=== PATIENT | male | born 1945 | race Caucasian/White ===

== ENCOUNTER → 2019-11-17 | Outpatient (CLI) | payer MEDICARE, OTHER ==
--- NOTE | 2019-11-17 11:56 | XR ---
EXAMINATION TYPE: XR wrist complete RT DATE OF EXAM: 11/17/2019 COMPARISON: NONE HISTORY: 74-year-old male right wrist injury, pain to the distal ulna TECHNIQUE: 3 views FINDINGS: Positive ulnar variance. The TFC calcifications are present. Small densities interposed at the ulnoca rpal joint measuring up to 3 mm. Mild overlying soft tissue swelling. No acute fracture or dislocatio n. IMPRESSION: 1. Some soft tissue swelling overlying the ulnar styloid process. This is nonspecific but could refle ct injury to the underlying TFCC, ECU, or its subsheath. 2. Tiny corticated ossific densities adjacent to the ulnar styloid process measuring up to 3 mm sugge sting sequela of remote injuries. 3. TFC calcification can be seen with CPPD. 4. Positive ulnar variance can predispose the patient to ulnar impaction syndrome though no suspiciou s bony changes are seen within the lunate at this time.
== END | disposition home or self-care (01) ==
LOC: RADXRYALE 11:13
PROVIDERS: ATTEND Physician Assistant
DX: S69.91XA Unspecified injury of right wrist, hand and finger(s), initial encounter (principal); M79.89 Other specified soft tissue disorders

== ENCOUNTER → 2019-12-22 | Outpatient (CLI) | payer MEDICARE, OTHER ==
--- NOTE | 2019-12-22 10:20 | US ---
EXAMINATION TYPE: US duplex aorta DATE OF EXAM: 12/22/2019 COMPARISON: NONE CLINICAL HISTORY: Z13.6 Screening for cardiovascular AAA. AAA EXAM MEASUREMENTS: Abdominal Aorta: Proximal: 1.7 x 1.7 cm Mid: 1.9 x 1.7 cm Distal: 1.3 x 1.3 cm Bifurcation: Not visualized due to bowel gas. IMPRESSION: Aortoiliac bifurcation is not visualized due to overlying bowel gas. Within the remaining portions of the abdominal aorta no sonographic evidence of aneurysm is seen.
== END | disposition home or self-care (01) ==
LOC: RADUSWWP 09:35
PROVIDERS: ATTEND Family Medicine
DX: Z13.6 Encounter for screening for cardiovascular disorders (principal)
CPT/HCPCS: 93979

== ENCOUNTER → 2019-12-22 | Outpatient (CLI) | payer MEDICARE, OTHER | END | disposition home or self-care (01) | LOC: LABWHC1 09:33 | PROVIDERS: ATTEND Internal Medicine Gastroenterology | DX: Z11.59 Encounter for screening for other viral diseases (principal) ==

== ENCOUNTER → 2019-12-25 | Day surgery (SDC) | payer MEDICARE, OTHER ==
[2019-12-24 11:37] VITALS: BMI 20.8
[~2019-12-25] MED LIST: LACTATED RINGERS 1,000 ML IV ONE; LACTATED RINGERS 1,000 ML IV SCH; LIDOCAINE 1% (10MG/ML) FOR IV START INTRADERMA ONE; PROPOFOL 10 MG/ML 20 ML VIAL IV ONE
[2019-12-25 08:09] VITALS: TEMP 97.8
--- NOTE | 2019-12-25 08:47 | P.PCN ---
Date of Procedure: 12/25/19 Procedure(s) Performed: BRIEF HISTORY: Patient is a 74-year-old pleasant white male scheduled for an elective colonoscopy as a part of evaluation of prior history of colon polyps. Last colonoscopy was 5 years ago. PROCEDURE PERFORMED: Colonoscopy with snare polypectomy. PREOPERATIVE DIAGNOSIS: History of colon polyps. IV sedation per Anesthesia. PROCEDURE: After informed consent was obtained, the patient, was brought into the endoscopy unit. IV sedation was administered by Anesthesia under continuous monitoring. Digital rectal examination was normal. Initially the Olympus CF-160 flexible video colonoscope was then inserted in the rectum, gradually advanced into the cecum without any difficulty. Careful examination was performed as the scope was gradually being withdrawn. Ileocecal valve and the appendiceal orifice were visualized and appeared normal. Prep was excellent. Mucosa of the cecum, appeared normal. In the ascending colon there was a 5 mm sessile polyp removed by snare polypectomy. In the transverse colon there was a 7 mm sessile polyp removed by snare polypectomy. In the descending colon there was a 1 cm broad- based polyp and a 5 mm sessile polyp removed by snare polypectomy. In the sigmoid colon there were 2 polyps measuring between 4-5 mm in size both of which were removed by snare polypectomy. Rest of the ascending colon, transverse colon, descending colon, sigmoid colon, and rectum appeared normal. Scattered left-sided diverticulosis seen. Retroflexion was performed in the rectum and no lesions were seen. The patient tolerated the procedure well. IMPRESSION: 5 mm ascending colon polyp status post snare polypectomy 7 mm sessile transverse colon polyp status post polypectomy 1 cm broad-based descending colon polyp status post polypectomy 5 mm 2 sigmoid colon polyps status post polypectomy Scattered sigmoid diverticula RECOMMENDATIONS: Findings of this examination were discussed with the patient as well as his family. He was advised to have a follow with the biopsy results and have a repeat surveillance colonoscopy in 3 years
[2019-12-25 08:50] VITALS: RESP 16
[2019-12-25 09:05] VITALS: BP 127/62; PULSE 62
== END ==
LOC: ORWHC2ENDO 07:50
PROVIDERS: ATTEND Internal Medicine Gastroenterology
DX: Z12.11 Encounter for screening for malignant neoplasm of colon (principal); D12.2 Benign neoplasm of ascending colon; D12.4 Benign neoplasm of descending colon; D12.5 Benign neoplasm of sigmoid colon; K57.30 Diverticulosis of large intestine without perforation or abscess without bleeding; I10 Essential (primary) hypertension; E78.5 Hyperlipidemia, unspecified; J44.9 Chronic obstructive pulmonary disease, unspecified; G25.81 Restless legs syndrome; F17.210 Nicotine dependence, cigarettes, uncomplicated; Z79.82 Long term (current) use of aspirin; Z79.899 Other long term (current) drug therapy; Z86.010 Personal history of colon polyps
CPT/HCPCS: 45385; J2704; 88305

== ENCOUNTER → 2020-05-19 | Outpatient (CLI) | payer MEDICARE, OTHER ==
--- NOTE | 2020-05-19 16:03 | US ---
EXAMINATION TYPE: US carotid duplex BILAT DATE OF EXAM: 05/19/2020 COMPARISON: NONE CLINICAL HISTORY: I65.22 Occlusion and stenosis of left carotid artery. Pt states possible bruit left side EXAM MEASUREMENTS: RIGHT: Peak Systolic Velocity (PSV) cm/sec ----- Right CCA: 57.2 ----- Right ICA: 83.1 ----- Right ECA: 109.5 ICA/CCA ratio: 1.5 RIGHT: End Diastole cm/sec ----- Right CCA: 0.0 ----- Right ICA: 10.6 ----- Right ECA: 0.0 LEFT: Peak Systolic Velocity (PSV) cm/sec ----- Left CCA: 86.4 ----- Left ICA: 280.0 ----- Left ECA: 157.6 ICA/CCA ratio: 3.2 LEFT: End Diastole cm/sec ----- Left CCA: 17.1 ----- Left ICA: 69.8 ----- Left ECA: 15.5 VERTEBRALS (direction of flow): Right Vertebral: Antegrade Left Vertebral: Antegrade Rhythm: Normal Significant atherosclerotic disease bilaterally, left greater than right. IMPRESSION: 1. Peak systolic velocity on the left suggests greater than 70% stenosis of the proximal left interna l carotid artery. 2. No hemodynamically significant stenosis on the right. Criteria for Assigning % of Stenosis / Diameter reduction (Estimation based on the indirect measurements of the internal carotid artery velocities (ICA PSV). 1. Normal (no stenosis)=ICA PSV < 125 cm/s: ratio < 2.0: ICA EDV<40 cm/s. 2. Less than 50% stenosis=ICA PSV < 125 cm/s: ratio < 2.0: ICA EDV<40 cm/s. 3. 50 to 69% stenosis=ICA PSV of 125 to 230 cm/s: ration 2.0 ? 4.0: ICA EDV 40-100 cm/s. 4. Greater than 70% stenosis to near occlusion= ICA PSV > 230 cm/s: ratio > 4.0: ICA EDV > 100 cm/s. 5. Near occlusion= ICA PSV velocities may be low or undetectable: variable ratio and ICA EDV. 6. Total occlusion=unable to detect flow.
== END | disposition home or self-care (01) ==
LOC: RADUSWWP 10:11
PROVIDERS: ATTEND Family Medicine
DX: I77.89 Other specified disorders of arteries and arterioles (principal)
CPT/HCPCS: 93880

== ENCOUNTER → 2020-11-18 | Outpatient (CLI) | payer MEDICARE, OTHER | END | disposition home or self-care (01) | LOC: LABWHC1 15:32 | PROVIDERS: ATTEND Internal Medicine Critical Care Medicine | DX: Z20.822 Contact with and (suspected) exposure to COVID-19 (principal); J18.9 Pneumonia, unspecified organism | CPT/HCPCS: U0003; C9803; U0005 ==

== ENCOUNTER → 2020-11-25 | Outpatient (CLI) | payer MEDICARE, OTHER ==
[2020-11-25 08:07] LABS: African American GFR (CKD) >90 (>60 ml/min/1.73 sqM); Blood Urea Nitrogen 19 mg/dL (9-20); Non-African American GFR(CKD) >90 (>60 ml/min/1.73 sqM)
--- NOTE | 2020-11-25 08:30 | CT ---
EXAMINATION TYPE: CT chest w con DATE OF EXAM: 11/25/2020 COMPARISON: X-rays November 17, 2020 and older study 2017 HISTORY: Pneumonia, unspecified organism CT DLP: 269.7 mGycm. Automated Exposure Control for Dose Reduction was Utilized. TECHNIQUE: CT scan of the thorax is performed following with IV Contrast, patient injected with 100 ml mL of Isovue 300. FINDINGS: LUNGS: Moderate to advanced underlying emphysematous change. Tiny left greater than right pleural eff usions Persistent right infrahilar groundglass opacities and reticulation with areas of consolidation . Persistent left basilar groundglass opacities and reticulation with consolidation in the lateral le ft lung base. Additional multifocal areas of peripheral atelectasis and/or consolidation. Increased A P diameter of the trachea consistent with underlying COPD. MEDIASTINUM: There are no greater than 1 cm hilar or mediastinal lymph nodes. No cardiomegaly or pe ricardial effusion is seen. There is three-vessel severe coronary artery calcification . Moderate mix ed plaque in the thoracic aorta extends into branch vessels. OTHER: No additional significant abnormality is seen. IMPRESSION: Moderate to advanced emphysematous change with multifocal areas of acute infiltrate and/o r edema bilaterally in the mid to lower lungs. Underlying nodules cannot entirely excluded. No obviou s concerning mass or adenopathy noted. Progress study advised.
== END | disposition home or self-care (01) ==
LOC: RADCTMAIN 07:09
PROVIDERS: ATTEND Internal Medicine Critical Care Medicine
DX: J18.9 Pneumonia, unspecified organism (principal)
CPT/HCPCS: 82565; 84520; 71260; 36415; Q9967

== ENCOUNTER 2020-12-14 11:19 | Inpatient (IN) | payer MEDICARE, OTHER ==
[2020-12-09 13:28] VITALS: BMI 18.6
[~2020-12-14 11:19] MED LIST changes: +ALBUTEROL NEB (CONC) 2.5 MG/0.5 ML INHALATION ONE; -LACTATED RINGERS 1,000 ML IV ONE; -LIDOCAINE 1% (10MG/ML) FOR IV START INTRADERMA ONE; +LIDOCAINE 1% (10MG/ML) FOR IV START INTRADERMA PRN; +LIDOCAINE 2% (PF) 20 MG/ML 5 ML VIAL INHALATION ONE; +LIDOCAINE VISCOUS 300 MG/15 ML CUP MUCOUS MEM ONE; -PROPOFOL 10 MG/ML 20 ML VIAL IV ONE
[2020-12-14] MEDS ORDERED: LIDOCAINE 1% (10MG/ML) FOR IV START INTRADERMA ONE (11:58)
[2020-12-14] MEDS ORDERED: ONDANSETRON 4 MG/2 ML VIAL ONE (12:00)
[2020-12-14] MEDS ORDERED: ONDANSETRON 4 MG/2 ML VIAL IVP ONE (12:01)
[2020-12-14 12:02] LABS: Glucose,Whole Blood 93 mg/dL (75-99)
[2020-12-14] MEDS ORDERED: ROCURONIUM 10 MG/ML (5 ML VIAL) IV ONE (12:05)
[2020-12-14] MEDS ORDERED: PHENYLEPHRINE-0.9% NACL SYG 1,000 MCG/10 ML SYRINGE ONE (12:05)
[2020-12-14] MEDS ORDERED: LIDOCAINE 1% INJ 10MG/ML (20 ML MDV) ONE (12:05)
[2020-12-14] MEDS ORDERED: SUCCINYLCHOLINE CHLORIDE 100 MG/5 ML SYR IV ONE (12:05)
[2020-12-14] MEDS ORDERED: PROPOFOL 10 MG/ML 20 ML VIAL IV ONE (12:05)
[2020-12-14] MEDS ORDERED: fentaNYL (PF) 50 MCG/ML 2 ML AMP ONE (12:05)
[2020-12-14] MEDS ORDERED: ALBUTEROL HFA INHALER INHALATION ONE (12:05)
--- NOTE | 2020-12-14 12:44 | P.PCN ---
Date of Procedure: 12/14/20 Preoperative Diagnosis: 1 COPD 2 bilateral consolidation most on the left lower lobe, rule out malignancy, rule out infection Postoperative Diagnosis: 1 COPD 2 bilateral consolidation most on the left lower lobe, rule out malignancy, rule out infection Procedure(s) Performed: Flexible bronchoscopy Airway inspection Transbronchial biopsy of the left lower lobe Bronchioloalveolar lavage of the left lower lobe Anesthesia: ZEINAB Surgeon: Eldon Giles Watershed Coordinator #1: Eryn Mays Estimated Blood Loss (ml): 0 Pathology: other Condition: stable Disposition: same day Operative Findings: This is a flexible bronchoscopy that was done in the endoscopy suite. The procedure was done under general anesthesia. The patient was induced and then placed on a mechanical ventilator. The patient was intubated and the intubation process was done by PRODUCT SAFETY COORDINATOR. After achieving adequate anesthesia, a regular that there was essentially orotracheal tube and following that the flexible bronchoscope was passed with orotracheal tube and an airway inspection was done. The tip of the ET tube was seen around 3 cm above the nehemiah. The distal trachea, main nehemiah and bilateral mainstem bronchi were patent and within normal limits. Examination of the right side included the right upper lobe bronchus that was trifurcated and later on the bronchoscope was moved to the bronchus intermedius, right middle lobe and right lower lobe and the various 10 segments of the right lung were inspected and there were within normal limits without any endobronchial lesions or tumors or mucous retention. Following that, the bronchoscope was moved to the left and examination of the left mainstem bronchus, left upper lobe bronchus and left lower lobe bronchus along with various 8 segments with visualized and the airways are patent within normal limits. Yet again, there was no evidence of any endobronchial tumors or lesions or mucous or purulent secretions. At this point, using fluoroscopic guidance, transbronchial biopsies of the left lower lobe was done. The area that was quite consolidated on the CAT scan was biopsied. The area was identified on the fluoroscopy and transbronchial biopsies utilizing the anterior and the lateral segment of the left lower lobe was done successfully obtaining around 6-7 passes without any evidence of endobronchial disease. Following that , a bronchioloalveolar lavage of the left lower lobe with him. Total of 120 cc of fluid was infused around 20 mL of bloody aspirate was suctioned back. No bedside complications. The patient remains hemodynamically stable. Patient remained having adequate oxygenation with a pulse ox of 100% throughout the procedure. The patient will be extubated and following that the patient be chest recovery in stable condition. Chest x-rays to follow rule out underlying pneumothorax. If things remain stable, the patient will be discharged home today the later stage. We'll continue to follow.
[2020-12-14] MEDS ORDERED: ACETAMINOPHEN TAB 325 MG TAB PO PRN (13:27)
[2020-12-14] MEDS ORDERED: NALOXONE 0.4 MG/ML 1 ML VIAL IV PRN (13:27)
[2020-12-14] MEDS ORDERED: IPRATROPIUM-ALBUTEROL 3 ML NEB INHALATION PRN (13:27)
[2020-12-14] MEDS ORDERED: propofoL 100 ML IV ONE (13:29)
--- NOTE | 2020-12-14 13:32 | XR ---
EXAMINATION TYPE: XR chest 1V DATE OF EXAM: 12/14/2020 COMPARISON: Chest x-ray dated 11/17/2020 HISTORY: Status post bronchoscopy, intubated TECHNIQUE: Single frontal view of the chest is obtained. FINDINGS: There has been interval placement of an endotracheal tube which is overlying the tracheal air column, there is a patient rotation, change in course of the trachea distal to the tube, correlat e for breath sounds. There is no evident pneumothorax. Bilateral airspace disease is somewhat more co nfluent than on prior exam. Prominence of pulmonary artery could be indicative of pulmonary artery hy pertension. Aorta is dense. Heart is within normal limits for size. IMPRESSION: Endotracheal tube as described. Correlate for pneumonia, edema. Report relayed to Tawana celis by telephone at the time of interpretation
[2020-12-14] MEDS ORDERED: NOREPINEPHRINE 4 MG in SODIUM CHLORIDE 0.9% 250 ML IV SCH (14:00)
[2020-12-14] MEDS: methylPREDNISolone SOD SUCCI 125 MG/2 ML VIAL IV SCH ×3 (14:03→23:58)
--- NOTE | 2020-12-14 14:05 | XR ---
EXAMINATION TYPE: XR chest 1V portable DATE OF EXAM: 12/14/2020 Comparison: 12/14/2020 Clinical History: 75-year-old male Tube placement Findings: ET tube is satisfactory. NG tube courses below the diaphragm. Heart borderline in size. Patchy and co nfluent bilateral airspace opacities, greatest in the mid and lower lung shows no significant change. Hyperinflation. Impression: COPD with superimposed bilateral airspace disease. Findings could reflect multifocal pneumonia or pul monary edema. No significant change.
--- NOTE | 2020-12-14 14:09 | P.CNPUL ---
History of Present Illness Consult date: 12/14/20 Reason for consult: dyspnea History of present illness: 75-year-old male patient with known history of advanced lung disease, chronic smoking [id number] smoking history. The patient has had significant limitation of exercise capacity over the years and the patient carries an FEV1 of 34% of predicted at baseline consistent with severe COPD. The patient has been maintained on a combination ofwixela and incruse an outpatient basis. He is post COVID-19 vaccination. He came to my office on 11/30/2020 feeling worsening shortness of breath. The patient was having worsening dyspnea and worsening limitation excess capacity with some dry cough and there was no significant sputum production. He was on oxygen 2 L per minute nasal cannula. Chest x-ray shows consolidation of the lungs mainly involving the lung bases more so on the left. He had no pleurisy. No hemoptysis. No significant sputum production. His room air pulse ox was as low as 80%. He was offered oxygen at 2 L per minute nasal cannula. He was given a prednisone burst taper no patient bases which improved his condition. Nevertheless, the symptoms recurred after the completed a course of steroids. Based on that, a CAT scan of the chest was done and the CAT scan showed moderate to advanced emphysematous changes bilaterally with areas of multifocal infiltrates in the mid and lower lung perez worse on the left. There was no obvious concerning mass or adenopathy seen. Based on these results, I recommended a bronchoscopy. I was quite hasn't initiated with a transbronchial biopsy based on the fact that the patient has advanced lung disease and he may not even tolerate the procedure. However, at a later stage, I decided to proceed with a biopsy also in addition to a bronchial lavage as there was a increased concern of malignancy including the possibility of bronchial alveolar carcinoma of the lungs. The patient came in on outpatient basis to undergo the bronchoscopy and a transbronchial biopsy and a lavage of the left lower lobe. He was already aware of the risks and benefits of the procedure. He was also added there is a possibility that the patient may end up having a pneumothorax or respiratory failure following the procedure. I performed the procedure successfully. Biopsies were obtained. Lavage of the left lower lobe was obtained. The patient was extubated. Within 20-25 minutes, the patient became progressively more short of breath. He became hypoxic. He had to be intubated in the intubation process was done by DIRECTOR EXPORT. Post intubation, the patient was brought in to the intensive care unit for further monitoring. I've already updated the regarding his condition. For now, the patient is intubated on mechanical ventilator. His assist-control mode at the rate of 26 with a tidal volume of 400 and FiO2 of 1% with a PEEP of 5. His peak airwat pressure is around 27. He was actively bronchospastic and wheezy post extubation, based on that the patient was given albuterol through his orotracheal tube and he was also given a dose of Solu-Medrol. Currently is in the intensive care unit. Chest x-ray and blood gases are still pending. He typically runs a lower blood pressure. His most recent blood pressure is with a mean of 50. For that reason, the patient is going to be receiving a bolus of fluid and pressors if needed. Anne catheter was inserted. The patient is currently off sedation with propofol wh ich is running at 50 mcg/kg per minute. He is well sedated and is quite successful the mechanical ventilator. Review of Systems ROS unobtainable: due to endotracheal tube Past Medical History Past Medical History: COPD, GERD/Reflux, Hyperlipidemia, Hypertension Additional Past Medical History / Comment(s): chronic hypoxic respiratory failure on oxygen 2 L NC, currently having episodes of low b/p History of Any Multi-Drug Resistant Organisms: None Reported Past Surgical History: Appendectomy Past Anesthesia/Blood Transfusion Reactions: No Reported Reaction Smoking Status: Current every day smoker - Past Family History Mother Family Medical History: No Reported History Father Additional Family Medical History / Comment(s): "black lung from working in a coal mine" Medications and Allergies Home Medications Medication Instructions Recorded Confirmed Type Albuterol Nebulized [Ventolin 2.5 mg INHALATION Q4H PRN 12/24/19 12/14/20 History Nebulized] Albuterol Sulfate [Proair Hfa] 1 - 2 puff INHALATION Q6HR PRN 12/24/19 12/14/20 History Aspirin 81 mg PO DAILY 12/24/19 12/14/20 History Carbidopa-Levodopa 25-100 mg 1 tab PO HS 12/24/19 12/14/20 History [Sinemet 25-100 mg] Metoprolol Tartrate [Lopressor] 100 mg PO BID 12/24/19 12/14/20 History Pravastatin Sodium [Pravachol] 10 mg PO DAILY 12/24/19 12/14/20 History Umeclidinium [place] [Incruse 1 puff INHALATION DAILY 12/24/19 12/14/20 History Ellipta] amLODIPine BESYLATE 10 mg PO QAM 12/24/19 12/14/20 History hydroCHLOROthiazide 25 mg PO QAM 12/24/19 12/14/20 History Ferrous Sulfate [Feosol] 325 mg PO DAILY 12/09/20 12/14/20 History Fluticasone/Salmeterol [Advair 1 inhalation PO BID 12/09/20 12/14/20 History 500-50 Diskus] Vitamin D3 (Unk Dose) 1 tab PO DAILY 12/09/20 12/14/20 History predniSONE 10 mg PO DAILY 12/09/20 12/14/20 History Allergies Allergy/AdvReac Type Severity Reaction Status Date / Time No Known Allergies Allergy Verified 12/14/20 11:39 Physical Exam Vitals: Vital Signs Temp Pulse Resp BP Pulse Ox 12/14/20 12:02 97.2 F L 66 16 130/71 100 Intake and Output 12/13/20 12/14/20 12/14/20 22:59 06:59 14:59 Intake Total 700 Balance 700 Intake: IV 700 Other: Weight 58.3 kg General Appearance synchronous the mechanical ventilator and currently the patient is on a assist-control mode at the rate of 26 with a tidal volume of 350 and FiO2 of 100% and a PEEP of 8. Head exam was generally normal. There was no scleral icterus or corneal arcus. Mucous membranes were moist. HEENT no pursed lip breathing, no jugular venous distention, no mucous membrane cyanosis, no perioral cyanosis, mallampati classification: class 1 Chest no retractions, no sternocleidomastoid muscle contractions, no supraclavicular retractions, no intercostal retractions, no decreased air movement, no rhonchi, no hyperinflation, (normal) adventitious sounds: rales / crackles: bilaterally: midlung perez, barrel chest, prolonged expiratory wheezing, decreased air movement Heart no right ventricular heave, no distant heart sounds, no s3 gallop, (normal) jugular vein: jugular venous distention: by 0cm, (normal) jugular vein GI bowel sounds: hyperactive (borborygmi), bowel sounds: diminished or absent Extremities no cyanosis, no clubbing, no edema Neurologic , the patient is sedated and the patient is calm and comfortable, currently on propofol. Results - Diagnostic Findings Chest x-ray: image reviewed Assessment and Plan Plan: 1 acute hypoxic respiratory failure, post bronchoscopy. Noted the procedure was done successfully. Please refer to the details of the procedure as stated in my operative note. The patient follows procedure, became progressively more short of breath. He had to be intubated and placed on mechanical ventilator and following that the patient got transferred to the intensive care unit for further care. 2 Bilateral pneumonia/consolidation The patient has bilateral patchy infiltrates and extensive consolidation of the left lower lobe with areas of nodularity. Based on the CAT scan findings, infections need to be considered. Possibility of bronchioalveolar adenocarcinoma cannot be completely excluded. COVID-19 testing was negative. Meanwhile, possibility of a bacterial pneumonia is felt to be less likely as the patient is not looking toxic and is not having any acute decompensation of his respiratory status. He has no signs of fever or chills or sputum production and he doesn't present as a typical case of bacterial pneumonia. Atypical infection such as mycobacterial infections cannot be completely ruled out. Fungal infections are felt to be less likely. Other or chest infections are felt to be less likely. COVID-19 testing came back negative. Based on all this, I recommended bronchoscopy. The bronchioloalveolar lavage can be done safely. I performed also left lower lobe biopsy as I felt that this can be done safely without compromising his pulmonary status. The patient is a high risk of developing lung collapse or pneumothorax if the biopsy is that this will be needed establish final diagnosis which may potentially include the possibility of malignancy. 3 Chronic hypoxemic respiratory failure secondary to above. 4 severe chronic obstructive pulmonary disease Patient has moderate to severe COPD. He is maintained on a combination of Wixela and Incruse. The patient's FEV1 is down to 36% at baseline and 42% post bronchodilation. despite his smoking, the patient is not having any worsening shortness of breath. No major drop in his FEV1 today which is in order of 40%. Maintained on a prednisone of 10 mg. 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% and the patient is being monitored by the PCP and Dr Crum 7 hypertensive disorder, BP is under adequate control for now 8 hyperlipidemia ,ncurrently on pravastatin and occasionally he is experiencing cramps and charley horses Plan Continue ventilator support Establish an art line and obtain a blood gas Repeated chest x-ray showed no evidence of any pneumothorax and the tube was positioned appropriately. Orogastric tube was also inserted Start the patient on DuoNeb nebulized treatments around the clock IV Solu Medrol 60 mg every 6 hours Put the patient empiric antibiotic coverage with IV Zosyn Heparin subcu for DVT prophylaxis Give the patient bolus of 1 L of IV fluids normal saline Obtain echocardiogram Use pressors if needed in the form of norepinephrine infusion Sedation with propofol Daily chest x-rays We'll continue to follow. Family is aware of the condition. I have elected discussion with them and expanded on the situation. We'll continue to follow make further recommendations based on his progress. Time with Patient: Greater than 30
--- NOTE | 2020-12-14 14:21 | P.PCN ---
Date of Procedure: 12/14/20 Preoperative Diagnosis: acute respiratory failure, COPD exacerbation Postoperative Diagnosis: same Procedure(s) Performed: Central line and arterial line insertion Anesthesia: local Surgeon: Eldon iGles Pathology: other Condition: critical Disposition: ICU Operative Findings: Indication: Hemodynamic monitoring/Intravenous access. A time-out was completed verifying correct patient, procedure, site, positioning, and implant(s) or special equipment if applicable. The patient was placed in a dependent position appropriate for central line placement based on the vein to be cannulated. The patient s left groin was prepped and draped in sterile fashion. 1% Lidocaine was used to anesthetize the surrounding skin area. A triple lumen 9F Cordis catheter was introduced into the common femoral vein using Seldinger technique. The catheter was threaded smoothly over the guide wire and appropriate blood return was obtained. Each lumen of the catheter was evacuated of air and flushed with sterile saline. The catheter was then sutured in place to the skin and a sterile dressing applied. Perfusion to the extremity distal to the point of catheter insertion was checked and found to be adequate. The patient tolerated the procedure well and there were no complications. Indication: Hemodynamic monitoring. A time-out was completed verifying correct patient, procedure, site, positioning, and implant(s) or special equipment if applicable. Allens test was performed to ensure adequate perfusion. The patient s left wrist was prepped and draped in sterile fashion. 1% Lidocaine was used to anesthetize the area. An 18G Arrow arterial line was introduced into the [radial/femoral] artery. The catheter was threaded over the guide wire and the needle was removed with appropriate pulsatile blood return. Blood loss was minimal. The catheter was then sutured in place to the skin and a sterile dressing applied. Perfusion to the extremity distal to the point of catheter insertion was checked and found to be adequate. The patient tolerated the procedure well and there were no complications.
[2020-12-14] MEDS: NOREPINEPHRINE 8 MG in SODIUM CHLORIDE 0.9% 250 ML IV SCH (14:24)
[2020-12-14] MEDS ORDERED: SODIUM CHLORIDE 0.9% 1,000 ML IV ONE ×2 (14:29→17:10)
[2020-12-14 14:30] LABS: ABG Base Excess -2.5 mmol/L; ABG HCO3 25 mmol/L (21-25); ABG Oxygen Saturation 94.1 % (94-97); ABG PCO2 59 mmHg (35-45); ABG PH 7.23 (7.35-7.45); ABG PO2 84 mmHg (83-108); ABG TCO2 27 mmol/L (19-24); Allen Test Performed? Yes
[2020-12-14 14:45] LABS: Basophils % (A) 0 %; Eosinophils # (A) 0.4 k/uL (0-0.7); Eosinophils % (A) 4 %; HCT 35.6 % (39.0-53.0); HGB 12.2 gm/dL (13.0-17.5); Lymphocytes # (A) 0.4 k/uL (1.0-4.8); Lymphocytes % (A) 4 %; MCH 30.3 pg (25.0-35.0); MCHC 34.3 g/dL (31.0-37.0); MCV 88.3 fL (80.0-100.0); Mean Platelet Volume 6.4; Monocytes # (A) 0.3 k/uL (0-1.0); Monocytes % (A) 3 %; Neutrophils # (A) 8.9 k/uL (1.3-7.7); Neutrophils % (A) 88 %; Platelet Count 321 k/uL (150-450); RBC 4.03 m/uL (4.30-5.90); RDW 14.7 % (11.5-15.5); WBC 10.1 k/uL (3.8-10.6)
--- NOTE | 2020-12-14 14:51 | FL ---
EXAMINATION TYPE: FL bronchoscopy DATE OF EXAM: 12/14/2020 COMPARISON: CT chest 11/25/2020 HISTORY: Left lower lobe biopsy Fluoroscopy support supplied to the referring clinician. See dictated report from pulmonary service, 33 seconds fluoroscopy time, single intraoperative image documents the procedure
[2020-12-14 14:57] LABS: ALT 11 U/L (4-49); AST 16 U/L (17-59); African American GFR (CKD) >90 (>60 ml/min/1.73 sqM); Albumin 2.6 g/dL (3.5-5.0); Alkaline Phosphatase 44 U/L (38-126); Anion Gap 3 mmol/L; Blood Urea Nitrogen 18 mg/dL (9-20); Calcium 7.9 mg/dL (8.4-10.2); Carbon Dioxide 24 mmol/L (22-30); Chloride 109 mmol/L (98-107); Glucose 140 mg/dL (74-99); Magnesium 1.7 mg/dL (1.6-2.3); Non-African American GFR(CKD) >90 (>60 ml/min/1.73 sqM); Potassium 4.2 mmol/L (3.5-5.1); Sodium 136 mmol/L (137-145); Total Bilirubin <0.1 mg/dL (0.2-1.3); Total Protein 5.3 g/dL (6.3-8.2)
[2020-12-14] MEDS: SODIUM CHLORIDE 0.9% 1,000 ML IV SCH (15:01)
[2020-12-14] MEDS: PANTOPRAZOLE 40 MG/10 ML VIAL IV SCH (15:02)
[2020-12-14 15:25] LABS: Appearance,Urine Cloudy (Clear); Bacteria,Urine Rare /hpf; Bilirubin,Urine Negative (Negative); Blood,Urine Negative (Negative); Color,Urine Yellow; Glucose,Urine (UA) Negative (Negative); Hyaline Casts,Urine 181 /lpf (0-2); Hyphae Yeast, Urine Rare /hpf; Ketones,Urine Negative (Negative); Leukocyte Esterase,Urine Negative (Negative); Mucus,Urine Moderate /hpf; Nitrite,Urine Negative (Negative); Protein,Urine 2+ (Negative); RBC,Urine 7 /hpf (0-5); Specific Gravity,Urine 1.021 (1.001-1.035); Squamous Epithelial Cell,Urine 5 /hpf (0-4); WBC,Urine 9 /hpf (0-5)
[2020-12-14] MEDS: PIPERACILLIN-TAZOBACTAM 3.375 GM in SODIUM CHLORIDE 0.9% 100 ML IVPB SCH ×2 (16:30→23:58)
[2020-12-14] MEDS: HEPARIN SODIUM,PORCINE/PF 5,000 UNIT/0.5 ML SYRINGE SQ SCH ×2 (16:30→23:58)
[2020-12-14] MEDS: IPRATROPIUM-ALBUTEROL 3 ML NEB INHALATION SCH ×2 (17:06→22:02)
[2020-12-14 17:12] LABS: Glucose,Whole Blood 132 mg/dL (75-99)
[2020-12-14] MEDS ORDERED: INSULIN ASPART (NovoLOG) 100 UNIT/ML VIAL SQ SCH (17:30)
--- NOTE | 2020-12-14 19:02 | P.HPIM ---
History of Present Illness 75-year-old male was admitted after posterior bronc respiratory failure. 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 After partially successful bronchoscopy patient went into respiratory failure and was subsequently intubated patient is presently on 80% FiO2 tidal volume of 400 and PEEP of 5 to set up respiratory of 26 with mild acidosis with pH of 7.2. Patient is pres ently on norepinephrine as well as propofol on mechanical ventilator. Chest x- ray showing extensive bilateral lower lobe infiltrates patient is being treated for pneumonia. is also on systemic steroids patient has advanced COPD with a FEV1 of for 34%. Patient is presently on Zosyn. Review of Systems Unable to obtain due to his clinical condition Past Medical History Past Medical History: COPD, GERD/Reflux, Hyperlipidemia, Hypertension Additional Past Medical History / Comment(s): chronic hypoxic respiratory failure on oxygen 2 L NC, currently having episodes of low b/p History of Any Multi-Drug Resistant Organisms: None Reported Past Surgical History: Appendectomy Past Anesthesia/Blood Transfusion Reactions: No Reported Reaction Smoking Status: Current every day smoker Past Alcohol Use History: None Reported Additional Past Alcohol Use History / Comment(s): started smoking at age 13,<1ppd Past Drug Use History: None Reported - Past Family History Mother Family Medical History: No Reported History Father Additional Family Medical History / Comment(s): "black lung from working in a coal mine" Medications and Allergies Home Medications Medication Instructions Recorded Confirmed Type Albuterol Nebulized [Ventolin 2.5 mg INHALATION Q4H PRN 12/24/19 12/14/20 History Nebulized] Albuterol Sulfate [Proair Hfa] 1 - 2 puff INHALATION Q6HR PRN 12/24/19 12/14/20 History Aspirin 81 mg PO DAILY 12/24/19 12/14/20 History Carbidopa-Levodopa 25-100 mg 1 tab PO HS 12/24/19 12/14/20 History [Sinemet 25-100 mg] Metoprolol Tartrate [Lopressor] 100 mg PO BID 12/24/19 12/14/20 History Pravastatin Sodium [Pravachol] 10 mg PO DAILY 12/24/19 12/14/20 History Umeclidinium Brooks [Incruse 1 puff INHALATION DAILY 12/24/19 12/14/20 History Ellipta] amLODIPine BESYLATE 10 mg PO QAM 12/24/19 12/14/20 History hydroCHLOROthiazide 25 mg PO QAM 12/24/19 12/14/20 History Ferrous Sulfate [Feosol] 325 mg PO DAILY 12/09/20 12/14/20 History Fluticasone/Salmeterol [Advair 1 inhalation PO BID 12/09/20 12/14/20 History 500-50 Diskus] Vitamin D3 (Unk Dose) 1 tab PO DAILY 12/09/20 12/14/20 History predniSONE 10 mg PO DAILY 12/09/20 12/14/20 History Allergies Allergy/AdvReac Type Severity Reaction Status Date / Time No Known Allergies Allergy Verified 12/14/20 11:39 Physical Exam Vitals: Vital Signs Temp Pulse Pulse Resp BP BP Pulse Ox 12/14/20 17:00 56 L 26 H 100 12/14/20 16:45 59 L 26 H 100 12/14/20 16:30 57 L 26 H 100 12/14/20 16:15 57 L 29 H 100 12/14/20 16:00 97.5 F L 58 L 30 H 100 12/14/20 15:45 58 L 27 H 100 12/14/20 15:30 58 L 29 H 99 12/14/20 15:15 60 26 H 98 12/14/20 15:00 59 L 31 H 95 12/14/20 14:45 58 L 33 H 90 L 12/14/20 14:30 62 31 H 89 L 12/14/20 14:15 63 27 H 72/48 90 L 12/14/20 14:00 65 33 H 70/44 72 L 12/14/20 13:45 97.5 F L 69 26 H 123/70 82 L 12/14/20 12:02 97.2 F L 66 16 130/71 100 Intake and Output 12/14/20 12/14/20 12/14/20 06:59 14:59 22:59 Intake Total 1764.316 230.546 Output Total 50 Balance 1764.316 180.546 Intake: IV 750 150 Sodium Chloride 0.9% 1, 50 150 000 ml @ 50 mls/hr IV . Q20H [facility] Rx#:[id number] Intake, IV Titration 1014.316 80.546 Amount Norepinephrine 8 mg In 0.733 40.669 Sodium Chloride 0.9% 250 ml @ 0.05 MCG/KG/MIN 5. 641 mls/hr IV .Q24H [facility] Rx#:[id number] Sodium Chloride 0.9% 1, 1000 000 ml @ 999 mls/hr IV . Q1H1M [facility] Rx#:[id number] propofoL 1,000 mg In 13.583 39.877 Empty Bag 1 bag @ Titrate IV .Q0M [facility] Rx#: [id number] Output: Urine 50 Other: Voiding Method Indwelling Catheter Weight 58.3 kg ABP, PAP, CO, CI - Last 8 Hours Arterial Blood Pressure 99/37 Arterial Blood Pressure 119/43 Arterial Blood Pressure 102/36 Arterial Blood Pressure 89/34 Arterial Blood Pressure 93/34 Arterial Blood Pressure 108/43 Arterial Blood Pressure 94/32 Arterial Blood Pressure 95/31 Arterial Blood Pressure 114/39 Arterial Blood Pressure 87/33 Arterial Blood Pressure 100/35 PHYSICAL EXAMINATION: GENERAL: Intubated sedated with the above-mentioned setting not in any acute distress. Well developed, well nourished. HEENT: Pupils are round and equally reacting to light. EOMI. No scleral icterus. No conjunctival pallor. Normocephalic, atraumatic. No pharyngeal erythema. No thyromegaly. CARDIOVASCULAR: S1 and S2 present. No murmurs, rubs, or gallops. PULMONARY: Chest is clear to auscultation, no wheezing or crackles. ABDOMEN: Soft, nontender, nondistended, normoactive bowel sounds. No palpable organomegaly. MUSCULOSKELETAL: No joint swelling or deformity. EXTREMITIES: No cyanosis, clubbing, or pedal edema. NEUROLOGICAL: Sedated SKIN: No rashes. Results CBC & Chem 7: 12/14/20 14:41 12/14/20 14:41 Labs: Abnormal Lab Results - Last 24 Hours (Table) 12/14/20 12/14/20 12/14/20 Range/Units 14:27 14:41 14:41 RBC 4.03 L (4.30-5.90) m/uL Hgb 12.2 L (13.0-17.5) gm/dL Hct 35.6 L (39.0-53.0) % Neutrophils # 8.9 H (1.3-7.7) k/uL Lymphocytes # 0.4 L (1.0-4.8) k/uL ABG pH 7.23 L (7.35-7.45) ABG pCO2 59 H (35-45) mmHg ABG Total CO2 27 H (19-24) mmol/L Sodium 136 L (137-145) mmol/L Chloride 109 H (98-107) mmol/L Creatinine 0.63 L (0.66-1.25) mg/dL Glucose 140 H (74-99) mg/dL POC Glucose (mg/dL) (75-99) mg/dL Calcium 7.9 L (8.4-10.2) mg/dL Total Bilirubin <0.1 L (0.2-1.3) mg/dL AST 16 L (17-59) U/L Total Protein 5.3 L (6.3-8.2) g/dL Albumin 2.6 L (3.5-5.0) g/dL Urine Protein (Negative) Urine RBC (0-5) /hpf Urine WBC (0-5) /hpf Urine WBC Clumps (None) /hpf Ur Squamous Epith Cells (0-4) /hpf Urine Bacteria (None) /hpf Hyaline Casts (0-2) /lpf Urine Mucus (None) /hpf 12/14/20 12/14/20 Range/Units 15:07 17:10 RBC (4.30-5.90) m/uL Hgb (13.0-17.5) gm/dL Hct (39.0-53.0) % Neutrophils # (1.3-7.7) k/uL Lymphocytes # (1.0-4.8) k/uL ABG pH (7.35-7.45) ABG pCO2 (35-45) mmHg ABG Total CO2 (19-24) mmol/L Sodium (137-145) mmol/L Chloride (98-107) mmol/L Creatinine (0.66-1.25) mg/dL Glucose (74-99) mg/dL POC Glucose (mg/dL) 132 H (75-99) mg/dL Calcium (8.4-10.2) mg/dL Total Bilirubin (0.2-1.3) mg/dL AST (17-59) U/L Total Protein (6.3-8.2) g/dL Albumin (3.5-5.0) g/dL Urine Protein 2+ H (Negative) Urine RBC 7 H (0-5) /hpf Urine WBC 9 H (0-5) /hpf Urine WBC Clumps Few H (None) /hpf Ur Squamous Epith Cells 5 H (0-4) /hpf Urine Bacteria Rare H (None) /hpf Hyaline Casts 181 H (0-2) /lpf Urine Mucus Moderate H (None) /hpf Thrombosis Risk Factor Assmnt - Choose All That Apply Any of the Below Risk Factors Present?: No Assessment and Plan Plan: -Acute hypoxic respiratory failure post-bronchoscopy. Patient is pleasant and mechanical ventilator, above-mentioned settings. Possibly secondary to bilateral pneumonia and consolidation patient is on antibiotics for bacterial pneumonia which is Zosyn. Covid 19 is negative -Chronic hypoxic respiratory failure secondary to COPD -Acute on chronic hypercapnic respiratory failure may be a competent of COPD exacerbation patient does have some respiratory acidosis patient is on Solu- Medrol at this time -Hypertension -Hyperlipidemia -Shock requiring norepinephrine visibly septic as we're considering pneumonia as a reason for respiratory failure. -Gastroesophageal reflux disease -Continued nicotine use -Parkinson's for which patient is on carbidopa levodopa -DVT prophylaxis subcutaneous heparin
[2020-12-14] MEDS: METOPROLOL TARTRATE 50 MG TAB PO SCH (19:47)
[2020-12-14] MEDS: CHLORHEXIDINE GLUCONATE 15 ML CUP MUCOUS MEM SCH (19:51)
[2020-12-14] MEDS: CARBIDOPA-LEVODOPA 25-100 MG 1 EACH TAB PO SCH (19:51)
[2020-12-14 21:53] LABS: ABG Base Excess -3.4 mmol/L; ABG HCO3 24 mmol/L (21-25); ABG Oxygen Saturation 98.1 % (94-97); ABG PCO2 53 mmHg (35-45); ABG PH 7.26 (7.35-7.45); ABG PO2 125 mmHg (83-108); ABG TCO2 25 mmol/L (19-24); Allen Test Performed? Yes
[2020-12-14] MEDS: SYMBICORT 160-4.5 MCG INHALER INHALATION SCH (22:02)
[2020-12-14] MEDS: fentaNYL (PF). 1,000 MCG in SODIUM CHLORIDE 0.9% 80 ML IV SCH (23:10)
[2020-12-14 23:57] LABS: Glucose,Whole Blood 146 mg/dL (75-99)
[2020-12-14] MEDS: INSULIN ASPART (NovoLOG) 100 UNIT/ML VIAL SQ SCH (23:58)
[2020-12-15] MEDS: IPRATROPIUM-ALBUTEROL 3 ML NEB INHALATION SCH ×6 (00:07→20:28)
[2020-12-15] MEDS: NOREPINEPHRINE 8 MG in SODIUM CHLORIDE 0.9% 250 ML IV SCH (03:20)
[2020-12-15 04:27] LABS: Basophils % (A) 0 %; Eosinophils % (A) 0 %; HCT 35.1 % (39.0-53.0); Lymphocytes # (A) 0.6 k/uL (1.0-4.8); Lymphocytes % (A) 5 %; MCH 29.9 pg (25.0-35.0); MCHC 34.3 g/dL (31.0-37.0); MCV 87.3 fL (80.0-100.0); Mean Platelet Volume 6.5; Monocytes # (A) 0.2 k/uL (0-1.0); Monocytes % (A) 2 %; Neutrophils # (A) 11.4 k/uL (1.3-7.7); Neutrophils % (A) 93 %; Platelet Count 386 k/uL (150-450); RBC 4.02 m/uL (4.30-5.90); RDW 14.7 % (11.5-15.5); WBC 12.3 k/uL (3.8-10.6)
[2020-12-15 04:31] LABS: African American GFR (CKD) >90 (>60 ml/min/1.73 sqM); Anion Gap 4 mmol/L; Blood Urea Nitrogen 14 mg/dL (9-20); Calcium 8.3 mg/dL (8.4-10.2); Carbon Dioxide 22 mmol/L (22-30); Chloride 110 mmol/L (98-107); Glucose 142 mg/dL (74-99); Non-African American GFR(CKD) >90 (>60 ml/min/1.73 sqM); Potassium 4.2 mmol/L (3.5-5.1); Sodium 136 mmol/L (137-145)
[2020-12-15 04:38] LABS: ABG Base Excess -3.4 mmol/L; ABG HCO3 23 mmol/L (21-25); ABG Oxygen Saturation 94.2 % (94-97); ABG PCO2 49 mmHg (35-45); ABG PH 7.28 (7.35-7.45); ABG PO2 78 mmHg (83-108); ABG TCO2 25 mmol/L (19-24); Allen Test Performed? Yes
[2020-12-15] MEDS: fentaNYL (PF). 1,000 MCG in SODIUM CHLORIDE 0.9% 80 ML IV SCH (05:02)
[2020-12-15 05:58] LABS: Glucose,Whole Blood 161 mg/dL (75-99)
[2020-12-15] MEDS: methylPREDNISolone SOD SUCCI 125 MG/2 ML VIAL IV SCH ×3 (05:59→19:10)
[2020-12-15] MEDS: SODIUM CHLORIDE 0.9% 1,000 ML IV SCH (06:00)
[2020-12-15] MEDS: INSULIN ASPART (NovoLOG) 100 UNIT/ML VIAL SQ SCH ×3 (06:01→19:08)
[2020-12-15] MEDS: SYMBICORT 160-4.5 MCG INHALER INHALATION SCH ×2 (07:45→20:28)
--- NOTE | 2020-12-15 08:18 | XR ---
EXAMINATION TYPE: XR chest 1V portable DATE OF EXAM: 12/15/2020 COMPARISON: Chest x-ray 12/14/2020 HISTORY: Intubated TECHNIQUE: Single frontal view of the chest is obtained. FINDINGS: Endotracheal tube and orogastric tube are again noted and are overlying appropriate positi on, distal tip of the orogastric tube is not included on exam, side-port is thought to be present wit hin the distal thoracic esophagus. Patient is rotated. Biapical pleural thickening is again noted. Bi lateral airspace disease is again seen. Heart is stable. Aorta is dense. There are overlying artifact s. IMPRESSION: Correlate for pneumonia, edema, ARDS. Orogastric tube as described.
[2020-12-15] MEDS: PANTOPRAZOLE 40 MG/10 ML VIAL IV SCH (08:30)
[2020-12-15] MEDS: HEPARIN SODIUM,PORCINE/PF 5,000 UNIT/0.5 ML SYRINGE SQ SCH ×2 (08:30→15:57)
[2020-12-15] MEDS: ASPIRIN 81 MG PO SCH (08:30)
[2020-12-15] MEDS: PIPERACILLIN-TAZOBACTAM 3.375 GM in SODIUM CHLORIDE 0.9% 100 ML IVPB SCH ×2 (08:30→15:57)
[2020-12-15] MEDS: METOPROLOL TARTRATE 50 MG TAB PO SCH (08:30)
[2020-12-15] MEDS: CHLORHEXIDINE GLUCONATE 15 ML CUP MUCOUS MEM SCH (08:30)
[2020-12-15] MEDS: PRAVASTATIN SODIUM 20 MG TAB PO SCH (08:31)
--- NOTE | 2020-12-15 10:20 | P.PN ---
Subjective Progress Note Date: 12/15/20 On today's evaluation of 12/15/2020, the patient is intubated on a mechanical ventilator. He is currently sedated with propofol which is running at 40 mcg/kg per minute and overnight he was also given fentanyl which is running at 1.5 mcg/kg/h. He is adequately sedated and is calm and comfortable. Note that while in propofol alone, the patient was still arousable and he was getting up and essentially communicating. In terms of his respiratory status, repeat chest x-ray showed no evidence of any pneumothorax. No palpitations from the biopsy. The chest x-ray from today showing COPD and diffuse bilateral airspace disease seen mainly in the right lower lobe and the left lower lobe. Note that a lot of these airspace diseases were present prior to the bronchoscopy. Biopsies of been completed and the results are still pending for now. The lavage that was obtained yesterday showed no microbial growth. The patient is currently covered with IV Zosyn as an empiric antibiotic coverage. Meanwhile, he remains on a mechanical ventilator, he is currently on assist control mode at the rate of 26 with an FiO2 of 60% with a PEEP of 8 and a tidal volume of 350. Peak airway pressure was around 26 earlier this morning. The blood gases from today showed a pH of 7.28 with a pCO2 of 49 and pO2 of 78. Less bronchospastic and wheezy compared to yesterday. Afebrile. Urine output is improved and the patient is producing around 30 mL an hour. Overnight she had to be placed on pressors to support his blood pressure. He typically runs a lower blood pressure and his systolic blood pressure is somewhat between 9200. We added pressors to augment his cardiac output and augment his blood pressure. This has worked nicely and norepinephrine is running at 0.1 microvascular kilogram per minute and this would be gradually weaned off. He remains nothing by mouth. He is on normal saline at the rate of 50 mL an hour. No other significant events otherwise for now. Troponins have been negative. Echocardiogram is and progress. Objective - Vital Signs Vital signs: Vital Signs Temp 97.4 F L 12/15/20 08:30 Pulse 60 12/15/20 09:30 Resp 20 12/15/20 09:30 BP 109/56 12/15/20 09:30 Pulse Ox 96 12/15/20 09:30 Intake & Output 12/14/20 12/15/20 12/15/20 18:59 06:59 18:59 Intake Total 3044.862 1134.614 405.188 Output Total 100 910 75 Balance 2944.862 224.614 330.188 Weight 58.3 kg 65.4 kg Intake: IV 950 650 150 Sodium Chloride 0.9% 1, 250 650 150 000 ml @ 50 mls/hr IV . Q20H [facility] Rx#:[id number] Intake, IV Titration 2094.862 484.614 195.188 Amount Norepinephrine 8 mg In 41.402 159.253 Sodium Chloride 0.9% 250 ml @ 0.05 MCG/KG/MIN 5. 641 mls/hr IV .Q24H [facility] Rx#:[id number] Piperacillin-Tazobactam 3 100 .375 gm In Sodium Chloride 0.9% 100 ml @ 25 mls/hr IVPB Q8HR [facility] Rx# :[id number] Sodium Chloride 0.9% 1, 1000 000 ml @ 999 mls/hr IV . Q1H1M [facility] Rx#:[id number] Sodium Chloride 0.9% 1, 1000 000 ml @ 999 mls/hr IV . Q1H1M [facility] Rx#:[id number] fentaNYL (PF). 1,000 mcg 70.4 In Sodium Chloride 0.9% 80 ml @ Per Protocol IV . Q0M [facility] Rx#:[id number] propofoL 1,000 mg In 53.460 254.961 95.188 Empty Bag 1 bag @ Titrate IV .Q0M [facility] Rx#: [id number] Oral 60 Output: Urine 100 910 75 Other: Voiding Method Indwelling Catheter Indwelling Catheter Indwelling Catheter ABP, PAP, CO, CI - Last Documented Arterial Blood Pressure 105/39 - Exam General Appearance synchronous the mechanical ventilator and currently the patient is on a assist-control mode at the rate of 26 with a tidal volume of 350 and FiO2 of 60% and a PEEP of 8. Head exam was generally normal. There was no scleral icterus or corneal arcus. Mucous membranes were moist. HEENT no pursed lip breathing, no jugular venous distention, no mucous membrane cyanosis, no perioral cyanosis, mallampati classification: class 1 Chest no retractions, no sternocleidomastoid muscle contractions, no supraclavicular retractions, no intercostal retractions, no decreased air movem ent, no rhonchi, no hyperinflation, (normal) adventitious sounds: rales / crackles: bilaterally: midlung perez, barrel chest, prolonged expiratory wheezing, decreased air movement Heart no right ventricular heave, no distant heart sounds, no s3 gallop, (normal) jugular vein: jugular venous distention: by 0cm, (normal) jugular vein GI bowel sounds: hyperactive (borborygmi), bowel sounds: diminished or absent Extremities no cyanosis, no clubbing, no edema Neurologic , the patient is sedated and the patient is calm and comfortable, currently on propofol. - Labs CBC & Chem 7: 12/15/20 04:05 12/15/20 04:05 Labs: Abnormal Lab Results - Last 24 Hours (Table) 12/14/20 12/14/20 12/14/20 Range/Units 14:27 14:41 14:41 WBC (3.8-10.6) k/uL RBC 4.03 L (4.30-5.90) m/uL Hgb 12.2 L (13.0-17.5) gm/dL Hct 35.6 L (39.0-53.0) % Neutrophils # 8.9 H (1.3-7.7) k/uL Lymphocytes # 0.4 L (1.0-4.8) k/uL ABG pH 7.23 L (7.35-7.45) ABG pCO2 59 H (35-45) mmHg ABG pO2 (83-108) mmHg ABG Total CO2 27 H (19-24) mmol/L ABG O2 Saturation (94-97) % Sodium 136 L (137-145) mmol/L Chloride 109 H (98-107) mmol/L Creatinine 0.63 L (0.66-1.25) mg/dL Glucose 140 H (74-99) mg/dL POC Glucose (mg/dL) (75-99) mg/dL Calcium 7.9 L (8.4-10.2) mg/dL Total Bilirubin <0.1 L (0.2-1.3) mg/dL AST 16 L (17-59) U/L Total Protein 5.3 L (6.3-8.2) g/dL Albumin 2.6 L (3.5-5.0) g/dL Urine Protein (Negative) Urine RBC (0-5) /hpf Urine WBC (0-5) /hpf Urine WBC Clumps (None) /hpf Ur Squamous Epith Cells (0-4) /hpf Urine Bacteria (None) /hpf Hyaline Casts (0-2) /lpf Urine Mucus (None) /hpf 12/14/20 12/14/20 12/14/20 Range/Units 15:07 17:10 21:50 WBC (3.8-10.6) k/uL RBC (4.30-5.90) m/uL Hgb (13.0-17.5) gm/dL Hct (39.0-53.0) % Neutrophils # (1.3-7.7) k/uL Lymphocytes # (1.0-4.8) k/uL ABG pH 7.26 L (7.35-7.45) ABG pCO2 53 H (35-45) mmHg ABG pO2 125 H (83-108) mmHg ABG Total CO2 25 H (19-24) mmol/L ABG O2 Saturation 98.1 H (94-97) % Sodium (137-145) mmol/L Chloride (98-107) mmol/L Creatinine (0.66-1.25) mg/dL Glucose (74-99) mg/dL POC Glucose (mg/dL) 132 H (75-99) mg/dL Calcium (8.4-10.2) mg/dL Total Bilirubin (0.2-1.3) mg/dL AST (17-59) U/L Total Protein (6.3-8.2) g/dL Albumin (3.5-5.0) g/dL Urine Protein 2+ H (Negative) Urine RBC 7 H (0-5) /hpf Urine WBC 9 H (0-5) /hpf Urine WBC Clumps Few H (None) /hpf Ur Squamous Epith Cells 5 H (0-4) /hpf Urine Bacteria Rare H (None) /hpf Hyaline Casts 181 H (0-2) /lpf Urine Mucus Moderate H (None) /hpf 12/14/20 12/15/20 12/15/20 Range/Units 23:56 04:05 04:05 WBC 12.3 H (3.8-10.6) k/uL RBC 4.02 L (4.30-5.90) m/uL Hgb 12.0 L (13.0-17.5) gm/dL Hct 35.1 L (39.0-53.0) % Neutrophils # 11.4 H (1.3-7.7) k/uL Lymphocytes # 0.6 L (1.0-4.8) k/uL ABG pH (7.35-7.45) ABG pCO2 (35-45) mmHg ABG pO2 (83-108) mmHg ABG Total CO2 (19-24) mmol/L ABG O2 Saturation (94-97) % Sodium 136 L (137-145) mmol/L Chloride 110 H (98-107) mmol/L Creatinine 0.46 L (0.66-1.25) mg/dL Glucose 142 H (74-99) mg/dL POC Glucose (mg/dL) 146 H (75-99) mg/dL Calcium 8.3 L (8.4-10.2) mg/dL Total Bilirubin (0.2-1.3) mg/dL AST (17-59) U/L Total Protein (6.3-8.2) g/dL Albumin (3.5-5.0) g/dL Urine Protein (Negative) Urine RBC (0-5) /hpf Urine WBC (0-5) /hpf Urine WBC Clumps (None) /hpf Ur Squamous Epith Cells (0-4) /hpf Urine Bacteria (None) /hpf Hyaline Casts (0-2) /lpf Urine Mucus (None) /hpf 12/15/20 12/15/20 Range/Units 04:31 05:56 WBC (3.8-10.6) k/uL RBC (4.30-5.90) m/uL Hgb (13.0-17.5) gm/dL Hct (39.0-53.0) % Neutrophils # (1.3-7.7) k/uL Lymphocytes # (1.0-4.8) k/uL ABG pH 7.28 L (7.35-7.45) ABG pCO2 49 H (35-45) mmHg ABG pO2 78 L (83-108) mmHg ABG Total CO2 25 H (19-24) mmol/L ABG O2 Saturation (94-97) % Sodium (137-145) mmol/L Chloride (98-107) mmol/L Creatinine (0.66-1.25) mg/dL Glucose (74-99) mg/dL POC Glucose (mg/dL) 161 H (75-99) mg/dL Calcium (8.4-10.2) mg/dL Total Bilirubin (0.2-1.3) mg/dL AST (17-59) U/L Total Protein (6.3-8.2) g/dL Albumin (3.5-5.0) g/dL Urine Protein (Negative) Urine RBC (0-5) /hpf Urine WBC (0-5) /hpf Urine WBC Clumps (None) /hpf Ur Squamous Epith Cells (0-4) /hpf Urine Bacteria (None) /hpf Hyaline Casts (0-2) /lpf Urine Mucus (None) /hpf Microbiology - Last 24 Hours (Table) 12/14/20 12:07 Gram Stain - Preliminary Bronchial Washings - Left Bronchial Washings Culture - Preliminary 12/14/20 12:07 Acid Fast Bacilli Culture - Preliminary Bronchial Washings - Left 12/14/20 12:07 Fungal Culture - Preliminary Bronchial Washings - Left Assessment and Plan Plan: 1 acute hypoxic respiratory failure, post bronchoscopy. Noted the procedure was done successfully. Please refer to the details of the procedure as stated in my operative note. The patient follows procedure, became progressively more short of breath. He had to be intubated and placed on mechanical ventilator and following that the patient got transferred to the intensive care unit for further care. The patient is still intubated on a mechanical ventilator. He is obviously less bronchospastic and wheezy compared to yesterday. Chest x-ray was noted. There is bilateral airspace disease. Biopsies of the still pending. Cultures are all negative. He is currently on IV Zosyn. He remains on IV Solu Medrol. Ever pressures are lower. He is still requiring low-dose pressors. 2 Bilateral pneumonia/consolidation The patient has bilateral patchy infiltrates and extensive consolidation of the left lower lobe with areas of nodularity. Based on the CAT scan findings, infections need to be considered. Possibility of bronchioalveolar adenocarcinoma cannot be completely excluded. COVID-19 testing was negative. Meanwhile, possibility of a bacterial pneumonia is felt to be less likely as the patient is not looking toxic and is not having any acute decompensation of his respiratory status. He has no signs of fever or chills or sputum production and he doesn't present as a typical case of bacterial pneumonia. Atypical infection such as mycobacterial infections cannot be completely ruled out. Fungal infections are felt to be less likely. Other or chest infections are felt to be less likely. COVID-19 testing came back negative. Based on all this, I recommended bronchoscopy. The bronchioloalveolar lavage can be done safely. I performed also left lower lobe biopsy as I felt that this can be done safely without compromising his pulmonary status. The patient is a high risk of developing lung collapse or pneumothorax if the biopsy is that this will be needed establish final diagnosis which may potentially include the possibility of malignancy. 3 Chronic hypoxemic respiratory failure secondary to above. 4 severe chronic obstructive pulmonary disease Patient has moderate to severe COPD. He is maintained on a combination of Wixela and Incruse. The patient's FEV1 is down to 36% at baseline and 42% post bronchodilation. despite his smoking, the patient is not having any worsening shortness of breath. No major drop in his FEV1 today which is in order of 40%. Maintained on a prednisone of 10 mg. 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 Plan Continue ventilator support, drop the FiO2 down to 50% of the PEEP down to 5 and the repeat blood gas in 2 hours DuoNeb nebulized treatments around the clock IV Solu Medrol 60 mg every 6 hours IV Zosyn Heparin subcu for DVT prophylaxisne Obtain echocardiogram and there is also still pending for now Wean off norepinephrine infusion Sedation with propofol and fentanyl infusion Daily chest x-rays We'll continue to follow. Family is aware of the condition. I have elected discussion with them and ex panded on the situation. We'll continue to follow make further recommendations based on his progress. I believe the patient may need to be stayed intubated for another 24 hours. We will monitor his progress. We'll monitor the blood gases. Monitored hemodynamics and hopefully wean off the pressors. Continue the steroids and antibiotics for another 24 hours. Awaiting final results of the biopsies. Possible extubation with the next 24-48 hours. We'll continue to follow. Critically care evaluation, more than Time with Patient: Greater than 30
[2020-12-15 11:18] LABS: ABG Base Excess -2.2 mmol/L; ABG HCO3 24 mmol/L (21-25); ABG Oxygen Saturation 91.8 % (94-97); ABG PCO2 45 mmHg (35-45); ABG PH 7.33 (7.35-7.45); ABG PO2 65 mmHg (83-108); ABG TCO2 25 mmol/L (19-24)
[2020-12-15 11:24] LABS: Allen Test Performed? no
[2020-12-15 11:39] LABS: Glucose,Whole Blood 130 mg/dL (75-99)
--- NOTE | 2020-12-15 12:40 | P.PN ---
Subjective 75-year-old male was admitted after posterior bronc respiratory failure. 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 After partially successful bronchoscopy patient went into respiratory failure and was subsequently intubated patient is presently on 80% FiO2 tidal volume of 400 and PEEP of 5 to set up respiratory of 26 with mild acidosis with pH of 7.2. Patient is presently on norepinephrine as well as propofol on mechanical ventilator. Chest x-ray showing extensive bilateral lower lobe infiltrates patient is being treated for pneumonia. is also on systemic steroids patient has advanced COPD with a FEV1 of for 34%. Patient is presently on Zosyn. 12/15/2020 Patient is doing well on the ventilator. Patient is on IV Zosyn at this time. Patient wheezing significantly improved patient's pressor support was discontinued patient is not on norepinephrine any more blood pressure is doing well. Patient remains on normal saline at 50 mL per hour. Echocardiogram is pending. Review of systems: Patient is intubated and sedated All inpatient medications were reviewed and appropriate changes in these medications as dictated in the interval history and assessment and plan. Objective - Vital Signs Vital signs: Vital Signs Temp 97.2 F L 12/15/20 12:00 Pulse 74 12/15/20 12:00 Resp 10 L 12/15/20 12:00 BP 117/56 12/15/20 12:00 Pulse Ox 92 L 12/15/20 12:00 Intake & Output 12/14/20 12/15/20 12/15/20 18:59 06:59 18:59 Intake Total 3044.862 1134.614 708.662 Output Total 100 910 135 Balance 2944.862 224.614 573.662 Weight 58.3 kg 65.4 kg Intake: IV 950 650 250 Sodium Chloride 0.9% 1, 250 650 250 000 ml @ 50 mls/hr IV . Q20H [facility] Rx#:[id number] Intake, IV Titration 2094.862 484.614 398.662 Amount Norepinephrine 8 mg In 41.402 159.253 138.401 Sodium Chloride 0.9% 250 ml @ 0.05 MCG/KG/MIN 5. 641 mls/hr IV .Q24H [facility] Rx#:[id number] Piperacillin-Tazobactam 3 100 .375 gm In Sodium Chloride 0.9% 100 ml @ 25 mls/hr IVPB Q8HR [facility] Rx# :[id number] Sodium Chloride 0.9% 1, 1000 000 ml @ 999 mls/hr IV . Q1H1M [facility] Rx#:[id number] Sodium Chloride 0.9% 1, 1000 000 ml @ 999 mls/hr IV . Q1H1M [facility] Rx#:[id number] fentaNYL (PF). 1,000 mcg 70.4 In Sodium Chloride 0.9% 80 ml @ Per Protocol IV . Q0M [facility] Rx#:[id number] propofoL 1,000 mg In 53.460 254.961 160.261 Empty Bag 1 bag @ Titrate IV .Q0M [facility] Rx#: [id number] Oral 60 Output: Urine 100 910 135 Other: Voiding Method Indwelling Catheter Indwelling Catheter Indwelling Catheter ABP, PAP, CO, CI - Last Documented Arterial Blood Pressure 150/48 - Exam PHYSICAL EXAMINATION: GENERAL: Intubated sedated with the above-mentioned setting not in any acute distress. Well developed, well nourished. HEENT: Pupils are round and equally reacting to light. EOMI. No scleral icterus. No conjunctival pallor. Normocephalic, atraumatic. No pharyngeal erythema. No thyromegaly. CARDIOVASCULAR: S1 and S2 present. No murmurs, rubs, or gallops. PULMONARY: Chest is clear to auscultation, no wheezing or crackles. ABDOMEN: Soft, nontender, nondistended, normoactive bowel sounds. No palpable organomegaly. MUSCULOSKELETAL: No joint swelling or deformity. EXTREMITIES: No cyanosis, clubbing, or pedal edema. NEUROLOGICAL: Sedated SKIN: No rashes. - Labs CBC & Chem 7: 12/15/20 04:05 12/15/20 04:05 Labs: Abnormal Lab Results - Last 24 Hours (Table) 12/14/20 12/14/20 12/14/20 Range/Units 14:27 14:41 14:41 WBC (3.8-10.6) k/uL RBC 4.03 L (4.30-5.90) m/uL Hgb 12.2 L (13.0-17.5) gm/dL Hct 35.6 L (39.0-53.0) % Neutrophils # 8.9 H (1.3-7.7) k/uL Lymphocytes # 0.4 L (1.0-4.8) k/uL ABG pH 7.23 L (7.35-7.45) ABG pCO2 59 H (35-45) mmHg ABG pO2 (83-108) mmHg ABG Total CO2 27 H (19-24) mmol/L ABG O2 Saturation (94-97) % Sodium 136 L (137-145) mmol/L Chloride 109 H (98-107) mmol/L Creatinine 0.63 L (0.66-1.25) mg/dL Glucose 140 H (74-99) mg/dL POC Glucose (mg/dL) (75-99) mg/dL Calcium 7.9 L (8.4-10.2) mg/dL Total Bilirubin <0.1 L (0.2-1.3) mg/dL AST 16 L (17-59) U/L Total Protein 5.3 L (6.3-8.2) g/dL Albumin 2.6 L (3.5-5.0) g/dL Urine Protein (Negative) Urine RBC (0-5) /hpf Urine WBC (0-5) /hpf Urine WBC Clumps (None) /hpf Ur Squamous Epith Cells (0-4) /hpf Urine Bacteria (None) /hpf Hyaline Casts (0-2) /lpf Urine Mucus (None) /hpf 12/14/20 12/14/20 12/14/20 Range/Units 15:07 17:10 21:50 WBC (3.8-10.6) k/uL RBC (4.30-5.90) m/uL Hgb (13.0-17.5) gm/dL Hct (39.0-53.0) % Neutrophils # (1.3-7.7) k/uL Lymphocytes # (1.0-4.8) k/uL ABG pH 7.26 L (7.35-7.45) ABG pCO2 53 H (35-45) mmHg ABG pO2 125 H (83-108) mmHg ABG Total CO2 25 H (19-24) mmol/L ABG O2 Saturation 98.1 H (94-97) % Sodium (137-145) mmol/L Chloride (98-107) mmol/L Creatinine (0.66-1.25) mg/dL Glucose (74-99) mg/dL POC Glucose (mg/dL) 132 H (75-99) mg/dL Calcium (8.4-10.2) mg/dL Total Bilirubin (0.2-1.3) mg/dL AST (17-59) U/L Total Protein (6.3-8.2) g/dL Albumin (3.5-5.0) g/dL Urine Protein 2+ H (Negative) Urine RBC 7 H (0-5) /hpf Urine WBC 9 H (0-5) /hpf Urine WBC Clumps Few H (None) /hpf Ur Squamous Epith Cells 5 H (0-4) /hpf Urine Bacteria Rare H (None) /hpf Hyaline Casts 181 H (0-2) /lpf Urine Mucus Moderate H (None) /hpf 12/14/20 12/15/20 12/15/20 Range/Units 23:56 04:05 04:05 WBC 12.3 H (3.8-10.6) k/uL RBC 4.02 L (4.30-5.90) m/uL Hgb 12.0 L (13.0-17.5) gm/dL Hct 35.1 L (39.0-53.0) % Neutrophils # 11.4 H (1.3-7.7) k/uL Lymphocytes # 0.6 L (1.0-4.8) k/uL ABG pH (7.35-7.45) ABG pCO2 (35-45) mmHg ABG pO2 (83-108) mmHg ABG Total CO2 (19-24) mmol/L ABG O2 Saturation (94-97) % Sodium 136 L (137-145) mmol/L Chloride 110 H (98-107) mmol/L Creatinine 0.46 L (0.66-1.25) mg/dL Glucose 142 H (74-99) mg/dL POC Glucose (mg/dL) 146 H (75-99) mg/dL Calcium 8.3 L (8.4-10.2) mg/dL Total Bilirubin (0.2-1.3) mg/dL AST (17-59) U/L Total Protein (6.3-8.2) g/dL Albumin (3.5-5.0) g/dL Urine Protein (Negative) Urine RBC (0-5) /hpf Urine WBC (0-5) /hpf Urine WBC Clumps (None) /hpf Ur Squamous Epith Cells (0-4) /hpf Urine Bacteria (None) /hpf Hyaline Casts (0-2) /lpf Urine Mucus (None) /hpf 12/15/20 12/15/20 12/15/20 Range/Units 04:31 05:56 11:12 WBC (3.8-10.6) k/uL RBC (4.30-5.90) m/uL Hgb (13.0-17.5) gm/dL Hct (39.0-53.0) % Neutrophils # (1.3-7.7) k/uL Lymphocytes # (1.0-4.8) k/uL ABG pH 7.28 L 7.33 L (7.35-7.45) ABG pCO2 49 H (35-45) mmHg ABG pO2 78 L 65 L (83-108) mmHg ABG Total CO2 25 H 25 H (19-24) mmol/L ABG O2 Saturation 91.8 L (94-97) % Sodium (137-145) mmol/L Chloride (98-107) mmol/L Creatinine (0.66-1.25) mg/dL Glucose (74-99) mg/dL POC Glucose (mg/dL) 161 H (75-99) mg/dL Calcium (8.4-10.2) mg/dL Total Bilirubin (0.2-1.3) mg/dL AST (17-59) U/L Total Protein (6.3-8.2) g/dL Albumin (3.5-5.0) g/dL Urine Protein (Negative) Urine RBC (0-5) /hpf Urine WBC (0-5) /hpf Urine WBC Clumps (None) /hpf Ur Squamous Epith Cells (0-4) /hpf Urine Bacteria (None) /hpf Hyaline Casts (0-2) /lpf Urine Mucus (None) /hpf 12/15/20 Range/Units 11:38 WBC (3.8-10.6) k/uL RBC (4.30-5.90) m/uL Hgb (13.0-17.5) gm/dL Hct (39.0-53.0) % Neutrophils # (1.3-7.7) k/uL Lymphocytes # (1.0-4.8) k/uL ABG pH (7.35-7.45) ABG pCO2 (35-45) mmHg ABG pO2 (83-108) mmHg ABG Total CO2 (19-24) mmol/L ABG O2 Saturation (94-97) % Sodium (137-145) mmol/L Chloride (98-107) mmol/L Creatinine (0.66-1.25) mg/dL Glucose (74-99) mg/dL POC Glucose (mg/dL) 130 H (75-99) mg/dL Calcium (8.4-10.2) mg/dL Total Bilirubin (0.2-1.3) mg/dL AST (17-59) U/L Total Protein (6.3-8.2) g/dL Albumin (3.5-5.0) g/dL Urine Protein (Negative) Urine RBC (0-5) /hpf Urine WBC (0-5) /hpf Urine WBC Clumps (None) /hpf Ur Squamous Epith Cells (0-4) /hpf Urine Bacteria (None) /hpf Hyaline Casts (0-2) /lpf Urine Mucus (None) /hpf Microbiology - Last 24 Hours (Table) 12/14/20 12:07 Gram Stain - Preliminary Bronchial Washings - Left Bronchial Washings Culture - Preliminary 12/14/20 12:07 Acid Fast Bacilli Culture - Preliminary Bronchial Washings - Left 12/14/20 12:07 Fungal Culture - Preliminary Bronchial Washings - Left Assessment and Plan Plan: -Acute hypoxic respiratory failure post-bronchoscopy. Patient is pleasant and mechanical ventilator, above-mentioned settings. Possibly secondary to bilateral pneumonia and consolidation patient is on antibiotics for bacterial pneumonia which is Zosyn. Covid 19 is negative -Chronic hypoxic respiratory failure secondary to COPD -Acute on chronic hypercapnic respiratory failure may be a competent of COPD exacerbation patient does have some respiratory acidosis patient is on Solu- Medrol at this time -Hypertension -Hyperlipidemia -Shock requiring norepinephrine visibly septic as we're considering pneumonia as a reason for respiratory failure. -Gastroesophageal reflux disease -Continued nicotine use -Parkinson's for which patient is on carbidopa levodopa -DVT prophylaxis subcutaneous heparin
[2020-12-15 13:34] LABS: ABG Base Excess -3.7 mmol/L; ABG HCO3 22 mmol/L (21-25); ABG Oxygen Saturation 95.2 % (94-97); ABG PCO2 40 mmHg (35-45); ABG PH 7.35 (7.35-7.45); ABG PO2 77 mmHg (83-108); ABG TCO2 23 mmol/L (19-24)
[2020-12-15 13:36] LABS: Allen Test Performed? no
--- NOTE | 2020-12-15 14:31 | ECHOF ---
Referral Reason:hypotension MEASUREMENTS -------- HEIGHT: 177.8 cm WEIGHT: 58.1 kg BP: 130/71 IVSd: 1.3 cm (0.6 - 1.1) LVIDd: 3.6 cm (3.9 - 5.3) LVPWd: 1.3 cm (0.6 - 1.1) EDV(Teich): 55 ml IVSs: 1.5 cm LVIDs: 2.3 cm LVPWs: 1.6 cm %IVS Thck: 11 % ESV(Teich): 18 ml EF(Teich): 67 % %FS: 37 % SV(Teich): 37 ml LA Diam: 3.0 cm (2.7 - 3.8) RVIDd: 3.7 cm (< 3.3) LALs A4C: 4.6 cm LAAs A4C: 11.9 cm LAESV A-L A4C: 26 ml LAESV MOD A4C: 25 ml LALs A2C: 5.1 cm LAAs A2C: 11.9 cm LAESV A-L A2C: 24 ml LAESV MOD A2C: 23 ml LAESV(A-L): 26 ml LAESV Index (A-L): 15.03 ml/m Ao Diam: 3.3 cm (2.0 - 3.7) AV Cusp: 1.9 cm (1.5 - 2.6) EPSS: 0.8 cm MV E [place]: 0.70 m/s MV DecT: 237 ms MV Dec [place]: 3.0 m/s MV A [place]: 0.85 m/s MV E/A Ratio: 0.83 MV PHT: 69 ms AV Vmax: 0.88 m/s AV maxP.10 mmHg TR Vmax: 3.32 m/s TR maxP.01 mmHg RAP: 15.00 mmHg RVSP: 59.01 mmHg MV EF SLOPE: 51.29 mm/s (70 - 150) MV EXCURSION: 13.67 mm (> 18.000) FINDINGS -------- Resting bradycardia (HR<60bpm). This was a technically good study. The left ventricular size is normal. There is mild concentric left ventricular hypertrophy. Overa left ventricular systolic function is normal with, an EF between 60 - 65 %. The right ventricle is mild to moderately enlarged. Normal LA size by volume 22+/-6 ml/m2. The right atrium is normal in size. Interatrial and interventricular septum intact. There is mild aortic valve sclerosis. The mitral valve is normal. Mild tricuspid regurgitation present. There is severe pulmonary hypertension. The right ventricul ar systolic pressure, as measured by Doppler, is 59.01mmHg. Trace/mild (physiologic) pulmonic regurgitation. The aortic root size is normal. Normal inferior vena cava with less than 50% inspiratory collapse consistent with estimated right atr ial pressure of 15 mmHg. There is no pericardial effusion. CONCLUSIONS -------- 1. Resting bradycardia (HR<60bpm). 2. The left ventricular size is normal. 3. There is mild concentric left ventricular hypertrophy. 4. Overall left ventricular systolic function is normal with, an EF between 60 - 65 %. 5. The right ventricle is mild to moderately enlarged. 6. There is mild aortic valve sclerosis. 7. Mild tricuspid regurgitation present. 8. There is severe pulmonary hypertension. 9. The right ventricular systolic pressure, as measured by Doppler, is 59.01mmHg. 10. Trace/mild (physiologic) pulmonic regurgitation. 11. Normal inferior vena cava with less than 50% inspiratory collapse consistent with estimated right atrial pressure of 15 mmHg. 12. There is no pericardial effusion. MOLD COOLER: Jennifer Duque RDCS
[2020-12-15 17:48] LABS: Glucose,Whole Blood 118 mg/dL (75-99)
[2020-12-15] MEDS: CARBIDOPA-LEVODOPA 25-100 MG 1 EACH TAB PO SCH (19:56)
[2020-12-15] MEDS: METOPROLOL TARTRATE 25 MG TAB PO SCH (19:56)
[2020-12-15 23:54] LABS: Glucose,Whole Blood 123 mg/dL (75-99)
[2020-12-16] MEDS: INSULIN ASPART (NovoLOG) 100 UNIT/ML VIAL SQ SCH ×5 (01:31→21:28)
[2020-12-16] MEDS: PIPERACILLIN-TAZOBACTAM 3.375 GM in SODIUM CHLORIDE 0.9% 100 ML IVPB SCH ×4 (01:42→23:41)
[2020-12-16] MEDS: HEPARIN SODIUM,PORCINE/PF 5,000 UNIT/0.5 ML SYRINGE SQ SCH ×4 (01:42→23:41)
[2020-12-16] MEDS: methylPREDNISolone SOD SUCCI 125 MG/2 ML VIAL IV SCH ×5 (01:42→23:41)
[2020-12-16 04:51] LABS: Basophils % (A) 0 %; Eosinophils % (A) 0 %; HGB 10.5 gm/dL (13.0-17.5); Lymphocytes # (A) 0.4 k/uL (1.0-4.8); Lymphocytes % (A) 5 %; MCH 30.2 pg (25.0-35.0); MCHC 34.9 g/dL (31.0-37.0); MCV 86.5 fL (80.0-100.0); Mean Platelet Volume 7.5; Monocytes # (A) 0.3 k/uL (0-1.0); Monocytes % (A) 4 %; Neutrophils % (A) 91 %; Platelet Count 238 k/uL (150-450); RBC 3.47 m/uL (4.30-5.90); RDW 14.9 % (11.5-15.5); WBC 8.8 k/uL (3.8-10.6)
[2020-12-16 05:03] LABS: African American GFR (CKD) >90 (>60 ml/min/1.73 sqM); Anion Gap 3 mmol/L; Blood Urea Nitrogen 17 mg/dL (9-20); Calcium 8.2 mg/dL (8.4-10.2); Carbon Dioxide 25 mmol/L (22-30); Chloride 109 mmol/L (98-107); Glucose 116 mg/dL (74-99); Non-African American GFR(CKD) >90 (>60 ml/min/1.73 sqM); Potassium 3.7 mmol/L (3.5-5.1); Sodium 137 mmol/L (137-145)
[2020-12-16] MEDS ORDERED: Potassium Replacement Protocol 1 EACH MISC MISCELLANE PRN (05:15)
[2020-12-16] MEDS ORDERED: POTASSIUM CHLORIDE ER 20 MEQ TAB.ER PO SCH (06:00)
[2020-12-16] MEDS: SODIUM CHLORIDE 0.9% 1,000 ML IV SCH ×2 (06:10→21:28)
--- NOTE | 2020-12-16 07:29 | XR ---
EXAMINATION TYPE: XR chest 1V portable DATE OF EXAM: 12/16/2020 COMPARISON: Chest x-ray 12/15/2020 HISTORY: Extubated, abnormal chest x-ray TECHNIQUE: Single frontal view of the chest is obtained. FINDINGS: Endotracheal tube and orogastric tube have been removed. Bilateral airspace disease shows a similar appearance. No evident pneumothorax. Hemidiaphragm remains obscured on the left, heart is stable. IMPRESSION: Interval extubation. Correlate for pneumonia
[2020-12-16] MEDS: METOPROLOL TARTRATE 25 MG TAB PO SCH ×2 (07:41→21:31)
[2020-12-16] MEDS: PANTOPRAZOLE 40 MG/10 ML VIAL IV SCH (07:41)
[2020-12-16] MEDS: ASPIRIN 81 MG PO SCH (07:41)
[2020-12-16] MEDS: PRAVASTATIN SODIUM 20 MG TAB PO SCH (07:41)
[2020-12-16] MEDS: SYMBICORT 160-4.5 MCG INHALER INHALATION SCH ×2 (07:47→21:08)
[2020-12-16] MEDS: IPRATROPIUM-ALBUTEROL 3 ML NEB INHALATION SCH ×4 (07:47→21:09)
--- NOTE | 2020-12-16 10:03 | P.PN ---
Subjective Progress Note Date: 12/16/20 On today's evaluation of 12/15/2020, the patient is intubated on a mechanical ventilator. He is currently sedated with propofol which is running at 40 mcg/kg per minute and overnight he was also given fentanyl which is running at 1.5 mcg/kg/h. He is adequately sedated and is calm and comfortable. Note that while in propofol alone, the patient was still arousable and he was getting up and essentially communicating. In terms of his respiratory status, repeat chest x-ray showed no evidence of any pneumothorax. No palpitations from the biopsy. The chest x-ray from today showing COPD and diffuse bilateral airspace disease seen mainly in the right lower lobe and the left lower lobe. Note that a lot of these airspace diseases were present prior to the bronchoscopy. Biopsies of been completed and the results are still pending for now. The lavage that was obtained yesterday showed no microbial growth. The patient is currently covered with IV Zosyn as an empiric antibiotic coverage. Meanwhile, he remains on a mechanical ventilator, he is currently on assist control mode at the rate of 26 with an FiO2 of 60% with a PEEP of 8 and a tidal volume of 350. Peak airway pressure was around 26 earlier this morning. The blood gases from today showed a pH of 7.28 with a pCO2 of 49 and pO2 of 78. Less bronchospastic and wheezy compared to yesterday. Afebrile. Urine output is improved and the patient is producing around 30 mL an hour. Overnight she had to be placed on pressors to support his blood pressure. He typically runs a lower blood pressure and his systolic blood pressure is somewhat between 9200. We added pressors to augment his cardiac output and augment his blood pressure. This has worked nicely and norepinephrine is running at 0.1 microvascular kilogram per minute and this would be gradually weaned off. He remains nothing by mouth. He is on normal saline at the rate of 50 mL an hour. No other significant events otherwise for now. Troponins have been negative. Echocardiogram is and progress. The patient is seen today 12/16/2020 in follow-up in the intensive care unit. He is currently resting quite comfortably in bed. He was successfully extubated yesterday. Currently on 2 L/m per nasal cannula with O2 saturations in the 90s. Chest x-ray continued to show bilateral airspace disease. Bronchial wash cultures reveal no growth to date. Transbronchial biopsy results reveal no evidence of malignancy. There is organizing pneumonia. Echocardiogram revealed preserved left ventricular systolic function with ejection fraction 60-65%. Severe pulmonary hypertension with an RVSP of 59 mmHg. No significant valvular heart disease. White count 8.8. Hemoglobin 10.5. Sodium 137. Potassium 3.7. Creatinine 0.47. Glucose 116. He remains on Symbicort, DuoNeb inhalations, IV Solu-Medrol. Antibiotics in the form of Zosyn. 0.9% normal saline at 50 MLS per hour. Heparin for DVT prophylaxis. Objective - Vital Signs Vital signs: Vital Signs Temp 97.5 F L 12/16/20 08:00 Pulse 86 12/16/20 09:00 Resp 15 12/16/20 09:45 BP 135/67 12/16/20 07:00 Pulse Ox 94 L 12/16/20 09:00 Intake & Output 12/15/20 12/16/20 12/16/20 18:59 06:59 18:59 Intake Total 1661.479 600 125 Output Total 355 560 340 Balance 1306.479 40 -215 Weight 60.4 kg Intake: IV 1005 600 100 Sodium Chloride 0.9% 1, 1005 600 100 000 ml @ 20 mls/hr IV . Q24H [facility] Rx#:[id number] Intake, IV Titration 596.479 25 Amount Norepinephrine 8 mg In 138.401 Sodium Chloride 0.9% 250 ml @ 0.05 MCG/KG/MIN 5. 641 mls/hr IV .Q24H [facility] Rx#:[id number] Piperacillin-Tazobactam 3 200 25 .375 gm In Sodium Chloride 0.9% 100 ml @ 25 mls/hr IVPB Q8HR [facility] Rx# :[id number] fentaNYL (PF). 1,000 mcg 91.8 In Sodium Chloride 0.9% 80 ml @ Per Protocol IV . Q0M [facility] Rx#:[id number] propofoL 1,000 mg In 166.278 Empty Bag 1 bag @ Titrate IV .Q0M [facility] Rx#: [id number] Oral 60 Output: Urine 355 560 340 Other: Voiding Method Indwelling Catheter Indwelling Catheter Indwelling Catheter ABP, PAP, CO, CI - Last Documented Arterial Blood Pressure 135/25 - Exam GENERAL EXAM: Alert, very pleasant 75-year-old gentleman, on 2 L nasal cannula, comfortable in no apparent distress. HEAD: Normocephalic. EYES: Normal reaction of pupils, equal size. NOSE: Clear with pink turbinates. THROAT: No erythema or exudates. NECK: No masses, no JVD. CHEST: No chest wall deformity. LUNGS: Equal air entry with coarse crackles in bilateral bases. CVS: S1 and S2 normal with no audible murmur, regular rhythm. ABDOMEN: No hepatosplenomegaly, normal bowel sounds, no guarding or rigidity. SPINE: No scoliosis or deformity SKIN: No rashes CENTRAL NERVOUS SYSTEM: No focal deficits, tone is normal in all 4 extremities. EXTREMITIES: There is no peripheral edema. No clubbing, no cyanosis. Peripheral pulses are intact. - Labs CBC & Chem 7: 12/16/20 04:34 12/16/20 04:34 Labs: Abnormal Lab Results - Last 24 Hours (Table) 12/15/20 12/15/20 12/15/20 Range/Units 11:12 11:38 13:32 RBC (4.30-5.90) m/uL Hgb (13.0-17.5) gm/dL Hct (39.0-53.0) % Neutrophils # (1.3-7.7) k/uL Lymphocytes # (1.0-4.8) k/uL ABG pH 7.33 L (7.35-7.45) ABG pO2 65 L 77 L (83-108) mmHg ABG Total CO2 25 H (19-24) mmol/L ABG O2 Saturation 91.8 L (94-97) % Chloride (98-107) mmol/L Creatinine (0.66-1.25) mg/dL Glucose (74-99) mg/dL POC Glucose (mg/dL) 130 H (75-99) mg/dL Calcium (8.4-10.2) mg/dL 12/15/20 12/15/20 12/16/20 Range/Units 17:46 23:53 04:34 RBC 3.47 L (4.30-5.90) m/uL Hgb 10.5 L (13.0-17.5) gm/dL Hct 30.0 L (39.0-53.0) % Neutrophils # 8.0 H (1.3-7.7) k/uL Lymphocytes # 0.4 L (1.0-4.8) k/uL ABG pH (7.35-7.45) ABG pO2 (83-108) mmHg ABG Total CO2 (19-24) mmol/L ABG O2 Saturation (94-97) % Chloride (98-107) mmol/L Creatinine (0.66-1.25) mg/dL Glucose (74-99) mg/dL POC Glucose (mg/dL) 118 H 123 H (75-99) mg/dL Calcium (8.4-10.2) mg/dL 12/16/20 Range/Units 04:34 RBC (4.30-5.90) m/uL Hgb (13.0-17.5) gm/dL Hct (39.0-53.0) % Neutrophils # (1.3-7.7) k/uL Lymphocytes # (1.0-4.8) k/uL ABG pH (7.35-7.45) ABG pO2 (83-108) mmHg ABG Total CO2 (19-24) mmol/L ABG O2 Saturation (94-97) % Chloride 109 H (98-107) mmol/L Creatinine 0.47 L (0.66-1.25) mg/dL Glucose 116 H (74-99) mg/dL POC Glucose (mg/dL) (75-99) mg/dL Calcium 8.2 L (8.4-10.2) mg/dL Microbiology - Last 24 Hours (Table) 12/14/20 12:07 Acid Fast Bacilli Smear - Final Bronchial Washings - Left Acid Fast Bacilli Culture - Preliminary Assessment and Plan Assessment: 1 acute hypoxic respiratory failure, post bronchoscopy. Noted the procedure was done successfully. Please refer to the details of the procedure as stated in the operative note. Following the procedure, the patient became progressively more short of breath. He had to be intubated and placed on mechanical ventilator and following that the patient got transferred to the intensive care unit for further care. He was successfully extubated yesterday. He is cu rrently awake and alert in no acute distress on 2 L/m per nasal cannula. Pathology revealed no evidence of malignancy. There is noted organizing pneumonia. He remains on IV Solu Medrol. Cultures are all negative. He is currently on IV Zosyn. 2 Bilateral pneumonia/consolidation The patient has bilateral patchy infiltrates and extensive consolidation of the left lower lobe with areas of nodularity. Based on the CAT scan findings, infection was considered versus malignancy. Pathology is revealing evidence of organizing pneumonia. Malignancy has been ruled out. COVID-19 testing was negat [place] 3 Chronic hypoxemic respiratory failure secondary to above. 4 severe chronic obstructive pulmonary disease Patient has moderate to severe COPD. The patient's FEV1 is down to 36% at baseline and 42% post bronchodilation. despite his smoking, the patient is not having any worsening shortness of breath. . Maintained on a prednisone of 10 mg. 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 Plan The patient was seen and evaluated by Dr. 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 Probable discharge in a.m. I, the cosigning physician, performed a history & physical examination of the patient. Lungs sounds with coarse crackles in the bilateral bases. Maintaining good O2 saturations in the 90s on 2 L/m per nasal cannula. I discussed the assessment and plan of care with my nurse practitioner, Annie Ortiz. I attest to the above note as dictated by her.
[2020-12-16 11:39] LABS: Glucose,Whole Blood 114 mg/dL (75-99)
[2020-12-16 16:34] LABS: Glucose,Whole Blood 109 mg/dL (75-99)
--- NOTE | 2020-12-16 17:10 | P.PN ---
Subjective Progress Note Date: 12/16/20 75-year-old male was admitted after posterior bronc respiratory failure. Patient with advanced COPD with the extensive multifocal infiltrates was seen and [facility] office was brought in by for elective bronchoscopy patient has extensive bilateral lower lobe infiltrates. After partially successful b ronchoscopy patient went into respiratory failure and was subsequently intubated patient is presently on 80% FiO2 tidal volume of 400 and PEEP of 5 to set up respiratory of 26 with mild acidosis with pH of 7.2. Patient is presently on norepinephrine as well as propofol on mechanical ventilator. Chest x-ray showing extensive bilateral lower lobe infiltrates patient is being treated for pneumonia. is also on systemic steroids patient has advanced COPD with a FEV1 of for 34%. Patient is presently on Zosyn. 12/16/2020 Patient is seen and evaluated in follow-up in the intensive care unit. He is currently resting quite comfortably in bed. He was successfully extubated yesterday. Currently on 2 L/m per nasal cannula with O2 saturations in the 90s. Chest x-ray continued to show bilateral airspace disease. Bronchial wash cultures reveal no growth to date. Transbronchial biopsy results reveal no evidence of malignancy. There is organizing pneumonia. Echocardiogram revealed preserved left ventricular systolic function with ejection fraction 60-65%. S evere pulmonary hypertension with an RVSP of 59 mmHg. No significant valvular heart disease. White count 8.8. Hemoglobin 10.5. Sodium 137. Potassium 3.7. Creatinine 0.47. Glucose 116. He remains on Symbicort, DuoNeb inhalations, IV Solu-Medrol. Antibiotics in the form of Zosyn. 0.9% normal saline at 50 MLS per hour. Heparin for DVT prophylaxis. Objective - Vital Signs Vital signs: Vital Signs Temp 97.8 F 12/16/20 10:22 Pulse 90 12/16/20 12:12 Resp 15 12/16/20 10:22 BP 158/56 12/16/20 10:22 Pulse Ox 97 12/16/20 10:22 Intake & Output 12/15/20 12/16/20 12/16/20 18:59 06:59 18:59 Intake Total 1661.479 600 125 Output Total 355 560 340 Balance 1306.479 40 -215 Weight 60.4 kg Intake: IV 1005 600 100 Sodium Chloride 0.9% 1, 1005 600 100 000 ml @ 20 mls/hr IV . Q24H [facility] Rx#:[id number] Intake, IV Titration 596.479 25 Amount Norepinephrine 8 mg In 138.401 Sodium Chloride 0.9% 250 ml @ 0.05 MCG/KG/MIN 5. 641 mls/hr IV .Q24H [facility] Rx#:[id number] Piperacillin-Tazobactam 3 200 25 .375 gm In Sodium Chloride 0.9% 100 ml @ 25 mls/hr IVPB Q8HR [facility] Rx# :[id number] fentaNYL (PF). 1,000 mcg 91.8 In Sodium Chloride 0.9% 80 ml @ Per Protocol IV . Q0M [facility] Rx#:[id number] propofoL 1,000 mg In 166.278 Empty Bag 1 bag @ Titrate IV .Q0M [facility] Rx#: [id number] Oral 60 Output: Urine 355 560 340 Other: Voiding Method Indwelling Catheter Indwelling Catheter Indwelling Catheter ABP, PAP, CO, CI - Last Documented Arterial Blood Pressure 135/25 - Exam GENERAL: Intubated sedated with the above-mentioned setting not in any acute distress. Well developed, well nourished. HEENT: Pupils are round and equally reacting to light. EOMI. No scleral icterus. No conjunctival pallor. Normocephalic, atraumatic. No pharyngeal erythema. No thyromegaly. CARDIOVASCULAR: S1 and S2 present. No murmurs, rubs, or gallops. PULMONARY: Chest is clear to auscultation, no wheezing or crackles. ABDOMEN: Soft, nontender, nondistended, normoactive bowel sounds. No palpable organomegaly. MUSCULOSKELETAL: No joint swelling or deformity. EXTREMITIES: No cyanosis, clubbing, or pedal edema. NEUROLOGICAL: Sedated SKIN: No rashes. - Labs CBC & Chem 7: 12/16/20 04:34 12/16/20 04:34 Labs: Abnormal Lab Results - Last 24 Hours (Table) 12/15/20 12/15/20 12/15/20 Range/Units 13:32 17:46 23:53 RBC (4.30-5.90) m/uL Hgb (13.0-17.5) gm/dL Hct (39.0-53.0) % Neutrophils # (1.3-7.7) k/uL Lymphocytes # (1.0-4.8) k/uL ABG pO2 77 L (83-108) mmHg Chloride (98-107) mmol/L Creatinine (0.66-1.25) mg/dL Glucose (74-99) mg/dL POC Glucose (mg/dL) 118 H 123 H (75-99) mg/dL Calcium (8.4-10.2) mg/dL 12/16/20 12/16/20 12/16/20 Range/Units 04:34 04:34 11:38 RBC 3.47 L (4.30-5.90) m/uL Hgb 10.5 L (13.0-17.5) gm/dL Hct 30.0 L (39.0-53.0) % Neutrophils # 8.0 H (1.3-7.7) k/uL Lymphocytes # 0.4 L (1.0-4.8) k/uL ABG pO2 (83-108) mmHg Chloride 109 H (98-107) mmol/L Creatinine 0.47 L (0.66-1.25) mg/dL Glucose 116 H (74-99) mg/dL POC Glucose (mg/dL) 114 H (75-99) mg/dL Calcium 8.2 L (8.4-10.2) mg/dL Microbiology - Last 24 Hours (Table) 12/14/20 12:07 Acid Fast Bacilli Smear - Final Bronchial Washings - Left Acid Fast Bacilli Culture - Preliminary Assessment and Plan Assessment: -Acute hypoxic respiratory failure post-bronchoscopy. Patient is pleasant and mechanical ventilator, above-mentioned settings. Possibly secondary to bilateral pneumonia and consolidation patient is on antibiotics for bacterial pneumonia which is Zosyn. Covid 19 is negative -Chronic hypoxic respiratory failure secondary to COPD -Acute on chronic hypercapnic respiratory failure may be a competent of COPD exacerbation patient does have some respiratory acidosis patient is on Solu- Medrol at this time -Hypertension -Hyperlipidemia -Shock requiring norepinephrine visibly septic as we're considering pneumonia as a reason for respiratory failure. -Gastroesophageal reflux disease -Continued nicotine use -Parkinson's for which patient is on carbidopa levodopa -DVT prophylaxis subcutaneous heparin
[2020-12-16] MEDS ORDERED: NICOTINE 21MG/24HR PATCH TRANSDERM ONE (21:00)
[2020-12-16 21:25] LABS: Glucose,Whole Blood 120 mg/dL (75-99)
[2020-12-16] MEDS: CARBIDOPA-LEVODOPA 25-100 MG 1 EACH TAB PO SCH (21:31)
[2020-12-17] MEDS: methylPREDNISolone SOD SUCCI 125 MG/2 ML VIAL IV SCH (05:47)
[2020-12-17 06:54] LABS: Glucose,Whole Blood 106 mg/dL (75-99)
[2020-12-17 08:11] VITALS: BP 150/75; RESP 16; TEMP 97.5
[2020-12-17] MEDS: ASPIRIN 81 MG PO SCH (08:46)
[2020-12-17] MEDS: HEPARIN SODIUM,PORCINE/PF 5,000 UNIT/0.5 ML SYRINGE SQ SCH (08:46)
[2020-12-17] MEDS: METOPROLOL TARTRATE 25 MG TAB PO SCH (08:46)
[2020-12-17] MEDS: PANTOPRAZOLE 40 MG/10 ML VIAL IV SCH (08:46)
[2020-12-17] MEDS: PIPERACILLIN-TAZOBACTAM 3.375 GM in SODIUM CHLORIDE 0.9% 100 ML IVPB SCH (08:46)
[2020-12-17] MEDS: INSULIN ASPART (NovoLOG) 100 UNIT/ML VIAL SQ SCH ×2 (08:47→14:13)
[2020-12-17] MEDS: PRAVASTATIN SODIUM 20 MG TAB PO SCH (08:47)
[2020-12-17] MEDS: SYMBICORT 160-4.5 MCG INHALER INHALATION SCH (09:03)
[2020-12-17] MEDS: IPRATROPIUM-ALBUTEROL 3 ML NEB INHALATION SCH ×2 (09:03→12:26)
[2020-12-17 11:16] LABS: Glucose,Whole Blood 90 mg/dL (75-99)
--- NOTE | 2020-12-17 11:59 | P.PN ---
Subjective Progress Note Date: 12/17/20 On today's evaluation of 12/15/2020, the patient is intubated on a mechanical ventilator. He is currently sedated with propofol which is running at 40 mcg/kg per minute and overnight he was also given fentanyl which is running at 1.5 mcg/kg/h. He is adequately sedated and is calm and comfortable. Note that while in propofol alone, the patient was still arousable and he was getting up and essentially communicating. In terms of his respiratory status, repeat chest x-ray showed no evidence of any pneumothorax. No palpitations from the biopsy. The chest x-ray from today showing COPD and diffuse bilateral airspace disease seen mainly in the right lower lobe and the left lower lobe. Note that a lot of these airspace diseases were present prior to the bronchoscopy. Biopsies of been completed and the results are still pending for now. The lavage that was obtained yesterday showed no microbial growth. The patient is currently covered with IV Zosyn as an empiric antibiotic coverage. Meanwhile, he remains on a mechanical ventilator, he is currently on assist control mode at the rate of 26 with an FiO2 of 60% with a PEEP of 8 and a tidal volume of 350. Peak airway pressure was around 26 earlier this morning. The blood gases from today showed a pH of 7.28 with a pCO2 of 49 and pO2 of 78. Less bronchospastic and wheezy compared to yesterday. Afebrile. Urine output is improved and the patient is producing around 30 mL an hour. Overnight she had to be placed on pressors to support his blood pressure. He typically runs a lower blood pressure and his systolic blood pressure is somewhat between 9200. We added pressors to augment his cardiac output and augment his blood pressure. This has worked nicely and norepinephrine is running at 0.1 microvascular kilogram per minute and this would be gradually weaned off. He remains nothing by mouth. He is on normal saline at the rate of 50 mL an hour. No other significant events otherwise for now. Troponins have been negative. Echocardiogram is and progress. The patient is seen today 12/16/2020 in follow-up in the intensive care unit. He is currently resting quite comfortably in bed. He was successfully extubated yesterday. Currently on 2 L/m per nasal cannula with O2 saturations in the 90s. Chest x-ray continued to show bilateral airspace disease. Bronchial wash cultures reveal no growth to date. Transbronchial biopsy results reveal no evidence of malignancy. There is organizing pneumonia. Echocardiogram revealed preserved left ventricular systolic function with ejection fraction 60-65%. Severe pulmonary hypertension with an RVSP of 59 mmHg. No significant valvular heart disease. White count 8.8. Hemoglobin 10.5. Sodium 137. Potassium 3.7. Creatinine 0.47. Glucose 116. He remains on Symbicort, DuoNeb inhalations, IV Solu-Medrol. Antibiotics in the form of Zosyn. 0.9% normal saline at 50 MLS per hour. Heparin for DVT prophylaxis. 12/17/2020, the patient is progressively improving. He is ambulating. The chest. The biopsies were consistent with organizing pneumonia. No malignancy was identified. Cultures of been negative. The patient is currently on IV Zosyn. He remains on IV Solu-Medrol. He is on Symbicort and DuoNeb nebulized treatments around the clock. Echocardiogram was normal. Left ventricular ejection fraction was normal. He is currently on oxygen at 2 L with a pulse ox of 93%. Objective - Vital Signs Vital signs: Vital Signs Temp 97.5 F L 12/17/20 08:00 Pulse 100 12/17/20 09:17 Resp 16 12/17/20 08:00 BP 150/75 12/17/20 08:00 Pulse Ox 93 L 12/17/20 08:00 Intake & Output 12/16/20 12/17/20 12/17/20 18:59 06:59 18:59 Intake Total 485 Output Total 340 Balance 145 Intake: IV 100 Sodium Chloride 0.9% 1, 100 000 ml @ 20 mls/hr IV . Q24H [facility] Rx#:[id number] Intake, IV Titration 25 Amount Piperacillin-Tazobactam 3 25 .375 gm In Sodium Chloride 0.9% 100 ml @ 25 mls/hr IVPB Q8HR [facility] Rx# :[id number] Oral 360 Output: Urine 340 Other: Voiding Method Indwelling Catheter Toilet Urinal # Voids 2 3 ABP, PAP, CO, CI - Last Documented Arterial Blood Pressure 135/25 - Exam General Appearance densities of oxygen by nasal cannula with a pulse ox of 92- 94%. Head exam was generally normal. There was no scleral icterus or corneal arcus. Mucous membranes were moist. HEENT no pursed lip breathing, no jugular venous distention, no mucous membrane cyanosis, no perioral cyanosis, mallampati classification: class 1 Chest no retractions, no sternocleidomastoid muscle contractions, no supraclavicular retractions, no intercostal retractions, no decreased air movement, no rhonchi, no hyperinflation, (normal) adventitious sounds: rales / crackles: bilaterally: midlung perez, barrel chest, prolonged expiratory wheezing, decreased air movement Heart no right ventricular heave, no distant heart sounds, no s3 gallop, (n ormal) jugular vein: jugular venous distention: by 0cm, (normal) jugular vein GI bowel sounds: hyperactive (borborygmi), bowel sounds: diminished or absent Extremities no cyanosis, no clubbing, no edema Neurologic , the patient is awake oriented and ambulating. No focal neurological deficits. - Labs CBC & Chem 7: 12/16/20 04:34 12/16/20 04:34 Labs: Abnormal Lab Results - Last 24 Hours (Table) 12/16/20 12/16/20 12/17/20 Range/Units 16:32 21:24 06:53 POC Glucose (mg/dL) 109 H 120 H 106 H (75-99) mg/dL Microbiology - Last 24 Hours (Table) 12/14/20 12:07 Gram Stain - Final Bronchial Washings - Left Bronchial Washings Culture - Final Assessment and Plan Plan: 1 acute hypoxic respiratory failure, post bronchoscopy. Noted the procedure was done successfully. The biopsies consistent with organizing pneumonia. No evidence of any leg incision at this point in time. Cultures of been negative. Consider underlying bronchiolitis obliterans with organizing pneumonia. The patient will be treated with a combination of antibiotics and steroids. Overall condition is improved and the patient is currently on 2 L of oxygen by nasal cannula. 2 Bilateral pneumonia/consolidation The patient has bilateral patchy infiltrates and extensive consolidation of the left lower lobe with areas of nodularity. Based on the CAT scan findings, infections need to be considered. Possibility of bronchioalveolar adenocarcinoma cannot be completely excluded. COVID-19 testing was negative. Meanwhile, possibility of a bacterial pneumonia is felt to be less likely as the patient is not looking toxic and is not having any acute decompensation of his respiratory status. He has no signs of fever or chills or sputum production and he doesn't present as a typical case of bacterial pneumonia. Atypical infection such as mycobacterial infections cannot be completely ruled out. Fungal infections are felt to be less likely. Other or chest infections are felt to be less likely. COVID-19 testing came back negative. Based on all this, I recommended bronchoscopy. He was done and it showed organizing pneumonia. Cultures of been all negative. 3 Chronic hypoxemic respiratory failure secondary to above. 4 severe chronic obstructive pulmonary disease Patient has moderate to severe COPD. He is maintained on a combination of Wixela and Incruse. The patient's FEV1 is down to 36% at baseline and 42% post bronchodilation. despite his smoking, the patient is not having any worsening shortness of breath. No major drop in his FEV1 today which is in order of 40%. Maintained on a prednisone of 10 mg. 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% and the patient is being monitored by the PCP and Dr Crum 7 hypertensive disorder, BP is under adequate control for now 8 hyperlipidemia ,ncurrently on pravastatin and occasionally he is experiencing cramps and charley horses 9 hypotension, recovered Plan Continue oxygen at 2 L per minute nasal cannula DuoNeb nebulized treatments around the clock Stopped IV Solu-Medrol and put the patient prednisone 40 mg by mouth daily to be continued on outpatient basis, till the patient sees me in the office Stop the IV Zosyn put the patient on Levaquin 750 mg by mouth daily basis Heparin subcu for DVT prophylaxis nicotine patch Continue home respiratory medications. Home oxygen. He is currently ablated with the help of physical therapy. Possible home today or within next 24 hours.
[2020-12-17] MEDS ORDERED: LEVOFLOXACIN 500 MG TAB PO SCH (12:00)
[2020-12-17] MEDS ORDERED: NICOTINE 14MG/24HR PATCH TRANSDERM SCH (12:00)
[2020-12-17 12:36] VITALS: PULSE 96
[2020-12-18] MEDS ORDERED: LEVOFLOXACIN 500 MG TAB PO SCH (09:00)
[2020-12-18] MEDS ORDERED: predniSONE 20 MG TAB PO SCH (09:00)
--- NOTE | 2021-01-06 08:17 | P.DS ---
Providers Date of admission: 12/14/20 13:14 Expected date of discharge: 12/17/20 Attending physician: Eldon Giles Consults: 12/14/20 13:22 Consult Physician Routine Consulting Provider: Eldon Giles Consult Reason/Comments: ICU management Do you want consulting provider notified?: Yes Placement Type Exists?: Yes Primary care physician: [facility] Course: 75-year-old male was admitted after posterior bronc respiratory failure. Patient with advanced COPD with the extensive multifocal infiltrates was seen and burling and joining supervisor office was brought in by for elective bronchoscopy patient has extensive bilateral lower lobe infiltrates. After partially successful bronchoscopy patient went into respiratory failure and was subsequently intubated patient is presently on 80% FiO2 tidal volume of 400 and PEEP of 5 to set up respiratory of 26 with mild acidosis with pH of 7.2. Patient is presently on norepinephrine as well as propofol on mechanical ventilator. Chest x-ray showing extensive bilateral lower lobe infiltrates patient is being treated for pneumonia. is also on systemic steroids patient has advanced COPD with a FEV1 of for 34%. Patient is presently on Zosyn. 12/16/2020 Patient is seen and evaluated in follow-up in the intensive care unit. He is currently resting quite comfortably in bed. He was successfully extubated yesterday. Currently on 2 L/m per nasal cannula with O2 saturations in the 90s. Chest x-ray continued to show bilateral airspace disease. Bronchial wash cultures reveal no growth to date. Transbronchial biopsy results reveal no evidence of malignancy. There is organizing pneumonia. Echocardiogram revealed preserved left ventricular systolic function with ejection fraction 60-65%. Severe pulmonary hypertension with an RVSP of 59 mmHg. No significant valvular heart disease. White count 8.8. Hemoglobin 10.5. Sodium 137. Potassium 3.7. Creatinine 0.47. Glucose 116. He remains on Symbicort, DuoNeb inhalations, IV Solu-Medrol. Antibiotics in the form of Zosyn. 0.9% normal saline at 50 MLS per hour. Heparin for DVT prophylaxis. Assessment: -Acute hypoxic respiratory failure post-bronchoscopy. Patient is pleasant and mechanical ventilator, above-mentioned settings. Possibly secondary to bilateral pneumonia and consolidation patient is on antibiotics for bacterial pneumonia which is Zosyn. Covid 19 is negative -Chronic hypoxic respiratory failure secondary to COPD -Acute on chronic hypercapnic respiratory failure may be a competent of COPD exacerbation patient does have some respiratory acidosis patient is on Solu- Medrol at this time -Hypertension -Hyperlipidemia -Shock requiring norepinephrine visibly septic as we're considering pneumonia as a reason for respiratory failure. -Gastroesophageal reflux disease -Continued nicotine use -Parkinson's for which patient is on carbidopa levodopa -DVT prophylaxis subcutaneous heparin Patient improved markedly with above treatment and was cleared for dc by pulmonary with following recommendations DuoNeb nebulized treatments around the clock Stopped IV Solu-Medrol and put the patient prednisone 40 mg by mouth daily to be continued on outpatient basis, till the patient sees me in the office Stop the IV Zosyn put the patient on Levaquin 750 mg by mouth daily basis Assessment: continue home meds and resume o2 as needed. follow up with dr giles in 1 week, call office saturday for appt. Plan - Discharge Summary Discharge Rx Participant: No New Discharge Prescriptions: New Levofloxacin [Levaquin] 500 mg PO Q24H #7 tab Nicotine 14Mg/24Hr Patch [Habitrol] 1 patch TRANSDERM DAILY #7 patch predniSONE [Deltasone] 40 mg PO DAILY #20 tab Pantoprazole Sodium [Protonix] 40 mg PO AC-BRKFST #30 tablet. Continue Albuterol Sulfate [Proair Hfa] 1 - 2 puff INHALATION Q6HR PRN PRN Reason: Shortness Of Breath Albuterol Nebulized [Ventolin Nebulized] 2.5 mg INHALATION Q4H PRN PRN Reason: Shortness Of Breath amLODIPine BESYLATE 10 mg PO QAM Pravastatin Sodium [Pravachol] 10 mg PO DAILY Aspirin 81 mg PO DAILY Umeclidinium Junior [Incruse Ellipta] 1 puff INHALATION DAILY Metoprolol Tartrate [Lopressor] 100 mg PO BID hydroCHLOROthiazide 25 mg PO QAM Carbidopa-Levodopa 25-100 mg [Sinemet 25-100 mg] 1 tab PO HS Fluticasone/Salmeterol [Advair 500-50 Diskus] 1 inhalation PO BID Ferrous Sulfate [Iron (65 MG Elemental)] 325 mg PO DAILY Vitamin D3 (Unk Dose) 1 tab PO DAILY Discontinued predniSONE 10 mg PO DAILY Discharge Medication List Albuterol Nebulized [Ventolin Nebulized] 2.5 mg INHALATION Q4H PRN 12/24/19 [History] Albuterol Sulfate [Proair Hfa] 1 - 2 puff INHALATION Q6HR PRN 12/24/19 [History] Aspirin 81 mg PO DAILY 12/24/19 [History] Carbidopa-Levodopa 25-100 mg [Sinemet 25-100 mg] 1 tab PO HS 12/24/19 [History] Metoprolol Tartrate [Lopressor] 100 mg PO BID 12/24/19 [History] Pravastatin Sodium [Pravachol] 10 mg PO DAILY 12/24/19 [History] Umeclidinium Junior [Incruse Ellipta] 1 puff INHALATION DAILY 12/24/19 [History] amLODIPine BESYLATE 10 mg PO QAM 12/24/19 [History] hydroCHLOROthiazide 25 mg PO QAM 12/24/19 [History] Ferrous Sulfate [Iron (65 MG Elemental)] 325 mg PO DAILY 12/09/20 [History] Fluticasone/Salmeterol [Advair 500-50 Diskus] 1 inhalation PO BID 12/09/20 [History] Vitamin D3 (Unk Dose) 1 tab PO DAILY 12/09/20 [History] Levofloxacin [Levaquin] 500 mg PO Q24H #7 tab 12/17/20 [Rx] Nicotine 14Mg/24Hr Patch [Habitrol] 1 patch TRANSDERM DAILY #7 patch 12/17/20 [Rx] Pantoprazole Sodium [Protonix] 40 mg PO AC-BRKFST #30 tablet. 12/17/20 [Rx] predniSONE [Deltasone] 40 mg PO DAILY #20 tab 12/17/20 [Rx] Follow up Appointment(s)/Referral(s): Eldon Giles MD [STAFF PHYSICIAN] - 1 Week Patient Instructions/Handouts: Bronchiolitis (DC) Discharge Disposition: HOME SELF-CARE
== END 2020-12-17 15:13 | disposition home or self-care (01) | DRG 871 ==
LOC: ORWHC2ENDO 11:19 → 2SICU 13:14 → 4SSUR 12-16 09:55
PROVIDERS: ADMIT Hospitalist; ATTEND Internal Medicine Critical Care Medicine
PROC: 3E033XZ Introduction of Vasopressor into Peripheral Vein, Percutaneous Approach (ICD-10-PCS; 2020-12-14)
PROC: 4A133J1 Monitoring of Arterial Pulse, Peripheral, Percutaneous Approach (ICD-10-PCS; 2020-12-14)
PROC: 4A133B1 Monitoring of Arterial Pressure, Peripheral, Percutaneous Approach (ICD-10-PCS; 2020-12-14)
PROC: 06HY33Z Insertion of Infusion Device into Lower Vein, Percutaneous Approach (ICD-10-PCS; 2020-12-14)
PROC: 03HY32Z Insertion of Monitoring Device into Upper Artery, Percutaneous Approach (ICD-10-PCS; 2020-12-14)
PROC: 5A1945Z Respiratory Ventilation, 24-96 Consecutive Hours (ICD-10-PCS; principal; 2020-12-14 12:00)
PROC: 0BH17EZ Insertion of Endotracheal Airway into Trachea, Via Natural or Artificial Opening (ICD-10-PCS; principal; 2020-12-14 12:00)
PROC: 0D9670Z Drainage of Stomach with Drainage Device, Via Natural or Artificial Opening (ICD-10-PCS; principal; 2020-12-14 12:00)
PROC: 0BDJ8ZX Extraction of Left Lower Lung Lobe, Via Natural or Artificial Opening Endoscopic, Diagnostic (ICD-10-PCS; 2020-12-14 12:00)
PROC: 0B9J8ZX Drainage of Left Lower Lung Lobe, Via Natural or Artificial Opening Endoscopic, Diagnostic (ICD-10-PCS; 2020-12-14 12:00)
DX: A41.9 Sepsis, unspecified organism (principal); J96.22 Acute and chronic respiratory failure with hypercapnia; J96.21 Acute and chronic respiratory failure with hypoxia; R65.21 Severe sepsis with septic shock; J15.9 Unspecified bacterial pneumonia; E87.2 Acidosis; J44.0 Chronic obstructive pulmonary disease with (acute) lower respiratory infection; J44.1 Chronic obstructive pulmonary disease with (acute) exacerbation; J84.89 Other specified interstitial pulmonary diseases; I27.20 Pulmonary hypertension, unspecified; G20 Parkinson's disease; I10 Essential (primary) hypertension; I65.29 Occlusion and stenosis of unspecified carotid artery; G25.81 Restless legs syndrome; E78.5 Hyperlipidemia, unspecified; K21.9 Gastro-esophageal reflux disease without esophagitis; F17.210 Nicotine dependence, cigarettes, uncomplicated; Z71.6 Tobacco abuse counseling; Z99.81 Dependence on supplemental oxygen; Z79.82 Long term (current) use of aspirin; Z79.52 Long term (current) use of systemic steroids; Z79.51 Long term (current) use of inhaled steroids; Z79.899 Other long term (current) drug therapy; Z90.49 Acquired absence of other specified parts of digestive tract; Z98.890 Other specified postprocedural states; Z82.49 Family history of ischemic heart disease and other diseases of the circulatory system; Z83.6 Family history of other diseases of the respiratory system; Z84.89 Family history of other specified conditions
CPT/HCPCS: 31624; 31628; 71045; 80048; 80053; 81001; 82805; 83735; 84484; 85025; 87070; 87102; 87116; 87205; 87206; 87252; 87496; 87498; 87502; 87529; 87634; 87798; 88108; 88305; 93306; 94002; 94003; 94640

== ENCOUNTER → 2021-08-15 | Outpatient (CLI) | payer MEDICARE, OTHER ==
--- NOTE | 2021-08-15 13:54 | XR ---
EXAMINATION TYPE: XR chest 2V DATE OF EXAM: 08/15/2021 COMPARISON: 05/04/2021 TECHNIQUE: PA and lateral views submitted. HISTORY: Shortness of breath FINDINGS: The lungs are clear and there is no pneumothorax, pleural effusion, or focal pneumonia. Biapical pl eural thickening. Diffuse hyperinflation. Diffuse osteopenia. Arthropathy shoulders. Atherosclerotic change aorta. Degenerative changes IMPRESSION: 1.. Coarsened interstitium. COPD correlate for mild chronic interstitial lung disease..
== END | disposition home or self-care (01) ==
LOC: RADXRYALE 13:44
PROVIDERS: ATTEND Physician Assistant Medical
DX: J44.9 Chronic obstructive pulmonary disease, unspecified (principal); J98.4 Other disorders of lung
CPT/HCPCS: 71046

== ENCOUNTER → 2022-02-12 | Outpatient (CLI) | payer MEDICARE, OTHER ==
--- NOTE | 2022-02-12 15:47 | XR ---
EXAMINATION TYPE: XR chest 2V DATE OF EXAM: 02/12/2022 COMPARISON: Chest x-ray 01/10/[address] 11/25/2020. HISTORY: Shortness of breath TECHNIQUE: Frontal and lateral views of the chest are obtained. FINDINGS: Prominent lung volume may be indicative of underlying COPD. Some prominence of interstitium , there is underlying emphysema. There is no focal air space opacity, pleural effusion, or pneumothor ax seen. The cardiac silhouette size is within normal limits. Biapical scarring present within the l ungs. The aorta is dense. Eventration of right diaphragm. Prominence of pulmonary artery could be due to pulmonary artery hypertension. The osseous structures are intact, there is underlying spondylosis . IMPRESSION: No acute cardiopulmonary process. Emphysema. Possible underlying interstitial lung disea se
== END | disposition home or self-care (01) ==
LOC: RADXRYALE 13:47
PROVIDERS: ATTEND Physician Assistant Medical
DX: J43.9 Emphysema, unspecified (principal)
CPT/HCPCS: 71046

== ENCOUNTER → 2022-08-17 | Outpatient (CLI) | payer MEDICARE, OTHER ==
[2022-08-17 23:03] LABS: Basophils # (A) 0.02 X 10*3/uL (0.00-0.10); Basophils % (A) 0.2 %; Eosinophils # (A) 0.05 X 10*3/uL (0.04-0.35); Eosinophils % (A) 0.5 %; HCT 38.7 % (39.6-50.0); HGB 12.6 g/dL (13.0-17.0); Immature Grans, Automated 0.4 %; Lymphocytes # (A) 0.48 X 10*3/uL (0.90-5.00); Lymphocytes % (A) 4.3 %; MCH 30.3 pg (27.0-32.0); MCHC 32.6 g/dL (32.0-37.0); Mean Platelet Volume 10.1 fL (9.5-12.2); Monocytes # (A) 0.48 X 10*3/uL (0.20-1.00); Monocytes % (A) 4.3 %; NRBC Per 100 WBC 0 /100 WBCS (0.0-0.0); Neutrophils % (A) 90.3 %; Platelet Count 284 X 10*3/uL (140-440); RBC 4.16 X 10*6/uL (4.40-5.60); RDW 13.2 % (11.5-14.5); WBC 11.07 X 10*3/uL (4.50-10.00)
[2022-08-17 23:23] LABS: African American GFR (CKD) 95.2 (60.0-200.0); Albumin 4.1 g/dL (3.8-4.9); Albumin/Globulin Ratio 1.6 (1.60-3.17); Anion Gap 14.4 mmol/L (10.00-18.00); BUN/Creat Ratio 23.03 Ratio (12.00-20.00); Blood Urea Nitrogen 20.7 mg/dL (9.0-27.0); Carbon Dioxide 24.1 mmol/L (20.0-27.5); Globulin 2.6 g/dL (1.6-3.3); Non-African American GFR(CKD) 82.1 (60.0-200.0); Potassium 3.9 mmol/L (3.5-5.5); Total Bilirubin 0.6 mg/dL (0.30-1.20); Total Protein 6.7 g/dL (6.2-8.2)
== END | disposition home or self-care (01) ==
LOC: LABWHC1 14:03
PROVIDERS: ATTEND Internal Medicine Critical Care Medicine
DX: J44.9 Chronic obstructive pulmonary disease, unspecified (principal)
CPT/HCPCS: 36415; 80053; 84443; 85025

== ENCOUNTER → 2022-10-05 | Outpatient (CLI) | payer MEDICARE, OTHER ==
--- NOTE | 2022-10-05 18:21 | CA ---
Transthoracic Echo Report Name: Darius Carnes Age: 77 Gender: M : 1945 Exam Date: 10/05/2022 13:26 Exam Location: [facility] Ht (in): 68 Wt (lb): 160 Ordering Physician: Mu Franklin DO Attending/Referring Phys: Carline Li PAC [place] Operator Humble Roland RDCS Procedure CPT: Indications: I10 R06.02 Cardiac Hx: COPD;HTN; CP; Technical Quality: Fair Contrast 1: Total Dose (mL): Contrast 2: Total Dose (mL): MEASUREMENTS (Male / Female) Normal Values FINDINGS Left Ventricle Left ventricular ejection fraction is estimated at 55-60 %. Septal hypertrophy. Grade 1 diastolic dysfunction. Normal basal systolic function. Right Ventricle Normal right ventricular size. RVSP- 42 mm Hg. Right Atrium Mild right atrial dilatation. Left Atrium Normal left atrial size. 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 Mitral Valve Mitral valve thickened. . Moderate thickening/calcification of the posterior mitral valve leaflet. Moderate mitral annular calcification. Aortic Valve Trileaflet aortic valve. Diffuse thickening (sclerosis) of the aortic valve cusps without reduced excursion. [id number] aortic regurgitation. Tricuspid Valve Mild tricuspid regurgitation. Pulmonic Valve Pulmonic valve not well visualized. Pericardium Normal pericardium. No pericardial effusion. Aorta Normal size aortic root and proximal ascending aorta. CONCLUSIONS Technically difficult study for interpretation Normal LV systolic function Normal RV systolic function. Mild pulmonary hypertension. The RVSP is 42 mmHg Aortic sclerosis without stenosis with mild to moderate insufficiency Thickened mitral valve leaflets with mild MR Previewed by: Dr. Chinmay Og MD (Electronically Signed) Final Date: 05 October 2022 18:20
== END | disposition home or self-care (01) ==
LOC: RADECHMAIN 12:22
PROVIDERS: ATTEND Family Medicine
DX: I70.0 Atherosclerosis of aorta (principal); I10 Essential (primary) hypertension; R06.02 Shortness of breath
CPT/HCPCS: 93306

== ENCOUNTER → 2022-11-07 | Outpatient (CLI) | payer MEDICARE, OTHER ==
[2022-11-07 15:26] LABS: ALT 15 U/L (10-49); AST 15 U/L (14-35); African American GFR (CKD) 99.1 (60.0-200.0); Albumin 4.2 g/dL (3.8-4.9); Albumin/Globulin Ratio 1.55 (1.60-3.17); Alkaline Phosphatase 53 U/L (41-126); BUN/Creat Ratio 32.33 Ratio (12.00-20.00); Blood Urea Nitrogen 25.9 mg/dL (9.0-27.0); Calcium 9.1 mg/dL (8.7-10.3); Carbon Dioxide 28.5 mmol/L (20.0-27.5); Chloride 102 mmol/L (96-109); Chol/HDL Ratio 3.89 Ratio; Globulin 2.7 g/dL (1.6-3.3); Glucose 98 mg/dL (70-110); LDL Cholesterol,Calculated 120.1 mg/dL (0.0-131.0); Non-African American GFR(CKD) 85.5 (60.0-200.0); Potassium 4.4 mmol/L (3.5-5.5); Sodium 140 mmol/L (135-145); Total Protein 6.9 g/dL (6.2-8.2)
== END | disposition home or self-care (01) ==
LOC: LABWHC1 09:31
PROVIDERS: ATTEND Internal Medicine Interventional Cardiology
DX: R06.02 Shortness of breath (principal)
CPT/HCPCS: 36415; 80053; 80061; 83880

== ENCOUNTER → 2022-12-05 | Outpatient (CLI) | payer MEDICARE, OTHER ==
[2022-12-05 15:56] LABS: ALT 17 U/L (10-49); AST 17 U/L (14-35); Chol/HDL Ratio 2.61 Ratio; LDL Cholesterol,Calculated 73.7 mg/dL (0.0-131.0); VLDL Calculation 19.54 mg/dL (5.00-40.00)
== END | disposition home or self-care (01) ==
LOC: LABWHC1 09:13
PROVIDERS: ATTEND Internal Medicine Interventional Cardiology
DX: E78.2 Mixed hyperlipidemia (principal)
CPT/HCPCS: 36415; 80061; 84450; 84460

== ENCOUNTER 2023-01-01 06:15 | Day surgery (SDC) | payer MEDICARE, OTHER ==
[2022-12-27 15:27] VITALS: BMI 24.7
[~2023-01-01 06:15] MED LIST changes: -ALBUTEROL NEB (CONC) 2.5 MG/0.5 ML INHALATION ONE; +ALPRAZolam 0.25 MG TAB PO PRN; +ALPRAZolam 0.5 MG TAB PO PRN; +ASPIRIN 325 MG TAB PO STA; +ATORVASTATIN 80 MG TAB PO STA; +HEPARIN SODIUM,PORCINE 10,000 UNIT in SODIUM CHLORIDE 0.9% 1,000 ML IRRIGATION PRN; +HEPARIN SODIUM,PORCINE 2,500 UNIT in SODIUM CHLORIDE 0.9% 250 ML IRRIGATION PRN; -LACTATED RINGERS 1,000 ML IV SCH; -LIDOCAINE 1% (10MG/ML) FOR IV START INTRADERMA PRN; -LIDOCAINE 2% (PF) 20 MG/ML 5 ML VIAL INHALATION ONE; -LIDOCAINE VISCOUS 300 MG/15 ML CUP MUCOUS MEM ONE; +NITROGLYCERIN SL TABS 0.4 MG TAB SUBLINGUAL PRN; +SODIUM CHLORIDE 0.9% 1,000 ML in EMPTY BAG 1 BAG IV SCH
[2023-01-01] MEDS ORDERED: SODIUM CHLORIDE 0.9% 1,000 ML IV ONE (06:39)
[2023-01-01 06:49] VITALS: RESP 16; TEMP 97.8
[2023-01-01] MEDS ORDERED: fentaNYL (PF) 50 MCG/ML 2 ML AMP IV ONE (07:49)
[2023-01-01] MEDS ORDERED: LIDOCAINE 1% INJ 10MG/ML (5 ML VIAL-PF) SQ ONE (07:51)
[2023-01-01] MEDS ORDERED: VERAPAMIL SYRINGE (5 MG/10 ML) INTRAARTER ONE (07:53)
[2023-01-01] MEDS ORDERED: MIDAZOLAM 2 MG/2 ML VIAL IV ONE (07:53)
[2023-01-01] MEDS ORDERED: HEPARIN SODIUM 1,000 UN/ML (10ML VL) IV ONE ×2 (07:57→07:59)
[2023-01-01] MEDS ORDERED: RX INFO: IV CONTRAST WAS GIVEN 1 EACH MISC MISCELLANE PRN (08:18)
[2023-01-01] MEDS ORDERED: ALBUTEROL NEBULIZED 2.5 MG/3 ML INHALATION PRN (08:19)
[2023-01-01] MEDS ORDERED: hydrOXYzine HCL 10 MG TAB PO PRN (08:19)
--- NOTE | 2023-01-01 08:24 | P.CARDCATH ---
Date of Procedure: 01/01/23 Description of Procedure: Cardiac Catheterization: The patient is a 77-year-old male with a known history of hypertension, hyperlipidemia, chronic tobacco use who presents with symptoms of progressive dyspnea and had an abnormal MPI. Recommendations were made regarding cardiac catheterization, the risks and the complications were discussed with the patient who is in full understanding and agreement. Procedure Description: Patient was brought to mechanical laboratory technician in fasting semi-sedated state after receiving Fe ntanyl and Benadryl achieiving moderate conscious sedated state. Using Xylocaine Anesthesia and Seldinger technique, a 6-Djiboutian sheath was introduced in the right radial artery . Subsequently, selective coronary angiography was performed using a 5-Djiboutian 3.5 bend Lorri catheter. Multiple views of the coronary artery including hemiaxial views were obtained. The 5-Djiboutian pigtail catheter was used to cross the aortic valve and LVEDP was calculated. Subsequently Dr. Og proceeded to perform carotid angiogram. There was no immediate complication. Patient was returned to room in stable condition. Of note, the patient received a total of 4000 units of intravenous heparin as well as intra-arterial verapamil. Findings: Fluoroscopy: Severe calcifications of all the coronary arteries was noted Left main: This is a large short sized vessel bifurcating into left circumflex and LAD, left main has no high-grade stenosis LAD: This is a large size vessel, heavily calcified, it has a 70-80% stenosis in the ostium. The mid LAD has intimal disease of 30-40% with no high-grade stenosis Left circumflex: This is a nondominant vessel, giving rise to 2 obtuse marginal branch. Both obtuse marginal branch had a 60-70% stenosis in the proximal segment RCA: This is a dominant vessel, bifurcating distally to PDA and PLV. The proximal RCA has an 80% stenosis. Diffuse disease throughout the vessel was noted. Left Ventriculogram: Not performed Hemodynamics: There was no gradient across the aortic valve, LVEDP was 16-18 mmHg Conclusion: 1. Heavily calcified coronary arteries 2. Severe triple vessel disease 3. Right dominance Recommendations: I will obtain a surgical patient in view of his anatomy and calcifications and depending on the recommendations further plans will be made. The findings and the recommendations were discussed with the patient and the family and they were in full understanding and agreement. Duration of sedation is 18 minutes.
[2023-01-01] MEDS ORDERED: SODIUM CHLORIDE 0.9% 1,000 ML IV SCH (08:30)
[2023-01-01] MEDS ORDERED: IOPAMIDOL-370 100ML BTL INJ ONE (08:39)
--- NOTE | 2023-01-01 08:40 | P.PCN ---
Date of Procedure: 01/01/23 Operative Findings: An aortic arch and carotid angiogram Performing physician Chinmay Og MD Procedure performed 1. An aortic arch angiogram 2. Selective left carotid angiogram Indication The patient is a 77-year-old gentleman who sees Dr. Sanchez who was seen recently by Dr. Crum Re: Carotid disease. He underwent carotid duplex study which showed severe disease involving the left internal carotid artery. The decision was made toward carotid angiogram for further clarification. Complication None Level of sedation Moderate to sedation length of 28 minutes Procedure description After the heart catheterization was performed by Dr. Sanchez, the all 35 wire was kept in the ascending aorta. Over the lower 35 wire and I did advance a 6- Angolan pigtail catheter. I did an aortic arch angiogram using 6-Angolan pigtail catheter and using a power injection and her digitalis obstruction. Subsequently I did selective the left common carotid artery using JB2 catheter. I did left carotid and intracranial angiogram using a JB2 catheter. The procedure was completed was no complication An aortic arch and carotid angiogram The aortic arch is a type II aortic arch appeared to be extremely calcified. The left common carotid artery is calcified as well with [id number]-[id number] disease with FMD appearance. The left internal carotid artery at the proximal portion has a critical lesion appeared to be in the range of 80-90%. The left external carotid artery appeared to be angiographically normal. Conclusion 1. Type II aortic arch 2. Critical disease involving the left internal carotid artery. 3. Hhvb-sv-gteoegqv obstructive disease involving the left common carotid artery with an FMD appearance
--- NOTE | 2023-01-01 09:26 | IR ---
EXAMINATION TYPE: IR angio aortic arch DATE OF EXAM: 01/01/2023 COMPARISON: NONE HISTORY: Fluoroscopy time. Fluoroscopy was provided to the referring clinician.
--- NOTE | 2023-01-01 13:22 | P.GSCN ---
History of Present Illness Consult date: 01/01/23 Reason for Consult: CAD Requesting physician: Dhiraj Sanchez History of present illness: This is a 77-year-old gentleman who follows up patient with Dr. Sanchez for cardiology, Dr. Franklin for primary care, and Dr. Giles for pulmonology. He has a past medical history of hypertension, hyperlipidemia, carotid artery disease and peripheral arterial disease both of which being followed by Dr. Dickens outpatient, current tobacco dependence, COPD with as needed oxygen use and chronic steroid use. The patient has had dyspnea on exertion for approximately 2 years, however he has noticed that recently it has gotten significantly worse and has limited his physical activity. He also endorses occasional chest pain as well as lower extremity edema, right greater than left. Normally both he and the family report he is an active beka. Initially he felt his shortness of breath was due to his lungs, however he was advised to seek cardiology expertise as Dr. Giles felt his lung disease is stable. The patient was recommended to undergo heart catheterization which was completed today by Dr. Sanchez which revealed proximal LAD stenosis 70-80%, OM1 and OM 2 branches of the circumflex coronary arteries with 60-70% stenosis, and proximal RCA stenosis 80%. Further, Dr. Og was asked to perform an aortic arch angiogram and left carotid angiogram which revealed type II aortic arch with extreme calcification, and critical proximal left ICA stenosis of 80-90%. Of note last echocardiogram was completed in September of this year demonstrating normal left ventricular systolic function with EF 55-60%, mild to moderate aortic regurgitation, and mild tricuspid regurgitation. Due to findings on heart catheterization consultation was placed to cardiothoracic surgery for surgical revascularization recommendations. Review of Systems Review of systems was completed and is negative except as noted - Cardiovascular Reports as per HPI, Reports chest pain, Reports dyspnea on exertion, Reports leg edema Past Medical History Past Medical History: Coronary Artery Disease (CAD), COPD, GERD/Reflux, Hyperlipidemia, Hypertension, Pneumonia, Skin Disorder Additional Past Medical History / Comment(s): chronic hypoxic respiratory failure on oxygen 2/L NC PRN, RLS, LT CAROTID BLOCKAGE AND PAD BEING FOLLOWED BY DR. DICKENS History of Any Multi-Drug Resistant Organisms: None Reported Past Surgical History: Appendectomy Additional Past Surgical History / Comment(s): COLONSCOPY. BRONCHOSCOPY WITH BIOPSY Past Anesthesia/Blood Transfusion Reactions: No Reported Reaction Additional Past Anesthesia/Blood Transfusion Reaction / Comm: HAD TROUBLE BREATHING AFTER BROCHOSCOPY AND ENDED UP IN ICU FOR A FEW DAYS Past Psychological History: No Psychological Hx Reported Smoking Status: Current every day smoker Past Alcohol Use History: None Reported Past Drug Use History: None Reported - Past Family History Mother Family Medical History: No Reported History Father Additional Family Medical History / Comment(s): "black lung from working in a coal mine" Medications and Allergies Home Medications Medication Instructions Recorded Confirmed Type Albuterol Nebulized [Ventolin 2.5 mg INHALATION Q4H PRN 12/24/19 12/27/22 History Nebulized] Aspirin 81 mg PO DAILY 12/24/19 01/01/23 History Metoprolol Tartrate [Lopressor] 100 mg PO BID 12/24/19 12/27/22 History hydroCHLOROthiazide 25 mg PO QAM 12/24/19 12/27/22 History Ferrous Sulfate [Iron (65 MG 325 mg PO DAILY 12/09/20 12/27/22 History Elemental)] Pantoprazole Sodium [Protonix] 40 mg PO SHARATH-BRKFST #30 tablet. 12/17/20 12/27/22 Rx Atorvastatin [Lipitor] 40 mg PO DAILY 12/27/22 12/27/22 History Budesonide/Glycopyr/Formoterol 2 puff INHALATION BID 12/27/22 12/27/22 History [Breztri Aerosphere Inhaler] Cholecalciferol (Vitamin D3) 125 mcg PO DAILY 12/27/22 12/27/22 History [Vitamin D3 (125 MCG = 5,000 IU)] hydrOXYzine HCL [Hydroxyzine HCl] 10 mg PO DAILY PRN 12/27/22 12/27/22 History predniSONE 10 mg PO Q2D 12/27/22 12/27/22 History Allergies Allergy/AdvReac Type Severity Reaction Status Date / Time No Known Allergies Allergy Verified 01/01/23 06:50 Surgical - Exam Vital Signs Temp Pulse Resp BP Pulse Ox 97.8 F 74 16 185/87 93 L 01/01/23 06:46 01/01/23 06:46 01/01/23 06:46 01/01/23 06:46 01/01/23 06:46 CONSTITUTIONAL: Awake and alert, appears comfortable, cooperative, well- developed, well-nourished, no pain, no acute distress EYES: Pupils equal, round, reactive to light, normal ocular movement ENT: Moist mucous membranes without oral lesions present NECK: No masses, trachea midline, bilateral carotid bruits present RESPIRATORY: Lungs sounds diminished bilaterally. Respirations even, nonlabored. Currently on 2 L nasal cannula with oxygen saturation 98%. Strong cough CARDIOVASCULAR: S1, S2 present. Regular rate and rhythm, sinus rhythm on telemetry. Palpable peripheral pulses bilaterally. No edema present. No calf pain or tenderness noted. No significant lower extremity varicosities noted. Left radial Ender's test greater than 8 seconds. GASTROINTESTINAL: Abdomen soft, nontender, nondistended without masses or organomegaly noted. There is no rebound or guarding present. Active bowel soun ds present 4 quadrants. GENITOURINARY: Deferred INTEGUMENTARY: Skin is warm and dry. Right radial heart catheterization cover with dry intact dressing. Ectopic dermatitis present to bilateral lower extremities, right anterior chest NEUROLOGIC: Cranial nerves II through XII intact, normal coordination, no obvious motor or sensory deficits, speech is normal MUSKULOSKELETAL: Able to move all extremities, strength equal bilaterally, normal posture PSYCHIATRIC: Alert and oriented to person place and time, appropriate affect, intact judgment and insight Results - Imaging Additional studies: Heart catheterization films reviewed Assessment and Plan Assessment: Triple-vessel coronary artery disease Proximal left internal carotid artery stenosis 80-90% left carotid angiogram, type II calcified aortic arch on angiogram Hypertension Hyperlipidemia, treated Carotid artery disease and peripheral arterial disease both of which being followed by Dr. Dickens outpatient Current tobacco dependence COPD with as needed oxygen use and chronic steroid use Plan: The patient was seen and examined and the extended stay unit with family present. Denies current chest pain or shortness breath as he is sitting up comfortably on a cart eating lunch. Chart/diagnostics were reviewed. The usual perioperative course of open-heart surgery was discussed in detail with the patient and his family, risks and benefits were reviewed, all questions were answered, and the patient is agreeable to surgery if that is the recommendation from the surgeon. Preoperative testing was initiated. Recommend continuing to maximize medical therapy with aspirin, statin, beta leni therapy. Will have surgeon see patient today prior to discharge for recommendations regarding surgical revascularization. If surgery is the recommendation, patient will need full PFT with Dr. Giles, and decision made between surgery and cardiology/vascular regarding left internal carotid stenosis treatment. This was discussed with the patient and his family and they are agreeable. More recommendations to follow. Thank you Dr. Sanchez for this consult. I have personally seen and examined the patient, performed the documentation and the assessment and plan as written. Number of minutes spent on the visit: 30. Mariella Perkins NP-C Patient seen and examined . Cath and CT Chest reviewed. Advanced generalized calcific atherosclerotic disease as seen on CT Chest, Diffuse calcific CAD, preserved LV Fx, Active smoking with severe emphysematous changes on CT Chest. Also, severe L ICA stenosis on today's selective Left carotid angio, Asymptomatic. Discussed with Dr Sanchez. Lengthy discussion with patient and family. At least moderate to high risk for CABG at this point. Patient would require pulmonary opinion, full PFT's and completing pre-op w/u before formulating an opinion. A pre-requisite to any potential procedure, I am demanding that this patient stops smoking in the interim. Patient might be candidate for medicalRx in view of preserved LV Fx and absence of left main disease. To follow. I have personally seen and examined the patient, performed the added doc umentation and approved the assessment and plan as written per BUILDING PRINCIPAL. Number of minutes spent on the visit: 45 MINDA GARCIA MD
--- NOTE | 2023-01-01 13:27 | CT ---
EXAMINATION TYPE: CT chest wo con DATE OF EXAM: 01/01/2023 COMPARISON: 11/25/2020 HISTORY: 77-year-old male eval aorta for clampability TECHNIQUE: Contiguous axial scanning of the chest without IV contrast. Coronal and sagittal reconstru ctions performed. CT DLP: 302.20 mGycm Automated exposure control for dose reduction was used. FINDINGS: Heart normal size with trace anterior pericardial fluid. Extensive three-vessel coronary artery calci fications are present in remarkable for coronary artery disease. Ascending aorta ectatic at 3.8 cm. Moderate atherosclerotic arch calcifications with conventional arch vessel branching anatomy. Ectatic upper descending thoracic aorta 3.1 cm. Moderate atherosclerotic calcifications continue within the descending thoracic aorta. Mild aneurysm mid descending thoracic aorta 3.3 cm. Mild fusiform aneurysm lower descending thoracic aorta at 3.1 cm. Moderately advanced centrilobular emphysema. Spiculated biapical opacities remain unchanged in appear ance from 11/25/2020 compatible with pleural parenchymal scarring. Mild diffuse bronchial wall thickening. Some minimal patchy groundglass is present such as at the rig ht base, axial image 52. No kamila consolidation or pleural effusion. There is a 7 mm subpleural pulmonary nodule posterior right base and peripheral left lower lobe 6 mm pulmonary nodule. Both of these should be reassessed at a 3-6 month follow-up CT chest. An 8 mm right middle lobe pulmonary nodule is unchanged and benign. There is a small hiatal hernia. Visualized upper abdomen otherwise shows more moderate severe atherosclerotic calcifications. Some fo guillaume fusiform ectasia infrarenal abdominal aorta up to 2.6 cm. Possible severe stenosis at the origin of the SMA and left renal artery. Accentuated mid thoracic kyphosis. Normal variant sternal foramen. No osseous destructive process. IMPRESSION: 1. COPD WITH MODERATE TO ADVANCED EMPHYSEMA. 2. CAD WITH EXTENSIVE THREE-VESSEL CORONARY ARTERY CALCIFICATIONS. 3. DIFFUSELY ECTATIC THORACIC AORTA WITH MODERATE ATHEROSCLEROTIC CHANGES THROUGHOUT. 4. A COUPLE BASILAR PULMONARY NODULES MEASURING UP TO [address] RECOMMEND FOLLOW-UP CT CHEST IN 3-6 MONTH S TO ENSURE STABILITY AND EXCLUDE A NEOPLASTIC ETIOLOGY. 5. SMALL HIATAL HERNIA.
[2023-01-01 14:47] VITALS: BP 125/67; PULSE 69
--- NOTE | 2023-01-01 15:45 | US ---
EXAMINATION TYPE: US vein mapping BILAT DATE OF EXAM: 01/01/2023 3:18 PM COMPARISON: NONE CLINICAL INDICATION: Male, 77 years old with history of preop cardiac surgery; Open heart SIDE PERFORMED: Bilateral TECHNIQUE: Lower extremity saphenous vein is examined and measured utilizing real time linear array sonography. Patient History: Smoker: No Heart Disease: No Previous DVT: No Vascular Surgery: No Discoloration: No Hypertension: Yes Diabetes: No Paralysis: No Varicosities: No Edema: No DUPLEX FINDINGS: Greater Saphenous: Color flow seen Lesser Saphenous: Color flow seen Measurements in mm: Right Greater Saphenous: Groin: 6.4 x 4.7 mm High Thigh: 2.2 x 1.6 mm Mid Thigh: 2.0 x 1.5 mm Above Knee: 3.2 x 2.7 mm Knee: 2.4 x 1.8 mm Below Knee: 3.1 x 2.0 x 1.6 mm Mid Calf: 2.9 x 2.2 mm At Ankle: 3.9 x 3.0 mm Left Greater Saphenous: Groin: 6.1 x 6.0 mm High Thigh: 5.3 x 4.0 mm Mid Thigh: 2.7 x 2.0 mm Above Knee: 1.9 x 1.5 mm Knee: 2.3 x 1.5 mm Below Knee: 2.3 x 1.6 mm Mid Calf: 1.4 x 1.3 mm At Ankle: 3.9 x 2.3 mm IMPRESSION: 1. Bilateral GSV measurements listed above. 2. Performing surgeon to determine viability as conduit.
--- NOTE | 2023-01-01 15:55 | US ---
EXAMINATION TYPE: US arterial LE multi level DATE OF EXAM: 01/01/2023 2:17 PM CLINICAL INDICATION: Male, 77 years old with history of Ankle Brachial Index (KAITLIN); open heart History of: Smoker: Current Smoker Hypertension: Yes Diabetic: No Hyperlipidemia: No TIA/CVA: No Previous Vascular Surgery: No CAD: No ND: No Vascular Ulcers: No Claudication: No Gangrene: No Doppler Waveforms: Right: Multiphasic Left: Multiphasic Ankle-Brachial Indices: Right: 0.74 Left: 0.95 Toe Brachial Indices: Right: 0.68 Left: 0.64 IMPRESSION: 1. Normal left KAITLIN. Abnormal left KAITLIN suggestive of mild severity atherosclerotic occlusive disease. 2. A borderline normal right TBI and mild atherosclerotic disease left TBI.
[2023-01-01] MEDS ORDERED: SYMBICORT 160-4.5 MCG INHALER INHALATION SCH (20:00)
[2023-01-01] MEDS ORDERED: IPRATROPIUM 0.5 MG/2.5 ML NEBU INHALATION SCH (20:00)
[2023-01-01] MEDS ORDERED: METOPROLOL TARTRATE 50 MG TAB PO SCH (21:00)
[2023-01-01 23:08] LABS: Hepatitis A Antibody IgM Nonreactive; Hepatitis B Core IgM Nonreactive; Hepatitis B Surface Antigen Nonreactive; Hepatitis C IgG Antibody Nonreactive
[2023-01-02] MEDS ORDERED: PANTOPRAZOLE 40 MG TABLET PO SCH (07:30)
[2023-01-02] MEDS ORDERED: ASPIRIN 81 MG PO SCH (09:00)
[2023-01-02] MEDS ORDERED: FERROUS SULFATE 325 MG TAB PO SCH (09:00)
[2023-01-02] MEDS ORDERED: ATORVASTATIN 40 MG TAB PO SCH (09:00)
== END 2023-01-01 15:32 | disposition home or self-care (01) ==
LOC: CATHCVL 06:15
PROVIDERS: ATTEND Internal Medicine Interventional Cardiology
DX: I70.0 Atherosclerosis of aorta (principal); I73.9 Peripheral vascular disease, unspecified; I65.22 Occlusion and stenosis of left carotid artery; I10 Essential (primary) hypertension; E78.5 Hyperlipidemia, unspecified; F17.210 Nicotine dependence, cigarettes, uncomplicated; I77.9 Disorder of arteries and arterioles, unspecified; J44.9 Chronic obstructive pulmonary disease, unspecified; E78.2 Mixed hyperlipidemia; Z79.899 Other long term (current) drug therapy
CPT/HCPCS: 93458; 36223; 80074; 84443; 87070; 83036; 93970; 93923; 71250; C1769 ×2; C1894; J2250; J2001; J3010; J1644; Q9967

== ENCOUNTER 2023-01-30 06:39 | Inpatient (IN) | payer MEDICARE, OTHER ==
[~2023-01-30 06:39] MED LIST changes: -ALPRAZolam 0.25 MG TAB PO PRN; -ALPRAZolam 0.5 MG TAB PO PRN; -ASPIRIN 325 MG TAB PO STA; -ATORVASTATIN 80 MG TAB PO STA; -HEPARIN SODIUM,PORCINE 10,000 UNIT in SODIUM CHLORIDE 0.9% 1,000 ML IRRIGATION PRN; -HEPARIN SODIUM,PORCINE 2,500 UNIT in SODIUM CHLORIDE 0.9% 250 ML IRRIGATION PRN; -NITROGLYCERIN SL TABS 0.4 MG TAB SUBLINGUAL PRN; +SODIUM CHLORIDE 0.9% 1,000 ML in EMPTY BAG 1 BAG IV ONE; -SODIUM CHLORIDE 0.9% 1,000 ML in EMPTY BAG 1 BAG IV SCH
[2023-01-30] MEDS ORDERED: ASPIRIN 81 MG ONE (06:53)
[2023-01-30] MEDS ORDERED: LIDOCAINE 1% INJ 10MG/ML (20 ML MDV) SQ ONE ×2 (08:26→08:29)
[2023-01-30] MEDS: HEPARIN SODIUM 1,000 UN/ML (10ML VL) IV ONE ×3 (08:52→09:47)
[2023-01-30] MEDS ORDERED: RX INFO: IV CONTRAST WAS GIVEN 1 EACH MISC MISCELLANE PRN (09:00)
[2023-01-30] MEDS ORDERED: ATROPINE SULFATE 0.1 MG/ML 10ML SYRINGE IV PRN (09:30)
[2023-01-30] MEDS ORDERED: MAG HYDROX/AL HYDROX/SIMETH 30 ML CUP PO PRN (09:30)
[2023-01-30] MEDS ORDERED: CLOPIDOGREL 75 MG TAB PO ONE (09:38)
--- NOTE | 2023-01-30 09:55 | P.PCN ---
Date of Procedure: 01/30/23 Operative Findings: Carotid stenting report Performing physician Chinmay Og M.D. Procedure performed 1. Successful stenting of the left common and internal carotid artery using 9-7 Xact carotid stent with an excellent angiographic results 2. Adjunctive use of filter wire in the left internal carotid artery 3. An aortic arch and selective left common and left internal carotid angiogram and intracranial angiogram 4. Selective right common femoral artery angiogram 5. Ultrasound-guided access of the right and left common femoral arteries Indication This is a 77-year-old gentleman who was diagnosed recently with severe triple- vessel coronary artery disease. He underwent further investigation including carotid duplex study and that showed critical disease involving the left internal carotid artery felt to be needed to be revascularized before the patient is going to undergo chronic artery that is grafting. He underwent recently carotid angiogram and that revealed critical disease involving the left internal carotid artery Approach Right and left common femoral arteries Complication None Level of sedation The procedure was performed was no sedation. The procedure length was 60 minutes Procedure description After obtaining an informed consent the patient was brought to the cardiac cathode washer. The right common femoral artery initially was cannulated using micropuncture technique under ultrasound guidance, the micropuncture wire passed easily at the beginning but subsequently the wire did not cross the right common iliac artery and for that reason I decided to go from the left groin. The left common femoral artery was cannulated using puncture technique under ultrasound guidance, the micro-puncture wire passed easily then I placed a 6-Czech 90 cm shuttle sheath over 035 stiff Glidewire after the artery was dilated using 6- Czech short dilator. At that point anticoagulation was initiated using heparin with continuous ACT monitoring. After that I did advanced a sheath all the way to the proximal descending aorta under fluoroscopy guidance over 035 stiff Glidewire. Then again under fluoroscopy guidance I advanced a long pigtail catheter over 035 stiff Glidewire to the aortic root where we did an aortic arch angiogram using digital subtraction and that indicated IV to aortic arch with no major dissection or aneurysmal dilation. Subsequently I was able to engage the ostial of the left common carotid artery using JB2 catheter then I did left common carotid angiogram which showed the bifurcation of the left internal and left external carotid artery. Then I advanced 035 stiff Glidewire under fluoroscopy guidance to the left external carotid. After that I advanced the JB2 catheter over the wire then I advanced the sheath over the wire and JB2 catheter to the mid left common carotid artery then the wire and JB2 catheter were pulled out completely. 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 At that point we prepped according Juan A after we decided to go with 97 Xact carotid stent. Subsequently and under fluoroscopy guidance I wire the left internal carotid artery and I advanced the wire to the distal left internal carotid artery. Then I did deploy the filter. The filter was deployed under fluoroscopy guidance. Subsequently the filter system was withdrawn out. Predilatation was performed using 4 mm balloon which was inflated under 8 wayne for 5 seconds only. Subsequently I was able to advance 97 Xact carotid stent under fluoroscopy guidance where the stent was positioned under fluoroscopy guidance and deployed under fluoroscopy guidance. At that point the patient did have some change in mental status lasted for few seconds only because we were occlusive without stent. Postdilatation of the stent was performed using 5 mm balloon which was again inflated under 8 wayne for 5 seconds only. An angiogram was performed before the filter was withdrawn out and showed an excellent angiographic results and subsequently the filter was withdrawn out under fluoroscopy guidance advancing the filter retrieval under fluoroscopy guidance through the stent to the filter the filter was pulled inside the system and everything was taken out. Final intracranial angiogram was performed and carotid angiogram was performed showing excellent angiographic results and the patient tolerated the procedure very well. After that the sheath was pulled from the common carotid artery and then I did exchange my 90 cm shuttle sheath into 11 cm 6-Czech sheath over 035 wire. Selective left common femoral artery angiogram was performed and showed excellent angiographic results and the procedure was completed was no complication. After the procedure the patient was having some wheezing from around the sheath and I did exchange my 6-Czech into 7-Czech sheath just to stop the oozing. Postprocedure management 1. ICU admission 2. Monitor the blood pressure and heart rate 3. Dual antiplatelet therapy 4. Aggressive statin treatment 5. Follow-up with Dr. Sanchez
--- NOTE | 2023-01-30 09:56 | IR ---
EXAMINATION TYPE: IR stent intravas non coronary DATE OF EXAM: 01/30/2023 COMPARISON: NONE HISTORY: Fluoroscopy time. Fluoroscopy was provided to the referring clinician.
[2023-01-30 10:08] LABS: Glucose,Whole Blood 126 mg/dL (70-110)
--- NOTE | 2023-01-30 10:40 | P.CNPUL ---
History of Present Illness Consult date: 01/30/23 Chief complaint: Acute CVA History of present illness: This is a 77-year-old mentation is very well-known to me. The patient has advanced COPD oxygen dependent at 2 L and he is also steroid dependent with an FEV1 of 31% of predicted and diffusion capacity of 27% of predicted. The patient had also multivessel coronary artery disease. I saw him 2 weeks back in my office and I thought he was a high surgical candidate for coronary artery bypass surgery and after having a discussion with cardiology and cardiothoracic surgery we opted not to proceed with surgery and consider multivessel stenting. The patient also had a 90% stenosis of the internal carotid artery on the left. On today's evaluation, the patient was brought in by interventional cardiology and the patient has successful stenting of the left common and internal carotid artery with good angiographic results. After the patient arrived to the ICU, the patient acutely became weak on the right side. He is unable to move his right upper extremity and he has significant weakness in his right lower extremity and the facial droop. His speech is also slightly affected although he still conversing. He is awake and alert and he is hemodynamically stable. His most recent blood pressure is 172/79. He is on oxygen at 2 L and he is pulse ox sitting 94%. His cardiac rhythm is sinus. Based on that, a code stroke was initiated and the patient is being taken for an immediate CT angiogram. I saw the patient prior to him moving to the radiology department. Meanwhile, neurology has been activated and intervention neurology has also been activated. No headaches. No seizure activity. The patient is known to have chronic exertional dyspnea. He gets short of breath upon walking around 100 feet. He has no chest pain at this point in time. He is an ex-smoker. His hypertension and hyperlipidemia and COPD as comorbidities and as mentioned he is oxygen dependent 24 7. Labs pending from.. He is currently on a combination of aspirin and Plavix. 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 Review of Systems Constitutional: Reports as per HPI, Reports weight loss Eyes: denies as per HPI, denies blurred vision, denies bulging eye, denies decreased vision, denies diplopia, denies discharge, denies dry eye, denies irritation, denies itching, denies pain, denies photophobia, denies loss of peripheral vision, denies loss of vision, denies tunnel vision/blind spots Ears: deny: decreased hearing, ear discharge, earache, tinnitus Ears, nose, mouth and throat: Reports as per HPI Breasts: absent: as per HPI, gynecomastia Cardiovascular: Reports dyspnea on exertion Respiratory: Reports cough, Reports dyspnea, Reports home oxygen Gastrointestinal: Reports as per HPI Genitourinary: Reports as per HPI Musculoskeletal: Reports as per HPI Musculoskeletal: absent: ankle pain, ankle stiffness, ankle swelling Integumentary: Reports as per HPI Neurological: Reports change in speech, Reports gait dysfunction, Reports paralysis Psychiatric: Reports as per HPI Hematologic/Lymphatic: Reports as per HPI Allergic/Immunologic: Reports as per HPI Past Medical History Past Medical History: Coronary Artery Disease (CAD), COPD, GERD/Reflux, Hyperlipidemia, Hypertension, Pneumonia, Skin Disorder Additional Past Medical History / Comment(s): chronic hypoxic respiratory failure on oxygen 2/L NC ATC, RLS, LT CAROTID stenosis History of Any Multi-Drug Resistant Organisms: None Reported Past Surgical History: Appendectomy, Heart Catheterization Additional Past Surgical History / Comment(s): COLONSCOPY. BRONCHOSCOPY WITH BIOPSY Past Anesthesia/Blood Transfusion Reactions: No Reported Reaction Additional Past Anesthesia/Blood Transfusion Reaction / Comment(s): HAD TROUBLE BREATHING AFTER BROCHOSCOPY AND ENDED UP IN ICU FOR A FEW DAYS Date of Last Stent Placement:: 01/01/23 Smoking Status: Current every day smoker - Past Family History Mother Family Medical History: No Reported History Father Additional Family Medical History / Comment(s): "black lung from working in a coal mine" Medications and Allergies Home Medications Medication Instructions Recorded Confirmed Type Albuterol Nebulized [Ventolin 2.5 mg INHALATION Q4H PRN 12/24/19 01/30/23 History Nebulized] Aspirin 81 mg PO DAILY 12/24/19 01/30/23 History Metoprolol Tartrate [Lopressor] 100 mg PO BID 12/24/19 01/30/23 History hydroCHLOROthiazide 25 mg PO QAM 12/24/19 01/30/23 History Ferrous Sulfate [Iron (65 MG 325 mg PO DAILY 12/09/20 01/30/23 History Elemental)] Pantoprazole Sodium [Protonix] 40 mg PO BISIBRKFST #30 tablet. 12/17/20 01/30/23 Rx Atorvastatin [Lipitor] 40 mg PO DAILY 12/27/22 01/30/23 History Budesonide/Glycopyr/Formoterol 2 puff INHALATION BID 12/27/22 01/30/23 History [Breztri Aerosphere Inhaler] Cholecalciferol (Vitamin D3) 125 mcg PO DAILY 12/27/22 01/30/23 History [Vitamin D3 (125 MCG = 5,000 IU)] predniSONE 10 mg PO Q2D 12/27/22 01/30/23 History Ezetimibe [Zetia] 10 mg PO DAILY 01/24/23 01/30/23 History Isosorbide Mononitrate [Isosorbide 30 mg PO DAILY 01/24/23 01/30/23 History Mononitrate ER] Vit B(Unk) 1 tab PO DAILY 01/24/23 01/30/23 History Allergies Allergy/AdvReac Type Severity Reaction Status Date / Time No Known Allergies Allergy Verified 01/30/23 06:53 Physical Exam Vitals: Vital Signs Temp Pulse Resp BP BP Pulse Ox 01/30/23 07:01 97.8 F 100 18 157/81 168/87 96 Intake and Output 01/29/23 01/30/23 01/30/23 22:59 06:59 14:59 Intake Total 500 Balance 500 Intake: IV 500 Other: Weight 71.1 kg Gen. appearance the patient is calm and comfortable currently on 2 L of oxygen by nasal cannula Head exam was generally normal. There was no scleral icterus or corneal arcus. Mucous membranes were moist. Head exam was generally normal. There was no scleral icterus or corneal arcus. Mucous membranes were moist. Neck was supple and without jugular venous distension, thyromegaly, or carotid bruits. Carotids were easily palpable bilaterally. There was no adenopathy. Lungs sounds are diminished bilaterally otherwise clear. Breath sounds are equal and symmetrical. Scattered expiratory wheeze. Cardiac exam revealed the PMI to be normally situated and sized. The rhythm was regular and no extrasystoles were noted during several minutes of auscultation. The first and second heart sounds were normal and physiologic splitting of the second heart sound was noted. There were no murmurs, rubs, clicks, or gallops. Abdominal exam revealed normal bowel sounds. The abdomen was soft, non-tender, and without masses, organomegaly, or appreciable enlargement of the abdominal aorta. Examination of the extremities revealed easily palpable radial, femoral and pedal pulses. There was no cyanosis, clubbing or edema. Examination of the skin revealed no evidence of significant rashes, suspicious appearing nevi or other concerning lesions. Neurologically the patient is awake and alert. The patient has some left facial droop, there is obvious motor weakness in the right upper extremity and the motor function is 1 out of 5 in the right upper extremity and 2 out of 5 in the right lower extremity. Speech is slurred. Results - Laboratory Findings Abnormal lab findings: Abnormal Labs 01/30/23 10:07 POC Glucose (mg/dL) 126 H Assessment and Plan Plan: Acute CVA most likely along the left MCA distribution and the patient has right- sided weakness post carotid artery stenting. A Code stroke has been activated and the patient is being taken for an immediate emergent CTA of the brain. Neurology and interventional neurology has been activated awaiting further results. One concern is that the patient has received IV heparin during his procedure, and this may be potentially prevents us from giving thrombolytics. This will be discussed further with interventional neurology. Alternatively, we are considering the use of Aggrastat. The patient has received aspirin and Plavix. Severe left carotid artery stenosis, 90% and the patient has undergone carotid artery stenting Multivessel coronary artery disease, not a surgical candidate Advanced severe COPD with a nephew on of 31% of predicted with chronic hypoxic respiratory failure. The patient is also steroid dependent Hypertension Hyperlipidemia History of smoking Restless leg syndrome Plan Condition is critical at this point in time. Monitor neurologic outcome and will do repeated neuro checks Awaiting a CT angiogram and based on that'll make a decision treatment course Neurology, intervention neurology and cardiology are all on the case Patient is currently on 2 L of Oxymizer nasal cannula Patient is hemodynamically stable We'll put him on stress dose hydrocortisone 100 mg every 8 hours as the patient has been chronically on oral prednisone We'll resume his bronchodilators He is maintained on Trelegy Ellipta on outpatient basis and this can be used from home Monitor blood pressure, avoid any significant hypotension, we'll try to keep his systolic blood pressure between 160 and 180 Continue statins Continue metoprolol and those will be modified based on his blood pressure and heart rate. Noted the patient's cardiac rhythm is sinus We'll continue to follow.
--- NOTE | 2023-01-30 10:56 | CT ---
EXAMINATION TYPE: CT brain wo con for TPA DATE OF EXAM: 01/30/2023 COMPARISON: 10/30/2011 INDICATION: Right sided weakness DLP: 1162.4 mGycm, Automated exposure control for dose reduction was used. CONTRAST: None CT of the brain is performed utilizing 3 mm thick sections through the posterior fossa and 3 mm thick sections through the remaining calvarium. Study is performed within 24 hours of arrival to the hosp ital. There is a new slightly hyperdense collection on the left frontal region. This appears to be intrapar enchymal. This is a new finding comparison. This area measures 2.4 x 1.9 cm (series 202 image 38). No significant mass effect on the adjacent brain is evident. Sulci in this region appear normal. No mid line shift is evident. No edema is adjacent. No mass lesion is evident. No acute infarcts are evident. There is periventricular white matter hypodensity, likely on the basis of chronic white matter ischemic changes. Ventricles and sulci are prominent for the patient age. Paranasal sinuses and mastoid air cells within the [id number] are clear. IMPRESSIONS: 1. There is an area of increased density along the lateral left frontal lobe which appears to be an intraparenchymal hemorrhage. Report was discussed with Dr. Og in person at the time of interpretat ion. 2. Atrophy with chronic appearing periventricular white matter ischemic type changes.
--- NOTE | 2023-01-30 11:27 | CT ---
EXAMINATION TYPE: CODE STROKE: CTA head neck DATE OF EXAM: 01/30/2023 HISTORY: COMPARISON: None CT DLP: 526.3 mGycm. Automated Exposure Control for Dose Reduction was Utilized. TECHNIQUE: CTA scan of the neck is performed with IV Contrast, patient injected with 65 mL of Isovue 370, axial images are obtained, coronal and sagittal reformatted images are reviewed. Three-D recons tructed images are created on an independent workstation and reviewed. Source images are reviewed. FINDINGS: Carotid/Vascular Structures: There is a three-vessel arch. The right vertebral artery is dominant. D ense calcification is within the common carotid arteries. There is been placement of a left carotid stent at the internal carotid artery. Distal stent remains narrowed. This is calculated to be 68%. Right-sided plaque and has narrowing calculated at 45%. The v ertebral arteries and internal carotid arteries have contrast present to the skull base. Cervical of Wei: Left internal carotid artery bifurcates normally into A1 and M1 segments. Left mi ddle cerebral artery branches appear normal. Middle cerebral artery branch extends towards the suspec angie hemorrhage left frontal lobe. Left A1 segment is widely patent. The anterior communicating artery is patent. A 2 segments are normal. The left internal carotid artery is patent at the carotid siphon. Caliber of the A1 and M1 segments o f the right side appears small. Right A1 segment is poorly visualized. Minimal streaky artery branche s appear normal. Caliber is less than that of the right. Right posterior communicating artery appears widely patent. Left posterior communicating artery may be faintly visualized. Right middle cerebral artery branches appear smaller than on the left. Other: Please also see CT brain report for suspected left intracranial hemorrhage. Preliminary images of the brain CTA of the neck were reviewed with Dr. Og in person by Dr. Gregorio. IMPRESSION: 1. Moderate narrowing post stenting left carotid artery. No obstruction is identified. 2. Mild narrowing right internal carotid artery from plaquing. 3. Poor visualization of the distal right internal carotid artery bifurcation and right A1 segment. 4. Right cerebral vascular circulation appears patent although smaller caliber within the brain than on the left NASCET criteria was used in interpretation of this exam?
[2023-01-30 11:31] LABS: Basophils % (A) 0 %; Eosinophils # (A) 0.3 k/uL (0-0.7); Eosinophils % (A) 4 %; HCT 31.3 % (39.0-53.0); HGB 10.7 gm/dL (13.0-17.5); Lymphocytes # (A) 0.9 k/uL (1.0-4.8); Lymphocytes % (A) 13 %; MCH 29.8 pg (25.0-35.0); MCV 87.4 fL (80.0-100.0); Monocytes # (A) 0.3 k/uL (0-1.0); Monocytes % (A) 5 %; Neutrophils # (A) 5.1 k/uL (1.3-7.7); Neutrophils % (A) 76 %; Platelet Count 239 k/uL (150-450); RBC 3.58 m/uL (4.30-5.90); RDW 15.6 % (11.5-15.5); WBC 6.7 k/uL (3.8-10.6)
[2023-01-30 11:41] LABS: ALT 19 U/L (4-49); AST 35 U/L (17-59); African American GFR (CKD) >90 (>60 ml/min/1.73 sqM); Albumin 3.5 g/dL (3.5-5.0); Alkaline Phosphatase 52 U/L (38-126); Anion Gap 9 mmol/L; Blood Urea Nitrogen 15 mg/dL (9-20); Calcium 7.8 mg/dL (8.4-10.2); Carbon Dioxide 24 mmol/L (22-30); Chloride 98 mmol/L (98-107); Glucose 118 mg/dL (74-99); Non-African American GFR(CKD) >90 (>60 ml/min/1.73 sqM); Potassium 2.9 mmol/L (3.5-5.1); Sodium 131 mmol/L (137-145); Total Bilirubin 0.4 mg/dL (0.2-1.3); Total Protein 6.7 g/dL (6.3-8.2)
[2023-01-30] MEDS ORDERED: Potassium Replacement Protocol 1 EACH MISC MISCELLANE PRN (11:43)
[2023-01-30 11:53] LABS: Partial Thromboplastin Time 56.1 sec (22.0-30.0); Prothrombin Time 10.3 sec (9.0-12.0)
[2023-01-30] MEDS: EZETIMIBE 10 MG TAB PO SCH (11:59)
--- NOTE | 2023-01-30 12:24 | P.CNNES ---
History of Present Illness Consult date: 01/30/23 Requesting physician: Chinmay Og Reason for Consult: Stroke code History of Present Illness: Patient is a 77-year-old right-handed male, with history of COPD, CAD, hypertension, hyperlipidemia who came to the hospital for elective left ICA stenting. Patient also has multivessel disease and patient was being considered for bypass surgery. However patient also has 90% stenosis of the left ICA on the left. Therefore patient was brought to the hospital for stenting of the left ICA. This was stented successfully and patient was transferred to ICU. He was talking well and moving all extremities at 10 AM. At around 10:07 AM, patient started complaining of weird feeling, with weakness of the right arm, and also developed slurred speech. Stroke code was activated. Initial NIH stroke scale documented by the nurse was 9 at 10:13 AM. Patient's NIH stroke scale documented before surgery was 0 at 7:15 AM. I spoke to the patient's nurse, recommended stat CT head, and CTA of head and neck. Patient's renal func tions were normal. CT head reported an area of increased density along the left lateral frontal lob e which appears to be an intraparenchymal hemorrhage. Atrophy with chronic appearing periventricular white matter ischemic type changes. I personally reviewed CT head, and to me it appears more like a meningioma involving the left frontal region. CTA of the head revealed moderate narrowing post-stenting left carotid artery. No obstruction is identified. Mild narrowing right ICA from plaquing. Poor visualization of the distal right ICA bifurcation and right A1 segment. Right cerebrovascular region appears patent although smaller caliber within the brain than on the left. At the time I evaluated the patient, the patient's NIH stroke scale has dropped down to about 2-3. Please refer to examination below. Patient's family members were also present, who states that patient has signifi cant improvement in his speech, is still mildly dysarthric. Patient denies headache. No chest pain. Patient has smoked 1-1/2 pack per day for 50+ years. In the last 1 year he was smoking 6 cigarettes per day. He has not smoked in the last 1 month. Denies any alcohol use or drugs. Review of Systems Constitutional: Reports weight loss, Denies chills, Denies fever Eyes: bilateral blurred vision (Today noticing, right worse), denies diplopia, denies pain Ears: bilateral: decreased hearing, deny: earache Ears, nose, mouth and throat: Reports headache, Denies sore throat Cardiovascular: Reports shortness of breath, Denies chest pain Respiratory: Reports cough, Reports cough with sputum, Denies excessive sputum Gastrointestinal: Denies abdominal pain, Denies diarrhea, Denies nausea, Denies vomiting Musculoskeletal: Denies myalgias, Denies neck pain Musculoskeletal: right: shoulder pain Integumentary: Reports rash, Denies pruritus Neurological: Reports as per HPI Psychiatric: Reports anxiety, Denies depression Endocrine: Reports fatigue, Reports weight change Hematologic/Lymphatic: Reports easy bruising, Denies easy bleeding Past Medical History Past Medical History: Coronary Artery Disease (CAD), COPD, GERD/Reflux, Hyperlipidemia, Hypertension, Pneumonia, Skin Disorder Additional Past Medical History / Comment(s): chronic hypoxic respiratory failure on oxygen 2/L NC ATC, RLS, LT CAROTID stenosis History of Any Multi-Drug Resistant Organisms: None Reported Past Surgical History: Appendectomy, Heart Catheterization Additional Past Surgical History / Comment(s): COLONSCOPY. BRONCHOSCOPY WITH BIOPSY Past Anesthesia/Blood Transfusion Reactions: No Reported Reaction Additional Past Anesthesia/Blood Transfusion Reaction / Comment(s): HAD TROUBLE BREATHING AFTER BROCHOSCOPY AND ENDED UP IN ICU FOR A FEW DAYS Date of Last Stent Placement:: 01/01/23 Smoking Status: Current every day smoker - Past Family History Mother Family Medical History: No Reported History Father Additional Family Medical History / Comment(s): "black lung from working in a coal mine" Medications and Allergies Home Medications Medication Instructions Recorded Confirmed Type Albuterol Nebulized [Ventolin 2.5 mg INHALATION Q4H PRN 12/24/19 01/30/23 History Nebulized] Aspirin 81 mg PO DAILY 12/24/19 01/30/23 History Metoprolol Tartrate [Lopressor] 100 mg PO BID 12/24/19 01/30/23 History hydroCHLOROthiazide 25 mg PO QAM 12/24/19 01/30/23 History Ferrous Sulfate [Iron (65 MG 325 mg PO DAILY 12/09/20 01/30/23 History Elemental)] Pantoprazole Sodium [Protonix] 40 mg PO BISIBRKFST #30 tablet. 12/17/20 01/30/23 Rx Atorvastatin [Lipitor] 40 mg PO DAILY 12/27/22 01/30/23 History Budesonide/Glycopyr/Formoterol 2 puff INHALATION BID 12/27/22 01/30/23 History [Breztri Aerosphere Inhaler] Cholecalciferol (Vitamin D3) 125 mcg PO DAILY 12/27/22 01/30/23 History [Vitamin D3 (125 MCG = 5,000 IU)] predniSONE 10 mg PO Q2D 12/27/22 01/30/23 History Ezetimibe [Zetia] 10 mg PO DAILY 01/24/23 01/30/23 History Isosorbide Mononitrate [Isosorbide 30 mg PO DAILY 01/24/23 01/30/23 History Mononitrate ER] Vit B(Unk) 1 tab PO DAILY 01/24/23 01/30/23 History Allergies Allergy/AdvReac Type Severity Reaction Status Date / Time No Known Allergies Allergy Verified 01/30/23 06:53 Physical Examination - Vital Signs Vital Signs: Vital Signs Temp Pulse Pulse Resp BP BP BP 01/30/23 11:00 93 18 166/68 01/30/23 10:45 25 H 166/68 01/30/23 10:30 22 172/79 01/30/23 10:15 86 28 H 154/71 01/30/23 10:08 97.4 F L 16 154/71 01/30/23 07:01 97.8 F 100 18 157/81 168/87 Pulse Ox 01/30/23 11:00 96 01/30/23 10:45 99 01/30/23 10:30 98 01/30/23 10:15 99 01/30/23 10:08 98 01/30/23 07:01 96 Intake and Output 01/29/23 01/30/23 01/30/23 22:59 06:59 14:59 Intake Total 650 Balance 650 Intake: IV 500 Intake, IV Titration 150 Amount Sodium Chloride 0.9% 1, 150 000 ml In Empty Bag 1 bag @ 1 ML/KG/HR 71.214 mls/ hr IV .Q14H3M ONE Rx#: [id number] Other: Weight 71.1 kg Patient is an elderly male, in no acute distress. Patient is alert awake oriented to time place and person. Patient can name and repeat very well. No aphasia, although patient has mild dysarthria. Attention, concentration and fund of knowledge is adequate. On cranial nerve examination, pupils are equal, round and reacting to light, visual perez are full on confrontation, with no neglect on double simultaneous stimulation Extraocular muscles are intact with no nystagmus. Face is symmetric, tongue protrudes to the midline. Palatal elevation and sensation normal, hearing is slightly decreased and shoulder shrug normal, facial sens ation normal. On muscle strength testing, there is very minimal right pronation, but no clear drift. His strength is normal in arms and legs distally and proximally. Deep tendon reflexes are (right/left) biceps trace/2, brachioradialis trace/trace, knees 1+/1+, plantars downgoing bilaterally. Sensory to touch is equal with no neglect on double simultaneous stimulation. Cerebellar function showed moderate to severe ataxia for [id number] testing of the right upper extremity but not on the left. No dysdiadochokinesia. No ataxia for [id number] testing on either side. Tone and bulk of muscles normal. Gait deferred.. On general examination, there is no carotid bruit or murmur, S1-S2 audible. Chest is clear on consultation. Abdomen is soft nontender. No organomegaly, bowel sounds present. Peripheral pulses are present. No edema. Results - Laboratory Findings CBC and BMP: 01/30/23 11:21 01/30/23 11:26 Abnormal Lab Findings: Abnormal Labs 01/30/23 01/30/23 01/30/23 10:07 11:21 11:26 RBC 3.58 L Hgb 10.7 L Hct 31.3 L RDW 15.6 H Lymphocytes # 0.9 L Sodium 131 L Potassium 2.9 L Creatinine 0.45 L Glucose 118 H POC Glucose (mg/dL) 126 H Calcium 7.8 L Assessment and Plan Assessment: * Probable acute ischemic stroke manifesting with clumsy (R) hand and dysarthria. This could be related to an embolic event from left ICA stenosis, status post left ICA stenting. * CTA of head and neck revealed large vessel occlusion involving the distal right ICA. This site is clinically asymptomatic at this time. * Hypertension * Coronary artery disease * COPD * Hyperlipidemia * Tobacco use Plan: * Patient's symptoms have remarkably improved. His NIH stroke scale is down to 2-3 at this time. Initial NIH stroke scale reported as 9. * CTA of head and neck revealed moderate narrowing post-stenting left carotid artery. No obstruction identified. Mild narrowing right ICA from plaquing. Poor visualization of the distal right ICA bifurcation and right A1 segment. Right cerebral vascular circulation appears patent although smaller caliber within the brain than on the left. * Patient is not a candidate for TPA, because of rapidly improving symptoms, and risks outweigh the benefits. * Neuro intervention also evaluated the case, and images. Patient was considered not a candidate for TPA as per neuro intervention as well. Initially transfer to higher level of care was recommended for right ICA occlusion which is asymptomatic. However as he is doing well, patient will stay in the [facility]. * Continue dual antiplatelet medication including aspirin and Plavix 75 mg daily. Patient has already received loading dose of Plavix 600 mg in the offset label rewinder. * Hemoglobin A1c 5.5 on 01/01/2023. * Lipid panel with cholesterol 122, LDL 56, HDL 48 and triglycerides 83. Lipids are well controlled, continue Lipitor 40 mg daily. * 2-D echo from 10/05/2022 revealed technically difficult study for interpretation. Normal left ventricular systolic function with EF 55-60%. Septal hypertrophy. Grade 1 diastolic dysfunction. Normal RV systolic function. Mild pulmonary hypertension. Aortic sclerosis without stenosis with mild to moderate insufficiency. Thickened mitral valve leaflets with mild MR. * Recommend SHARLA in the morning rule out embolic source. * CT head revealed possibility of left cerebral meningioma. This was not present on the computed tomography scan of head from 10/30/2011. Patient will undergo MRI of the brain with and without contrast, and also MRA of head and neck. * DVT prophylaxis: Start heparin 5000 units subcu every 12 hours. * Discussed with cardiology, nursing staff and patient's family in detail. * Neurology will follow closely. Thank you for the consult.
[2023-01-30] MEDS ORDERED: ASPIRIN 81 MG PO STA (12:26)
[2023-01-30] MEDS: HYDROCORTISONE SUCCINATE 100 MG/2 ML VIAL IV SCH ×3 (12:50→23:08)
[2023-01-30] MEDS: POTASSIUM CHLORIDE 10 MEQ in WATER FOR INJECTION 1 100ML.BAG IVPB SCH ×6 (12:50→18:57)
[2023-01-30] MEDS: IPRATROPIUM-ALBUTEROL 3 ML NEB INHALATION PRN (17:01)
[2023-01-30] MEDS: ACETAMINOPHEN TAB 325 MG TAB PO PRN ×2 (18:30→23:09)
[2023-01-30] MEDS ORDERED: IPRATROPIUM-ALBUTEROL 3 ML NEB INHALATION SCH (20:00)
[2023-01-30] MEDS: ATORVASTATIN 40 MG TAB PO SCH (20:21)
[2023-01-30] MEDS: METOPROLOL TARTRATE 50 MG TAB PO SCH (20:21)
[2023-01-30] MEDS: HEPARIN SODIUM,PORCINE/PF 5,000 UNIT/0.5 ML SYRINGE SQ SCH (20:21)
[2023-01-31] MEDS: ACETAMINOPHEN TAB 325 MG TAB PO PRN (03:06)
[2023-01-31 03:30] LABS: Glucose,Whole Blood 174 mg/dL (70-110)
[2023-01-31] MEDS ORDERED: propofoL 100 ML IV ONE (03:31)
[2023-01-31] MEDS: IPRATROPIUM-ALBUTEROL 3 ML NEB INHALATION PRN (03:52)
[2023-01-31 04:02] LABS: African American GFR (CKD) >90 (>60 ml/min/1.73 sqM); Albumin 3.4 g/dL (3.5-5.0); Alkaline Phosphatase 48 U/L (38-126); Anion Gap 19 mmol/L; Blood Urea Nitrogen 12 mg/dL (9-20); Calcium 8.1 mg/dL (8.4-10.2); Carbon Dioxide 15 mmol/L (22-30); Chloride 100 mmol/L (98-107); Glucose 270 mg/dL (74-99); Non-African American GFR(CKD) >90 (>60 ml/min/1.73 sqM); Potassium 4.5 mmol/L (3.5-5.1); Sodium 134 mmol/L (137-145); Total Bilirubin 0.6 mg/dL (0.2-1.3); Total Protein 6.3 g/dL (6.3-8.2)
[2023-01-31 04:08] LABS: ALT 43 U/L (4-49); AST 37 U/L (17-59)
[2023-01-31 04:21] LABS: Basophils % (A) 0 %; Eosinophils % (A) 0 %; HCT 41.7 % (39.0-53.0); HGB 13.1 gm/dL (13.0-17.5); Hypochromasia Slight; Lymphocytes # (A) 1.1 k/uL (1.0-4.8); Lymphocytes % (A) 15 %; MCH 30.2 pg (25.0-35.0); MCHC 31.5 g/dL (31.0-37.0); Mean Platelet Volume 7.6; Monocytes # (A) 0.2 k/uL (0-1.0); Monocytes % (A) 2 %; Neutrophils # (A) 5.8 k/uL (1.3-7.7); Neutrophils % (A) 82 %; Platelet Count 305 k/uL (150-450); RBC 4.34 m/uL (4.30-5.90); RDW 15.4 % (11.5-15.5); WBC 7.1 k/uL (3.8-10.6)
[2023-01-31 04:34] LABS: ABG Base Excess -7.9 mmol/L; ABG HCO3 20 mmol/L (21-25); ABG Oxygen Saturation 99.4 % (94-97); ABG PCO2 48 mmHg (35-45); ABG PH 7.23 (7.35-7.45); ABG PO2 >400 mmHg (83-108); ABG TCO2 21 mmol/L (19-24)
[2023-01-31] MEDS ORDERED: FUROSEMIDE 10 MG/ML 4 ML VIAL IV STA (04:34)
[2023-01-31] MEDS ORDERED: NOREPINEPHRINE 4 MG in SODIUM CHLORIDE 0.9% 250 ML IV SCH (05:45)
--- NOTE | 2023-01-31 05:59 | XR ---
EXAM: XR Chest, 1 View CLINICAL HISTORY: ITS.REASON XR Reason: Tube placement TECHNIQUE: Frontal view of the chest. COMPARISON: 12/07/2022. FINDINGS: Lungs: Bibasilar atelectasis and/or infiltrates. Pulmonary hypertension/vascular congestion suggested. Lungs are otherwise unchanged. Pleural space: Unremarkable. No pneumothorax. Heart: Unremarkable. No cardiomegaly. Mediastinum: Unchanged. Bones/joints: Unremarkable. Tubes, lines and devices: Tip of ET tube is approximately 3 cm above the nehemiah. NG tube overlies the expected course of the esophagus with distal end traversing below the left hemidiaphragm and likely within the stomach. IMPRESSION: 1. Bibasilar atelectasis and/or infiltrates. 2. Tip of ET tube is approximately 3 cm above the nehemiah. 3. NG tube overlies the expected course of the esophagus with distal end traversing below the left hemidiaphragm and likely within the stomach. 4. Pulmonary hypertension/vascular congestion.
[2023-01-31] MEDS: PANTOPRAZOLE 40 MG TABLET PO SCH (06:46)
--- NOTE | 2023-01-31 07:41 | P.PN ---
Subjective Progress Note Date: 01/31/23 PROGRESS NOTE The patient is a 77-year-old male with known history of severe COPD, history of severe CAD and obstructive carotid disease who underwent left carotid stenting yesterday, post procedure he had right upper extremities weakness that subsequently improved. He was doing well until 3:00 in the morning when he became acutely dyspneic, hypoxic and had evidence of pulmonary edema. He was intubated. According to the nursing staff he was moving all his extremities at that time. He continues to be in sinus mechanism. There is no reported chest discomfort. He is on no vasopressor and he has good urinary output. He is intubated and sedated. His systolic function in the past was preserved with mild pulmonary hypertension. He had a history of smoking until recently. He has severe calcifications of his coronary arteries and has been evaluated for possible CABG depending on his lung status. EKG showed no acute ST segment changes, chest x-ray shows permanent congestion Medications: Aspirin, Plavix 75 g daily, isosorbide 30 mg daily, Lipitor 40 mg daily, metoprolol 100 mg twice a day,Zetia 10 mg daily, prednisone, hydrochlorothiazide 25 mg daily PHYSICAL EXAMINATION: 70 atrial male, intubated and sedated, Blood pressure 100/60 heart rate 70 LUNGS: Clear to auscultation anteriorly HEART: Regular rate and rhythm, S1, S2. No S3. Systolic ejection murmur ABDOMEN: Soft, positive bowel sounds, no organomegaly EXTREMETIES: No edema, groin no hematoma LAB: Hemoglobin 13.1, platelets 305, pH 7.23, pCO2 48, potassium 4.5, BUN 12, creatinine 0.64. Troponin less than 0.012. NT proBNP 1140. IMPRESSION: 1. Acute respiratory failure with evidence of pulmonary edema, his systolic fu nction in the past was normal 2. Status post left carotid stenting with right upper extremities weakness post procedure, improved 3. Severe triple vessel CAD 4. Severe COPD 5. History of hypertension 6. History of hyperlipidemia PLAN: 1. Obtain an echocardiogram with Doppler 2. IV Lasix 3. Follow blood pressure and heart rate 4. Management of ventilator per pulmonary service 5. Depending on his progress further recommendations will be made, the findings were discussed with the family Objective - Vital Signs Vital signs: Vital Signs Temp 98.1 F 01/31/23 04:00 Pulse 73 07/13/23 07:00 Resp 22 01/31/23 07:00 BP 88/59 01/31/23 07:00 Pulse Ox 98 01/31/23 07:00 FiO2 40 01/31/23 04:37 Intake & Output 01/30/23 01/31/23 01/31/23 18:59 06:59 18:59 Intake Total 1175 727.581 Output Total 700 1455 75 Balance 475 -727.419 -75 Weight 71.1 kg 75 kg Intake: IV 500 Intake, IV Titration 675 727.581 Amount Norepinephrine 4 mg In 8.144 Sodium Chloride 0.9% 250 ml @ 0.03 MCG/KG/MIN 8. 573 mls/hr IV .Q24H [facility] Rx#:[id number] Sodium Chloride 0.9% 1, 675 675 000 ml In Empty Bag 1 bag @ 1 ML/KG/HR 71.214 mls/ hr IV .Q14H[facility] Rx#: [id number] propofoL 1,000 mg In 44.437 Empty Bag 1 bag @ 15 MCG/ KG/MIN 6.399 mls/hr IV . [id number] [facility] Rx#:[id number] Output: Urine 700 1455 75 Other: Voiding Method Indwelling Catheter ABP, PAP, CO, CI - Last Documented Arterial Blood Pressure 184/75 - Labs CBC & Chem 7: 01/31/23 03:44 01/31/23 03:44 Labs: Abnormal Lab Results - Last 24 Hours (Table) 01/30/23 01/30/23 01/30/23 Range/Units 10:07 11:21 11:26 RBC 3.58 L (4.30-5.90) m/uL Hgb 10.7 L (13.0-17.5) gm/dL Hct 31.3 L (39.0-53.0) % RDW 15.6 H (11.5-15.5) % Lymphocytes # 0.9 L (1.0-4.8) k/uL APTT 56.1 H (22.0-30.0) sec D-Dimer (<0.60) mg/L FEU ABG pH (7.35-7.45) ABG pCO2 (35-45) mmHg ABG pO2 (83-108) mmHg ABG HCO3 (21-25) mmol/L ABG O2 Saturation (94-97) % Sodium (137-145) mmol/L Potassium (3.5-5.1) mmol/L Carbon Dioxide (22-30) mmol/L Creatinine (0.66-1.25) mg/dL Glucose (74-99) mg/dL POC Glucose (mg/dL) 126 H (70-110) mg/dL Calcium (8.4-10.2) mg/dL Albumin (3.5-5.0) g/dL 01/30/23 01/31/23 01/31/23 Range/Units 11:26 03:26 03:44 RBC (4.30-5.90) m/uL Hgb (13.0-17.5) gm/dL Hct (39.0-53.0) % RDW (11.5-15.5) % Lymphocytes # (1.0-4.8) k/uL APTT (22.0-30.0) sec D-Dimer (<0.60) mg/L FEU ABG pH (7.35-7.45) ABG pCO2 (35-45) mmHg ABG pO2 (83-108) mmHg ABG HCO3 (21-25) mmol/L ABG O2 Saturation (94-97) % Sodium 131 L 134 L (137-145) mmol/L Potassium 2.9 L (3.5-5.1) mmol/L Carbon Dioxide 15 L (22-30) mmol/L Creatinine 0.45 L 0.64 L (0.66-1.25) mg/dL Glucose 118 H 270 H (74-99) mg/dL POC Glucose (mg/dL) 174 H (70-110) mg/dL Calcium 7.8 L 8.1 L (8.4-10.2) mg/dL Albumin 3.4 L (3.5-5.0) g/dL 01/31/23 01/31/23 Range/Units 04:32 05:42 RBC (4.30-5.90) m/uL Hgb (13.0-17.5) gm/dL Hct (39.0-53.0) % RDW (11.5-15.5) % Lymphocytes # (1.0-4.8) k/uL APTT (22.0-30.0) sec D-Dimer 3.93 H (<0.60) mg/L FEU ABG pH 7.23 L (7.35-7.45) ABG pCO2 48 H (35-45) mmHg ABG pO2 >400 H (83-108) mmHg ABG HCO3 20 L (21-25) mmol/L ABG O2 Saturation 99.4 H (94-97) % Sodium (137-145) mmol/L Potassium (3.5-5.1) mmol/L Carbon Dioxide (22-30) mmol/L Creatinine (0.66-1.25) mg/dL Glucose (74-99) mg/dL POC Glucose (mg/dL) (70-110) mg/dL Calcium (8.4-10.2) mg/dL Albumin (3.5-5.0) g/dL
[2023-01-31] MEDS: IPRATROPIUM-ALBUTEROL 3 ML NEB INHALATION SCH ×5 (08:18→23:15)
--- NOTE | 2023-01-31 08:32 | P.PN ---
Subjective Progress Note Date: 01/31/23 This is a 77-year-old mentation is very well-known to me. The patient has advanced COPD oxygen dependent at 2 L and he is also steroid dependent with an FEV1 of 31% of predicted and diffusion capacity of 27% of predicted. The patient had also multivessel coronary artery disease. I saw him 2 weeks back in my office and I thought he was a high surgical candidate for coronary artery bypass surgery and after having a discussion with cardiology and cardiothoracic surgery we opted not to proceed with surgery and consider multivessel stenting. The patient also had a 90% stenosis of the internal carotid artery on the left. On today's evaluation, the patient was brought in by interventional cardiology and the patient has successful stenting of the left common and internal carotid artery with good angiographic results. After the patient arrived to the ICU, the patient acutely became weak on the right side. He is unable to move his right upper extremity and he has significant weakness in his right lower extremity and the facial droop. His speech is also slightly affected although he still conversing. He is awake and alert and he is hemodynamically stable. His most recent blood pressure is 172/79. He is on oxygen at 2 L and he is pulse ox sitting 94%. His cardiac rhythm is sinus. Based on that, a code stroke was initiated and the patient is being taken for an immediate CT angiogram. I saw the patient prior to him moving to the radiology department. Meanwhile, neurology has been activated and intervention neurology has also been activated. No headaches. No seizure activity. The patient is known to have chronic exertional dyspnea. He gets short of breath upon walking around 100 feet. He has no chest pain at this point in time. He is an ex-smoker. His hypertension and hyperlipidemia and COPD as comorbidities and as mentioned he is oxygen dependent 24 7. Labs pending from.. He is currently on a combination of aspirin and Plavix. He was given heparin and can labeler On today's evaluation of 01/31/2023, the patient is intubated on a mechanical ventilator. Note that the patient was in the intensive care unit and the patient was having neurologic deficits following his carotid stenting. Suspect an acute CVA. Based on that, the patient underwent a CAT scan of the brain and the CAT scan showed what looks to be a meningioma in the left frontal lobe. This was discussed at length with urology and interventional neurology and there was no evidence of any intraparenchymal hemorrhage and the findings were more consistent with a meningioma. At the same time, the patient had a CT angiogram that showed moderate narrowing post stenting of the left carotid artery. There was no obstruction identified. There was mild narrowing of the right internal carotid from plaquing. There was poor visualization of the distal right internal carotid artery bifurcation and right A1 segment. The right cerebral vasculature appears to be patent and smaller caliber within the brain compared to the left. The patient was clinically improving and he was gradually gaining his multiple function right upper extremity. Based on that, it was decided not to give any thrombolytics and not to do any intervention. Overnight, the patient became acutely short of breath and around the clock he immediately went into acute respiratory failure. At that point, he was seen by our nurse practitioner and the patient was immediately intubated and placed on mechanical ventilator. Currently is intubated on propofol which is running at 50 mcg/kg/m. He is also on assist-control mode of mechanical ventilation at the rate of 22 with a tidal volume of 450 and FiO2 of 40% with a PEEP of 5. Blood gas post intubation showed a pH of 7.23 with a pCO2 of 48 and pO2 of more than 400. His troponin was negative. His chest x-ray showed increased interstitial markings bilaterally. There was no airspace disease or consolidation. The pulmonary changes were essentially interstitial no pneumothorax been no pleural effusion. EKG was in a good location the patient also had an NG tube in place. The patient did not aspirate. No significant orotracheal secretions. Morning labs shows a normal BUN and the creatinine and normal sodium level of 134. Serum bicarb is down to 15 and the patient has an anion gap of 19. The white cycles at 7.0 with a hemoglobin of 15.1. He is currently on pressors and norepinephrine is running at 0.12 mcg/kg/m. He is on bronchodilators. He was given Lasix 40 mg IV every 12 hours. He remains on stress dose hydrocortisone as the patient has been steroid dependent for a long period of time and I have him on a dose of 100 mg IV every 8 hours. He is on aspirin and Plavix and is also on Lipitor. Repeat echocardiogram was ordered. Objective - Vital Signs Vital signs: Vital Signs Temp 98.1 F 01/31/23 04:00 Pulse 73 01/31/23 07:00 Resp 22 01/31/23 07:00 BP 88/59 01/31/23 07:00 Pulse Ox 98 01/31/23 07:00 FiO2 40 01/31/23 08:10 Intake & Output 01/30/23 01/31/23 01/31/23 18:59 06:59 18:59 Intake Total 1175 727.581 Output Total 700 1455 75 Balance 475 -727.419 -75 Weight 71.1 kg 75 kg Intake: IV 500 Intake, IV Titration 675 727.581 Amount Norepinephrine 4 mg In 8.144 Sodium Chloride 0.9% 250 ml @ 0.03 MCG/KG/MIN 8. 573 mls/hr IV .Q24H [facility] Rx#:[id number] Sodium Chloride 0.9% 1, 675 675 000 ml In Empty Bag 1 bag @ 1 ML/KG/HR 71.214 mls/ hr IV .Q14H3[facility] Rx#: [id number] propofoL 1,000 mg In 44.437 Empty Bag 1 bag @ 15 MCG/ KG/MIN 6.399 mls/hr IV . [id number] [facility] Rx#:[id number] Output: Urine 700 1455 75 Other: Voiding Method Indwelling Catheter ABP, PAP, CO, CI - Last Documented Arterial Blood Pressure 184/75 - Exam Gen. appearance the patient is currently sedated and he is, comfortable, not in acute distress, the patient has a orogastric and orotracheal tube and both of them are in place. Head exam was generally normal. There was no scleral icterus or corneal arcus. Mucous membranes were moist. Neck was supple and without jugular venous distension, thyromegaly, or carotid bruits. Carotids were easily palpable bilaterally. There was no adenopathy. I do not appreciate a significant lymphadenopathy or JVDs. Lungs sounds are diminished bilaterally and the patient has diffuse expiratory wheezes throughout the lung perez. Heart sounds are distant, positive S1-S2 and there is no significant murmurs appreciated. Abdominal exam revealed normal bowel sounds. The abdomen was soft, non-tender, and without masses, organomegaly, or appreciable enlargement of the abdominal aorta. Examination of the extremities revealed easily palpable radial, femoral and pedal pulses. There was no cyanosis, clubbing or edema. Examination of the skin revealed no evidence of significant rashes, suspicious appearing nevi or other concerning lesions. Neurologic exam is limited as the patient is currently on propofol. Nevertheless, the patient has pupils which are 2 mm in size and sluggishly reactive to light. He grimaces and withdraws to painful stimulation. - Labs CBC & Chem 7: 01/31/23 03:44 01/31/23 03:44 Labs: Abnormal Lab Results - Last 24 Hours (Table) 01/30/23 01/30/23 01/30/23 Range/Units 10:07 11:21 11:26 RBC 3.58 L (4.30-5.90) m/uL Hgb 10.7 L (13.0-17.5) gm/dL Hct 31.3 L (39.0-53.0) % RDW 15.6 H (11.5-15.5) % Lymphocytes # 0.9 L (1.0-4.8) k/uL APTT 56.1 H (22.0-30.0) sec D-Dimer (<0.60) mg/L FEU ABG pH (7.35-7.45) ABG pCO2 (35-45) mmHg ABG pO2 (83-108) mmHg ABG HCO3 (21-25) mmol/L ABG O2 Saturation (94-97) % Sodium (137-145) mmol/L Potassium (3.5-5.1) mmol/L Carbon Dioxide (22-30) mmol/L Creatinine (0.66-1.25) mg/dL Glucose (74-99) mg/dL POC Glucose (mg/dL) 126 H (70-110) mg/dL Calcium (8.4-10.2) mg/dL Albumin (3.5-5.0) g/dL 01/30/23 01/31/23 01/31/23 Range/Units 11: 03:26 03:44 RBC (4.30-5.90) m/uL Hgb (13.0-17.5) gm/dL Hct (39.0-53.0) % RDW (11.5-15.5) % Lymphocytes # (1.0-4.8) k/uL APTT (22.0-30.0) sec D-Dimer (<0.60) mg/L FEU ABG pH (7.35-7.45) ABG pCO2 (35-45) mmHg ABG pO2 (83-108) mmHg ABG HCO3 (21-25) mmol/L ABG O2 Saturation (94-97) % Sodium 131 L 134 L (137-145) mmol/L Potassium 2.9 L (3.5-5.1) mmol/L Carbon Dioxide 15 L (22-30) mmol/L Creatinine 0.45 L 0.64 L (0.66-1.25) mg/dL Glucose 118 H 270 H (74-99) mg/dL POC Glucose (mg/dL) 174 H (70-110) mg/dL Calcium 7.8 L 8.1 L (8.4-10.2) mg/dL Albumin 3.4 L (3.5-5.0) g/dL 01/31/23 01/31/23 Range/Units 04:32 05:42 RBC (4.30-5.90) m/uL Hgb (13.0-17.5) gm/dL Hct (39.0-53.0) % RDW (11.5-15.5) % Lymphocytes # (1.0-4.8) k/uL APTT (22.0-30.0) sec D-Dimer 3.93 H (<0.60) mg/L FEU ABG pH 7.23 L (7.35-7.45) ABG pCO2 48 H (35-45) mmHg ABG pO2 >400 H (83-108) mmHg ABG HCO3 20 L (21-25) mmol/L ABG O2 Saturation 99.4 H (94-97) % Sodium (137-145) mmol/L Potassium (3.5-5.1) mmol/L Carbon Dioxide (22-30) mmol/L Creatinine (0.66-1.25) mg/dL Glucose (74-99) mg/dL POC Glucose (mg/dL) (70-110) mg/dL Calcium (8.4-10.2) mg/dL Albumin (3.5-5.0) g/dL Assessment and Plan Plan: Acute respiratory failure, combination of hypoxic and hypercapnic respiratory failure with severe respiratory distress requiring intubation mechanical ventilation. This could be a combination of COPD and CHF exacerbation. No reported aspiration. Currently intubated on a mechanical ventilator. Chest x- ray was normal. Blood gases was noted. 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 A Code stroke has been activated and the patient is being taken for an immediate emergent CTA of the brain. Neurology and interventional neurology has been activated , possible left frontal meningioma the patient did not receive any thrombolytics and there was gradual improvement in his motor function on the right side overnight. CTA of the brain was reviewed. CAT scan of the brain was reviewed. Carotids of the case. The patient is on accommodation of aspirin and Plavix. Acute hypotension, could be cardiogenic in nature. Awaiting a repeat echocardiogram. The patient is currently off pressors Severe left carotid artery stenosis, 90% and the patient has undergone carotid artery stenting, postoperative day #1 Multivessel coronary artery disease, not a surgical candidate Advanced severe COPD with a FEV1 on of 31% of predicted with chronic hypoxic respiratory failure. The patient is also steroid dependent Hypertension Hyperlipidemia History of smoking Restless leg syndrome Plan Condition is critical at this point in time. Continue intubation mechanical ventilation for now Continue ventilator support Started patient on a bicarbonate infusion at the rate of 50 mL an hour Continue bronchodilators Add IV Solu-Medrol 60 mg every 6 hours The patient was given 40 mg IV Lasix and her diabetes more than a liter. I suggest cutting his Lasix to 40 mg once a day especially the patient is currently hypotensive and is on pressors. We'll insert an arterial line With this is a triple-lumen catheter Repeat echocardiogram Consult with cardiology Continue statins Hold antihypertensive medications for now including metoprolol especially the patient is currently hypotensive We'll continue to follow. Condition is critical and we'll continue to follow. As mentioned, for baseline performance of functional status. Time with Patient: Greater than 30
[2023-01-31] MEDS ORDERED: FUROSEMIDE 10 MG/ML 4 ML VIAL IV SCH (09:00)
[2023-01-31] MEDS ORDERED: ATORVASTATIN 40 MG TAB PO SCH (09:00)
--- NOTE | 2023-01-31 09:00 | P.PCN ---
Date of Procedure: 01/31/23 Preoperative Diagnosis: Acute respiratory failure, acute CVA Postoperative Diagnosis: Acute respiratory failure, acute CVA Procedure(s) Performed: Central line, arterial line Anesthesia: local Surgeon: Eldon Giles Pathology: none sent Condition: critical Disposition: ICU Operative Findings: Indication: Hemodynamic monitoring. A time-out was completed verifying correct patient, procedure, site, positioning, and implant(s) or special equipment if applicable. Allens test was performed to ensure adequate perfusion. The patients wrist was prepped and draped in sterile fashion. 1% Lidocaine was used to anesthetize the area. An 18G Arrow arterial line was introduced into the right radial artery artery. The catheter was threaded over the guide wire and the needle was removed with appropriate pulsatile blood return. Blood loss was minimal. The catheter was then sutured in place to the skin and a sterile dressing applied. Perfusion to the extremity distal to the point of catheter insertion was checked and found to be adequate. The patient tolerated the procedure well and there were no complications. Indication: Hemodynamic monitoring/Intravenous access. A time-out was completed verifying correct patient, procedure, site, positioning, and implant(s) or special equipment if applicable. The patient was placed in a dependent position appropriate for central line placement based on the vein to be cannulated. The patients left chest was prepped and draped in sterile fashion. 1% Lidocaine was used to anesthetize the surrounding skin area. A triple lumen 9F Cordis catheter was introduced into the left subclavian vein using Seldinger technique. The catheter was threaded smoothly over the guide wire and appropriate blood return was obtained. Each lumen of the catheter was evacuated of air and flushed with sterile saline. The catheter was then sutured in place to the skin and a sterile dressing applied. Perfusion to the extremity distal to the point of catheter insertion was checked and found to be adequate. The patient tolerated the procedure well and there were no complications.
[2023-01-31] MEDS ORDERED: NOREPINEPHRINE 8 MG in SODIUM CHLORIDE 0.9% 250 ML IV SCH (09:30)
--- NOTE | 2023-01-31 09:35 | XR ---
EXAMINATION TYPE: XR chest 1V confirm line [facility] DATE OF EXAM: 01/31/2023 COMPARISON: 01/31/2023 HISTORY: 77 year-old female line placement TECHNIQUE: Single frontal view of the chest is obtained. FINDINGS: Left CVC tip at the lower SVC. Heart upper limits of normal in size. ET tube tip located 3 .5 cm and the nehemiah. NG tube courses below the diaphragm. Mild hyperinflation. Mild interstitial pro minence persists but shows some improvement. Patient is rotated towards the left and there is exclusi on of the lateral left base from the [id number]. IMPRESSION: 1. Left CVC tip at the lower SVC. 2. Limited, rotated exam. Residual interstitial opacities with some improvement from prior. 3. Background COPD and borderline heart size.
[2023-01-31] MEDS: CLOPIDOGREL 75 MG TAB PO SCH (10:28)
[2023-01-31] MEDS: ISOSORBIDE MONONITRATE ER 30 MG TAB.ER.24H PO SCH (10:28)
[2023-01-31] MEDS: HEPARIN SODIUM,PORCINE/PF 5,000 UNIT/0.5 ML SYRINGE SQ SCH ×2 (10:28→21:20)
[2023-01-31] MEDS: EZETIMIBE 10 MG TAB PO SCH (10:28)
[2023-01-31] MEDS: CHLORHEXIDINE GLUCONATE 15 ML CUP MUCOUS MEM SCH ×2 (10:29→21:20)
[2023-01-31] MEDS: FUROSEMIDE 10 MG/ML 4 ML VIAL IV SCH (10:29)
[2023-01-31] MEDS: METOPROLOL TARTRATE 50 MG TAB PO SCH ×2 (10:30→21:20)
[2023-01-31] MEDS: ASPIRIN 81 MG PO SCH (10:30)
[2023-01-31] MEDS: methylPREDNISolone SOD SUCCI 125 MG/2 ML VIAL IV SCH ×3 (10:36→17:58)
[2023-01-31] MEDS: DEXTROSE 5% IN WATER 1,000 ML with SODIUM BICARB (1 MEQ/ML) 150 ML IV SCH (10:55)
[2023-01-31 11:29] LABS: Glucose,Whole Blood 147 mg/dL (70-110)
[2023-01-31] MEDS ORDERED: DEXTROSE 50% SYRINGE 50 ML IVP PRN ×2 (13:04)
[2023-01-31] MEDS ORDERED: INSULIN ASPART (NovoLOG) 100 UNIT/ML VIAL SQ SCH (13:30)
--- NOTE | 2023-01-31 13:55 | P.PN ---
Subjective Progress Note Date: 01/31/23 Patient was seen for a follow-up. Patient's and daughter were present today. At around 3:30 AM last night, patient developed alter mental status. He was attempting to get out of bed, stating something was wrong. He became somewhat anxious, felt "impending doom". He became pale, started breathing fast, oxygen dropped in the 70s. He was started to be bagged and then has to be intubated at 3:34 AM. Patient's blood pressure at that time was elevated 188/92. However when he was started on propofol while being intubated, his blood pressure dropped 92/52 and then 79/50. Patient was started on Levophed, currently on 0.3 mcg/kg per minute, also on propofol 50 mcg/kg per minute. Nurse has reported that patient has been neurologically stable throughout, as she moved all 4 extremities, face has been symmetric. No obvious focal examination noticed. Patient's ABG at that time showed pH of 7.23, pCO2 48. Sodium 134 potassium 4.5, normal renal and hepatic panel. Initial troponin was negative, but subsequent troponins have been slightly +0.247. Natruretic pro-BNP is 1140 Objective - Vital Signs Vital signs: Vital Signs Temp 98.1 F 01/31/23 04:00 Pulse 73 01/31/23 08:43 Resp 22 01/31/23 07:00 BP 88/59 01/31/23 07:00 Pulse Ox 98 01/31/23 07:00 FiO2 40 01/31/23 11:12 Intake & Output 01/30/23 01/31/23 01/31/23 18:59 06:59 18:59 Intake Total 1175 727.581 5.442 Output Total 700 1455 75 Balance 475 -727.419 -69.558 Weight 71.1 kg 75 kg Intake: IV 500 Intake, IV Titration 675 727.581 5.442 Amount Norepinephrine 4 mg In 8.144 Sodium Chloride 0.9% 250 ml @ 0.03 MCG/KG/MIN 8. 573 mls/hr IV .Q24H [facility] Rx#:[id number] Norepinephrine 8 mg In 5.442 Sodium Chloride 0.9% 250 ml @ 0.03 MCG/KG/MIN 4. 354 mls/hr IV .Q24H [facility] Rx#:[id number] Sodium Chloride 0.9% 1, 675 675 000 ml In Empty Bag 1 bag @ 1 ML/KG/HR 71.214 mls/ hr IV .Q14H3M [facility] Rx#: [id number] propofoL 1,000 mg In 44.437 Empty Bag 1 bag @ 15 MCG/ KG/MIN 6.399 mls/hr IV . [id number] [facility] Rx#:[id number] Output: Urine 700 1455 75 Other: Voiding Method Indwelling Catheter ABP, PAP, CO, CI - Last Documented Arterial Blood Pressure 184/75 - Exam At present patient is sedated. He is not responding to calling his name. Patient is intubated. No obvious seizure activity. Patient's pupils are equal, round and reacting. Oculocephalics are slightly present. Rest of the examination not able to be performed because of sedation. - Labs CBC & Chem 7: 01/31/23 03:44 01/31/23 03:44 Labs: Abnormal Lab Results - Last 24 Hours (Table) 01/30/23 01/30/23 01/30/23 Range/Units 11:21 11:26 11:26 RBC 3.58 L (4.30-5.90) m/uL Hgb 10.7 L (13.0-17.5) gm/dL Hct 31.3 L (39.0-53.0) % RDW 15.6 H (11.5-15.5) % Lymphocytes # 0.9 L (1.0-4.8) k/uL APTT 56.1 H (22.0-30.0) sec D-Dimer (<0.60) mg/L FEU ABG pH (7.35-7.45) ABG pCO2 (35-45) mmHg ABG pO2 (83-108) mmHg ABG HCO3 (21-25) mmol/L ABG O2 Saturation (94-97) % Sodium 131 L (137-145) mmol/L Potassium 2.9 L (3.5-5.1) mmol/L Carbon Dioxide (22-30) mmol/L Creatinine 0.45 L (0.66-1.25) mg/dL Glucose 118 H (74-99) mg/dL POC Glucose (mg/dL) (70-110) mg/dL Calcium 7.8 L (8.4-10.2) mg/dL Troponin I (0.000-0.034) ng/mL Albumin (3.5-5.0) g/dL 01/31/23 01/31/23 01/31/23 Range/Units 03:26 03:44 04:32 RBC (4.30-5.90) m/uL Hgb (13.0-17.5) gm/dL Hct (39.0-53.0) % RDW (11.5-15.5) % Lymphocytes # (1.0-4.8) k/uL APTT (22.0-30.0) sec D-Dimer (<0.60) mg/L FEU ABG pH 7.23 L (7.35-7.45) ABG pCO2 48 H (35-45) mmHg ABG pO2 >400 H (83-108) mmHg ABG HCO3 20 L (21-25) mmol/L ABG O2 Saturation 99.4 H (94-97) % Sodium 134 L (137-145) mmol/L Potassium (3.5-5.1) mmol/L Carbon Dioxide 15 L (22-30) mmol/L Creatinine 0.64 L (0.66-1.25) mg/dL Glucose 270 H (74-99) mg/dL POC Glucose (mg/dL) 174 H (70-110) mg/dL Calcium 8.1 L (8.4-10.2) mg/dL Troponin I (0.000-0.034) ng/mL Albumin 3.4 L (3.5-5.0) g/dL 01/31/23 01/31/23 Range/Units 05:42 06:57 RBC (4.30-5.90) m/uL Hgb (13.0-17.5) gm/dL Hct (39.0-53.0) % RDW (11.5-15.5) % Lymphocytes # (1.0-4.8) k/uL APTT (22.0-30.0) sec D-Dimer 3.93 H (<0.60) mg/L FEU ABG pH (7.35-7.45) ABG pCO2 (35-45) mmHg ABG pO2 (83-108) mmHg ABG HCO3 (21-25) mmol/L ABG O2 Saturation (94-97) % Sodium (137-145) mmol/L Potassium (3.5-5.1) mmol/L Carbon Dioxide (22-30) mmol/L Creatinine (0.66-1.25) mg/dL Glucose (74-99) mg/dL POC Glucose (mg/dL) (70-110) mg/dL Calcium (8.4-10.2) mg/dL Troponin I 0.247 H* (0.000-0.034) ng/mL Albumin (3.5-5.0) g/dL Assessment and Plan Assessment: * Acute respiratory failure, requiring mechanical ventilation, probably due to acute pulmonary edema. Patient does have severe triple-vessel disease. 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 Initial NIH stroke scale was 9. Patient was considered not a candidate for TPA as his symptoms have mostly resolved. * Status post left ICA stenting for 90% stenosis 01/30/2023. * CTA of head and neck revealed large vessel occlusion involving the distal right ICA. This site is clinically asymptomatic at this time. * Hypertension * Severe triple vessel CAD * COPD * Hyperlipidemia * Tobacco use Plan: * Patient has developed acute respiratory failure, likely due to cardiopulmonary disease. Troponins have mildly elevated. Cardiology and pulmonary on board. Patient is now intubated, sedated on propofol. * Patient's neurological symptoms prior to intubation was much improved. His NIH stroke scale was down to 2 as of yesterday evening. Initial NIH stroke scale reported as 9. * Stat CT head when medically stable * CTA of head and neck 01/30/2023 revealed moderate narrowing post-stenting left carotid artery. No obstruction identified. Mild narrowing right ICA from [place]. Poor visualization of the distal right ICA bifurcation and right A1 segment. Right cerebral vascular circulation appears patent although smaller caliber within the brain than on the left. * Patient was considered not a candidate for TPA, because of rapidly improving symptoms, and risks outweigh the benefits. * Continue dual antiplatelet medication including aspirin and Plavix 75 mg daily. Patient has already received loading dose of Plavix 600 mg in the seed laboratory assistant. * Hemoglobin A1c 5.5 on 01/01/2023. * Lipid panel with cholesterol 122, LDL 56, HDL 48 and triglycerides 83. Lipids are well controlled, continue Lipitor 40 mg daily. * Repeat 2-D echo from today pending. * Recommend SHARLA rule out embolic source. * CT head revealed possibility of left cerebral meningioma. This was not present on the computed tomography scan of head from 10/30/2011. Patient will undergo MRI of the brain with and without contrast, and also MRA of head and neck. * DVT prophylaxis: Start heparin 5000 units subcu every 12 hours.
--- NOTE | 2023-01-31 14:30 | CT ---
EXAMINATION TYPE: CT brain wo con DATE OF EXAM: 01/31/2023 COMPARISON: 01/30/2023 HISTORY: Follow up CT DLP: 1188.4 mGycm Automated exposure control for dose reduction was used. FINDINGS: There is an endotracheal tube. There is a large partially calcified subcutaneous mass in lung the pos terior right parietal bone. Calvarium otherwise intact. There remains a 2.4 x 1.9 cm hyperdense lesion along the left frontal convexity suspect this most lik petar represents a meningioma rather than a hemorrhage. There is no midline shift or mass effect. Moder ate generalized degenerative change seen. There is low attenuation within the deep white matter mary tible with remote microvascular ischemia. There is a soft tissue lipoma anterior to the left frontal bone best seen on image 45 series 209. IMPRESSION: 1. 2.4 x 1.9 cm extra-axial hyperdensities is favored to represent a meningioma. This could be confir med with postcontrast MRI. 2. Degenerative and remote microvascular ischemic white matter change.
[2023-01-31] MEDS: BUDESONIDE 1 MG/2 ML NEBU INHALATION SCH ×2 (15:26→19:38)
[2023-01-31] MEDS: FORMOTEROL FUMARATE 20 MCG/2 ML NEBU INHALATION SCH ×2 (15:26→19:38)
[2023-01-31] MEDS: NOREPINEPHRINE 32 MG in SODIUM CHLORIDE 0.9% 218 ML IV SCH ×2 (15:48→17:52)
--- NOTE | 2023-01-31 16:43 | CA ---
Transthoracic Echo Report Name: Darius Carnes Age: 77 Gender: M : 1945 Exam Date: 01/31/2023 14:44 Exam Location: [facility] Ht (in): 68 Wt (lb): 165 Ordering Physician: Chinmay Og MD ([id number]) Attending/Referring Phys: Transformer Stock Clerk Girish Bynum Procedure CPT: Indications: cardiac evaluation Cardiac Hx: Technical Quality: Technically difficult study Contrast 1: Total Dose (mL): Contrast 2: Total Dose (mL): MEASUREMENTS (Male / Female) Normal Values 2D ECHO LV Diastolic Diameter PLAX 4.6 cm 4.2 - 5.9 / 3.9 - 5.3 cm LV Systolic Diameter PLAX 2.4 cm IVS Diastolic Thickness 1.1 cm 0.6 - 1.0 / 0.6 - 0.9 cm LVPW Diastolic Thickness 1.0 cm 0.6 - 1.0 / 0.6 - 0.9 cm LV Relative Wall Thickness 0.5 RV Internal Dim ED PLAX 2.4 cm LVOT Diameter 2.3 cm Aortic Root Diameter 3.0 cm LA Systolic Diameter LX 1.9 cm 3.0 - 4.0 / 2.7 - 3.8 cm LV Diastolic Volume MOD BP 59.1 cm??? 67 - 155 / 56 - 104 cm??? LV Systolic Volume MOD BP 24.0 cm??? 22 - 58 / 19 - 49 cm??? LV Ejection Fraction MOD BP 59.4 % >= 55 % LV Diastolic Volume MOD 4C 59.5 cm??? LV Systolic Volume MOD 4C 18.6 cm??? LV Ejection Fraction MOD 4C 68.7 % LV Diastolic Length 4C 6.9 cm LV Systolic Length 4C 5.7 cm LV Diastolic Volume MOD 2C 58.1 cm??? LV Systolic Volume MOD 2C 29.5 cm??? LV Ejection Fraction MOD 2C 49.2 % LV Diastolic Length 2C 6.8 cm LV Systolic Length 2C 6.4 cm LA Volume 31.6 cm??? 18 - 58 / 22 - 52 cm??? DOPPLER AV Peak Velocity 149.6 cm/s AV Peak Gradient 9.0 mmHg AV Mean Velocity 90.4 cm/s AV Mean Gradient 3.9 mmHg AV Velocity Time Integral 27.8 cm AI Peak Velocity 198.2 cm/s AI Peak Gradient 15.7 mmHg AI Pressure Half Time 805.3 ms LVOT Peak Velocity 108.5 cm/s LVOT Peak Gradient 4.7 mmHg AV Area Cont Eq pk 2.9 cm??? MV Peak Velocity 132.0 cm/s MV Peak Gradient 7.0 mmHg MV Mean Velocity 61.6 cm/s MV Mean Gradient 2.0 mmHg MV Velocity Time Integral 31.4 cm Mitral E Point Velocity 76.0 cm/s Mitral A Point Velocity 115.8 cm/s Mitral E to A Ratio 0.7 MV Deceleration Time 297.7 ms MV E' Velocity 8.2 cm/s Mitral E to MV E' Ratio 9.2 TR Peak Velocity 313.6 cm/s TR Peak Gradient 39.3 mmHg Right Ventricular Systolic Press 44.4 mmHg PV Peak Velocity 93.9 cm/s PV Peak Gradient 3.5 mmHg FINDINGS Left Ventricle Normal LV size and wall thickness. Left ventricular ejection fraction is estimated at 50-55 %. Apical akinesis. Right Ventricle Normal right ventricular size. RVSP= 42mmhg. Right Atrium Normal right atrial size. Left Atrium Normal left atrial size. Mitral Valve Structurally normal mitral valve. Aortic Valve Mild AV calcification. Mild AI. Tricuspid Valve Structurally normal tricuspid valve. Mild TR. Pulmonic Valve Pulmonic valve not well visualized. No pulmonic regurgitation. Pericardium Normal pericardium. Aorta Normal size aortic root. CONCLUSIONS Normal LV systolic function Mild apical hypokinesis Mild aortic regurgitation Previewed by: Shiva Tracey MD Dr. Suresh Tumma MD (Electronically Signed) Final Date: 31 January 2023 16:42
[2023-01-31] MEDS: LORazepam 2 MG/ML INJ IV PRN (16:47)
[2023-01-31 17:47] LABS: Glucose,Whole Blood 177 mg/dL (70-110)
[2023-01-31] MEDS: INSULIN ASPART (NovoLOG) 100 UNIT/ML VIAL SQ SCH (17:58)
[2023-01-31] MEDS: ATORVASTATIN 40 MG TAB PO SCH (21:20)
[2023-02-01] LABS: Glucose,Whole Blood 172 mg/dL (70-110)
[2023-02-01] MEDS: INSULIN ASPART (NovoLOG) 100 UNIT/ML VIAL SQ SCH ×5 (00:13→23:47)
[2023-02-01] MEDS: methylPREDNISolone SOD SUCCI 125 MG/2 ML VIAL IV SCH ×4 (00:13→17:24)
[2023-02-01] MEDS: IPRATROPIUM-ALBUTEROL 3 ML NEB INHALATION SCH ×6 (03:04→23:55)
[2023-02-01] MEDS: LORazepam 2 MG/ML INJ IV PRN (03:15)
[2023-02-01 05:25] LABS: ABG Base Excess 6.9 mmol/L; ABG HCO3 30 mmol/L (21-25); ABG PCO2 39 mmHg (35-45); ABG TCO2 31 mmol/L (19-24)
[2023-02-01 05:28] LABS: ABG PO2 59 mmHg (83-108); Allen Test Performed? no
[2023-02-01 05:31] LABS: African American GFR (CKD) >90 (>60 ml/min/1.73 sqM); Anion Gap 6 mmol/L; Blood Urea Nitrogen 15 mg/dL (9-20); Calcium 8.3 mg/dL (8.4-10.2); Carbon Dioxide 30 mmol/L (22-30); Chloride 101 mmol/L (98-107); Glucose 165 mg/dL (74-99); Non-African American GFR(CKD) >90 (>60 ml/min/1.73 sqM); Potassium 3.4 mmol/L (3.5-5.1); Sodium 137 mmol/L (137-145)
[2023-02-01 05:32] LABS: Basophils % (A) 0 %; Eosinophils % (A) 0 %; HCT 32.2 % (39.0-53.0); Lymphocytes # (A) 0.5 k/uL (1.0-4.8); Lymphocytes % (A) 3 %; MCH 30.6 pg (25.0-35.0); MCHC 34.1 g/dL (31.0-37.0); Monocytes # (A) 0.7 k/uL (0-1.0); Monocytes % (A) 5 %; Neutrophils # (A) 14.1 k/uL (1.3-7.7); Neutrophils % (A) 92 %; Platelet Count 373 k/uL (150-450); RBC 3.59 m/uL (4.30-5.90); RDW 15.5 % (11.5-15.5); WBC 15.4 k/uL (3.8-10.6)
[2023-02-01 05:34] LABS: MCV 89.7 fL (80.0-100.0)
[2023-02-01] MEDS ORDERED: Potassium Replacement Protocol 1 EACH MISC MISCELLANE PRN (05:45)
[2023-02-01] MEDS: POTASSIUM BICARBONATE/CIT AC 20 MEQ TABLET.EFF NG-TUBE SCH ×4 (06:18→14:10)
[2023-02-01 06:26] LABS: Glucose,Whole Blood 167 mg/dL (70-110)
[2023-02-01] MEDS: PANTOPRAZOLE 40 MG TABLET PO SCH (06:41)
--- NOTE | 2023-02-01 07:17 | P.PN ---
Subjective Progress Note Date: 02/01/23 PROGRESS NOTE The patient is a 77-year-old male with known history of severe COPD, history of severe CAD and obstructive carotid disease who underwent left carotid stenting yesterday, post procedure he had right upper extremities weakness that subsequently improved. He was doing well until 3:00 in the morning when he became acutely dyspneic, hypoxic and had evidence of pulmonary edema. He was intubated. According to the nursing staff he was moving all his extremities at that time. He continues to be in sinus mechanism. There is no reported chest discomfort. He is on no vasopressor and he has good urinary output. He is intubated and sedated. His systolic function in the past was preserved with mild pulmonary hypertension. He had a history of smoking until recently. He has severe calcifications of his coronary arteries and has been evaluated for possible CABG depending on his lung status. EKG showed no acute ST segment changes, chest x-ray shows permanent congestion February 01: He remains intubated and sedated, in sinus mechanism. Renal output is good. His EKG shows T-wave inversion in the anterolateral leads consistent with ischemia. His echocardiogram showed an ejection fraction of 50-55% with mild aortic regurgitation. He has no evidence of tachyarrhythmia. His oxygenation is stable. Apparently he was awake earlier according to the nursing staff and was moving all extremities. His chest x-ray shows no evidence of infiltrates. Medications: Aspirin, Plavix 75 g daily, isosorbide 30 mg daily, Lipitor 40 mg daily, metoprolol 100 mg twice a day,Zetia 10 mg daily, prednisone, hydrochlorothiazide 25 mg daily, Lasix 40 mg daily PHYSICAL EXAMINATION: 69 atrial male, intubated and sedated, Blood pressure 133/50 heart rate 82 LUNGS: Clear to auscultation anteriorly HEART: Regular rate and rhythm, S1, S2. No S3. Systolic ejection murmur ABDOMEN: Soft, positive bowel sounds, no organomegaly EXTREMETIES: No edema, groin no hematoma LAB: Hemoglobin 11, platelets 373, pH 7.5, pCO2 39, pO2 59, potassium 3.4, BUN 15, creatinine 0.53. Troponin peak 0.679. IMPRESSION: 1. Acute respiratory failure with evidence of pulmonary edema, his systolic function in the past was normal, he has EKG changes consistent with anterolateral ischemia with no significant troponin rise 2. Status post left carotid stenting with right upper extremities weakness post procedure, improved 3. Severe triple vessel CAD 4. Severe COPD 5. History of hypertension 6. History of hyperlipidemia PLAN: 1. Continue present therapy 2. Ventilator management per pulmonary service 3. Replace potassium 4. Depending on his progress further recommendations will be made 5. Prognosis is guarded Objective - Vital Signs Vital signs: Vital Signs Temp 97.7 F 02/01/23 04:00 Pulse 82 02/01/23 07:00 Resp 22 02/01/23 07:00 BP 102/58 01/31/23 09:00 Pulse Ox 90 L 02/01/23 07:00 FiO2 40 02/01/23 04:00 Intake & Output 01/31/23 02/01/23 02/01/23 18:59 06:59 18:59 Intake Total 654.837 893.655 79.061 Output Total 1150 1055 30 Balance -495.163 -161.345 49.061 Weight 75 kg Intake: Intake, IV Titration 644.837 873.655 79.061 Amount Dextrose 5% in Water 1, 450 550 50 000 ml @ 50 mls/hr IV . Q23H [facility] with Sodium Bicarb (1 Meq/ml) 150 ml Rx#:[id number] Norepinephrine 32 mg In 79.394 29.061 Sodium Chloride 0.9% 218 ml @ 0.03 MCG/KG/MIN 1. 055 mls/hr IV .Q24H [facility] Rx#:[id number] Norepinephrine 8 mg In 5.442 Sodium Chloride 0.9% 250 ml @ 0.03 MCG/KG/MIN 4. 354 mls/hr IV .Q24H [facility] Rx#:[id number] Sodium Chloride 0.9% 1, 20 000 ml In Empty Bag 1 bag @ 1 ML/KG/HR 71.214 mls/ hr IV .Q14H3M [facility] Rx#: [id number] propofoL 1,000 mg In 169.395 244.261 Empty Bag 1 bag @ 15 MCG/ KG/MIN 6.399 mls/hr IV . [id number] [facility] Rx#:[id number] Tube Feeding 10 20 Output: Urine 1150 1055 30 Other: Voiding Method Indwelling Catheter Indwelling Catheter ABP, PAP, CO, CI - Last Documented Arterial Blood Pressure 133/43 - Labs CBC & Chem 7: 02/01/23 04:54 02/01/23 04:54 Labs: Abnormal Lab Results - Last 24 Hours (Table) 01/31/23 01/31/23 01/31/23 Range/Units 06:57 10:12 11:28 WBC (3.8-10.6) k/uL RBC (4.30-5.90) m/uL Hgb (13.0-17.5) gm/dL Hct (39.0-53.0) % Neutrophils # (1.3-7.7) k/uL Lymphocytes # (1.0-4.8) k/uL ABG pH (7.35-7.45) ABG pO2 (83-108) mmHg ABG HCO3 (21-25) mmol/L ABG Total CO2 (19-24) mmol/L ABG O2 Saturation (94-97) % Potassium (3.5-5.1) mmol/L Creatinine (0.66-1.25) mg/dL Glucose (74-99) mg/dL POC Glucose (mg/dL) 147 H (70-110) mg/dL Calcium (8.4-10.2) mg/dL Troponin I 0.247 H* 0.679 H* (0.000-0.034) ng/mL 01/31/23 01/31/23 02/01/23 Range/Units 17:46 23:58 04:54 WBC (3.8-10.6) k/uL RBC (4.30-5.90) m/uL Hgb (13.0-17.5) gm/dL Hct (39.0-53.0) % Neutrophils # (1.3-7.7) k/uL Lymphocytes # (1.0-4.8) k/uL ABG pH (7.35-7.45) ABG pO2 (83-108) mmHg ABG HCO3 (21-25) mmol/L ABG Total CO2 (19-24) mmol/L ABG O2 Saturation (94-97) % Potassium 3.4 L (3.5-5.1) mmol/L Creatinine 0.53 L (0.66-1.25) mg/dL Glucose 165 H (74-99) mg/dL POC Glucose (mg/dL) 177 H 172 H (70-110) mg/dL Calcium 8.3 L (8.4-10.2) mg/dL Troponin I (0.000-0.034) ng/mL 02/01/23 02/01/23 02/01/23 Range/Units 04:54 05:23 06:25 WBC 15.4 H (3.8-10.6) k/uL RBC 3.59 L (4.30-5.90) m/uL Hgb 11.0 L (13.0-17.5) gm/dL Hct 32.2 L (39.0-53.0) % Neutrophils # 14.1 H (1.3-7.7) k/uL Lymphocytes # 0.5 L (1.0-4.8) k/uL ABG pH 7.50 H (7.35-7.45) ABG pO2 59 L* (83-108) mmHg ABG HCO3 30 H (21-25) mmol/L ABG Total CO2 31 H (19-24) mmol/L ABG O2 Saturation 92.0 L (94-97) % Potassium (3.5-5.1) mmol/L Creatinine (0.66-1.25) mg/dL Glucose (74-99) mg/dL POC Glucose (mg/dL) 167 H (70-110) mg/dL Calcium (8.4-10.2) mg/dL Troponin I (0.000-0.034) ng/mL
[2023-02-01] MEDS: FORMOTEROL FUMARATE 20 MCG/2 ML NEBU INHALATION SCH ×2 (07:57→20:12)
[2023-02-01] MEDS: BUDESONIDE 1 MG/2 ML NEBU INHALATION SCH ×2 (07:57→20:12)
--- NOTE | 2023-02-01 08:34 | XR ---
EXAMINATION TYPE: XR chest 1V portable DATE OF EXAM: 02/01/2023 COMPARISON: 01/31/2023 HISTORY: Line placement TECHNIQUE: Single frontal view of the chest is obtained. FINDINGS: Arthropathy of the shoulders. There is atherosclerotic change of aorta. Heart size is norm al. Hyperinflation suggests COPD. There is biapical pleural thickening. ET tube, NG tube, and central line stable. Linear subsegmental changes at the lung bases are difficult scarring or atelectasis. IMPRESSION: 1. COPD correlate for pulmonary arterial hypertension. 2. No acute process.
[2023-02-01] MEDS: HEPARIN SODIUM,PORCINE/PF 5,000 UNIT/0.5 ML SYRINGE SQ SCH ×2 (08:41→21:15)
[2023-02-01] MEDS: CLOPIDOGREL 75 MG TAB PO SCH (08:41)
[2023-02-01] MEDS: FUROSEMIDE 10 MG/ML 4 ML VIAL IV SCH (08:41)
[2023-02-01] MEDS: CHLORHEXIDINE GLUCONATE 15 ML CUP MUCOUS MEM SCH ×2 (08:41→20:41)
[2023-02-01] MEDS: ASPIRIN 81 MG PO SCH (08:41)
[2023-02-01] MEDS: EZETIMIBE 10 MG TAB PO SCH (08:41)
[2023-02-01] MEDS: ISOSORBIDE MONONITRATE ER 30 MG TAB.ER.24H PO SCH (08:50)
[2023-02-01] MEDS: DEXTROSE 5% IN WATER 1,000 ML with SODIUM BICARB (1 MEQ/ML) 150 ML IV SCH (08:50)
[2023-02-01] MEDS: METOPROLOL TARTRATE 50 MG TAB PO SCH ×2 (08:50→21:15)
[2023-02-01] MEDS: HYDROCORTISONE SUCCINATE 100 MG/2 ML VIAL IV SCH (10:06)
--- NOTE | 2023-02-01 10:34 | P.PN ---
Subjective Progress Note Date: 02/01/23 This is a 77-year-old mentation is very well-known to me. The patient has advanced COPD oxygen dependent at 2 L and he is also steroid dependent with an FEV1 of 31% of predicted and diffusion capacity of 27% of predicted. The patient had also multivessel coronary artery disease. I saw him 2 weeks back in my office and I thought he was a high surgical candidate for coronary artery bypass surgery and after having a discussion with cardiology and cardiothoracic surgery we opted not to proceed with surgery and consider multivessel stenting. The patient also had a 90% stenosis of the internal carotid artery on the left. On today's evaluation, the patient was brought in by interventional cardiology and the patient has successful stenting of the left common and internal carotid artery with good angiographic results. After the patient arrived to the ICU, the patient acutely became weak on the right side. He is unable to move his right upper extremity and he has significant weakness in his right lower extremity and the facial droop. His speech is also slightly affected although he still conversing. He is awake and alert and he is hemodynamically stable. His most recent blood pressure is 172/79. He is on oxygen at 2 L and he is pulse ox sitting 94%. His cardiac rhythm is sinus. Based on that, a code stroke was initiated and the patient is being taken for an immediate CT angiogram. I saw the patient prior to him moving to the radiology department. Meanwhile, neurology has been activated and intervention neurology has also been activated. No headaches. No seizure activity. The patient is known to have chronic exertional dyspnea. He gets short of breath upon walking around 100 feet. He has no chest pain at this point in time. He is an ex-smoker. His hypertension and hyperlipidemia and COPD as comorbidities and as mentioned he is oxygen dependent 24 7. Labs pending from.. He is currently on a combination of aspirin and Plavix. He was given heparin and [employer] On today's evaluation of 01/31/2023, the patient is intubated on a mechanical ventilator. Note that the patient was in the intensive care unit and the patient was having neurologic deficits following his carotid stenting. Suspect an acute CVA. Based on that, the patient underwent a CAT scan of the brain and the CAT scan showed what looks to be a meningioma in the left frontal lobe. This was discussed at length with urology and interventional neurology and there was no evidence of any intraparenchymal hemorrhage and the findings were more consistent with a meningioma. At the same time, the patient had a CT angiogram that showed moderate narrowing post stenting of the left carotid artery. There was no obstruction identified. There was mild narrowing of the right internal carotid from plaquing. There was poor visualization of the distal right internal carotid artery bifurcation and right A1 segment. The right cerebral vasculature appears to be patent and smaller caliber within the brain compared to the left. The patient was clinically improving and he was gradually gaining his multiple function right upper extremity. Based on that, it was decided not to give any thrombolytics and not to do any intervention. Overnight, the patient became acutely short of breath and around the clock he immediately went into acute respiratory failure. At that point, he was seen by our nurse practitioner and the patient was immediately intubated and placed on mechanical ventilator. Currently is intubated on propofol which is running at 50 mcg/kg/m. He is also on assist-control mode of mechanical ventilation at the rate of 22 with a tidal volume of 450 and FiO2 of 40% with a PEEP of 5. Blood gas post intubation showed a pH of 7.23 with a pCO2 of 48 and pO2 of more than 400. His troponin was negative. His chest x-ray showed increased interstitial markings bilaterally. There was no airspace disease or consolidation. The pulmonary changes were essentially interstitial no pneumothorax been no pleural effusion. EKG was in a good location the patient also had an NG tube in place. The patient did not aspirate. No significant orotracheal secretions. Morning labs shows a normal BUN and the creatinine and normal sodium level of 134. Serum bicarb is down to 15 and the patient has an anion gap of 19. The white cycles at 7.0 with a hemoglobin of 15.1. He is currently on pressors and norepinephrine is running at 0.12 mcg/kg/m. He is on bronchodilators. He was given Lasix 40 mg IV every 12 hours. He remains on stress dose hydrocortisone as the patient has been steroid dependent for a long period of time and I have him on a dose of 100 mg IV every 8 hours. He is on aspirin and Plavix and is also on Lipitor. Repeat echocardiogram was ordered. On today's evaluation of 02/01/2023, the patient remains intubated on a mechanical ventilator. The patient is post carotid stenting which got complicated by development of some neurological impairment involving the right side of the body and subsequent respiratory failure. The respiratory failure was thought to be related COPD. No clear indication for decompensated heart failure. Echocardiogram showed a preserved LV function. Echo was completed yesterday and based on the reports, the patient has a normal LV systolic function with apical hypokinesis, mild aortic regurgitation, normal right ventricular size and the records no systolic pressure was estimated to be 52. Ejection fraction was 50-55%. The patient currently is on propofol which is running at 55 mcg/kg/m. The patient is also on norepinephrine to maintain a higher mean arterial pressure based on his recent neurological event that occu rred which is in the form of CVA/TIA. The patient remains on a mechanical ventilator. Is quite successful mechanical ventilator. Is on assist-control at the rate of 22, tidal volume of 450, FiO2 of 40% and a PEEP of 5. The blood gas from today shows a pH of 7.50 with a pCO2 of 39 and pO2 of 59 and this was done on 5-40%. The serum bicarb is up to 30 and the patient will be taken off the bicarb infusion especially that he has developed some alkalosis. The chest x- ray showed no acute abnormalities. ET tube is an excellent location. All orogastric tube is also in place. The patient has developed no consolidation or airspace disease. 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 Urine output is adequate. Enteral feeding was started the patient is currently on vital high protein at the rate of 40 mL an hour. Objective - Vital Signs Vital signs: Vital Signs Temp 98 F 02/01/23 08:00 Pulse 78 02/01/23 10:00 Resp 28 H 02/01/23 10:00 BP 102/58 01/31/23 09:00 Pulse Ox 90 L 02/01/23 10:00 FiO2 40 02/01/23 10:00 Intake & Output 01/31/23 02/01/23 02/01/23 18:59 06:59 18:59 Intake Total 654.837 893.655 414.874 Output Total 1150 1055 510 Balance -495.163 -161.345 -95.126 Weight 75 kg Intake: IV 18 ART and CVP 18 Intake, IV Titration 644.837 873.655 246.874 Amount Dextrose 5% in Water 1, 450 550 200 000 ml @ 50 mls/hr IV . Q23H SYLWIA with Sodium Bicarb (1 Meq/ml) 150 ml Rx#:[id number] Norepinephrine 32 mg In 79.394 46.874 Sodium Chloride 0.9% 218 ml @ 0.03 MCG/KG/MIN 1. 055 mls/hr IV .Q24H SYLWIA Rx#:[id number] Norepinephrine 8 mg In 5.442 Sodium Chloride 0.9% 250 ml @ 0.03 MCG/KG/MIN 4. 354 mls/hr IV .Q24H SYLWIA Rx#:[id number] Sodium Chloride 0.9% 1, 20 000 ml In Empty Bag 1 bag @ 1 ML/KG/HR 71.214 mls/ hr IV .Q14H3M ONE Rx#: [id number] propofoL 1,000 mg In 169.395 244.261 Empty Bag 1 bag @ 15 MCG/ KG/MIN 6.399 mls/hr IV . [id number] SYLWIA Rx#:[id number] Tube Feeding 10 20 120 Other 30 Output: Urine 1150 1055 510 Other: Voiding Method Indwelling Catheter Indwelling Catheter Indwelling Catheter ABP, PAP, CO, CI - Last Documented Arterial Blood Pressure 132/46 - Exam Gen. appearance the patient is currently sedated and he is, comfortable, not in acute distress, the patient has a orogastric and orotracheal tube and both of them are in place. Head exam was generally normal. There was no scleral icterus or corneal arcus. Mucous membranes were moist. Neck was supple and without jugular venous distension, thyromegaly, or carotid bruits. Carotids were easily palpable bilaterally. There was no adenopathy. I do not appreciate a significant lymphadenopathy or JVDs. Lungs sounds are diminished bilaterally and the patient has diffuse expiratory wheezes throughout the lung perez. Heart sounds are distant, positive S1-S2 and there is no significant murmurs appreciated. Abdominal exam revealed normal bowel sounds. The abdomen was soft, non-tender, and without masses, organomegaly, or appreciable enlargement of the abdominal aorta. Examination of the extremities revealed easily palpable radial, femoral and pedal pulses. There was no cyanosis, clubbing or edema. Examination of the skin revealed no evidence of significant rashes, suspicious appearing nevi or other concerning lesions. Neurologic exam is limited as the patient is currently on propofol. Nevertheless, the patient has pupils which are 2 mm in size and sluggishly tania ctive to light. He grimaces and withdraws to painful stimulation. - Labs CBC & Chem 7: 02/01/23 04:54 02/01/23 04:54 Labs: Abnormal Lab Results - Last 24 Hours (Table) 01/31/23 01/31/23 01/31/23 Range/Units 10:12 11:28 17:46 WBC (3.8-10.6) k/uL RBC (4.30-5.90) m/uL Hgb (13.0-17.5) gm/dL Hct (39.0-53.0) % Neutrophils # (1.3-7.7) k/uL Lymphocytes # (1.0-4.8) k/uL ABG pH (7.35-7.45) ABG pO2 (83-108) mmHg ABG HCO3 (21-25) mmol/L ABG Total CO2 (19-24) mmol/L ABG O2 Saturation (94-97) % Potassium (3.5-5.1) mmol/L Creatinine (0.66-1.25) mg/dL Glucose (74-99) mg/dL POC Glucose (mg/dL) 147 H 177 H (70-110) mg/dL Calcium (8.4-10.2) mg/dL Troponin I 0.679 H* (0.000-0.034) ng/mL 01/31/23 02/01/23 02/01/23 Range/Units 23:58 04:54 04:54 WBC 15.4 H (3.8-10.6) k/uL RBC 3.59 L (4.30-5.90) m/uL Hgb 11.0 L (13.0-17.5) gm/dL Hct 32.2 L (39.0-53.0) % Neutrophils # 14.1 H (1.3-7.7) k/uL Lymphocytes # 0.5 L (1.0-4.8) k/uL ABG pH (7.35-7.45) ABG pO2 (83-108) mmHg ABG HCO3 (21-25) mmol/L ABG Total CO2 (19-24) mmol/L ABG O2 Saturation (94-97) % Potassium 3.4 L (3.5-5.1) mmol/L Creatinine 0.53 L (0.66-1.25) mg/dL Glucose 165 H (74-99) mg/dL POC Glucose (mg/dL) 172 H (70-110) mg/dL Calcium 8.3 L (8.4-10.2) mg/dL Troponin I (0.000-0.034) ng/mL 02/01/23 02/01/23 Range/Units 05:23 06:25 WBC (3.8-10.6) k/uL RBC (4.30-5.90) m/uL Hgb (13.0-17.5) gm/dL Hct (39.0-53.0) % Neutrophils # (1.3-7.7) k/uL Lymphocytes # (1.0-4.8) k/uL ABG pH 7.50 H (7.35-7.45) ABG pO2 59 L* (83-108) mmHg ABG HCO3 30 H (21-25) mmol/L ABG Total CO2 31 H (19-24) mmol/L ABG O2 Saturation 92.0 L (94-97) % Potassium (3.5-5.1) mmol/L Creatinine (0.66-1.25) mg/dL Glucose (74-99) mg/dL POC Glucose (mg/dL) 167 H (70-110) mg/dL Calcium (8.4-10.2) mg/dL Troponin I (0.000-0.034) ng/mL Assessment and Plan Plan: Acute respiratory failure, combination of hypoxic and hypercapnic respiratory failure with severe respiratory distress requiring intubation mechanical ventilation. This could be a combination of COPD and CHF exacerbation. No reported aspiration. Currently intubated on a mechanical ventilator. Chest x- ray was normal. Blood gases was noted. The respiratory failure is thought to be more COPD than CHF. Echocardiogram showed a preserved LV function with an EF of around 55%. No valvular abnormalities. No significant pulmonary hyperte nsion. 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 A Code stroke has been activated and the patient is being taken for an immediate emergent CTA of the brain. Neurology and interventional neurology has been activated , possible left frontal meningioma the patient did not receive any thrombolytics and there was gradual improvement in his motor function on the right side overnight. CTA of the brain was reviewed. CAT scan of the brain was reviewed. Carotids of the case. The patient is on accommodation of aspirin and Plavix. Acute hypotension, could be cardiogenic in nature. Awaiting a repeat echocardiogram. The patient is currently back on pressors to allow a higher mean arterial pressure. We are shooting for a new nodular pressure of around 70 or systolic of 130 at least. Severe left carotid artery stenosis, 90% and the patient has undergone carotid artery stenting, postoperative day #2 Multivessel coronary artery disease, not a surgical candidate Advanced severe COPD with a FEV1 on of 31% of predicted with chronic hypoxic respiratory failure. The patient is also steroid dependent Hypertension Hyperlipidemia History of smoking Restless leg syndrome Plan Continue ventilator support Stop the bicarb infusion Continue bronchodilators Continue Solu-Medrol 60 mg every 6 hours No need for further diuretics Echo was noted Wean off the propofol and assess mental status and weaning parameters. If needed, Precedex will be given to control agitation and maintain synchrony. Hold tube feedings during this process Continue statins Continue on norepinephrine and target a systolic blood pressure above 1:30 We'll continue to follow. Condition is critical and we'll continue to follow. As mentioned, for baseline performance of functional status. Further recommendations are to follow based on the sedation holiday and based on his underlying neurologic functions and his ability to wean off the mechanical ventilator. This is a critical care evaluation. On talking to his family a daily basis including the son and the Sasha. Consideration was done in more than 30 min Time with Patient: Greater than 30
[2023-02-01 11:46] LABS: Glucose,Whole Blood 155 mg/dL (70-110)
[2023-02-01] MEDS: DEXMEDETOMIDINE/0.9% NACL(PMX) 400 MCG in EMPTY BAG 1 BAG IV SCH (11:49)
[2023-02-01 12:33] LABS: Magnesium 2.1 mg/dL (1.6-2.3); Potassium 3.4 mmol/L (3.5-5.1)
[2023-02-01 14:11] LABS: ABG Base Excess 10.8 mmol/L; ABG HCO3 33 mmol/L (21-25); ABG PCO2 38 mmHg (35-45); ABG PH 7.55 (7.35-7.45); ABG PO2 68 mmHg (83-108); ABG TCO2 34 mmol/L (19-24)
[2023-02-01 14:12] LABS: Allen Test Performed? no
[2023-02-01] MEDS: NOREPINEPHRINE 32 MG in SODIUM CHLORIDE 0.9% 218 ML IV SCH (17:20)
[2023-02-01 17:44] LABS: Glucose,Whole Blood 146 mg/dL (70-110)
[2023-02-01] MEDS: POTASSIUM CHLORIDE 20 MEQ in WATER FOR INJECTION 1 100ML.BAG IVPB SCH ×2 (19:14→21:15)
[2023-02-01] MEDS: ATORVASTATIN 40 MG TAB PO SCH (21:15)
[2023-02-01 23:47] LABS: Glucose,Whole Blood 143 mg/dL (70-110)
[2023-02-02] MEDS: methylPREDNISolone SOD SUCCI 125 MG/2 ML VIAL IV SCH ×5 (00:23→23:57)
--- NOTE | 2023-02-02 02:17 | EEG ---
ELECTROENCEPHALOGRAM REPORT PREAMBLE: This is a 77-year-old male with altered mental status. The patient also has a brain tumor. EEG FINDINGS: This is a 21-channel digital EEG recorded with video component, utilizing 10/20 international system with referential and bipolar montages. The background consists of moderately well-developed and regulated, mixed frequencies of 9 to 10 hertz alpha, seen in posterior head region. The frequent dysrhythmic theta and some delta activity was seen in early part of the study. Photic driving response was not seen. Reactivity to eye opening or closing was not seen. During the middle and later part of the study, more sleep pattern was seen, with presence of sleep spindles and low amplitude and delta range activity. No focal or generalized epileptiform activity was seen. IMPRESSION: This is an abnormal EEG due to background slowing, suggestive of [id number] encephalopathy. No definitive epileptiform activity was seen. MMODL / IJN: [id number] /
[2023-02-02] MEDS: IPRATROPIUM-ALBUTEROL 3 ML NEB INHALATION SCH ×6 (04:07→23:44)
[2023-02-02 04:27] LABS: African American GFR (CKD) >90 (>60 ml/min/1.73 sqM); Anion Gap 7 mmol/L; Blood Urea Nitrogen 27 mg/dL (9-20); Carbon Dioxide 30 mmol/L (22-30); Chloride 103 mmol/L (98-107); Glucose 130 mg/dL (74-99); Non-African American GFR(CKD) >90 (>60 ml/min/1.73 sqM); Potassium 3.8 mmol/L (3.5-5.1); Sodium 140 mmol/L (137-145)
[2023-02-02] MEDS: POTASSIUM CHLORIDE 10 MEQ in WATER FOR INJECTION 1 100ML.BAG IVPB SCH ×2 (05:13→06:59)
[2023-02-02 06:12] LABS: Glucose,Whole Blood 134 mg/dL (70-110)
--- NOTE | 2023-02-02 07:00 | XR ---
EXAMINATION TYPE: XR chest 1V portable DATE OF EXAM: 02/02/2023 COMPARISON: 02/01/2023 HISTORY: Tube placement TECHNIQUE: Single frontal view of the chest is obtained. FINDINGS: There has been interval removal of the NG tube and ET tube. There is been no change in the left-sided PICC line. There is mild interstitial prominence reflecting mild chronic interstitial fibrosis versus mild inter stitial edema, unchanged compared to previous Heart size is normal. There is no pleural effusion or pneumothorax. There is no airspace consolidation. The osseous structures are intact. IMPRESSION: Interval removal of the ET tube and NG tube. No pneumothorax. No change in the mild diff use interstitial prominence as described above.
[2023-02-02] MEDS: INSULIN ASPART (NovoLOG) 100 UNIT/ML VIAL SQ SCH ×4 (07:07→23:55)
[2023-02-02] MEDS: PANTOPRAZOLE 40 MG TABLET PO SCH (07:07)
--- NOTE | 2023-02-02 09:13 | P.PN ---
Subjective Progress Note Date: 02/02/23 This is a 77-year-old mentation is very well-known to me. The patient has advanced COPD oxygen dependent at 2 L and he is also steroid dependent with an FEV1 of 31% of predicted and diffusion capacity of 27% of predicted. The patient had also multivessel coronary artery disease. I saw him 2 weeks back in my office and I thought he was a high surgical candidate for coronary artery bypass surgery and after having a discussion with cardiology and cardiothoracic surgery we opted not to proceed with surgery and consider multivessel stenting. The patient also had a 90% stenosis of the internal carotid artery on the left. On today's evaluation, the patient was brought in by interventional cardiology and the patient has successful stenting of the left common and internal carotid artery with good angiographic results. After the patient arrived to the ICU, the patient acutely became weak on the right side. He is unable to move his right upper extremity and he has significant weakness in his right lower extremity and the facial droop. His speech is also slightly affected although he still conversing. He is awake and alert and he is hemodynamically stable. His most recent blood pressure is 172/79. He is on oxygen at 2 L and he is pulse ox sitting 94%. His cardiac rhythm is sinus. Based on that, a code stroke was initiated and the patient is being taken for an immediate CT angiogram. I saw the patient prior to him moving to the radiology department. Meanwhile, neurology has been activated and intervention neurology has also been activated. No headaches. No seizure activity. The patient is known to have chronic exertional dyspnea. He gets short of breath upon walking around 100 feet. He has no chest pain at this point in time. He is an ex-smoker. His hypertension and hyperlipidemia and COPD as comorbidities and as mentioned he is oxygen dependent 24 7. Labs pending from.. He is currently on a combination of aspirin and Plavix. He was given heparin and senior label specialist On today's evaluation of 01/31/2023, the patient is intubated on a mechanical ventilator. Note that the patient was in the intensive care unit and the patient was having neurologic deficits following his carotid stenting. Suspect an acute CVA. Based on that, the patient underwent a CAT scan of the brain and the CAT scan showed what looks to be a meningioma in the left frontal lobe. This was discussed at length with urology and interventional neurology and there was no evidence of any intraparenchymal hemorrhage and the findings were more consistent with a meningioma. At the same time, the patient had a CT angiogram that showed moderate narrowing post stenting of the left carotid artery. There was no obstruction identified. There was mild narrowing of the right internal carotid from plaquing. There was poor visualization of the distal right internal carotid artery bifurcation and right A1 segment. The right cerebral vasculature appears to be patent and smaller caliber within the brain compared to the left. The patient was clinically improving and he was gradually gaining his multiple function right upper extremity. Based on that, it was decided not to give any thrombolytics and not to do any intervention. Overnight, the patient became acutely short of breath and around the clock he immediately went into acute respiratory failure. At that point, he was seen by our nurse practitioner and the patient was immediately intubated and placed on mechanical ventilator. Currently is intubated on propofol which is running at 50 mcg/kg/m. He is also on assist-control mode of mechanical ventilation at the rate of 22 with a tidal volume of 450 and FiO2 of 40% with a PEEP of 5. Blood gas post intubation showed a pH of 7.23 with a pCO2 of 48 and pO2 of more than 400. His troponin was negative. His chest x-ray showed increased interstitial markings bilaterally. There was no airspace disease or consolidation. The pulmonary changes were essentially interstitial no pneumothorax been no pleural effusion. EKG was in a good location the patient also had an NG tube in place. The patient did not aspirate. No significant orotracheal secretions. Morning labs shows a normal BUN and the creatinine and normal sodium level of 134. Serum bicarb is down to 15 and the patient has an anion gap of 19. The white cycles at 7.0 with a hemoglobin of 15.1. He is currently on pressors and norepinephrine is running at 0.12 mcg/kg/m. He is on bronchodilators. He was given Lasix 40 mg IV every 12 hours. He remains on stress dose hydrocortisone as the patient has been steroid dependent for a long period of time and I have him on a dose of 100 mg IV every 8 hours. He is on aspirin and Plavix and is also on Lipitor. Repeat echocardiogram was ordered. On today's evaluation of 02/01/2023, the patient remains intubated on a mechanical ventilator. The patient is post carotid stenting which got complicated by development of some neurological impairment involving the right side of the body and subsequent respiratory failure. The respiratory failure was thought to be related COPD. No clear indication for decompensated heart failure. Echocardiogram showed a preserved LV function. Echo was completed yesterday and based on the reports, the patient has a normal LV systolic function with apical hypokinesis, mild aortic regurgitation, normal right ventricular size and the records no systolic pressure was estimated to be 52. Ejection fraction was 50-55%. The patient currently is on propofol which is running at 55 mcg/kg/m. The patient is also on norepinephrine to maintain a higher mean arterial pressure based on his recent neurological event that occu rred which is in the form of CVA/TIA. The patient remains on a mechanical ventilator. Is quite successful mechanical ventilator. Is on assist-control at the rate of 22, tidal volume of 450, FiO2 of 40% and a PEEP of 5. The blood gas from today shows a pH of 7.50 with a pCO2 of 39 and pO2 of 59 and this was done on 5-40%. The serum bicarb is up to 30 and the patient will be taken off the bicarb infusion especially that he has developed some alkalosis. The chest x- ray showed no acute abnormalities. ET tube is an excellent location. All orogastric tube is also in place. The patient has developed no consolidation or airspace disease. He has a subclavian left sided nursing service director lumen catheter. Urine output is adequate. Enteral feeding was started the patient is currently on vital high protein at the rate of 40 mL an hour. On 02/02/2023, the patient is off the mechanical ventilator. We managed to wean the patient off the mechanical ventilator yesterday and the patient was extubated to BiPAP and the patient remains on a BiPAP at a pressure of 10/5 with an FiO2 of 40%. The generator tidal volume is 400 with a rate of 20 and a minute ventilation of 8-10 L. The patient seems to be quite comfortable in the BiPAP. The chest x-ray shows mild interstitial infiltrates bilaterally and the patient is receiving Lasix 40 mg IV every 24 hours and the patient is -700 mL of fluid balance negative over the past 24 hours. Meanwhile, the patient remains on the fact and the goal was to keep a higher systolic blood pressure based on the fact that the patient had a recent CVA/TIA post a left carotid endarterectomy. He is awake and alert and is communicating. There is no focal neurological deficits that this point in time. The strength is equal and symmetrical bilaterally. Is able to communicate. He is talking. No aphasia. His recognizing people and he is very much appropriate at this point. His cardiac rhythm is sinus. His blood work shows a BUN of 27 with a creatinine of 0.6. Sodium is at 140. The sputum sample that was collected while the patient was on a mechanical ventilator showed Streptococcus and the patient was started on IV Rocephin yesterday as an empiric antibiotic coverage. Noted the patient is a preserved LV function with an ejection fraction of 50-55%. Nevertheless he has multivessel coronary artery disease and he is not a surgical candidate at t his point in time as mentioned earlier. He also has advanced COPD oxygen dependent and steroid dependent and the patient is maintained on home O2 and home prednisone at a dose of 10 mg by mouth daily. Currently is on bronchodilators on DuoNeb is also on a combination of budesonide and Perforomist the blood treatments and is also on IV Solu-Medrol 60 mg every 6 hours. He is on heparin subcu for DVT prophylaxis. He is on no sedation for now. He is on a combination of aspirin and Plavix. Objective - Vital Signs Vital signs: Vital Signs Temp 97.8 F 02/02/23 04:00 Pulse 93 02/02/23 07:00 Resp 28 H 02/02/23 07:00 BP 156/71 02/02/23 07:00 Pulse Ox 97 02/02/23 07:00 FiO2 40 02/02/23 04:07 Intake & Output 02/01/23 02/02/23 02/02/23 18:59 06:59 18:59 Intake Total 630.141 97.347 6 Output Total 1150 375 30 Balance -519.859 -277.653 -24 Weight 78 kg 77.3 kg Intake: IV 66 72 6 ART and CVP 66 72 6 Intake, IV Titration 414.141 25.347 Amount Dexmedetomidine/0.9% NaCl 26.126 (Pmx) 400 mcg In Empty Bag 1 bag @ 0.2 MCG/KG/HR 3.75 mls/hr IV .Q24H SYLWIA Rx#:[id number] Dextrose 5% in Water 1, 200 000 ml @ 50 mls/hr IV . Q23H SYLWIA with Sodium Bicarb (1 Meq/ml) 150 ml Rx#:[id number] Norepinephrine 32 mg In 75.145 25.347 Sodium Chloride 0.9% 218 ml @ 0.03 MCG/KG/MIN 1. 055 mls/hr IV .Q24H SYLWIA Rx#:[id number] propofoL 1,000 mg In 112.870 Empty Bag 1 bag @ 15 MCG/ KG/MIN 6.399 mls/hr IV . [id number] SYLWIA Rx#:[id number] Oral 0 Tube Feeding 120 Other 30 Output: Urine 1150 375 30 Other: Voiding Method Indwelling Catheter Indwelling Catheter ABP, PAP, CO, CI - Last Documented Arterial Blood Pressure 127/52 - Exam Gen. appearance the patient is currently awake and alert without any focal neurological deficits. Is communicating. He remains on a BiPAP at a pressure of 10/5 with an FiO2 of 40%, communicating well on the BiPAP. Breathing is nonlabored. Slightly tachypneic as stated. Head exam was generally normal. There was no scleral icterus or corneal arcus. Mucous membranes were moist. Neck was supple and without jugular venous distension, thyromegaly, or carotid bruits. Carotids were easily palpable bilaterally. There was no adenopathy. I do not appreciate a significant lymphadenopathy or JVDs. Lungs sounds are diminished bilaterally and the patient has diffuse expiratory wheezes throughout the lung perez. Heart sounds are distant, positive S1-S2 and there is no significant murmurs appreciated. Abdominal exam revealed normal bowel sounds. The abdomen was soft, non-tender, and without masses, organomegaly, or appreciable enlargement of the abdominal aorta. Examination of the extremities revealed easily palpable radial, femoral and pedal pulses. There was no cyanosis, clubbing or edema. Examination of the skin revealed no evidence of significant rashes, suspicious appearing nevi or other concerning lesions. Neurologic exam is all a 3 without any focal neurological deficits. Moving both extremities and a strength is quite symmetrical. - Labs CBC & Chem 7: 02/01/23 04:54 02/02/23 04:07 Labs: Abnormal Lab Results - Last 24 Hours (Table) 02/01/23 02/01/23 02/01/23 Range/Units 11:44 12:00 14:09 ABG pH 7.55 H (7.35-7.45) ABG pO2 68 L (83-108) mmHg ABG HCO3 33 H (21-25) mmol/L ABG Total CO2 34 H (19-24) mmol/L Potassium 3.4 L (3.5-5.1) mmol/L BUN (9-20) mg/dL Creatinine (0.66-1.25) mg/dL Glucose (74-99) mg/dL POC Glucose (mg/dL) 155 H (70-110) mg/dL Calcium (8.4-10.2) mg/dL 02/01/23 02/01/23 02/02/23 Range/Units 17:43 23:45 04:07 ABG pH (7.35-7.45) ABG pO2 (83-108) mmHg ABG HCO3 (21-25) mmol/L ABG Total CO2 (19-24) mmol/L Potassium (3.5-5.1) mmol/L BUN 27 H (9-20) mg/dL Creatinine 0.64 L (0.66-1.25) mg/dL Glucose 130 H (74-99) mg/dL POC Glucose (mg/dL) 146 H 143 H (70-110) mg/dL Calcium 8.0 L (8.4-10.2) mg/dL 02/02/23 Range/Units 05:58 ABG pH (7.35-7.45) ABG pO2 (83-108) mmHg ABG HCO3 (21-25) mmol/L ABG Total CO2 (19-24) mmol/L Potassium (3.5-5.1) mmol/L BUN (9-20) mg/dL Creatinine (0.66-1.25) mg/dL Glucose (74-99) mg/dL POC Glucose (mg/dL) 134 H (70-110) mg/dL Calcium (8.4-10.2) mg/dL Microbiology - Last 24 Hours (Table) 01/31/23 04:15 Gram Stain - Preliminary Sputum Sputum Culture - Preliminary Strep agalactiae - (group b) Assessment and Plan Plan: Acute respiratory failure, combination of hypoxic and hypercapnic respiratory failure with severe respiratory distress requiring intubation mechanical ventilation. This could be a combination of COPD and CHF exacerbation. No reported aspiration. Currently intubated on a mechanical ventilator. Chest x- ray was normal. Blood gases was noted. The respiratory failure is thought to be more COPD than CHF. Echocardiogram showed a preserved LV function with an EF of around 55%. No valvular abnormalities. No significant pulmonary hypertension. The patient was weaned off the mechanical ventilator and the patient is currently on a BiPAP at a pressure of 10/5 cm of water. 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 A Code stroke has been activated and the patient is being taken for an immediate emergent CTA of the brain. Neurology and interventional neurology has been activated , possible left frontal meningioma the patient did not receive any thrombolytics and there was gradual improvement in his motor function on the right side overnight. CTA of the brain was reviewed. CAT scan of the brain was reviewed. Carotids of the case. The patient is on accommodation of aspirin and Plavix. On today's evaluation, the patient has equal and symmetrical neurological function and strength. No focal neurological deficits. No facial asymmetry. Pupils are equal and reactive to light. The patient seems to have completely recovered from his neurologic event post carotid stenting. I think Positive streptococcus in the sputum, colonization versus true infection and the patient is currently on IV Rocephin Acute hypotension, recovered. The patient was given pressors to support his blood pressure especially with his recent neurologic event. He'll be taken off pressors today to monitor his blood pressure. Severe left carotid artery stenosis, 90% and the patient has undergone carotid artery stenting, postoperative day # 3 Multivessel coronary artery disease, not a surgical candidate Advanced severe COPD with a FEV1 on of 31% of predicted with chronic hypoxic respiratory failure. The patient is also steroid dependent Hypertension Hyperlipidemia History of smoking Restless leg syndrome Meningioma, left frontal Plan Discontinue the pressors Increase Lasix to 40 mg every 12 hours Continue bronchodilators Continue Solu-Medrol 60 mg every 6 hours Not completely ready to come off the BiPAP yet. This can be stopped in termittently for brief periods and the patient should be able to get some oral intake after doing a quick bedside swallow check. Echo was noted Aspirin and Plavix May initiate metoprolol at the later stage depending on his blood pressure response off the pressors Continue IV Rocephin for now. To my Continue statins We'll continue to follow. This is a critical care evaluation. On talking to his family a daily basis including the son and the Sasha. Consideration was done in more than 30 m in Time with Patient: Greater than 30
[2023-02-02] MEDS: FORMOTEROL FUMARATE 20 MCG/2 ML NEBU INHALATION SCH ×2 (09:14→19:57)
[2023-02-02] MEDS: BUDESONIDE 1 MG/2 ML NEBU INHALATION SCH ×2 (09:14→19:57)
[2023-02-02] MEDS: EZETIMIBE 10 MG TAB PO SCH (09:24)
[2023-02-02] MEDS: CLOPIDOGREL 75 MG TAB PO SCH (09:24)
[2023-02-02] MEDS: HEPARIN SODIUM,PORCINE/PF 5,000 UNIT/0.5 ML SYRINGE SQ SCH ×2 (09:24→21:20)
[2023-02-02] MEDS: ASPIRIN 81 MG PO SCH (09:24)
[2023-02-02] MEDS ORDERED: FUROSEMIDE 10 MG/ML 4 ML VIAL IV SCH ×2 (09:30→21:00)
--- NOTE | 2023-02-02 09:39 | P.PN ---
Subjective Progress Note Date: 02/02/23 PROGRESS NOTE The patient is a 77-year-old male with known history of severe COPD, history of severe CAD and obstructive carotid disease who underwent left carotid stenting yesterday, post procedure he had right upper extremities weakness that subsequently improved. He was doing well until 3:00 in the morning when he became acutely dyspneic, hypoxic and had evidence of pulmonary edema. He was intubated. According to the nursing staff he was moving all his extremities at that time. He continues to be in sinus mechanism. There is no reported chest discomfort. He is on no vasopressor and he has good urinary output. He is intubated and sedated. His systolic function in the past was preserved with mild pulmonary hypertension. He had a history of smoking until recently. He has severe calcifications of his coronary arteries and has been evaluated for possible CABG depending on his lung status. EKG showed no acute ST segment changes, chest x-ray shows permanent congestion February 01: He remains intubated and sedated, in sinus mechanism. Renal output is good. His EKG shows T-wave inversion in the anterolateral leads consistent with ischemia. His echocardiogram showed an ejection fraction of 50-55% with mild aortic regurgitation. He has no evidence of tachyarrhythmia. His oxygenation is stable. Apparently he was awake earlier according to the nursing staff and was moving all extremities. His chest x-ray shows no evidence of infiltrates. February 02: The patient is extubated, awake and alert, moving all extremities with no significant weakness. His blood pressure is stable. He is in sinus mechanism. He continues to have T-wave inversion anteriorly but no chest discomfort. He denies any dizziness or palpitation, no nausea or vomiting. He continues to be on the BiPAP. His urinary output is stable. Medications: Aspirin, Plavix 75 g daily, isosorbide 30 mg daily, Lipitor 40 mg daily, metoprolol 100 mg twice a day,Zetia 10 mg daily, prednisone, hydrochlorothiazide 25 mg daily, Lasix 40 mg daily PHYSICAL EXAMINATION: Blood pressure 127/52, heart rate of 90 LUNGS: Clear to auscultation anteriorly HEART: Regular rate and rhythm, S1, S2. No S3. Systolic ejection murmur ABDOMEN: Soft, positive bowel sounds, no organomegaly EXTREMETIES: No edema, moving all extremities with no focal weakness LAB: potassium 3.8, BUN 27, creatinine 0.64. IMPRESSION: 1. Acute respiratory failure with evidence of pulmonary edema, his systolic function in the past was normal, he has EKG changes consistent with anterolateral ischemia with no significant troponin rise, extubated 2. Status post left carotid stenting with right upper extremities weakness post procedure, improved 3. Severe triple vessel CAD 4. Severe COPD 5. History of hypertension 6. History of hyperlipidemia PLAN: 1. Continue present therapy 2. Follow blood pressure 3. Wean oxygen supplementation as tolerated 4. Depending on his progress further recommendations will be made Objective - Vital Signs Vital signs: Vital Signs Temp 97.8 F 02/02/23 04:00 Pulse 103 H 02/02/23 09:25 Resp 19 02/02/23 09:25 BP 156/71 02/02/23 07:00 Pulse Ox 97 02/02/23 07:00 FiO2 40 02/02/23 09:15 Intake & Output 02/01/23 02/02/23 02/02/23 18:59 06:59 18:59 Intake Total 630.141 97.347 6 Output Total 1150 375 30 Balance -519.859 -277.653 -24 Weight 78 kg 77.3 kg Intake: IV 66 72 6 ART and CVP 66 72 6 Intake, IV Titration 414.141 25.347 Amount Dexmedetomidine/0.9% NaCl 26.126 (Pmx) 400 mcg In Empty Bag 1 bag @ 0.2 MCG/KG/HR 3.75 mls/hr IV .Q24H [facility] Rx#:[id number] Dextrose 5% in Water 1, 200 000 ml @ 50 mls/hr IV . Q23H [facility] with Sodium Bicarb (1 Meq/ml) 150 ml Rx#:[id number] Norepinephrine 32 mg In 75.145 25.347 Sodium Chloride 0.9% 218 ml @ 0.03 MCG/KG/MIN 1. 055 mls/hr IV .Q24H [facility] Rx#:[id number] propofoL 1,000 mg In 112.870 Empty Bag 1 bag @ 15 MCG/ KG/MIN 6.399 mls/hr IV . [id number] SY[facility] Rx#:[id number] Oral 0 Tube Feeding 120 Other 30 Output: Urine 1150 375 30 Other: Voiding Method Indwelling Catheter Indwelling Catheter ABP, PAP, CO, CI - Last Documented Arterial Blood Pressure 127/52 - Labs CBC & Chem 7: 02/01/23 04:54 02/02/23 04:07 Labs: Abnormal Lab Results - Last 24 Hours (Table) 02/01/23 02/01/23 02/01/23 Range/Units 11:44 12:00 14:09 ABG pH 7.55 H (7.35-7.45) ABG pO2 68 L (83-108) mmHg ABG HCO3 33 H (21-25) mmol/L ABG Total CO2 34 H (19-24) mmol/L Potassium 3.4 L (3.5-5.1) mmol/L BUN (9-20) mg/dL Creatinine (0.66-1.25) mg/dL Glucose (74-99) mg/dL POC Glucose (mg/dL) 155 H (70-110) mg/dL Calcium (8.4-10.2) mg/dL 02/01/23 02/01/23 02/02/23 Range/Units 17:43 23:45 04:07 ABG pH (7.35-7.45) ABG pO2 (83-108) mmHg ABG HCO3 (21-25) mmol/L ABG Total CO2 (19-24) mmol/L Potassium (3.5-5.1) mmol/L BUN 27 H (9-20) mg/dL Creatinine 0.64 L (0.66-1.25) mg/dL Glucose 130 H (74-99) mg/dL POC Glucose (mg/dL) 146 H 143 H (70-110) mg/dL Calcium 8.0 L (8.4-10.2) mg/dL 02/02/23 Range/Units 05:58 ABG pH (7.35-7.45) ABG pO2 (83-108) mmHg ABG HCO3 (21-25) mmol/L ABG Total CO2 (19-24) mmol/L Potassium (3.5-5.1) mmol/L BUN (9-20) mg/dL Creatinine (0.66-1.25) mg/dL Glucose (74-99) mg/dL POC Glucose (mg/dL) 134 H (70-110) mg/dL Calcium (8.4-10.2) mg/dL Microbiology - Last 24 Hours (Table) 01/31/23 04:15 Gram Stain - Preliminary Sputum Sputum Culture - Preliminary Strep agalactiae - (group b)
[2023-02-02] MEDS: ISOSORBIDE MONONITRATE ER 30 MG TAB.ER.24H PO SCH (10:07)
[2023-02-02] MEDS: DEXMEDETOMIDINE/0.9% NACL(PMX) 400 MCG in EMPTY BAG 1 BAG IV SCH (10:07)
[2023-02-02] MEDS: METOPROLOL TARTRATE 50 MG TAB PO SCH ×2 (10:07→21:21)
[2023-02-02] MEDS: FUROSEMIDE 10 MG/ML 4 ML VIAL IV SCH ×2 (10:13→21:21)
[2023-02-02] MEDS: CHLORHEXIDINE GLUCONATE 15 ML CUP MUCOUS MEM SCH (10:14)
[2023-02-02 11:24] LABS: Glucose,Whole Blood 134 mg/dL (70-110)
--- NOTE | 2023-02-02 12:23 | P.PN ---
Subjective Progress Note Date: 02/01/23 Patient was seen for a follow-up. Patient's and daughter were also present today. Patient has been extubated, doing very well. He has BiPAP on. Patient offers no complaints. He does appear short of breath. Appears very pleasant. Denies headache at this time. Objective - Vital Signs Vital signs: Vital Signs Temp 98 F 02/01/23 16:00 Pulse 82 02/01/23 18:00 Resp 16 02/01/23 18:00 BP 102/58 01/31/23 09:00 Pulse Ox 93 L 02/01/23 18:00 FiO2 40 02/01/23 17:00 Intake & Output 01/31/23 02/01/23 02/01/23 18:59 06:59 18:59 Intake Total 654.837 893.655 630.141 Output Total 1150 1055 1150 Balance -495.163 -161.345 -519.859 Weight 75 kg 78 kg Intake: IV 66 ART and CVP 66 Intake, IV Titration 644.837 873.655 414.141 Amount Dexmedetomidine/0.9% NaCl 26.126 (Pmx) 400 mcg In Empty Bag 1 bag @ 0.2 MCG/KG/HR 3.75 mls/hr IV .Q24H [facility] Rx#:[id number] Dextrose 5% in Water 1, 450 550 200 000 ml @ 50 mls/hr IV . Q23H [facility] with Sodium Bicarb (1 Meq/ml) 150 ml Rx#:[id number] Norepinephrine 32 mg In 79.394 75.145 Sodium Chloride 0.9% 218 ml @ 0.03 MCG/KG/MIN 1. 055 mls/hr IV .Q24H [facility] Rx#:[id number] Norepinephrine 8 mg In 5.442 Sodium Chloride 0.9% 250 ml @ 0.03 MCG/KG/MIN 4. 354 mls/hr IV .Q24H [facility] Rx#:[id number] Sodium Chloride 0.9% 1, 20 000 ml In Empty Bag 1 bag @ 1 ML/KG/HR 71.214 mls/ hr IV .Q14H3M [facility] Rx#: [id number] propofoL 1,000 mg In 169.395 244.261 112.870 Empty Bag 1 bag @ 15 MCG/ KG/MIN 6.399 mls/hr IV . [id number] Rx#:[id number] Oral 0 Tube Feeding 10 20 120 Other 30 Output: Urine 1150 1055 1150 Other: Voiding Method Indwelling Catheter Indwelling Catheter Indwelling Catheter ABP, PAP, CO, CI - Last Documented Arterial Blood Pressure 123/51 - Exam Patient is now extubated. He is alert and awake. Patient has BiPAP on. He is trying to speak, speech appears fairly clear. No aphasia. Visual perez are full. No neglect. Face and tongue cannot be checked because of being on BiPAP. Pupils are equal, round and reacting to light. On muscle strength testing there is no pronator drift and the strength is normal in arms and legs. No ataxia for [id number] testing. Patient is slightly tremulous for [id number] testing bilaterally. Sensory to touch is equal with no neglect. - Labs CBC & Chem 7: 02/01/23 04:54 02/02/23 04:07 Labs: Abnormal Lab Results - Last 24 Hours (Table) 01/31/23 02/01/23 02/01/23 Range/Units 23:58 04:54 04:54 WBC 15.4 H (3.8-10.6) k/uL RBC 3.59 L (4.30-5.90) m/uL Hgb 11.0 L (13.0-17.5) gm/dL Hct 32.2 L (39.0-53.0) % Neutrophils # 14.1 H (1.3-7.7) k/uL Lymphocytes # 0.5 L (1.0-4.8) k/uL ABG pH (7.35-7.45) ABG pO2 (83-108) mmHg ABG HCO3 (21-25) mmol/L ABG Total CO2 (19-24) mmol/L ABG O2 Saturation (94-97) % Potassium 3.4 L (3.5-5.1) mmol/L Creatinine 0.53 L (0.66-1.25) mg/dL Glucose 165 H (74-99) mg/dL POC Glucose (mg/dL) 172 H (70-110) mg/dL Calcium 8.3 L (8.4-10.2) mg/dL 02/01/23 02/01/23 02/01/23 Range/Units 05:23 06:25 11:44 WBC (3.8-10.6) k/uL RBC (4.30-5.90) m/uL Hgb (13.0-17.5) gm/dL Hct (39.0-53.0) % Neutrophils # (1.3-7.7) k/uL Lymphocytes # (1.0-4.8) k/uL ABG pH 7.50 H (7.35-7.45) ABG pO2 59 L* (83-108) mmHg ABG HCO3 30 H (21-25) mmol/L ABG Total CO2 31 H (19-24) mmol/L ABG O2 Saturation 92.0 L (94-97) % Potassium (3.5-5.1) mmol/L Creatinine (0.66-1.25) mg/dL Glucose (74-99) mg/dL POC Glucose (mg/dL) 167 H 155 H (70-110) mg/dL Calcium (8.4-10.2) mg/dL 02/01/23 02/01/23 02/01/23 Range/Units 12:00 14:09 17:43 WBC (3.8-10.6) k/uL RBC (4.30-5.90) m/uL Hgb (13.0-17.5) gm/dL Hct (39.0-53.0) % Neutrophils # (1.3-7.7) k/uL Lymphocytes # (1.0-4.8) k/uL ABG pH 7.55 H (7.35-7.45) ABG pO2 68 L (83-108) mmHg ABG HCO3 33 H (21-25) mmol/L ABG Total CO2 34 H (19-24) mmol/L ABG O2 Saturation (94-97) % Potassium 3.4 L (3.5-5.1) mmol/L Creatinine (0.66-1.25) mg/dL Glucose (74-99) mg/dL POC Glucose (mg/dL) 146 H (70-110) mg/dL Calcium (8.4-10.2) mg/dL Microbiology - Last 24 Hours (Table) 01/31/23 04:15 Gram Stain - Preliminary Sputum Sputum Culture - Preliminary Strep agalactiae - (group b) Assessment and Plan Assessment: * Acute CVA, with right hemiparesis 01/30/2023, with complete resolution of symptoms. Initial NIH stroke scale was 9. NIH stroke scale at this time is 0. * Status post left ICA stenting for 90% stenosis 01/30/2023. * Status post respiratory failure, status post extubation. * CTA of head and neck revealed large vessel occlusion involving the distal right ICA. This site is clinically asymptomatic at this time. * Hypertension * Severe triple vessel CAD * COPD * Hyperlipidemia * Tobacco use Plan: * Patient is now extubated. His mentation is normal. Examination is nonfocal. * Repeat CT head 01/31/2023 revealed 2.4 x 1.9 cm extra-axial hyperdensity is favored to represent a meningioma. Degenerative and remote microvascular is chemic white matter change. I personally reviewed CT head, agree with the findings. * EEG revealed background slowing, suggestive of mild to moderate encephalopathy. No epileptiform activity was seen. * CTA of head and neck 01/30/2023 revealed moderate narrowing post-stenting left carotid artery. No obstruction identified. Mild narrowing right ICA from plaquing. Poor visualization of the distal right ICA bifurcation and right A1 segment. Right cerebral vascular circulation appears patent although smaller caliber within the brain than on the left. * Patient was considered not a candidate for TPA, because of rapidly improving symptoms, and risks outweigh the benefits. * Continue dual antiplatelet medication including aspirin and Plavix 75 mg daily. 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 * Hemoglobin A1c 5.5 on 01/01/2023. * Lipid panel with cholesterol 122, LDL 56, HDL 48 and triglycerides 83. Lipids are well controlled, continue Lipitor 40 mg daily. * Repeat 2-D echo revealed normal left-ventricular systolic function, with EF 50-55%. Apical akinesis. Normal left atrial size. Mild AR. Consider SHARLA. * Blood pressure is well controlled. May consider tapering off Levophed at this time. * Await MRI of the brain with and without contrast, and also MRA of head and neck. Patient on BiPAP, not hemodynamically stable to undergo MRI. * DVT prophylaxis: Start heparin 5000 units subcu every 12 hours.
[2023-02-02] MEDS: NOREPINEPHRINE 32 MG in SODIUM CHLORIDE 0.9% 218 ML IV SCH (16:36)
[2023-02-02] MEDS ORDERED: METOPROLOL TARTRATE 50 MG TAB PO STA (17:17)
[2023-02-02 17:59] LABS: Glucose,Whole Blood 198 mg/dL (70-110)
[2023-02-02] MEDS: ATORVASTATIN 40 MG TAB PO SCH (21:20)
[2023-02-02 23:50] LABS: Glucose,Whole Blood 145 mg/dL (70-110)
[2023-02-03] MEDS: IPRATROPIUM-ALBUTEROL 3 ML NEB INHALATION SCH ×5 (04:03→19:34)
[2023-02-03 05:07] LABS: African American GFR (CKD) >90 (>60 ml/min/1.73 sqM); Anion Gap 7 mmol/L; Blood Urea Nitrogen 44 mg/dL (9-20); Carbon Dioxide 30 mmol/L (22-30); Chloride 98 mmol/L (98-107); Glucose 120 mg/dL (74-99); Non-African American GFR(CKD) 85 (>60 ml/min/1.73 sqM); Potassium 3.8 mmol/L (3.5-5.1); Sodium 135 mmol/L (137-145)
[2023-02-03 05:21] LABS: Anisocytosis Slight; Basophils % (A) 0 %; Eosinophils % (A) 0 %; Lymphocytes # (A) 0.4 k/uL (1.0-4.8); Lymphocytes % (A) 4 %; MCH 31.5 pg (25.0-35.0); MCHC 34.4 g/dL (31.0-37.0); MCV 91.7 fL (80.0-100.0); Mean Platelet Volume 7.1; Monocytes # (A) 0.4 k/uL (0-1.0); Monocytes % (A) 4 %; Neutrophils # (A) 8.8 k/uL (1.3-7.7); Neutrophils % (A) 91 %; Platelet Count 249 k/uL (150-450); RBC 3.17 m/uL (4.30-5.90); RDW 16.1 % (11.5-15.5); WBC 9.6 k/uL (3.8-10.6)
[2023-02-03 05:58] LABS: Glucose,Whole Blood 159 mg/dL (70-110)
[2023-02-03] MEDS: methylPREDNISolone SOD SUCCI 125 MG/2 ML VIAL IV SCH (06:42)
[2023-02-03] MEDS: INSULIN ASPART (NovoLOG) 100 UNIT/ML VIAL SQ SCH ×5 (06:43→20:14)
[2023-02-03] MEDS: PANTOPRAZOLE 40 MG TABLET PO SCH (06:43)
[2023-02-03] MEDS: BUDESONIDE 1 MG/2 ML NEBU INHALATION SCH ×2 (07:47→19:34)
[2023-02-03] MEDS: FORMOTEROL FUMARATE 20 MCG/2 ML NEBU INHALATION SCH ×2 (07:47→19:34)
--- NOTE | 2023-02-03 08:53 | P.PN ---
Subjective Progress Note Date: 02/03/23 PROGRESS NOTE The patient is a 77-year-old male with known history of severe COPD, history of severe CAD and obstructive carotid disease who underwent left carotid stenting yesterday, post procedure he had right upper extremities weakness that subsequently improved. He was doing well until 3:00 in the morning when he became acutely dyspneic, hypoxic and had evidence of pulmonary edema. He was intubated. According to the nursing staff he was moving all his extremities at that time. He continues to be in sinus mechanism. There is no reported chest discomfort. He is on no vasopressor and he has good urinary output. He is intubated and sedated. His systolic function in the past was preserved with mild pulmonary hypertension. He had a history of smoking until recently. He has severe calcifications of his coronary arteries and has been evaluated for possible CABG depending on his lung status. EKG showed no acute ST segment changes, chest x-ray shows permanent congestion February 01: He remains intubated and sedated, in sinus mechanism. Renal output is good. His EKG shows T-wave inversion in the anterolateral leads consistent with ischemia. His echocardiogram showed an ejection fraction of 50-55% with mild aortic regurgitation. He has no evidence of tachyarrhythmia. His oxygenation is stable. Apparently he was awake earlier according to the nursing staff and was moving all extremities. His chest x-ray shows no evidence of infiltrates. February 02: The patient is extubated, awake and alert, moving all extremities with no significant weakness. His blood pressure is stable. He is in sinus mechanism. He continues to have T-wave inversion anteriorly but no chest discomfort. He denies any dizziness or palpitation, no nausea or vomiting. He continues to be on the BiPAP. His urinary output is stable. February 03: The patient feels well this morning, he is denying any chest discomfort or dyspnea. He has no focal weakness. He continues to be in sinus mechanism. He denies any palpitations. He denies any nausea or vomiting. He continues to have a Anne catheter. He has no evidence of ventricle tachycardia arrhythmia. He continues to have ST segment changes with T-wave inversion. Medications: Aspirin, Plavix 75 g daily, isosorbide 30 mg daily, Lipitor 40 mg daily, m etoprolol 100 mg twice a day,Zetia 10 mg daily, prednisone, hydrochlorothiazide 25 mg daily, Lasix 40 mg IV twice a day PHYSICAL EXAMINATION: Blood pressure 126/40, heart rate of 70 LUNGS: Few crackles at the bases HEART: Regular rate and rhythm, S1, S2. No S3. Systolic ejection murmur ABDOMEN: Soft, positive bowel sounds, no organomegaly EXTREMETIES: No edema, moving all extremities with no focal weakness LAB: potassium 3.8, BUN 44, creatinine 0.81. Hemoglobin of 10 IMPRESSION: 1. Acute respiratory failure with evidence of pulmonary edema, his systolic function in the past was normal, he has EKG changes consistent with anterolateral ischemia with no significant troponin rise, extubated 2. Status post left carotid stenting with right upper extremities weakness post procedure, improved 3. Severe triple vessel CAD 4. Severe COPD 5. History of hypertension 6. History of hyperlipidemia PLAN: 1. Continue present therapy 2. Follow blood pressure 3. Increase physical activity 4. Follow blood pressure 5. Add NIDIA inhibitor depending on the blood pressure 6. Once stable and depending on his lung status further recommendations will be done regarding revascularization. Objective - Vital Signs Vital signs: Vital Signs Temp 97.5 F L 02/03/23 04:00 Pulse 90 02/03/23 08:10 Resp 18 02/03/23 07:00 BP 141/76 02/03/23 07:00 Pulse Ox 93 L 02/03/23 07:00 FiO2 40 02/03/23 04:03 Intake & Output 02/02/23 02/03/23 02/03/23 18:59 06:59 18:59 Intake Total 1089.193 336 16 Output Total 1255 1395 145 Balance -165.807 -1059 -129 Weight 76.1 kg Intake: IV 48 36 16 0.9NS 10 ART 48 36 6 Intake, IV Titration 191.193 Amount Norepinephrine 32 mg In 41.193 Sodium Chloride 0.9% 218 ml @ 0.03 MCG/KG/MIN 1. 055 mls/hr IV .Q24H [facility] Rx#:[id number] Potassium Chloride 10 meq 100 In Water For Injection 1 100ml.bag @ 100 mls/hr IVPB Q1H [facility] Rx#: [id number] cefTRIAXone 1 gm In 50 Sodium Chloride 0.9% 50 ml @ 100 mls/hr IVPB Q24HR [facility] Rx#:[id number] Oral 450 300 Tube Feeding 400 Output: Urine 1255 1395 145 Other: Voiding Method Indwelling Catheter Indwelling Catheter ABP, PAP, CO, CI - Last Documented Arterial Blood Pressure 122/45 - Labs CBC & Chem 7: 02/03/23 04:17 02/03/23 04:17 Labs: Abnormal Lab Results - Last 24 Hours (Table) 02/02/23 02/02/23 02/02/23 Range/Units 11:23 17:58 23:48 RBC (4.30-5.90) m/uL Hgb (13.0-17.5) gm/dL Hct (39.0-53.0) % RDW (11.5-15.5) % Neutrophils # (1.3-7.7) k/uL Lymphocytes # (1.0-4.8) k/uL Sodium (137-145) mmol/L BUN (9-20) mg/dL Glucose (74-99) mg/dL POC Glucose (mg/dL) 134 H 198 H 145 H (70-110) mg/dL Calcium (8.4-10.2) mg/dL 02/03/23 02/03/23 02/03/23 Range/Units 04:17 04:17 05:57 RBC 3.17 L (4.30-5.90) m/uL Hgb 10.0 L (13.0-17.5) gm/dL Hct 29.0 L (39.0-53.0) % RDW 16.1 H (11.5-15.5) % Neutrophils # 8.8 H (1.3-7.7) k/uL Lymphocytes # 0.4 L (1.0-4.8) k/uL Sodium 135 L (137-145) mmol/L BUN 44 H (9-20) mg/dL Glucose 120 H (74-99) mg/dL POC Glucose (mg/dL) 159 H (70-110) mg/dL Calcium 8.0 L (8.4-10.2) mg/dL Microbiology - Last 24 Hours (Table) 01/31/23 04:15 Gram Stain - Final Sputum Sputum Culture - Final Strep agalactiae - (group b)
[2023-02-03] MEDS: FUROSEMIDE 10 MG/ML 4 ML VIAL IV SCH ×2 (08:56→20:14)
[2023-02-03] MEDS: EZETIMIBE 10 MG TAB PO SCH (08:58)
[2023-02-03] MEDS: METOPROLOL TARTRATE 50 MG TAB PO SCH ×2 (08:59→20:14)
[2023-02-03] MEDS: CLOPIDOGREL 75 MG TAB PO SCH (08:59)
[2023-02-03] MEDS: ASPIRIN 81 MG PO SCH (08:59)
[2023-02-03] MEDS: HEPARIN SODIUM,PORCINE/PF 5,000 UNIT/0.5 ML SYRINGE SQ SCH ×2 (08:59→20:13)
[2023-02-03] MEDS ORDERED: POTASSIUM CHLORIDE ER 20 MEQ TAB.ER PO SCH ×2 (09:00→13:30)
--- NOTE | 2023-02-03 09:16 | P.PN ---
Subjective Progress Note Date: 02/03/23 This is a 77-year-old mentation is very well-known to me. The patient has advanced COPD oxygen dependent at 2 L and he is also steroid dependent with an FEV1 of 31% of predicted and diffusion capacity of 27% of predicted. The patient had also multivessel coronary artery disease. I saw him 2 weeks back in my office and I thought he was a high surgical candidate for coronary artery bypass surgery and after having a discussion with cardiology and cardiothoracic surgery we opted not to proceed with surgery and consider multivessel stenting. The patient also had a 90% stenosis of the internal carotid artery on the left. On today's evaluation, the patient was brought in by interventional cardiology and the patient has successful stenting of the left common and internal carotid artery with good angiographic results. After the patient arrived to the ICU, the patient acutely became weak on the right side. He is unable to move his right upper extremity and he has significant weakness in his right lower extremity and the facial droop. His speech is also slightly affected although he still conversing. He is awake and alert and he is hemodynamically stable. His most recent blood pressure is 172/79. He is on oxygen at 2 L and he is pulse ox sitting 94%. His cardiac rhythm is sinus. Based on that, a code stroke was initiated and the patient is being taken for an immediate CT angiogram. I saw the patient prior to him moving to the radiology department. Meanwhile, neurology has been activated and intervention neurology has also been activated. No headaches. No seizure activity. The patient is known to have chronic exertional dyspnea. He gets short of breath upon walking around 100 feet. He has no chest pain at this point in time. He is an ex-smoker. His hypertension and hyperlipidemia and COPD as comorbidities and as mentioned he is oxygen dependent 24 7. Labs pending from.. He is currently on a combination of aspirin and Plavix. 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 Note that the patient was in the intensive care unit and the patient was having neurologic deficits following his carotid stenting. Suspect an acute CVA. Based on that, the patient underwent a CAT scan of the brain and the CAT scan showed what looks to be a meningioma in the left frontal lobe. This was discussed at length with urology and interventional neurology and there was no evidence of any intraparenchymal hemorrhage and the findings were more consistent with a meningioma. At the same time, the patient had a CT angiogram that showed moderate narrowing post stenting of the left carotid artery. There was no obstruction identified. There was mild narrowing of the right internal carotid from [place]. There was poor visualization of the distal right internal carotid artery bifurcation and right A1 segment. The right cerebral vasculature appears to be patent and smaller caliber within the brain compared to the left. The patient was clinically improving and he was gradually gaining his multiple function right upper extremity. Based on that, it was decided not to give any thrombolytics and not to do any intervention. Overnight, the patient became acutely short of breath and around the clock he immediately went into acute respiratory failure. At that point, he was seen by our nurse practitioner and the patient was immediately intubated and placed on mechanical ventilator. Currently is intubated on propofol which is running at 50 mcg/kg/m. He is also on assist-control mode of mechanical ventilation at the rate of 22 with a tidal volume of 450 and FiO2 of 40% with a PEEP of 5. Blood gas post intubation showed a pH of 7.23 with a pCO2 of 48 and pO2 of more than 400. His troponin was negative. His chest x-ray showed increased interstitial markings bilaterally. There was no airspace disease or consolidation. The pulmonary changes were essentially interstitial no pneumothorax been no pleural effusion. EKG was in a good location the patient also had an NG tube in place. The patient did not aspirate. No significant orotracheal secretions. Morning labs shows a normal BUN and the creatinine and normal sodium level of 134. Serum bicarb is down to 15 and the patient has an anion gap of 19. The white cycles at 7.0 with a hemoglobin of 15.1. He is currently on pressors and norepinephrine is running at 0.12 mcg/kg/m. He is on bronchodilators. He was given Lasix 40 mg IV every 12 hours. He remains on stress dose hydrocortisone as the patient has been steroid dependent for a long period of time and I have him on a dose of 100 mg IV every 8 hours. He is on aspirin and Plavix and is also on Lipitor. Repeat echocardiogram was ordered. On today's evaluation of 02/01/2023, the patient remains intubated on a mechanical ventilator. The patient is post carotid stenting which got complicated by development of some neurological impairment involving the right side of the body and subsequent respiratory failure. The respiratory failure was thought to be related COPD. No clear indication for decompensated heart failure. Echocardiogram showed a preserved LV function. Echo was completed yesterday and based on the reports, the patient has a normal LV systolic function with apical hypokinesis, mild aortic regurgitation, normal right ventricular size and the records no systolic pressure was estimated to be 52. Ejection fraction was 50-55%. The patient currently is on propofol which is running at 55 mcg/kg/m. The patient is also on norepinephrine to maintain a higher mean arterial pressure based on his recent neurological event that occu rred which is in the form of CVA/TIA. The patient remains on a mechanical ventilator. Is quite successful mechanical ventilator. Is on assist-control at the rate of 22, tidal volume of 450, FiO2 of 40% and a PEEP of 5. The blood gas from today shows a pH of 7.50 with a pCO2 of 39 and pO2 of 59 and this was done on 5-40%. The serum bicarb is up to 30 and the patient will be taken off the bicarb infusion especially that he has developed some alkalosis. The chest x- ray showed no acute abnormalities. ET tube is an excellent location. All orogastric tube is also in place. The patient has developed no consolidation or airspace disease. He has a subclavian left sided kettle chipper lumen catheter. Urine output is adequate. Enteral feeding was started the patient is currently on vital high protein at the rate of 40 mL an hour. On 02/02/2023, the patient is off the mechanical ventilator. We managed to wean the patient off the mechanical ventilator yesterday and the patient was extubated to BiPAP and the patient remains on a BiPAP at a pressure of 10/5 with an FiO2 of 40%. The generator tidal volume is 400 with a rate of 20 and a minute ventilation of 8-10 L. The patient seems to be quite comfortable in the BiPAP. The chest x-ray shows mild interstitial infiltrates bilaterally and the patient is receiving Lasix 40 mg IV every 24 hours and the patient is -700 mL of fluid balance negative over the past 24 hours. Meanwhile, the patient remains on the fact and the goal was to keep a higher systolic blood pressure based on the fact that the patient had a recent CVA/TIA post a left carotid endarterectomy. He is awake and alert and is communicating. There is no focal neurological deficits that this point in time. The strength is equal and symmetrical bilaterally. Is able to communicate. He is talking. No aphasia. His recognizing people and he is very much appropriate at this point. His cardiac rhythm is sinus. His blood work shows a BUN of 27 with a creatinine of 0.6. Sodium is at 140. The sputum sample that was collected while the patient was on a mechanical ventilator showed Streptococcus and the patient was started on IV Rocephin yesterday as an empiric antibiotic coverage. Noted the patient is a preserved LV function with an ejection fraction of 50-55%. Nevertheless he has multivessel coronary artery disease and he is not a surgical candidate at t his point in time as mentioned earlier. He also has advanced COPD oxygen dependent and steroid dependent and the patient is maintained on home O2 and home prednisone at a dose of 10 mg by mouth daily. Currently is on bronchodilators on DuoNeb is also on a combination of budesonide and Perforomist the blood treatments and is also on IV Solu-Medrol 60 mg every 6 hours. He is on heparin subcu for DVT prophylaxis. He is on no sedation for now. He is on a combination of aspirin and Plavix. On 02/03/2023, the patient is fully alert and awake and communicating and is off the BiPAP and currently is on oxygen at 2 L. He is able to speak long sentences and had breathing that is not labored at this point in time. Hemodynamically stable. Cardiac rhythm is normal sinus. Tolerating diet. No chest pain. No shortness of breath. No motor deficits. He does have some vision changes in the right eye. No nausea. No vomiting. No headaches no seizures. White cell count of 9.6 with a hemoglobin of 10 and a platelet count of 249. BUN is 44 with a creatinine of 0.8 and sodium levels of 135. In terms of his medications, the patient is on bronchodilators, IV Solu-Medrol, IV Rocephin for the presence of strep in his sputum, he is also on metoprolol 100 mg by mouth twice a day. He is on aspirin and Plavix. He is also on statins. Objective - Vital Signs Vital signs: Vital Signs Temp 98.0 F 02/03/23 08:00 Pulse 90 02/03/23 08:10 Resp 28 H 02/03/23 08:00 BP 139/71 02/03/23 08:00 Pulse Ox 100 02/03/23 08:00 FiO2 40 02/03/23 04:03 Intake & Output 02/02/23 02/03/23 02/03/23 18:59 06:59 18:59 Intake Total 1089.193 336 16 Output Total 1255 1395 145 Balance -165.807 -1059 -129 Weight 76.1 kg Intake: IV 48 36 16 0.9NS 10 ART 48 36 6 Intake, IV Titration 191.193 Amount Norepinephrine 32 mg In 41.193 Sodium Chloride 0.9% 218 ml @ 0.03 MCG/KG/MIN 1. 055 mls/hr IV .Q24H [facility] Rx#:[id number] Potassium Chloride 10 meq 100 In Water For Injection 1 100ml.bag @ 100 mls/hr IVPB Q1H [facility] Rx#: [id number] cefTRIAXone 1 gm In 50 Sodium Chloride 0.9% 50 ml @ 100 mls/hr IVPB Q24HR [facility] Rx#:[id number] Oral 450 300 Tube Feeding 400 Output: Urine 1255 1395 145 Other: Voiding Method Indwelling Catheter Indwelling Catheter ABP, PAP, CO, CI - Last Documented Arterial Blood Pressure 101/42 - Exam Gen. appearance the patient is currently awake and alert without any focal neurological deficits. Is communicating. He is currently on 2 L of oxygen nasal cannula Head exam was generally normal. There was no scleral icterus or corneal arcus. Mucous membranes were moist. Neck was supple and without jugular venous distension, thyromegaly, or carotid bruits. Carotids were easily palpable bilaterally. There was no adenopathy. I do not appreciate a significant lymphadenopathy or JVDs. Lungs sounds are diminished bilaterally and the patient has diffuse expiratory wheezes throughout the lung perez. Heart sounds are distant, positive S1-S2 and there is no significant murmurs appreciated. Abdominal exam revealed normal bowel sounds. The abdomen was soft, non-tender, and without masses, organomegaly, or appreciable enlargement of the abdominal aorta. Examination of the extremities revealed easily palpable radial, femoral and pedal pulses. There was no cyanosis, clubbing or edema. Examination of the skin revealed no evidence of significant rashes, suspicious appearing nevi or other concerning lesions. Neurologic exam is all a 3 without any focal neurological deficits. Moving both extremities and a strength is quite symmetrical. - Labs CBC & Chem 7: 02/03/23 04:17 02/03/23 04:17 Labs: Abnormal Lab Results - Last 24 Hours (Table) 02/02/23 02/02/23 02/02/23 Range/Units 11:23 17:58 23:48 RBC (4.30-5.90) m/uL Hgb (13.0-17.5) gm/dL Hct (39.0-53.0) % RDW (11.5-15.5) % Neutrophils # (1.3-7.7) k/uL Lymphocytes # (1.0-4.8) k/uL Sodium (137-145) mmol/L BUN (9-20) mg/dL Glucose (74-99) mg/dL POC Glucose (mg/dL) 134 H 198 H 145 H (70-110) mg/dL Calcium (8.4-10.2) mg/dL 02/03/23 02/03/23 02/03/23 Range/Units 04:17 04:17 05:57 RBC 3.17 L (4.30-5.90) m/uL Hgb 10.0 L (13.0-17.5) gm/dL Hct 29.0 L (39.0-53.0) % RDW 16.1 H (11.5-15.5) % Neutrophils # 8.8 H (1.3-7.7) k/uL Lymphocytes # 0.4 L (1.0-4.8) k/uL Sodium 135 L (137-145) mmol/L BUN 44 H (9-20) mg/dL Glucose 120 H (74-99) mg/dL POC Glucose (mg/dL) 159 H (70-110) mg/dL Calcium 8.0 L (8.4-10.2) mg/dL Microbiology - Last 24 Hours (Table) 01/31/23 04:15 Gram Stain - Final Sputum Sputum Culture - Final Strep agalactiae - (group b) Assessment and Plan Plan: Acute respiratory failure, combination of hypoxic and hypercapnic respiratory failure with severe respiratory distress requiring intubation mechanical ventilation. This could be a combination of COPD and CHF exacerbation. No reported aspiration. Currently intubated on a mechanical ventilator. Chest x- ray was normal. Blood gases was noted. The respiratory failure is thought to be more COPD than CHF. Echocardiogram showed a preserved LV function with an EF of around 55%. No valvular abnormalities. No significant pulmonary hypertension. The patient was weaned off the mechanical ventilator and the patient patient was extubated on 02/01/2023 to BiPAP and subsequently was weaned down to 2 L of oxygen by nasal cannula. 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 A Code stroke has been activated and the patient is being taken for an immediate emergent CTA of the brain. Neurology and interventional neurology has been activated , possible left frontal meningioma the patient did not receive any thrombolytics and there was gradual improvement in his motor function on the right side overnight. CTA of the brain was reviewed. CAT scan of the brain was reviewed. Carotids of the case. The patient is on accommodation of aspirin and Plavix. On today's evaluation, the patient has equal and symmetrical neurological function and strength. No focal neurological deficits. No facial asymmetry. Pupils are equal and reactive to light. The patient seems to have completely recovered from his neurologic event post carotid stenting. There may be some residual vision changes although he did have some chronic impairment of his vision even prior to the carotid stenting. Positive streptococcus in the sputum, colonization versus true infection and the patient is currently on IV Rocephin Acute hypotension, recovered. Severe left carotid artery stenosis, 90% and the patient has undergone carotid artery stenting, postoperative day # 4 Multivessel coronary artery disease, not a surgical candidate Advanced severe COPD with a FEV1 on of 31% of predicted with chronic hypoxic respiratory failure. The patient is also steroid dependent Hypertension Hyperlipidemia History of smoking Restless leg syndrome Meningioma, left frontal Plan Patient is currently on 2 L of oxygen by nasal cannula Continue bronchodilators Stop the IV Solu-Medrol and put the patient prednisone burst taper starting with 40 Continue IV Lasix for another 24 hours Keep the patient off the BiPAP, utilizing on and off during the day Tolerating diet Echo was noted Aspirin and Plavix May discontinue. Arterial line, keep the central line in place Restart metoprolol Continue statins We'll continue to follow. This is a critical care evaluation. On talking to his family a daily basis including the son and the Sasha. He was extubated on 02/01/2023
[2023-02-03] MEDS: ISOSORBIDE MONONITRATE ER 30 MG TAB.ER.24H PO SCH (10:15)
[2023-02-03] MEDS: predniSONE 20 MG TAB PO SCH (10:20)
[2023-02-03 11:13] LABS: Glucose,Whole Blood 136 mg/dL (70-110)
--- NOTE | 2023-02-03 13:50 | P.PN ---
Subjective Progress Note Date: 02/02/23 Patient was seen for a follow-up. Patient's and daughter were also present today. Patient is using BiPAP. He just started. Per patient's family, his speech is back to baseline. Patient has no deficits. He has slight trouble with eating meat. It has to be chopped now. He denies any focal weakness, or any new neurological symptoms. Appears very pleasant. Denies headache at this time. Objective - Vital Signs Vital signs: Vital Signs Temp 98.1 F 02/02/23 08:00 Pulse 114 H 02/02/23 14:00 Resp 64 H 02/02/23 14:00 BP 136/52 02/02/23 14:00 Pulse Ox 96 02/02/23 14:00 FiO2 40 02/02/23 11:42 Intake & Output 02/01/23 02/02/23 02/02/23 18:59 06:59 18:59 Intake Total 630.141 97.347 636 Output Total 1150 375 875 Balance -519.859 -277.653 -239 Weight 78 kg 77.3 kg Intake: IV 66 72 36 ART and CVP 66 72 36 Intake, IV Titration 414.141 25.347 150 Amount Dexmedetomidine/0.9% NaCl 26.126 (Pmx) 400 mcg In Empty Bag 1 bag @ 0.2 MCG/KG/HR 3.75 mls/hr IV .Q24H [facility] Rx#:[id number] Dextrose 5% in Water 1, 200 000 ml @ 50 mls/hr IV . Q23H [facility] with Sodium Bicarb (1 Meq/ml) 150 ml Rx#:[id number] Norepinephrine 32 mg In 75.145 25.347 Sodium Chloride 0.9% 218 ml @ 0.03 MCG/KG/MIN 1. 055 mls/hr IV .Q24H [facility] Rx#:[id number] Potassium Chloride 10 meq 100 In Water For Injection 1 100ml.bag @ 100 mls/hr IVPB Q1H [facility] Rx#: [id number] cefTRIAXone 1 gm In 50 Sodium Chloride 0.9% 50 ml @ 100 mls/hr IVPB Q24HR [facility] Rx#:[id number] propofoL 1,000 mg In 112.870 Empty Bag 1 bag @ 15 MCG/ KG/MIN 6.399 mls/hr IV . [id number] [facility] Rx#:[id number] Oral 0 450 Tube Feeding 120 0 Other 30 Output: Urine 1150 375 875 Other: Voiding Method Indwelling Catheter Indwelling Catheter Indwelling Catheter ABP, PAP, CO, CI - Last Documented Arterial Blood Pressure 124/46 - Exam Patient is now extubated. He is alert and awake. Patient has BiPAP on. He is trying to speak, speech appears fairly clear. No aphasia. Visual perez are full. No neglect. Face and tongue cannot be checked because of being on BiPAP. Pupils are equal, round and reacting to light. On muscle strength testing there is no pronator drift and the strength is normal in arms and legs. No ataxia for [id number] testing. Patient is slightly tremulous for [id number] testing bilaterally. Sensory to touch is equal with no neglect. - Labs CBC & Chem 7: 02/03/23 04:17 02/03/23 11:51 Labs: Abnormal Lab Results - Last 24 Hours (Table) 02/01/23 02/01/23 02/02/23 Range/Units 17:43 23:45 04:07 BUN 27 H (9-20) mg/dL Creatinine 0.64 L (0.66-1.25) mg/dL Glucose 130 H (74-99) mg/dL POC Glucose (mg/dL) 146 H 143 H (70-110) mg/dL Calcium 8.0 L (8.4-10.2) mg/dL 02/02/23 02/02/23 Range/Units 05:58 11:23 BUN (9-20) mg/dL Creatinine (0.66-1.25) mg/dL Glucose (74-99) mg/dL POC Glucose (mg/dL) 134 H 134 H (70-110) mg/dL Calcium (8.4-10.2) mg/dL Microbiology - Last 24 Hours (Table) 01/31/23 04:15 Gram Stain - Final Sputum Sputum Culture - Final Strep agalactiae - (group b) Assessment and Plan Assessment: * Acute CVA, with right hemiparesis 01/30/2023, with complete resolution of symptoms. Initial NIH stroke scale was 9. NIH stroke scale at this time is 0. * Status post left ICA stenting for 90% stenosis 01/30/2023. * Status post respiratory failure, status post extubation. * CTA of head and neck revealed large vessel occlusion involving the distal right ICA ?chronic. This site is clinically asymptomatic at this time. * Hypertension * Severe triple vessel CAD * COPD * Hyperlipidemia * Tobacco use Plan: * Patient's mentation is normal. Examination is nonfocal. * Repeat CT head 01/31/2023 revealed 2.4 x 1.9 cm extra-axial hyperdensity is favored to represent a meningioma. Degenerative and remote microvascular ischemic white matter change. I personally reviewed CT head, agree with the findings. * EEG revealed background slowing, suggestive of mild to moderate enc ephalopathy. No epileptiform activity was seen. * CTA of head and neck 01/30/2023 revealed moderate narrowing post-stenting left carotid artery. No obstruction identified. Mild narrowing right ICA from [place]. Poor visualization of the distal right ICA bifurcation and right A1 segment. Right cerebral vascular circulation appears patent although smaller caliber within the brain than on the left. * Patient was considered not a candidate for TPA, because of rapidly improving symptoms, and risks outweigh the benefits. * Continue dual antiplatelet medication including aspirin and Plavix 75 mg daily. 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 * Hemoglobin A1c 5.5 on 01/01/2023. * Lipid panel with cholesterol 122, LDL 56, HDL 48 and triglycerides 83. Lipids are well controlled, continue Lipitor 40 mg daily. * Repeat 2-D echo revealed normal left-ventricular systolic function, with EF 50-55%. Apical akinesis. Normal left atrial size. Mild AR. Consider SHARLA. * Blood pressure is well controlled. Patient is off Levophed, and the blood pressure is well controlled. * Await MRI of the brain with and without contrast, and also MRA of head and neck. May perform as an outpatient. Recommend follow-up with Dr. Rand in 2-3 weeks after discharge. * DVT prophylaxis: Continue heparin 5000 units subcu every 12 hours. * Neurologically patient is clear.
[2023-02-03 16:34] LABS: Glucose,Whole Blood 128 mg/dL (70-110)
[2023-02-03] MEDS: NOREPINEPHRINE 32 MG in SODIUM CHLORIDE 0.9% 218 ML IV SCH (16:38)
[2023-02-03 20:11] LABS: Glucose,Whole Blood 132 mg/dL (70-110)
[2023-02-03] MEDS: ATORVASTATIN 40 MG TAB PO SCH (20:14)
[2023-02-03] MEDS: CLOBETASOL PROP 0.05% CR 15GM TOPICAL SCH (20:14)
[2023-02-04] MEDS: IPRATROPIUM-ALBUTEROL 3 ML NEB INHALATION PRN (00:18)
[2023-02-04 04:28] LABS: HCT 31.1 % (39.0-53.0); HGB 10.2 gm/dL (13.0-17.5); MCH 30.6 pg (25.0-35.0); MCHC 32.9 g/dL (31.0-37.0); MCV 92.9 fL (80.0-100.0); Mean Platelet Volume 7.2; Platelet Count 256 k/uL (150-450); RBC 3.35 m/uL (4.30-5.90); RDW 15.8 % (11.5-15.5); WBC 10.5 k/uL (3.8-10.6)
[2023-02-04 05:06] LABS: African American GFR (CKD) >90 (>60 ml/min/1.73 sqM); Anion Gap 3 mmol/L; Blood Urea Nitrogen 52 mg/dL (9-20); Calcium 7.8 mg/dL (8.4-10.2); Carbon Dioxide 38 mmol/L (22-30); Chloride 96 mmol/L (98-107); Glucose 93 mg/dL (74-99); Non-African American GFR(CKD) 83 (>60 ml/min/1.73 sqM); Potassium 3.8 mmol/L (3.5-5.1); Sodium 137 mmol/L (137-145)
[2023-02-04 06:27] LABS: Glucose,Whole Blood 91 mg/dL (70-110)
[2023-02-04] MEDS: PANTOPRAZOLE 40 MG TABLET PO SCH (06:28)
[2023-02-04] MEDS: INSULIN ASPART (NovoLOG) 100 UNIT/ML VIAL SQ SCH ×4 (06:29→20:39)
[2023-02-04] MEDS ORDERED: POTASSIUM CHLORIDE ER 20 MEQ TAB.ER PO SCH (07:00)
[2023-02-04] MEDS: FUROSEMIDE 10 MG/ML 4 ML VIAL IV SCH ×2 (08:49→21:11)
[2023-02-04] MEDS: HEPARIN SODIUM,PORCINE/PF 5,000 UNIT/0.5 ML SYRINGE SQ SCH ×2 (08:50→21:11)
[2023-02-04] MEDS: ASPIRIN 81 MG PO SCH (08:50)
[2023-02-04] MEDS: predniSONE 20 MG TAB PO SCH (08:50)
[2023-02-04] MEDS: METOPROLOL TARTRATE 50 MG TAB PO SCH ×2 (08:50→21:11)
[2023-02-04] MEDS: EZETIMIBE 10 MG TAB PO SCH (08:50)
[2023-02-04] MEDS: CLOPIDOGREL 75 MG TAB PO SCH (08:50)
[2023-02-04] MEDS: ISOSORBIDE MONONITRATE ER 30 MG TAB.ER.24H PO SCH (08:50)
[2023-02-04] MEDS: CLOBETASOL PROP 0.05% CR 15GM TOPICAL SCH ×2 (08:51→21:11)
[2023-02-04] MEDS: FORMOTEROL FUMARATE 20 MCG/2 ML NEBU INHALATION SCH ×2 (08:58→19:37)
[2023-02-04] MEDS: BUDESONIDE 1 MG/2 ML NEBU INHALATION SCH ×2 (08:58→19:37)
[2023-02-04] MEDS: IPRATROPIUM-ALBUTEROL 3 ML NEB INHALATION SCH ×4 (08:58→19:37)
--- NOTE | 2023-02-04 09:16 | P.PN ---
Subjective Progress Note Date: 02/03/23 Patient was seen for a follow-up. Patient's and daughter were also present today. Patient is sitting comfortably in the recliner. He has nasal by oxygen cannula, receiving a breathing treatment. Per patient's family, his speech is back to baseline. Patient has no deficits. He denies any focal weakness, or any new neurological symptoms. Appears very pleasant. Denies headache at this time. Objective - Vital Signs Vital signs: Vital Signs Temp 98.0 F 02/03/23 08:00 Pulse 80 02/03/23 15:35 Resp 29 H 02/03/23 15:00 BP 123/67 02/03/23 15:00 Pulse Ox 97 02/03/23 15:00 FiO2 40 02/03/23 04:03 Intake & Output 02/02/23 02/03/23 02/03/23 18:59 06:59 18:59 Intake Total 1089.193 336 94 Output Total 1255 1395 1460 Balance -165.807 -1059 -1366 Weight 76.1 kg Intake: IV 48 36 94 0.9NS 70 ART 48 36 24 Intake, IV Titration 191.193 Amount Norepinephrine 32 mg In 41.193 Sodium Chloride 0.9% 218 ml @ 0.03 MCG/KG/MIN 1. 055 mls/hr IV .Q24H [facility] Rx#:[id number] Potassium Chloride 10 meq 100 In Water For Injection 1 100ml.bag @ 100 mls/hr IVPB Q1H [facility] Rx#: [id number] cefTRIAXone 1 gm In 50 Sodium Chloride 0.9% 50 ml @ 100 mls/hr IVPB Q24HR [facility] Rx#:[id number] Oral 450 300 Tube Feeding 400 Output: Urine 1255 1395 1460 Other: Voiding Method Indwelling Catheter Indwelling Catheter Indwelling Catheter ABP, PAP, CO, CI - Last Documented Arterial Blood Pressure 133/43 - Exam Patient is now extubated. He is alert and awake. Speech and language functions are normal. No aphasia or dysarthria. Visual perez are full. No neglect. face is symmetric, tongue protrudes to the midline. Pupils are equal, round and reacting to light.shoulder shrug normal. On muscle strength testing there is no pronator drift and the strength is normal in arms and legs distally and proximally. No ataxia for [id number]-[id number] testing on either side. Patient is slightly tremulous for [id number]-[id number] testing bilaterally. Sensory to touch is equal with no neglect. - Labs CBC & Chem 7: 02/04/23 03:28 02/04/23 03:28 Labs: Abnormal Lab Results - Last 24 Hours (Table) 02/02/23 02/02/23 02/03/23 Range/Units 17:58 23:48 04:17 RBC 3.17 L (4.30-5.90) m/uL Hgb 10.0 L (13.0-17.5) gm/dL Hct 29.0 L (39.0-53.0) % RDW 16.1 H (11.5-15.5) % Neutrophils # 8.8 H (1.3-7.7) k/uL Lymphocytes # 0.4 L (1.0-4.8) k/uL Sodium (137-145) mmol/L BUN (9-20) mg/dL Glucose (74-99) mg/dL POC Glucose (mg/dL) 198 H 145 H (70-110) mg/dL Calcium (8.4-10.2) mg/dL 02/03/23 02/03/23 02/03/23 Range/Units 04:17 05:57 11:11 RBC (4.30-5.90) m/uL Hgb (13.0-17.5) gm/dL Hct (39.0-53.0) % RDW (11.5-15.5) % Neutrophils # (1.3-7.7) k/uL Lymphocytes # (1.0-4.8) k/uL Sodium 135 L (137-145) mmol/L BUN 44 H (9-20) mg/dL Glucose 120 H (74-99) mg/dL POC Glucose (mg/dL) 159 H 136 H (70-110) mg/dL Calcium 8.0 L (8.4-10.2) mg/dL Microbiology - Last 24 Hours (Table) 01/31/23 04:15 Gram Stain - Final Sputum Sputum Culture - Final Strep agalactiae - (group b) Assessment and Plan Assessment: * Acute CVA, with right hemiparesis 01/30/2023, with complete resolution of symptoms. Initial NIH stroke scale was 9. NIH stroke scale at this time is 0. * Status post left ICA stenting for 90% stenosis 01/30/2023. * Status post respiratory failure, status post extubation. * CTA of head and neck revealed large vessel occlusion involving the distal right ICA ?chronic. This site is clinically asymptomatic at this time. * Hypertension * Severe triple vessel CAD * COPD * Hyperlipidemia * Tobacco use Plan: * Patient's mentation is normal. Examination is nonfocal. Current NIH stroke scale is 0. * Repeat CT head 01/31/2023 revealed 2.4 x 1.9 cm extra-axial hyperdensity is favored to represent a meningioma. Degenerative and remote microvascular ischemic white matter change. I personally reviewed CT head, agree with the findings. * EEG revealed background slowing, suggestive of mild to moderate e ncephalopathy. No epileptiform activity was seen. * CTA of head and neck 01/30/2023 revealed moderate narrowing post-stenting left carotid artery. No obstruction identified. Mild narrowing right ICA from [place]. Poor visualization of the distal right ICA bifurcation and right A1 segment. Right cerebral vascular circulation appears patent although smaller caliber within the brain than on the left. * Patient was considered not a candidate for TPA, because of rapidly improving symptoms, and risks outweigh the benefits. * Continue dual antiplatelet medication including aspirin and Plavix 75 mg daily. 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 * Hemoglobin A1c 5.5 on 01/01/2023. * Lipid panel with cholesterol 122, LDL 56, HDL 48 and triglycerides 83. Lipids are well controlled, continue Lipitor 40 mg daily. * Repeat 2-D echo revealed normal left-ventricular systolic function, with EF 50-55%. Apical akinesis. Normal left atrial size. Mild AR. Consider SHARLA. * Blood pressure is well controlled. Patient is off Levophed, and the blood pressure is well controlled. * Patient and family wants to cancel MRI because he is not stable from cardio-pulmonary standpoint. His deficits have resolved. Recommend follow-up with Dr. Rand in 2-3 weeks after discharge. * DVT prophylaxis: Continue heparin 5000 units subcu every 12 hours. * Neurologically patient is clear.
--- NOTE | 2023-02-04 10:18 | P.PN ---
Subjective PROGRESS NOTE The patient is a 77-year-old male with known history of severe COPD, history of severe CAD and obstructive carotid disease who underwent left carotid stenting yesterday, post procedure he had right upper extremities weakness that subs equently improved. He was doing well until 3:00 in the morning when he became acutely dyspneic, hypoxic and had evidence of pulmonary edema. He was intubated. According to the nursing staff he was moving all his extremities at that time. He continues to be in sinus mechanism. There is no reported chest discomfort. He is on no vasopressor and he has good urinary output. He is intubated and sedated. His systolic function in the past was preserved with mild pulmonary hypertension. He had a history of smoking until recently. He has severe calcifications of his coronary arteries and has been evaluated for possible CABG depending on his lung status. EKG showed no acute ST segment changes, chest x-ray shows permanent congestion February 01: He remains intubated and sedated, in sinus mechanism. Renal output is good. His EKG shows T-wave inversion in the anterolateral leads consistent with ischemia. His echocardiogram showed an ejection fraction of 50-55% with mild aortic regurgitation. He has no evidence of tachyarrhythmia. His oxygenation is stable. Apparently he was awake earlier according to the nursing staff and was moving all extremities. His chest x-ray shows no evidence of infiltrates. February 02: The patient is extubated, awake and alert, moving all extremities with no significant weakness. His blood pressure is stable. He is in sinus mechanism. He continues to have T-wave inversion anteriorly but no chest discomfort. He denies any dizziness or palpitation, no nausea or vomiting. He continues to be on the BiPAP. His urinary output is stable. February 03: The patient feels well this morning, he is denying any chest discomfort or dyspnea. He has no focal weakness. He continues to be in sinus mechanism. He denies any palpitations. He denies any nausea or vomiting. He continues to have a Anne catheter. He has no evidence of ventricle tachycardia arrhythmia. He continues to have ST segment changes with T-wave inversion. 02/04 Patient seen and examined. Patient denies any chest pain or pressure. EKG still has diffuse T-wave inversions. Denies any change in his shortness breath and still short of breath with minimal exertion such as walking to the bathroom. Creatinine remains stable at 0.8. Appears nearly euvolemic however continue IV Lasix for one more day and monitor response. Significant T-wave inversions diffusely however echo showing relatively preserved ejection fraction and minimal troponin elevation with no obvious angina. Blood pressures labile 110s up to 150s. -2.8 L per ins and outs however unclear if accurate intake. PHYSICAL EXAMINATION: Vitals reviewed LUNGS: Few crackles at the bases HEART: Regular rate and rhythm, S1, S2. No S3. Systolic ejection murmur ABDOMEN: Soft, positive bowel sounds, no organomegaly EXTREMETIES: No edema, moving all extremities with no focal weakness IMPRESSION: 1. Acute respiratory failure with evidence of pulmonary edema, his systolic function in the past was normal, he has EKG changes consistent with anterolateral ischemia with no significant troponin rise, extubated 2. Status post left carotid stenting with right upper extremities weakness post procedure, improved 3. Severe triple vessel CAD 4. Severe COPD 5. History of hypertension 6. History of hyperlipidemia PLAN: 1. Continue present therapy 2. Follow blood pressure 3. Increase physical activity 4. Follow blood pressure 5. Add low dose lisinopril 2.5mg daily and monitor response. 6. Eventually he will need cardiac revascularization however complicated by need for dual antiplatelets and pulmonary status. Objective - Vital Signs Vital signs: Vital Signs Temp 97.7 F 02/04/23 08:00 Pulse 95 02/04/23 09:06 Resp 18 02/04/23 09:06 BP 136/57 02/04/23 09:00 Pulse Ox 98 02/04/23 09:00 FiO2 40 02/04/23 00:18 Intake & Output 02/03/23 02/04/23 02/04/23 18:59 06:59 18:59 Intake Total 128 120 330 Output Total 1615 1470 135 Balance -1487 -1350 195 Weight 71.6 kg Intake: IV 128 120 40 0.9NS 110 120 40 ART 18 Intake, IV Titration 50 Amount cefTRIAXone 1 gm In 50 Sodium Chloride 0.9% 50 ml @ 100 mls/hr IVPB Q24HR [facility] Rx#:[id number] Oral 240 Output: Urine 1615 1470 135 Other: Voiding Method Indwelling Catheter Indwelling Catheter Indwelling Catheter # Bowel Movements 1 1 ABP, PAP, CO, CI - Last Documented Arterial Blood Pressure 133/43 - Labs CBC & Chem 7: 02/04/23 03:28 02/04/23 03:28 Labs: Abnormal Lab Results - Last 24 Hours (Table) 02/03/23 02/03/23 02/03/23 Range/Units 11:11 16:32 20:09 RBC (4.30-5.90) m/uL Hgb (13.0-17.5) gm/dL Hct (39.0-53.0) % RDW (11.5-15.5) % Chloride (98-107) mmol/L Carbon Dioxide (22-30) mmol/L BUN (9-20) mg/dL POC Glucose (mg/dL) 136 H 128 H 132 H (70-110) mg/dL Calcium (8.4-10.2) mg/dL 02/04/23 02/04/23 Range/Units 03:28 03:28 RBC 3.35 L (4.30-5.90) m/uL Hgb 10.2 L (13.0-17.5) gm/dL Hct 31.1 L (39.0-53.0) % RDW 15.8 H (11.5-15.5) % Chloride 96 L (98-107) mmol/L Carbon Dioxide 38 H (22-30) mmol/L BUN 52 H (9-20) mg/dL POC Glucose (mg/dL) (70-110) mg/dL Calcium 7.8 L (8.4-10.2) mg/dL
[2023-02-04 11:33] LABS: Glucose,Whole Blood 111 mg/dL (70-110)
--- NOTE | 2023-02-04 13:14 | P.PN ---
Subjective Progress Note Date: 02/04/23 Principal diagnosis: Acute hypoxic and hypercapnic respiratory failure requiring intubation and mechanical ventilation secondary to COPD and CHF This is a 77-year-old mentation is very well-known to me. The patient has advanced COPD oxygen dependent at 2 L and he is also steroid dependent with an FEV1 of 31% of predicted and diffusion capacity of 27% of predicted. The patien t had also multivessel coronary artery disease. I saw him 2 weeks back in my office and I thought he was a high surgical candidate for coronary artery bypass surgery and after having a discussion with cardiology and cardiothoracic surgery we opted not to proceed with surgery and consider multivessel stenting. The patient also had a 90% stenosis of the internal carotid artery on the left. On today's evaluation, the patient was brought in by interventional cardiology and the patient has successful stenting of the left common and internal carotid artery with good angiographic results. After the patient arrived to the ICU, the patient acutely became weak on the right side. He is unable to move his right upper extremity and he has significant weakness in his right lower extremity and the facial droop. His speech is also slightly affected although he still conversing. He is awake and alert and he is hemodynamically stable. His most recent blood pressure is 172/79. He is on oxygen at 2 L and he is pulse ox sitting 94%. His cardiac rhythm is sinus. Based on that, a code stroke was initiated and the patient is being taken for an immediate CT angiogram. I saw the patient prior to him moving to the radiology department. Meanwhile, neurology has been activated and intervention neurology has also been activated. No headaches. No seizure activity. The patient is known to have chronic exertional dyspnea. He gets short of breath upon walking around 100 feet. He has no chest pain at this point in time. He is an ex-smoker. His hypertension and hyperlipidemia and COPD as c omorbidities and as mentioned he is oxygen dependent 24 7. Labs pending from.. He is currently on a combination of aspirin and Plavix. 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 The patient is post carotid stenting which got complicated by development of some neurological impairment involving the right side of the body and subsequent respiratory failure. The respiratory failure was thought to be related COPD. No clear indication for decompensated heart failure. Echocardiogram showed a preserved LV function. Echo was completed yesterday and based on the reports, the patient has a normal LV systolic function with apical hypokinesis, mild aortic regurgitation, normal right ventricular size and the records no systolic pressure was estimated to be 52. Ejection fraction was 50-55%. The patient currently is on propofol which is running at 55 mcg/kg/m. The patient is also on norepinephrine to maintain a higher mean arterial pressure based on his recent neurological event that occurred which is in the form of CVA/TIA. The patient remains on a mechanical ventilator. Is quite successful mechanical ventilator. Is on assist-control at the rate of 22, tidal volume of 450, FiO2 of 40% and a PEEP of 5. The blood gas from today shows a pH of 7.50 with a pCO2 of 39 and pO2 of 59 and this was done on 5-40%. The serum bicarb is up to 30 and the patient will be taken off the bicarb infusion especially that he has developed some alkalosis. The chest x- ray showed no acute abnormalities. ET tube is an excellent location. All orogastric tube is also in place. The patient has developed no consolidation or airspace disease. He has a subclavian left sided russian teacher lumen catheter. Urine output is adequate. Enteral feeding was started the patient is currently on vital high protein at the rate of 40 mL an hour. On 02/02/2023, the patient is off the mechanical ventilator. We managed to wean the patient off the mechanical ventilator yesterday and the patient was extubated to BiPAP and the patient remains on a BiPAP at a pressure of 10/5 with an FiO2 of 40%. The generator tidal volume is 400 with a rate of 20 and a minute ventilation of 8-10 L. The patient seems to be quite comfortable in the BiPAP. The chest x-ray shows mild interstitial infiltrates bilaterally and the patient is receiving Lasix 40 mg IV every 24 hours and the patient is -700 mL of fluid balance negative over the past 24 hours. Meanwhile, the patient remains on the fact and the goal was to keep a higher systolic blood pressure based on the fact that the patient had a recent CVA/TIA post a left carotid e ndarterectomy. He is awake and alert and is communicating. There is no focal neurological deficits that this point in time. The strength is equal and symmetrical bilaterally. Is able to communicate. He is talking. No aphasia. His recognizing people and he is very much appropriate at this point. His cardiac rhythm is sinus. His blood work shows a BUN of 27 with a creatinine of 0.6. Sodium is at 140. The sputum sample that was collected while the patient was on a mechanical ventilator showed Streptococcus and the patient was started on IV Rocephin yesterday as an empiric antibiotic coverage. Noted the patient is a preserved LV function with an ejection fraction of 50-55%. Nevertheless he has multivessel coronary artery disease and he is not a surgical candidate at this point in time as mentioned earlier. He also has advanced COPD oxygen dependent and steroid dependent and the patient is maintained on home O2 and home prednisone at a dose of 10 mg by mouth daily. Currently is on bronchodilators on DuoNeb is also on a combination of budesonide and Perforomist the blood treatments and is also on IV Solu-Medrol 60 mg every 6 hours. He is on heparin subcu for DVT prophylaxis. He is on no sedation for now. He is on a combination of aspirin and Plavix. On 02/03/2023, the patient is fully alert and awake and communicating and is off the BiPAP and currently is on oxygen at 2 L. He is able to speak long sentences and had breathing that is not labored at this point in time. Hemodynamically stable. Cardiac rhythm is normal sinus. Tolerating diet. No chest pain. No shortness of breath. No motor deficits. He does have some vision changes in the right eye. No nausea. No vomiting. No headaches no seizures. White cell count of 9.6 with a hemoglobin of 10 and a platelet count of 249. BUN is 44 with a creatinine of 0.8 and sodium levels of 135. In terms of his medications, the patient is on bronchodilators, IV Solu-Medrol, IV Rocephin for the presence of strep in his sputum, he is also on metoprolol 100 mg by mouth twice a day. He is on aspirin and Plavix. He is also on statins. Reevaluated today on 02/04/2023, patient remains in the ICU, doing quite well, he is on 3 L nasal cannula transitioned from BiPAP 10/5/40%. Relatively asymptomatic, patient was intubated on 01/31 extubated on 02/01 responded well to treatment with bronchodilators and with diuretics. Labs today showed a relatively normal electrolytes, normal renal profile, bicarb is 38 normal CBC except for hemoglobin of 10.2, last chest x-ray showed mild diffuse interstitial prominence, no follow-up chest x-rays since 02/02/2023 but clinically the patient is doing well and he has no active pulmonary symptoms Objective - Vital Signs Vital signs: Vital Signs Temp 97.4 F L 02/04/23 12:00 Pulse 76 02/04/23 12:00 Resp 26 H 02/04/23 12:00 BP 101/51 02/04/23 12:00 Pulse Ox 93 L 02/04/23 12:00 FiO2 40 02/04/23 00:18 Intake & Output 02/03/23 02/04/23 02/04/23 18:59 06:59 18:59 Intake Total 128 120 340 Output Total 1615 1470 785 Balance -1417 -6450 -445 Weight 71.6 kg 71.6 kg Intake: IV 128 120 50 0.9NS 110 120 50 ART 18 Intake, IV Titration 50 Amount cefTRIAXone 1 gm In 50 Sodium Chloride 0.9% 50 ml @ 100 mls/hr IVPB Q24HR [facility] Rx#:[id number] Oral 240 Output: Urine 1615 1470 785 Other: Voiding Method Indwelling Catheter Indwelling Catheter Indwelling Catheter # Bowel Movements 1 1 ABP, PAP, CO, CI - Last Documented Arterial Blood Pressure 133/43 - Exam Physical Exam: Revealed 77-year-old white male in no distress on 3 L nasal cannula Head: Atraumatic, normocephalic. HEENT:[Neck is supple.] [No neck masses.] [No thyromegaly.] [No JVD.] Chest: [Minimal fine crackles at the bases no rhonchi no wheezes Cardiac Exam: [Normal S1 and S2, no S3 gallop, 2/6 systolic ejection murmur heard throughout the precordium. Abdomen: [Soft, nontender, no megaly, no rebound, no guarding, normal bowel sounds.] Extremities: [No clubbing, no edema, no cyanosis.] Neurological Exam: [No focal neurologic deficit.] Alert and oriented 3. Psychiatric: Normal mood affect and normal mental status examination. Skin: No rashes. - Labs CBC & Chem 7: 02/04/23 03:28 02/04/23 03:28 Labs: Abnormal Lab Results - Last 24 Hours (Table) 02/03/23 02/03/23 02/04/23 Range/Units 16:32 20:09 03:28 RBC (4.30-5.90) m/uL Hgb (13.0-17.5) gm/dL Hct (39.0-53.0) % RDW (11.5-15.5) % Chloride 96 L (98-107) mmol/L Carbon Dioxide 38 H (22-30) mmol/L BUN 52 H (9-20) mg/dL POC Glucose (mg/dL) 128 H 132 H (70-110) mg/dL Calcium 7.8 L (8.4-10.2) mg/dL 02/04/23 02/04/23 Range/Units 03:28 11:32 RBC 3.35 L (4.30-5.90) m/uL Hgb 10.2 L (13.0-17.5) gm/dL Hct 31.1 L (39.0-53.0) % RDW 15.8 H (11.5-15.5) % Chloride (98-107) mmol/L Carbon Dioxide (22-30) mmol/L BUN (9-20) mg/dL POC Glucose (mg/dL) 111 H (70-110) mg/dL Calcium (8.4-10.2) mg/dL Assessment and Plan Assessment: Impression: Acute hypoxic and hypercapnic respiratory failure secondary to acute diastolic congestive heart failure and underlying COPD with acute exacerbation Status post left carotid artery stenting with right upper extremity weakness post procedure, improving but not back to normal postoperative day #5 Severe triple-vessel coronary artery disease Severe COPD Benign essential hypertension Dyslipidemia History of smoking Restless leg syndrome Positive Streptococcus and sputum, on Rocephin History of meningioma left frontal. Recommendation: Continue oxygen and titrate accordingly Continue bronchodilators Continue steroids/prednisone taper over the next 2 weeks Use BiPAP as needed Continue aspirin and Plavix Continue metoprolol Continue statins Consider transferring the patient out of the ICU to a monitor bed on selective today. We'll continue to follow Time with Patient: Less than 30
[2023-02-04 16:27] LABS: Glucose,Whole Blood 121 mg/dL (70-110)
--- NOTE | 2023-02-04 19:01 | P.PN ---
Subjective Progress Note Date: 02/04/23 Patient was seen for a follow-up. Patient's was also present today. Patient says that in the afternoon he had trouble breathing. After he received breathing treatment, feels better. Per patient's family, his speech is back to baseline. Patient has no deficits. He denies any focal weakness, or any new neurological symptoms. Appears very pleasant. Denies headache at this time. Objective - Vital Signs Vital signs: Vital Signs Temp 97.4 F L 02/04/23 12:00 Pulse 72 02/04/23 15:16 Resp 18 02/04/23 15:16 BP 101/51 02/04/23 12:00 Pulse Ox 93 L 02/04/23 12:00 FiO2 40 02/04/23 00:18 Intake & Output 02/03/23 02/04/23 02/04/23 18:59 06:59 18:59 Intake Total 128 120 340 Output Total 1615 1470 785 Balance -6440 -7182 -858 Weight 71.6 kg 71.6 kg Intake: IV 128 120 50 0.9NS 110 120 50 ART 18 Intake, IV Titration 50 Amount cefTRIAXone 1 gm In 50 Sodium Chloride 0.9% 50 ml @ 100 mls/hr IVPB Q24HR [facility] Rx#:[id number] Oral 240 Output: Urine 1615 1470 785 Other: Voiding Method Indwelling Catheter Indwelling Catheter Indwelling Catheter # Bowel Movements 1 1 ABP, PAP, CO, CI - Last Documented Arterial Blood Pressure 133/43 - Exam Patient is alert and awake. Speech and language functions are normal. No aphasia or dysarthria. Visual perez are full in all 8 quadrants bilaterally. No neglect. face is symmetric, tongue protrudes to the midline. Pupils are equal, round and reacting to light.shoulder shrug normal. On muscle strength testing there is no pronator drift and the strength is normal in arms and legs distally and proximally. No ataxia for qgmraa-[id number]-ylia testing on either side. Patient is slightly tremulous for [id number] testing bilaterally. Sensory to touch is equal with no neglect. - Labs CBC & Chem 7: 02/04/23 03:28 02/04/23 03:28 Labs: Abnormal Lab Results - Last 24 Hours (Table) 02/03/23 02/03/23 02/04/23 Range/Units 16:32 20:09 03:28 RBC (4.30-5.90) m/uL Hgb (13.0-17.5) gm/dL Hct (39.0-53.0) % RDW (11.5-15.5) % Chloride 96 L (98-107) mmol/L Carbon Dioxide 38 H (22-30) mmol/L BUN 52 H (9-20) mg/dL POC Glucose (mg/dL) 128 H 132 H (70-110) mg/dL Calcium 7.8 L (8.4-10.2) mg/dL 02/04/23 02/04/23 02/04/23 Range/Units 03:28 11:32 16:25 RBC 3.35 L (4.30-5.90) m/uL Hgb 10.2 L (13.0-17.5) gm/dL Hct 31.1 L (39.0-53.0) % RDW 15.8 H (11.5-15.5) % Chloride (98-107) mmol/L Carbon Dioxide (22-30) mmol/L BUN (9-20) mg/dL POC Glucose (mg/dL) 111 H 121 H (70-110) mg/dL Calcium (8.4-10.2) mg/dL Assessment and Plan Assessment: * Acute CVA, with right hemiparesis 01/30/2023, with complete resolution of symptoms. Initial NIH stroke scale was 9. NIH stroke scale at this time is 0. Patient did not receive TPA. * Status post left ICA stenting for 90% stenosis 01/30/2023. * Status post respiratory failure, status post extubation. * CTA of head and neck revealed large vessel occlusion involving the distal right ICA ?chronic. This site is clinically asymptomatic at this time. * Incidental finding of cerebral meningioma 2.4 x 1.9 cm left frontal region. * Hypertension * Severe triple vessel CAD * COPD * Hyperlipidemia * Tobacco use Plan: * Patient's mentation is normal. Examination is nonfocal. Current NIH stroke scale is 0. * Repeat CT head 01/31/2023 revealed 2.4 x 1.9 cm extra-axial hyperdensity is favored to represent a meningioma. Degenerative and remote microvascular ischemic white matter change. I personally reviewed CT head, agree with the findings. * EEG revealed background slowing, suggestive of mild to moderate encephalopathy. No epileptiform activity was seen. * CTA of head and neck 01/30/2023 revealed moderate narrowing post-stenting left carotid artery. No obstruction identified. Mild narrowing right ICA from [place]. Poor visualization of the distal right ICA bifurcation and right A1 segment. Right cerebral vascular circulation appears patent although smaller caliber within the brain than on the left. * Patient was considered not a candidate for TPA, because of rapidly improving symptoms, and risks outweigh the benefits. * Continue dual antiplatelet medication including aspirin and Plavix 75 mg daily. 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 * Hemoglobin A1c 5.5 on 01/01/2023. * Lipid panel with cholesterol 122, LDL 56, HDL 48 and triglycerides 83. Lipids are well controlled, continue Lipitor 40 mg daily. * Repeat 2-D echo revealed normal left-ventricular systolic function, with EF 50-55%. Apical akinesis. Normal left atrial size. Mild AR. Consider SHARLA. * Blood pressure is well controlled. Patient is off Levophed, and the blood pressure is well controlled. * Patient and family wants to cancel MRI because he is not stable from cardio- pulmonary standpoint. His deficits have resolved. Recommend follow-up with Dr. Rand in 2-3 weeks after discharge. Patient would need MRI of the brain with and without contrast for further evaluation of cerebral meningioma. * DVT prophylaxis: Continue heparin 5000 units subcu every 12 hours. * Neurologically patient is clear for transfer to rehab when medically cleared. Dr. Mohit Marc to start neurology service in the morning.
[2023-02-04 20:37] LABS: Glucose,Whole Blood 139 mg/dL (70-110)
[2023-02-04] MEDS: ATORVASTATIN 40 MG TAB PO SCH (21:12)
[2023-02-05 06:43] LABS: Glucose,Whole Blood 92 mg/dL (70-110)
[2023-02-05] MEDS: INSULIN ASPART (NovoLOG) 100 UNIT/ML VIAL SQ SCH ×4 (06:46→21:10)
[2023-02-05] MEDS: PANTOPRAZOLE 40 MG TABLET PO SCH (06:50)
[2023-02-05] MEDS: METOPROLOL TARTRATE 50 MG TAB PO SCH ×2 (08:09→21:09)
[2023-02-05] MEDS: HEPARIN SODIUM,PORCINE/PF 5,000 UNIT/0.5 ML SYRINGE SQ SCH ×2 (08:09→21:09)
[2023-02-05] MEDS: FUROSEMIDE 10 MG/ML 4 ML VIAL IV SCH ×2 (08:09→21:10)
[2023-02-05] MEDS: EZETIMIBE 10 MG TAB PO SCH (08:09)
[2023-02-05] MEDS: CLOPIDOGREL 75 MG TAB PO SCH (08:09)
[2023-02-05] MEDS: ISOSORBIDE MONONITRATE ER 30 MG TAB.ER.24H PO SCH (08:09)
[2023-02-05] MEDS: ASPIRIN 81 MG PO SCH (08:09)
[2023-02-05] MEDS: predniSONE 20 MG TAB PO SCH (08:09)
[2023-02-05] MEDS: CLOBETASOL PROP 0.05% CR 15GM TOPICAL SCH ×2 (08:10→21:10)
[2023-02-05] MEDS: IPRATROPIUM-ALBUTEROL 3 ML NEB INHALATION SCH ×4 (08:14→20:11)
[2023-02-05] MEDS: FORMOTEROL FUMARATE 20 MCG/2 ML NEBU INHALATION SCH ×2 (08:14→20:11)
[2023-02-05] MEDS: BUDESONIDE 1 MG/2 ML NEBU INHALATION SCH ×2 (08:14→20:11)
[2023-02-05] MEDS ORDERED: NITROGLYCERIN SL TABS 0.4 MG TAB SUBLINGUAL PRN (09:16)
--- NOTE | 2023-02-05 09:22 | P.PN ---
Subjective PROGRESS NOTE The patient is a 77-year-old male with known history of severe COPD, history of severe CAD and obstructive carotid disease who underwent left carotid stenting yesterday, post procedure he had right upper extremities weakness that subs equently improved. He was doing well until 3:00 in the morning when he became acutely dyspneic, hypoxic and had evidence of pulmonary edema. He was intubated. According to the nursing staff he was moving all his extremities at that time. He continues to be in sinus mechanism. There is no reported chest discomfort. He is on no vasopressor and he has good urinary output. He is intubated and sedated. His systolic function in the past was preserved with mild pulmonary hypertension. He had a history of smoking until recently. He has severe calcifications of his coronary arteries and has been evaluated for possible CABG depending on his lung status. EKG showed no acute ST segment changes, chest x-ray shows permanent congestion February 01: He remains intubated and sedated, in sinus mechanism. Renal output is good. His EKG shows T-wave inversion in the anterolateral leads consistent with ischemia. His echocardiogram showed an ejection fraction of 50-55% with mild aortic regurgitation. He has no evidence of tachyarrhythmia. His oxygenation is stable. Apparently he was awake earlier according to the nursing staff and was moving all extremities. His chest x-ray shows no evidence of infiltrates. February 02: The patient is extubated, awake and alert, moving all extremities with no significant weakness. His blood pressure is stable. He is in sinus mechanism. He continues to have T-wave inversion anteriorly but no chest discomfort. He denies any dizziness or palpitation, no nausea or vomiting. He continues to be on the BiPAP. His urinary output is stable. February 03: The patient feels well this morning, he is denying any chest discomfort or dyspnea. He has no focal weakness. He continues to be in sinus mechanism. He denies any palpitations. He denies any nausea or vomiting. He continues to have a Anne catheter. He has no evidence of ventricle tachycardia arrhythmia. He continues to have ST segment changes with T-wave inversion. 02/04 Patient seen and examined. Patient denies any chest pain or pressure. EKG still has diffuse T-wave inversions. Denies any change in his shortness breath and still short of breath with minimal exertion such as walking to the bathroom. Creatinine remains stable at 0.8. Appears nearly euvolemic however continue IV Lasix for one more day and monitor response. Significant T-wave inversions diffusely however echo showing relatively preserved ejection fraction and minimal troponin elevation with no obvious angina. Blood pressures labile 110s up to 150s. -2.8 L per ins and outs however unclear if accurate intake. 02/05 Patient seen and examined. Patient denies any chest pain or pressure. He is however more short of breath this morning and had some improvement with inhalers however still feels somewhat worse and yesterday. He has been continued on IV Lasix with good urine output. Renal function not resulted yet today. Blood pressure somewhat more elevated this morning compared to throughout the night 139/98 however this was before Imdur and metoprolol were given. PHYSICAL EXAMINATION: Vitals reviewed LUNGS: Few crackles at the bases HEART: Regular rate and rhythm, S1, S2. No S3. Systolic ejection murmur ABDOMEN: Soft, positive bowel sounds, no organomegaly EXTREMETIES: No edema, moving all extremities with no focal weakness IMPRESSION: 1. Acute respiratory failure with evidence of pulmonary edema, his systolic function in the past was normal, he has EKG changes consistent with anterolateral ischemia with no significant troponin rise, extubated 2. Status post left carotid stenting with right upper extremities weakness post procedure, improved 3. Severe triple vessel CAD 4. Severe COPD 5. History of hypertension 6. History of hyperlipidemia PLAN: Continue dual antiplatelets given recent carotid stenting. Patient with T-wave inversions and minimally elevated troponins however no obvious angina-type symptoms. He is having some increase in dyspnea and we will trial nitro to see if there is any relief of his dyspnea. Goal would be to optimize patient and discharge home with outpatient follow-up however monitor closely. Increase physical therapy. Discharge planning Objective - Vital Signs Vital signs: Vital Signs Temp 97.6 F 02/05/23 00:00 Pulse 86 02/05/23 08:38 Resp 17 02/05/23 05:00 BP 122/47 02/05/23 05:00 Pulse Ox 92 L 02/05/23 08:14 FiO2 40 02/05/23 00:00 Intake & Output 02/04/23 02/05/23 02/05/23 18:59 06:59 18:59 Intake Total 340 100 Output Total 785 9780 Balance -445 -2250 Weight 71.6 kg 71.4 kg Intake: IV 50 100 0.9NS 50 100 Intake, IV Titration 50 Amount cefTRIAXone 1 gm In 50 Sodium Chloride 0.9% 50 ml @ 100 mls/hr IVPB Q24HR [facility] Rx#:[id number] Oral 240 Output: Urine 785 2350 Other: Voiding Method Indwelling Catheter Indwelling Catheter # Bowel Movements 1 1 ABP, PAP, CO, CI - Last Documented Arterial Blood Pressure 133/43 - Labs CBC & Chem 7: 02/04/23 03:28 02/04/23 03:28 Labs: Abnormal Lab Results - Last 24 Hours (Table) 02/04/23 02/04/23 02/04/23 Range/Units 11:32 16:25 20:36 POC Glucose (mg/dL) 111 H 121 H 139 H (70-110) mg/dL
[2023-02-05 10:23] LABS: Basophils % (A) 0 %; Eosinophils # (A) 0.3 k/uL (0-0.7); Eosinophils % (A) 2 %; HCT 33.2 % (39.0-53.0); HGB 11.3 gm/dL (13.0-17.5); Lymphocytes # (A) 1.2 k/uL (1.0-4.8); Lymphocytes % (A) 8 %; MCH 30.7 pg (25.0-35.0); MCHC 34.1 g/dL (31.0-37.0); MCV 90.3 fL (80.0-100.0); Mean Platelet Volume 7.5; Monocytes # (A) 0.7 k/uL (0-1.0); Monocytes % (A) 5 %; Neutrophils # (A) 11.7 k/uL (1.3-7.7); Neutrophils % (A) 83 %; Platelet Count 299 k/uL (150-450); RBC 3.68 m/uL (4.30-5.90); WBC 14.1 k/uL (3.8-10.6)
[2023-02-05 10:32] LABS: African American GFR (CKD) >90 (>60 ml/min/1.73 sqM); Albumin 3.5 g/dL (3.5-5.0); Anion Gap 8 mmol/L; Blood Urea Nitrogen 44 mg/dL (9-20); Calcium 8.2 mg/dL (8.4-10.2); Carbon Dioxide 31 mmol/L (22-30); Chloride 94 mmol/L (98-107); Glucose 98 mg/dL (74-99); Non-African American GFR(CKD) 88 (>60 ml/min/1.73 sqM); Phosphorus 4.1 mg/dL (2.5-4.5); Sodium 133 mmol/L (137-145)
--- NOTE | 2023-02-05 10:39 | XR ---
EXAMINATION TYPE: XR chest 1V portable DATE OF EXAM: 02/05/2023 COMPARISON: 02/02/2023 HISTORY: Shortness of breath TECHNIQUE: Single frontal view of the chest is obtained. FINDINGS: Biapical pleural thickening with subsegmental changes at the right lung base. Underlying C OPD and chronic interstitial lung disease. Prominence of the hilum likely reflects prominent pulmonar y artery and patient rotation. No overt failure. Atherosclerotic change aorta. Left-sided central line has been removed. IMPRESSION: 1. COPD, pulmonary fibrosis and stable right basilar atelectasis or early infiltrate.
[2023-02-05 11:28] LABS: Glucose,Whole Blood 108 mg/dL (70-110)
--- NOTE | 2023-02-05 11:32 | P.PN ---
Subjective Progress Note Date: 02/05/23 Principal diagnosis: Acute hypoxic and hypercapnic respiratory failure requiring intubation and mechanical ventilation secondary to COPD and CHF This is a 77-year-old mentation is very well-known to me. The patient has advanced COPD oxygen dependent at 2 L and he is also steroid dependent with an FEV1 of 31% of predicted and diffusion capacity of 27% of predicted. The patien t had also multivessel coronary artery disease. I saw him 2 weeks back in my office and I thought he was a high surgical candidate for coronary artery bypass surgery and after having a discussion with cardiology and cardiothoracic surgery we opted not to proceed with surgery and consider multivessel stenting. The patient also had a 90% stenosis of the internal carotid artery on the left. On today's evaluation, the patient was brought in by interventional cardiology and the patient has successful stenting of the left common and internal carotid artery with good angiographic results. After the patient arrived to the ICU, the patient acutely became weak on the right side. He is unable to move his right upper extremity and he has significant weakness in his right lower extremity and the facial droop. His speech is also slightly affected although he still conversing. He is awake and alert and he is hemodynamically stable. His most recent blood pressure is 172/79. He is on oxygen at 2 L and he is pulse ox sitting 94%. His cardiac rhythm is sinus. Based on that, a code stroke was initiated and the patient is being taken for an immediate CT angiogram. I saw the patient prior to him moving to the radiology department. Meanwhile, neurology has been activated and intervention neurology has also been activated. No headaches. No seizure activity. The patient is known to have chronic exertional dyspnea. He gets short of breath upon walking around 100 feet. He has no chest pain at this point in time. He is an ex-smoker. His hypertension and hyperlipidemia and COPD as c omorbidities and as mentioned he is oxygen dependent 24 7. Labs pending from.. He is currently on a combination of aspirin and Plavix. 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 The patient is post carotid stenting which got complicated by development of some neurological impairment involving the right side of the body and subsequent respiratory failure. The respiratory failure was thought to be related COPD. No clear indication for decompensated heart failure. Echocardiogram showed a preserved LV function. Echo was completed yesterday and based on the reports, the patient has a normal LV systolic function with apical hypokinesis, mild aortic regurgitation, normal right ventricular size and the records no systolic pressure was estimated to be 52. Ejection fraction was 50-55%. The patient currently is on propofol which is running at 55 mcg/kg/m. The patient is also on norepinephrine to maintain a higher mean arterial pressure based on his recent neurological event that occurred which is in the form of CVA/TIA. The patient remains on a mechanical ventilator. Is quite successful mechanical ventilator. Is on assist-control at the rate of 22, tidal volume of 450, FiO2 of 40% and a PEEP of 5. The blood gas from today shows a pH of 7.50 with a pCO2 of 39 and pO2 of 59 and this was done on 5-40%. The serum bicarb is up to 30 and the patient will be taken off the bicarb infusion especially that he has developed some alkalosis. The chest x- ray showed no acute abnormalities. ET tube is an excellent location. All orogastric tube is also in place. The patient has developed no consolidation or airspace disease. 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 Urine output is adequate. Enteral feeding was started the patient is currently on vital high protein at the rate of 40 mL an hour. On 02/02/2023, the patient is off the mechanical ventilator. We managed to wean the patient off the mechanical ventilator yesterday and the patient was extubated to BiPAP and the patient remains on a BiPAP at a pressure of 10/5 with an FiO2 of 40%. The generator tidal volume is 400 with a rate of 20 and a minute ventilation of 8-10 L. The patient seems to be quite comfortable in the BiPAP. The chest x-ray shows mild interstitial infiltrates bilaterally and the patient is receiving Lasix 40 mg IV every 24 hours and the patient is -700 mL of fluid balance negative over the past 24 hours. Meanwhile, the patient remains on the fact and the goal was to keep a higher systolic blood pressure based on the fact that the patient had a recent CVA/TIA post a left carotid e ndarterectomy. He is awake and alert and is communicating. There is no focal neurological deficits that this point in time. The strength is equal and symmetrical bilaterally. Is able to communicate. He is talking. No aphasia. His recognizing people and he is very much appropriate at this point. His cardiac rhythm is sinus. His blood work shows a BUN of 27 with a creatinine of 0.6. Sodium is at 140. The sputum sample that was collected while the patient was on a mechanical ventilator showed Streptococcus and the patient was started on IV Rocephin yesterday as an empiric antibiotic coverage. Noted the patient is a preserved LV function with an ejection fraction of 50-55%. Nevertheless he has multivessel coronary artery disease and he is not a surgical candidate at this point in time as mentioned earlier. He also has advanced COPD oxygen dependent and steroid dependent and the patient is maintained on home O2 and home prednisone at a dose of 10 mg by mouth daily. Currently is on bronchodilators on DuoNeb is also on a combination of budesonide and Perforomist the blood treatments and is also on IV Solu-Medrol 60 mg every 6 hours. He is on heparin subcu for DVT prophylaxis. He is on no sedation for now. He is on a combination of aspirin and Plavix. On 02/03/2023, the patient is fully alert and awake and communicating and is off the BiPAP and currently is on oxygen at 2 L. He is able to speak long sentences and had breathing that is not labored at this point in time. Hemodynamically stable. Cardiac rhythm is normal sinus. Tolerating diet. No chest pain. No shortness of breath. No motor deficits. He does have some vision changes in the right eye. No nausea. No vomiting. No headaches no seizures. White cell count of 9.6 with a hemoglobin of 10 and a platelet count of 249. BUN is 44 with a creatinine of 0.8 and sodium levels of 135. In terms of his medications, the patient is on bronchodilators, IV Solu-Medrol, IV Rocephin for the presence of strep in his sputum, he is also on metoprolol 100 mg by mouth twice a day. He is on aspirin and Plavix. He is also on statins. Reevaluated today on 02/04/2023, patient remains in the ICU, doing quite well, he is on 3 L nasal cannula transitioned from BiPAP 10/5/40%. Relatively asymptomatic, patient was intubated on 01/31 extubated on 02/01 responded well to treatment with bronchodilators and with diuretics. Labs today showed a relatively normal electrolytes, normal renal profile, bicarb is 38 normal CBC except for hemoglobin of 10.2, last chest x-ray showed mild diffuse interstitial prominence, no follow-up chest x-rays since 02/02/2023 but clinically the patient is doing well and he has no active pulmonary symptoms Reevaluated today on 02/05/70, patient is complaining of shortness of breath although his O2 saturation is in the 90s on 2 L nasal cannula patient seems to be a bit anxious, chest x-ray showed no evidence of congestive heart failure, he does have some COPD, mild interstitial lung disease and atelectasis, no evidence of pneumonia and no evidence of congestive heart failure. Patient is using BiPAP at night with 10/5/40% but during the day he is on 2 L nasal cannula. X anax was added today, chest x-ray was reviewed today. And all his labs were also reviewed. WBC count is 14.1 hemoglobin 11.3 left breast are normal renal profile is normal. Objective - Vital Signs Vital signs: Vital Signs Temp 96.8 F L 02/05/23 08:00 Pulse 86 02/05/23 10:00 Resp 29 H 02/05/23 10:00 BP 91/60 02/05/23 10:00 Pulse Ox 92 L 02/05/23 10:00 FiO2 40 02/05/23 00:00 Intake & Output 02/04/23 02/05/23 02/05/23 18:59 06:59 18:59 Intake Total 340 100 70 Output Total 785 2350 300 Balance -445 -2357 -230 Weight 71.6 kg 71.4 kg Intake: IV 50 100 20 0.9NS 50 100 20 Intake, IV Titration 50 50 Amount cefTRIAXone 1 gm In 50 50 Sodium Chloride 0.9% 50 ml @ 100 mls/hr IVPB Q24HR [facility] Rx#:[id number] Oral 240 Output: Urine 785 2350 300 Other: Voiding Method Indwelling Catheter Indwelling Catheter Bedside Commode Urinal # Bowel Movements 1 1 ABP, PAP, CO, CI - Last Documented Arterial Blood Pressure 133/43 - Exam Physical Exam: Revealed 77-year-old white male in no distress on 2 L nasal cannula Head: Atraumatic, normocephalic. HEENT:[Neck is supple.] [No neck masses.] [No thyromegaly.] [No JVD.] Chest: [Diminished breath sound bilaterally no rhonchi and no wheezes Cardiac Exam: [Normal S1 and S2, no S3 gallop, 2/6 systolic ejection murmur heard throughout the precordium. Abdomen: [Soft, nontender, no megaly, no rebound, no guarding, normal bowel sounds.] Extremities: [No clubbing, no edema, no cyanosis.] Neurological Exam: [No focal neurologic deficit.] Alert and oriented 3. Patient is noted to be a bit anxious Psychiatric: Anxious mood, normal affect and normal mental status examination. Skin: No rashes. - Labs CBC & Chem 7: 02/05/23 09:46 02/05/23 09:46 Labs: Abnormal Lab Results - Last 24 Hours (Table) 02/04/23 02/04/23 02/04/23 Range/Units 11:32 16:25 20:36 WBC (3.8-10.6) k/uL RBC (4.30-5.90) m/uL Hgb (13.0-17.5) gm/dL Hct (39.0-53.0) % RDW (11.5-15.5) % Neutrophils # (1.3-7.7) k/uL Sodium (137-145) mmol/L Chloride (98-107) mmol/L Carbon Dioxide (22-30) mmol/L BUN (9-20) mg/dL POC Glucose (mg/dL) 111 H 121 H 139 H (70-110) mg/dL Calcium (8.4-10.2) mg/dL 02/05/23 02/05/23 Range/Units 09:46 09:46 WBC 14.1 H (3.8-10.6) k/uL RBC 3.68 L (4.30-5.90) m/uL Hgb 11.3 L (13.0-17.5) gm/dL Hct 33.2 L (39.0-53.0) % RDW 16.0 H (11.5-15.5) % Neutrophils # 11.7 H (1.3-7.7) k/uL Sodium 133 L (137-145) mmol/L Chloride 94 L (98-107) mmol/L Carbon Dioxide 31 H (22-30) mmol/L BUN 44 H (9-20) mg/dL POC Glucose (mg/dL) (70-110) mg/dL Calcium 8.2 L (8.4-10.2) mg/dL Assessment and Plan Assessment: Impression: Acute hypoxic and hypercapnic respiratory failure secondary to acute diastolic congestive heart failure and underlying COPD with acute exacerbation Status post left carotid artery stenting with right upper extremity weakness post procedure, improving but not back to normal postoperative day #6 Severe triple-vessel coronary artery disease Severe COPD Benign essential hypertension Dyslipidemia History of smoking Restless leg syndrome Positive Streptococcus and sputum, on Rocephin History of meningioma left frontal. Recommendation: Reviewed and reassured the patient about a chest x-ray Will add Xanax 0.25 mg 3 times a day when necessary Continue oxygen and titrate accordingly Continue bronchodilators Continue steroids/prednisone taper over the next 2 weeks Use BiPAP as needed Continue aspirin and Plavix Continue metoprolol Continue statins Transfer out of the ICU once a bed is available We'll continue to follow Time with Patient: Less than 30
[2023-02-05] MEDS: ALPRAZolam 0.25 MG TAB PO PRN ×2 (12:39→22:45)
[2023-02-05 16:41] LABS: Glucose,Whole Blood 137 mg/dL (70-110)
--- NOTE | 2023-02-05 16:56 | P.PN ---
Subjective Progress Note Date: 02/05/23 I'm seeing the patient for the first time during this admission. He is accompanied with his . According to the patient he had the history of left carotid stenosis and had the surgery by Dr. Jacob according to him. It seems the patient had right hemiparesis with residual symptoms and the his NIH initially was a 9 and became a 0. He did not receive IV TPA. He has a left ICA stenting and the has 90% stenosis on the left while on the right says it is mentioned as distal right ICA occlusion and was felt possibly chronic and is asymptomatic at this time. Please refer to Dr. Sultana's note for further details. Objective - Vital Signs Vital signs: Vital Signs Temp 97.9 F 02/05/23 15:15 Pulse 76 02/05/23 16:00 Resp 24 02/05/23 15:15 BP 110/61 02/05/23 15:15 Pulse Ox 94 L 02/05/23 15:15 FiO2 40 02/05/23 14:00 Intake & Output 02/04/23 02/05/23 02/05/23 18:59 06:59 18:59 Intake Total 340 100 80 Output Total 785 2350 700 Balance -105 -2300 -502 Weight 71.6 kg 71.4 kg Intake: IV 50 100 30 0.9NS 50 100 20 Invasive Line 6 10 Intake, IV Titration 50 50 Amount cefTRIAXone 1 gm In 50 50 Sodium Chloride 0.9% 50 ml @ 100 mls/hr IVPB Q24HR [facility] Rx#:[id number] Oral 240 Output: Urine 785 2350 700 Other: Voiding Method Indwelling Catheter Indwelling Catheter Bedside Commode Urinal # Voids 2 # Bowel Movements 1 1 0 ABP, PAP, CO, CI - Last Documented Arterial Blood Pressure 133/43 - Exam General: Sitting in a recliner chair and is not in acute distress. Neuro-: Patient is awake alert oriented to self place and time. Patient is following simple commands. No aphasia and no neglect. Pupils are round equal and reactive to light. Visual perez are full to confrontation. Extraocular movement is intact. No facial weakness. No dysarthria. Motor strength is moving all extremities above gravity and no focality. Sensation: Normal to touch throughout. - Labs CBC & Chem 7: 02/05/23 09:46 02/05/23 09:46 Labs: Abnormal Lab Results - Last 24 Hours (Table) 02/04/23 02/05/23 02/05/23 Range/Units 20:36 09:46 09:46 WBC 14.1 H (3.8-10.6) k/uL RBC 3.68 L (4.30-5.90) m/uL Hgb 11.3 L (13.0-17.5) gm/dL Hct 33.2 L (39.0-53.0) % RDW 16.0 H (11.5-15.5) % Neutrophils # 11.7 H (1.3-7.7) k/uL Sodium 133 L (137-145) mmol/L Chloride 94 L (98-107) mmol/L Carbon Dioxide 31 H (22-30) mmol/L BUN 44 H (9-20) mg/dL POC Glucose (mg/dL) 139 H (70-110) mg/dL Calcium 8.2 L (8.4-10.2) mg/dL 02/05/23 Range/Units 16:39 WBC (3.8-10.6) k/uL RBC (4.30-5.90) m/uL Hgb (13.0-17.5) gm/dL Hct (39.0-53.0) % RDW (11.5-15.5) % Neutrophils # (1.3-7.7) k/uL Sodium (137-145) mmol/L Chloride (98-107) mmol/L Carbon Dioxide (22-30) mmol/L BUN (9-20) mg/dL POC Glucose (mg/dL) 137 H (70-110) mg/dL Calcium (8.4-10.2) mg/dL Assessment and Plan Assessment: * Acute CVA, with right hemiparesis 01/30/2023, with complete resolution of symptoms. Initial NIH stroke scale was 9. NIH stroke scale at this time is 0. Patient did not receive TPA. * Status post left ICA stenting for 90% stenosis 01/30/2023. * Status post respiratory failure, status post extubation. * CTA of head and neck revealed large vessel occlusion involving the distal right ICA ?chronic. This site is clinically asymptomatic at this time. * Incidental finding of cerebral meningioma 2.4 x 1.9 cm left frontal region. * Hypertension * Severe triple vessel CAD * COPD * Hyperlipidemia * Tobacco use Plan: * Repeat CT head 01/31/2023 revealed 2.4 x 1.9 cm extra-axial hyperdensity is favored to represent a meningioma. Degenerative and remote microvascular ischemic white matter change. I personally reviewed CT head, agree with the findings. * EEG revealed background slowing, suggestive of mild to moderate encephalopathy. No epileptiform activity was seen. * CTA of head and neck 01/30/2023 revealed moderate narrowing post-stenting left carotid artery. No obstruction identified. Mild narrowing right ICA from plaquing. Poor visualization of the distal right ICA bifurcation and right A1 segment. Right cerebral vascular circulation appears patent although smaller caliber within the brain than on the left. * Patient was considered not a candidate for TPA, because of rapidly improving symptoms, and risks outweigh the benefits. * Continue dual antiplatelet medication including aspirin and Plavix 75 mg daily. 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 * Hemoglobin A1c 5.5 on 01/01/2023. * Lipid panel with cholesterol 122, LDL 56, HDL 48 and triglycerides 83. Lipids are well controlled, continue Lipitor 40 mg daily. * Repeat 2-D echo revealed normal left-ventricular systolic function, with EF 5 0-55%. Apical akinesis. Normal left atrial size. Mild AR. Per Dr. Sultana, to consider SHARLA. * Blood pressure is well controlled. Patient is off Levophed, and the blood pressure is well controlled. * Per Dr. Sultana, [atient and family wants to cancel MRI because he is not stable from cardio-pulmonary standpoint. His deficits have resolved. Recommend follow-up with Dr. Rand in 2-3 weeks after discharge. Patient would need MRI of the brain with and without contrast for further evaluation of cerebral meningioma. * DVT prophylaxis: Continue heparin 5000 units subcu every 12 hours. * Neurologically patient is clear for transfer to rehab when medically cleared. Otherwise, no additional neurological work-up. Please notify neurology team if any further concerns. Time with Patient: Less than 30
[2023-02-05 20:38] LABS: Glucose,Whole Blood 157 mg/dL (70-110)
[2023-02-05] MEDS: ATORVASTATIN 40 MG TAB PO SCH (21:09)
[2023-02-06] MEDS: IPRATROPIUM-ALBUTEROL 3 ML NEB INHALATION PRN (04:44)
[2023-02-06 06:30] LABS: Glucose,Whole Blood 131 mg/dL (70-110)
[2023-02-06] MEDS: INSULIN ASPART (NovoLOG) 100 UNIT/ML VIAL SQ SCH ×4 (06:44→20:55)
[2023-02-06] MEDS: PANTOPRAZOLE 40 MG TABLET PO SCH (06:47)
[2023-02-06] MEDS: FORMOTEROL FUMARATE 20 MCG/2 ML NEBU INHALATION SCH ×2 (08:18→19:54)
[2023-02-06] MEDS: BUDESONIDE 1 MG/2 ML NEBU INHALATION SCH ×2 (08:18→19:54)
[2023-02-06] MEDS: IPRATROPIUM-ALBUTEROL 3 ML NEB INHALATION SCH ×4 (08:18→19:54)
--- NOTE | 2023-02-06 09:18 | P.PN ---
Subjective PROGRESS NOTE The patient is a 77-year-old male with known history of severe COPD, history of severe CAD and obstructive carotid disease who underwent left carotid stenting yesterday, post procedure he had right upper extremities weakness that subs equently improved. He was doing well until 3:00 in the morning when he became acutely dyspneic, hypoxic and had evidence of pulmonary edema. He was intubated. According to the nursing staff he was moving all his extremities at that time. He continues to be in sinus mechanism. There is no reported chest discomfort. He is on no vasopressor and he has good urinary output. He is intubated and sedated. His systolic function in the past was preserved with mild pulmonary hypertension. He had a history of smoking until recently. He has severe calcifications of his coronary arteries and has been evaluated for possible CABG depending on his lung status. EKG showed no acute ST segment changes, chest x-ray shows permanent congestion February 01: He remains intubated and sedated, in sinus mechanism. Renal output is good. His EKG shows T-wave inversion in the anterolateral leads consistent with ischemia. His echocardiogram showed an ejection fraction of 50-55% with mild aortic regurgitation. He has no evidence of tachyarrhythmia. His oxygenation is stable. Apparently he was awake earlier according to the nursing staff and was moving all extremities. His chest x-ray shows no evidence of infiltrates. February 02: The patient is extubated, awake and alert, moving all extremities with no significant weakness. His blood pressure is stable. He is in sinus mechanism. He continues to have T-wave inversion anteriorly but no chest discomfort. He denies any dizziness or palpitation, no nausea or vomiting. He continues to be on the BiPAP. His urinary output is stable. February 03: The patient feels well this morning, he is denying any chest discomfort or dyspnea. He has no focal weakness. He continues to be in sinus mechanism. He denies any palpitations. He denies any nausea or vomiting. He continues to have a Anne catheter. He has no evidence of ventricle tachycardia arrhythmia. He continues to have ST segment changes with T-wave inversion. 02/04 Patient seen and examined. Patient denies any chest pain or pressure. EKG still has diffuse T-wave inversions. Denies any change in his shortness breath and still short of breath with minimal exertion such as walking to the bathroom. Creatinine remains stable at 0.8. Appears nearly euvolemic however continue IV Lasix for one more day and monitor response. Significant T-wave inversions diffusely however echo showing relatively preserved ejection fraction and minimal troponin elevation with no obvious angina. Blood pressures labile 110s up to 150s. -2.8 L per ins and outs however unclear if accurate intake. 02/05 Patient seen and examined. Patient denies any chest pain or pressure. He is however more short of breath this morning and had some improvement with inhalers however still feels somewhat worse and yesterday. He has been continued on IV Lasix with good urine output. Renal function not resulted yet today. Blood pressure somewhat more elevated this morning compared to throughout the night 139/98 however this was before Imdur and metoprolol were given. 02/06 Seen and examined. Patient still with an episode of shortness of breath last night which mainly improved after the inhalers. He continues on the IV diuretics with good urine output. Sodium somewhat low at 133 and some increased BUN to creatinine ratio. Still weak and unable to walk to bathroom without becoming SOB. PHYSICAL EXAMINATION: Vitals reviewed LUNGS: Clear to auscultation bilaterally HEART: Regular rate and rhythm, S1, S2. No S3. Systolic ejection murmur ABDOMEN: Soft, positive bowel sounds, no organomegaly EXTREMETIES: No edema, moving all extremities with no focal weakness IMPRESSION: 1. Acute respiratory failure with evidence of pulmonary edema, his systolic function in the past was normal, he has EKG changes consistent with anterolateral ischemia with no significant troponin rise, extubated 2. Status post left carotid stenting with right upper extremities weakness post procedure, improved 3. Severe triple vessel CAD 4. Severe COPD 5. History of hypertension 6. History of hyperlipidemia PLAN: Continue dual antiplatelets given recent carotid stenting. Patient with T-wave inversions and minimally elevated troponins however no obvious angina-type symptoms. Increase Imdur to 60mg daily and monitor response, some of SOB may be related to angina or HF symptoms and MAP mildly elevated. Increase physical therapy. Discharge planning, hopeful DC in next 48 hrs and will likely need rehab. Objective - Vital Signs Vital signs: Vital Signs Temp 97.5 F L 02/06/23 04:00 Pulse 87 02/06/23 08:42 Resp 18 02/06/23 04:00 BP 141/87 07/19/23 04:00 Pulse Ox 94 L 02/06/23 08:22 FiO2 40 02/06/23 00:00 Intake & Output 02/05/23 02/06/23 02/06/23 18:59 06:59 18:59 Intake Total 680 30 Output Total 1000 1625 Balance -320 -1595 Weight 70.3 kg Intake: IV 30 30 0.9NS 20 Invasive Line 6 10 30 Intake, IV Titration 50 Amount cefTRIAXone 1 gm In 50 Sodium Chloride 0.9% 50 ml @ 100 mls/hr IVPB Q24HR [facility] Rx#:[id number] Oral 600 Output: Urine 1000 1625 Other: Voiding Method Bedside Commode Bedside Commode Urinal Urinal # Voids 2 # Bowel Movements 2 1 ABP, PAP, CO, CI - Last Documented Arterial Blood Pressure 133/43 - Labs CBC & Chem 7: 02/05/23 09:46 02/05/23 09:46 Labs: Abnormal Lab Results - Last 24 Hours (Table) 02/05/23 02/05/23 02/05/23 Range/Units 09:46 09:46 16:39 WBC 14.1 H (3.8-10.6) k/uL RBC 3.68 L (4.30-5.90) m/uL Hgb 11.3 L (13.0-17.5) gm/dL Hct 33.2 L (39.0-53.0) % RDW 16.0 H (11.5-15.5) % Neutrophils # 11.7 H (1.3-7.7) k/uL Sodium 133 L (137-145) mmol/L Chloride 94 L (98-107) mmol/L Carbon Dioxide 31 H (22-30) mmol/L BUN 44 H (9-20) mg/dL POC Glucose (mg/dL) 137 H (70-110) mg/dL Calcium 8.2 L (8.4-10.2) mg/dL 02/05/23 02/06/23 Range/Units 20:36 06:29 WBC (3.8-10.6) k/uL RBC (4.30-5.90) m/uL Hgb (13.0-17.5) gm/dL Hct (39.0-53.0) % RDW (11.5-15.5) % Neutrophils # (1.3-7.7) k/uL Sodium (137-145) mmol/L Chloride (98-107) mmol/L Carbon Dioxide (22-30) mmol/L BUN (9-20) mg/dL POC Glucose (mg/dL) 157 H 131 H (70-110) mg/dL Calcium (8.4-10.2) mg/dL
[2023-02-06] MEDS: ISOSORBIDE MONONITRATE ER 30 MG TAB.ER.24H PO SCH (09:28)
[2023-02-06] MEDS: CLOPIDOGREL 75 MG TAB PO SCH (09:29)
[2023-02-06] MEDS: HEPARIN SODIUM,PORCINE/PF 5,000 UNIT/0.5 ML SYRINGE SQ SCH ×2 (09:29→20:55)
[2023-02-06] MEDS: ASPIRIN 81 MG PO SCH (09:29)
[2023-02-06] MEDS: EZETIMIBE 10 MG TAB PO SCH (09:29)
[2023-02-06] MEDS: predniSONE 20 MG TAB PO SCH (09:29)
[2023-02-06] MEDS: FUROSEMIDE 10 MG/ML 4 ML VIAL IV SCH ×2 (09:29→20:55)
[2023-02-06] MEDS: METOPROLOL TARTRATE 50 MG TAB PO SCH ×2 (09:29→20:54)
[2023-02-06] MEDS: CLOBETASOL PROP 0.05% CR 15GM TOPICAL SCH ×2 (09:30→20:54)
[2023-02-06] MEDS: ISOSORBIDE MONONITRATE ER 60 MG TAB.ER.24H PO SCH (09:30)
--- NOTE | 2023-02-06 09:33 | P.CONS ---
History of Present Illness - Reason for Consult Consult date: 02/05/23 - Chief Complaint CVA - History of Present Illness Mr. Darius Carnes is a 77-year-old right-handed male who lives with his in a single-story home with 2-3 steps down into their home. Prior to admission patient was independent with ADLs and ability using a walker, using a scooter while shopping. Patient does drive. Patient's is home [address] 7 and able to assist as needed. Per Records patient wears oxygen at home Patient presented to [facility] on 01/30/2023 for planned multi vessel stenting for multivessel coronary artery disease. Patient is a poor candidate for a CABG. After patient's procedure, he became weak on his right side while in the ICU, unable to move his right upper extremity with facial droop and right lower extremity weakness as well. He developed slurred speech. Code stroke was initiated, CT angiogram is ordered. Neurology consulted. CT head reported an area of increased density along the left lateral frontal lobe which appears to be an intraparenchymal hemorrhage. Atrophy with chronic appearing periventricular white matter ischemic type changes. Neurology thought imaging revealed meningioma involving the left frontal region. CTA of the head revealed moderate narrowing post-stenting left carotid artery. No obstruction is identi fied. Mild narrowing right ICA from plaquing. Patient developed respiratory failure and was placed on mechanical ventilation. The respiratory failure was thought to be related COPD. No clear indication for decompensated heart failure. Echocardiogram showed a preserved LV function. Echo was completed, the patient has a normal LV systolic function with apical hypokinesis, mild aortic regurgitation, normal right ventricular size and the records no systolic pressure was estimated to be 52. Ejection fraction was 50-55%. Patient was extubated on 02/01/2023, was placed on BiPAP. Patient eventually progressed to O2 via nasal cannula during the day, BiPAP at night. The sputum sample that was collected while the patient was on a mechanical ventilator showed Streptococcus and the patient was started on IV Rocephin as an empiric antibiotic coverage. Patient progressed medically. PM&R consulted for rehab recommendations,Patient was seen by therapies; mod assist with bathing, lower body dressing max assist, toileting total assist, gait 3 feet min assist, transfers mod assistance x 2. 02/05/23: Patient sitting up in recliner with his at the bedside. Patient reports that he is feeling better every day, but admits that he has poor endurance which is not new. He was able to ambulate approximately 8200 feet prior to admission before becoming very fatigued. He currently denies chest pressure, shortness of breath, and abdominal pain. He's been wearing BiPAP at night. He no longer is having any vision changes, his right side movement has improved. Discussed therapy options with the patient, he would like to go to inpatient rehab. Review of Systems ROS reviewed, negative unless noted above Past Medical History Past Medical History: Coronary Artery Disease (CAD), COPD, GERD/Reflux, Hype rlipidemia, Hypertension, Pneumonia, Skin Disorder Additional Past Medical History / Comment(s): chronic hypoxic respiratory failure on oxygen 2/L NC ATC, RLS, LT CAROTID stenosis History of Any Multi-Drug Resistant Organisms: None Reported Past Surgical History: Appendectomy, Heart Catheterization Additional Past Surgical History / Comment(s): COLONSCOPY. BRONCHOSCOPY WITH BIOPSY Past Anesthesia/Blood Transfusion Reactions: No Reported Reaction Additional Past Anesthesia/Blood Transfusion Reaction / Comm: HAD TROUBLE BREATHING AFTER BROCHOSCOPY AND ENDED UP IN ICU FOR A FEW DAYS Date of Last Stent Placement:: 01/01/23 Smoking Status: Current every day smoker - Past Family History Mother Family Medical History: No Reported History Father Additional Family Medical History / Comment(s): "black lung from working in a coal mine" Medications and Allergies Home Medications Medication Instructions Recorded Confirmed Type Albuterol Nebulized [Ventolin 2.5 mg INHALATION Q4H PRN 12/24/19 01/30/23 History Nebulized] Aspirin 81 mg PO DAILY 12/24/19 01/30/23 History Metoprolol Tartrate [Lopressor] 100 mg PO BID 12/24/19 01/30/23 History hydroCHLOROthiazide 25 mg PO QAM 12/24/19 01/30/23 History Ferrous Sulfate [Iron (65 MG 325 mg PO DAILY 12/09/20 01/30/23 History Elemental)] Pantoprazole Sodium [Protonix] 40 mg PO SHARATH-BRKFST #30 tablet. 12/17/20 01/30/23 Rx Atorvastatin [Lipitor] 40 mg PO DAILY 12/27/22 01/30/23 History Budesonide/Glycopyr/Formoterol 2 puff INHALATION BID 12/27/22 01/30/23 History [Breztri Aerosphere Inhaler] Cholecalciferol (Vitamin D3) 125 mcg PO DAILY 12/27/22 01/30/23 History [Vitamin D3 (125 MCG = 5,000 IU)] predniSONE 10 mg PO Q2D 12/27/22 01/30/23 History Ezetimibe [Zetia] 10 mg PO DAILY 01/24/23 01/30/23 History Isosorbide Mononitrate [Isosorbide 30 mg PO DAILY 01/24/23 01/30/23 History Mononitrate ER] Vit B(Unk) 1 tab PO DAILY 01/24/23 01/30/23 History Allergies Allergy/AdvReac Type Severity Reaction Status Date / Time No Known Allergies Allergy Verified 01/30/23 06:53 Physical Exam Vitals: Vital Signs Temp Pulse Pulse Resp BP BP Pulse Ox 02/05/23 16:00 76 02/05/23 15:50 75 02/05/23 15:33 75 02/05/23 15:15 97.9 F 72 24 110/61 94 L 02/05/23 15:00 82 02/05/23 14:00 98 F 70 24 137/83 97 02/05/23 12:02 68 02/05/23 12:00 70 32 H 91/60 98 02/05/23 11:52 71 02/05/23 10:00 86 29 H 91/60 92 L 02/05/23 08:38 86 02/05/23 08:28 88 02/05/23 08:27 88 02/05/23 08:16 84 02/05/23 08:14 92 L 02/05/23 08:00 96.8 F L 87 32 H 122/47 92 L 02/05/23 05:00 75 17 122/47 02/05/23 04:00 78 22 122/47 02/05/23 03:00 67 21 139/64 02/05/23 02:00 66 20 139/64 02/05/23 01:00 77 23 139/64 02/05/23 00:00 97.6 F 64 22 139/64 02/04/23 23:00 64 12 152/76 02/04/23 22:00 78 18 152/76 02/04/23 21:23 98 35 H 152/76 02/04/23 21:00 98 41 H 152/76 02/04/23 20:04 100 02/04/23 20:00 98.7 F 98 25 H 131/67 94 L 02/04/23 19:53 90 02/04/23 19:38 90 02/04/23 19:00 91 23 131/67 02/04/23 18:00 97 29 H 131/67 02/04/23 17:00 99 20 131/67 FiO2 02/05/23 16:00 02/05/23 15:50 02/05/23 15:33 02/05/23 15:15 02/05/23 15:00 02/05/23 14:00 40 02/05/23 12:02 02/05/23 12:00 02/05/23 11:52 02/05/23 10:00 02/05/23 08:38 02/05/23 08:28 02/05/23 08:27 02/05/23 08:16 02/05/23 08:14 02/05/23 08:00 02/05/23 05:00 02/05/23 04:00 02/05/23 03:00 02/05/23 02:00 02/05/23 01:00 02/05/23 00:00 40 02/04/23 23:00 02/04/23 22:00 02/04/23 21:23 02/04/23 21:00 02/04/23 20:04 02/04/23 20:00 02/04/23 19:53 02/04/23 19:38 02/04/23 19:00 02/04/23 18:00 02/04/23 17:00 Intake and Output 02/05/23 02/05/23 02/05/23 06:59 14:59 22:59 Intake Total 100 70 10 Output Total 1725 400 300 Balance -1625 -330 -290 Intake: IV 100 20 10 0.9NS 100 20 Invasive Line 6 10 Intake, IV Titration 50 Amount cefTRIAXone 1 gm In 50 Sodium Chloride 0.9% 50 ml @ 100 mls/hr IVPB Q24HR [facility] Rx#:[id number] Output: Urine 1725 400 300 Other: Voiding Method Indwelling Catheter Bedside Commode Urinal # Voids 2 # Bowel Movements 1 0 Weight 71.4 kg General: Well-developed, well-nourished, elderly male in recliner, at bedside, in no acute distress HEENT: NC/AT, external ears intact, hearing intact to conversational speech, neck supple with dressing left side Cardiovascular: B/L calves are supple, nontender, no cords, trace peripheral edema, alarm security or surveillance monitor on Respiratory: Even and unlabored breathing on O2 via NC; Abdomen: Soft, nontender, nondistended; Musculoskeletal: slight right sided hemiparesis MMT UE Sh Abd EE EF FABD WE HG Right 4 4 4 4 Left 5 5 5 5 5 5 MMT LE HF KE DF EHL Right 4 3 Left 5 5 5 5 Skin: Skin intact where visible to head, neck, and bilateral upper and lower extremities EXCEPT: left sided neck dressing Neurological: Alert and oriented x 3. Slight right face droop and tongue deviation. Speech is dysarthric Reflexes Biceps Triceps Brachioradialis Patella Achilles Babinski Hoffmans Right 2 1 2 1 0 - - Left 2 1 2 1 0 - - Coordination: Dysmetria right UE with FTN, intact left FTN, bilateral HTS intact Sensation: intact to light touch Psychiatric: Mood calm, affect appropriate, cooperative. Results CBC & Chem 7: 02/05/23 09:46 02/05/23 09:46 Labs: Abnormal Lab Results - Last 24 Hours (Table) 02/04/23 02/05/23 02/05/23 Range/Units 20:36 09:46 09:46 WBC 14.1 H (3.8-10.6) k/uL RBC 3.68 L (4.30-5.90) m/uL Hgb 11.3 L (13.0-17.5) gm/dL Hct 33.2 L (39.0-53.0) % RDW 16.0 H (11.5-15.5) % Neutrophils # 11.7 H (1.3-7.7) k/uL Sodium 133 L (137-145) mmol/L Chloride 94 L (98-107) mmol/L Carbon Dioxide 31 H (22-30) mmol/L BUN 44 H (9-20) mg/dL POC Glucose (mg/dL) 139 H (70-110) mg/dL Calcium 8.2 L (8.4-10.2) mg/dL Assessment and Plan Assessment: # Right hemiparesis secondary to Acute CVA most likely along the left MCA distribution post carotid artery stenting. -Aspirin 81 mg daily, statin daily # Dysarthria #Ataxia #Acute respiratory failure, combination of hypoxic and hypercapnic respiratory failure with severe respiratory distress requiring intubation mechanical ventilation. -patient currently on O2 via NC during the day, Bipap at night #Severe left carotid artery stenosis, 90% and the patient has undergone carotid artery stenting, # Multivessel coronary artery disease, not a surgical candidate #Advanced severe COPD, steroid dependent #Hypertension #Hyperlipidemia #History of smoking #Restless leg syndrome #Bowel/ Bladder: Nursing to monitor and report concerns if any. #Diet: heart healthy #Skin/wound: Skin/Wound care to follow as needed. #Pain Management: Tylenol 650 mg every 4 when necessary #DVT Prophylaxis: Heparin subcu every 12 hours Your medical dx and mgt Goals: Modified Independent mobility and ADLS both basic and advanced; increased functional mobility/strength; increased balance, safety, endurance. Improvement in medical issues through your care. Barriers: endurance, right hemiparesis, trunk control, stairs down into home Discharge recommendation: Recommending I[facility] for continued rehab, discussed with and patient. They are both agreeable, would like to go to [facility]. Prognosis is good. Patient seen and examined in coordination with Dr Thomas via audio and visual telemedicine. Thank you for this consultation.
[2023-02-06 11:23] LABS: Glucose,Whole Blood 106 mg/dL (70-110)
--- NOTE | 2023-02-06 12:34 | P.PN ---
Subjective Progress Note Date: 02/06/23 Principal diagnosis: Acute hypoxic and hypercapnic respiratory failure requiring intubation and mechanical ventilation secondary to COPD and CHF This is a 77-year-old mentation is very well-known to me. The patient has advanced COPD oxygen dependent at 2 L and he is also steroid dependent with an FEV1 of 31% of predicted and diffusion capacity of 27% of predicted. The patien t had also multivessel coronary artery disease. I saw him 2 weeks back in my office and I thought he was a high surgical candidate for coronary artery bypass surgery and after having a discussion with cardiology and cardiothoracic surgery we opted not to proceed with surgery and consider multivessel stenting. The patient also had a 90% stenosis of the internal carotid artery on the left. On today's evaluation, the patient was brought in by interventional cardiology and the patient has successful stenting of the left common and internal carotid artery with good angiographic results. After the patient arrived to the ICU, the patient acutely became weak on the right side. He is unable to move his right upper extremity and he has significant weakness in his right lower extremity and the facial droop. His speech is also slightly affected although he still conversing. He is awake and alert and he is hemodynamically stable. His most recent blood pressure is 172/79. He is on oxygen at 2 L and he is pulse ox sitting 94%. His cardiac rhythm is sinus. Based on that, a code stroke was initiated and the patient is being taken for an immediate CT angiogram. I saw the patient prior to him moving to the radiology department. Meanwhile, neurology has been activated and intervention neurology has also been activated. No headaches. No seizure activity. The patient is known to have chronic exertional dyspnea. He gets short of breath upon walking around 100 feet. He has no chest pain at this point in time. He is an ex-smoker. His hypertension and hyperlipidemia and COPD as c omorbidities and as mentioned he is oxygen dependent 24 7. Labs pending from.. He is currently on a combination of aspirin and Plavix. 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 The patient is post carotid stenting which got complicated by development of some neurological impairment involving the right side of the body and subsequent respiratory failure. The respiratory failure was thought to be related COPD. No clear indication for decompensated heart failure. Echocardiogram showed a preserved LV function. Echo was completed yesterday and based on the reports, the patient has a normal LV systolic function with apical hypokinesis, mild aortic regurgitation, normal right ventricular size and the records no systolic pressure was estimated to be 52. Ejection fraction was 50-55%. The patient currently is on propofol which is running at 55 mcg/kg/m. The patient is also on norepinephrine to maintain a higher mean arterial pressure based on his recent neurological event that occurred which is in the form of CVA/TIA. The patient remains on a mechanical ventilator. Is quite successful mechanical ventilator. Is on assist-control at the rate of 22, tidal volume of 450, FiO2 of 40% and a PEEP of 5. The blood gas from today shows a pH of 7.50 with a pCO2 of 39 and pO2 of 59 and this was done on 5-40%. The serum bicarb is up to 30 and the patient will be taken off the bicarb infusion especially that he has developed some alkalosis. The chest x- ray showed no acute abnormalities. ET tube is an excellent location. All orogastric tube is also in place. The patient has developed no consolidation or airspace disease. 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 Urine output is adequate. Enteral feeding was started the patient is currently on vital high protein at the rate of 40 mL an hour. On 02/02/2023, the patient is off the mechanical ventilator. We managed to wean the patient off the mechanical ventilator yesterday and the patient was extubated to BiPAP and the patient remains on a BiPAP at a pressure of 10/5 with an FiO2 of 40%. The generator tidal volume is 400 with a rate of 20 and a minute ventilation of 8-10 L. The patient seems to be quite comfortable in the BiPAP. The chest x-ray shows mild interstitial infiltrates bilaterally and the patient is receiving Lasix 40 mg IV every 24 hours and the patient is -700 mL of fluid balance negative over the past 24 hours. Meanwhile, the patient remains on the fact and the goal was to keep a higher systolic blood pressure based on the fact that the patient had a recent CVA/TIA post a left carotid e ndarterectomy. He is awake and alert and is communicating. There is no focal neurological deficits that this point in time. The strength is equal and symmetrical bilaterally. Is able to communicate. He is talking. No aphasia. His recognizing people and he is very much appropriate at this point. His cardiac rhythm is sinus. His blood work shows a BUN of 27 with a creatinine of 0.6. Sodium is at 140. The sputum sample that was collected while the patient was on a mechanical ventilator showed Streptococcus and the patient was started on IV Rocephin yesterday as an empiric antibiotic coverage. Noted the patient is a preserved LV function with an ejection fraction of 50-55%. Nevertheless he has multivessel coronary artery disease and he is not a surgical candidate at this point in time as mentioned earlier. He also has advanced COPD oxygen dependent and steroid dependent and the patient is maintained on home O2 and home prednisone at a dose of 10 mg by mouth daily. Currently is on bronchodilators on DuoNeb is also on a combination of budesonide and Perforomist the blood treatments and is also on IV Solu-Medrol 60 mg every 6 hours. He is on heparin subcu for DVT prophylaxis. He is on no sedation for now. He is on a combination of aspirin and Plavix. On 02/03/2023, the patient is fully alert and awake and communicating and is off the BiPAP and currently is on oxygen at 2 L. He is able to speak long sentences and had breathing that is not labored at this point in time. Hemodynamically stable. Cardiac rhythm is normal sinus. Tolerating diet. No chest pain. No shortness of breath. No motor deficits. He does have some vision changes in the right eye. No nausea. No vomiting. No headaches no seizures. White cell count of 9.6 with a hemoglobin of 10 and a platelet count of 249. BUN is 44 with a creatinine of 0.8 and sodium levels of 135. In terms of his medications, the patient is on bronchodilators, IV Solu-Medrol, IV Rocephin for the presence of strep in his sputum, he is also on metoprolol 100 mg by mouth twice a day. He is on aspirin and Plavix. He is also on statins. Reevaluated today on 02/04/2023, patient remains in the ICU, doing quite well, he is on 3 L nasal cannula transitioned from BiPAP 10/5/40%. Relatively asymptomatic, patient was intubated on 01/31 extubated on 02/01 responded well to treatment with bronchodilators and with diuretics. Labs today showed a relatively normal electrolytes, normal renal profile, bicarb is 38 normal CBC except for hemoglobin of 10.2, last chest x-ray showed mild diffuse interstitial prominence, no follow-up chest x-rays since 02/02/2023 but clinically the patient is doing well and he has no active pulmonary symptoms Reevaluated today on 02/05/70, patient is complaining of shortness of breath although his O2 saturation is in the 90s on 2 L nasal cannula patient seems to be a bit anxious, chest x-ray showed no evidence of congestive heart failure, he does have some COPD, mild interstitial lung disease and atelectasis, no evidence of pneumonia and no evidence of congestive heart failure. Patient is using BiPAP at night with 10/5/40% but during the day he is on 2 L nasal cannula. X anax was added today, chest x-ray was reviewed today. And all his labs were also reviewed. WBC count is 14.1 hemoglobin 11.3 left breast are normal renal profile is normal. reevaluated today on 02/06/23, patient is doing well, he is on 2 L nasal cannula, he does have shortness of breath upon any activity, I went back and reviewed his PFT, his FEV1 is no more than 32%. Patient clearly has gold stage IV COPD/emphysema.patient is basically an overflow in the ICU,remains anxious, but not in any respiratory distress.no labs were done today, his blood sugar was 1.6 otherwise no labs were ordered for today Objective - Vital Signs Vital signs: Vital Signs Temp 97.8 F 02/06/23 08:00 Pulse 74 02/06/23 11:03 Resp 24 02/06/23 08:00 BP 131/66 02/06/23 08:00 Pulse Ox 94 L 02/06/23 08:22 FiO2 40 02/06/23 00:00 Intake & Output 02/05/23 02/06/23 02/06/23 18:59 06:59 18:59 Intake Total 680 30 10 Output Total 1000 1625 650 Balance -548 -8920 -040 Weight 70.3 kg Intake: IV 30 30 10 0.9NS 20 Invasive Line 6 10 30 10 Intake, IV Titration 50 Amount cefTRIAXone 1 gm In 50 Sodium Chloride 0.9% 50 ml @ 100 mls/hr IVPB Q24HR [facility] Rx#:[id number] Oral 600 Output: Urine 1000 1625 650 Other: Voiding Method Bedside Commode Bedside Commode Bedside Commode Urinal Urinal Urinal # Voids 2 2 # Bowel Movements 2 1 1 ABP, PAP, CO, CI - Last Documented Arterial Blood Pressure 133/43 - Exam Physical Exam: Revealed 77-year-old white male in no distress on 2 L nasal cannula Head: Atraumatic, normocephalic. HEENT:[Neck is supple.] [No neck masses.] [No thyromegaly.] [No JVD.] Chest: [Diminished breath sound bilaterally no rhonchi and no wheezes Cardiac Exam: [Normal S1 and S2, no S3 gallop, 2/6 systolic ejection murmur heard throughout the precordium. Abdomen: [Soft, nontender, no megaly, no rebound, no guarding, normal bowel sounds.] Extremities: [No clubbing, no edema, no cyanosis.] Neurological Exam: [No focal neurologic deficit.] Alert and oriented 3. Patient is noted to be a bit anxious Psychiatric: remains with a bit of anxious mood, normal affect and normal mental status examination. Skin: No rashes. - Labs CBC & Chem 7: 02/05/23 09:46 07/ 09:46 Labs: Abnormal Lab Results - Last 24 Hours (Table) 02/05/23 02/05/23// Range/Units 16:39 20:36 06:29 POC Glucose (mg/dL) 137 H 157 H 131 H (70-110) mg/dL Assessment and Plan Assessment: Impression: Acute hypoxic and hypercapnic respiratory failure secondary to acute diastolic congestive heart failure and underlying COPD with acute exacerbation Status post left carotid artery stenting with right upper extremity weakness post procedure, improving but not back to normal postoperative day #7 Severe triple-vessel coronary artery disease Severe COPD, FEV1 of 32% consistent with gold stage IV COPD. Benign essential hypertension Dyslipidemia History of smoking Restless leg syndrome Positive Streptococcus and sputum, on Rocephin History of meningioma left frontal. Recommendation: Continue oxygen and titrate accordingly Continue bronchodilators Continue steroids/prednisone taper over the next 2 weeks Use BiPAP as needed Continue aspirin and Plavix Continue metoprolol Continue statins Transfer out of the ICU once a bed is available We'll continue to follow Time with Patient: Less than 30
[2023-02-06 16:20] LABS: Glucose,Whole Blood 151 mg/dL (70-110)
--- NOTE | 2023-02-06 17:46 | P.CONS ---
History of Present Illness - Reason for Consult Consult date: 02/06/23 - History of Present Illness 77 year old M with PMH of chronic respiratory failure, COPD oxygen dependent on 2 L nasal cannula, hypertension, dyslipidemia, CAD, carotid stenosis presented to [facility] for elective surgery. He underwent left ICA stenting with Dr. Og on 01/30. [facility] has been consulted on 02/06 for medical management of this patient. His hospital stay was complicated with re spiratory failure requiring intubation (01/31) for a short period of time and acute onset right-sided weakness for which CODE STROKE was called. He was extubated on 02/01 and transitioned to BiPAP and eventually nasal cannula successfully. He underwent stroke workup with neurology on consultation. CT head 01/31/2023 revealed 2.4 x 1.9 cm extra-axial hyperdensity is favored to represent a meningioma. EEG revealed background slowing, suggestive of mild to moderate encephalopathy. CTA of head and neck 01/30/2023 revealed moderate narrowing post-stenting left carotid artery with mild narrowing right ICA from plaquing. 2-D echo revealed normal left-ventricular systolic function, with EF 50-55%, apical akinesis. His right-sided weakness spontaneously resolved and it appears that family wanted to cancel the MRI brain. PMR was also consulted which recommended inpatient rehab. He is currently pending insurance authorization. Patient was seen and examined on 02/06. He reported history of anxiety attacks as needed related to shortness of breath. He denied any chest pain, shortness breath or palpitations. No nausea or vomiting. No fever or chills. Review of vital signs show BP of 105/53 and heart rate of 74 with O2 saturation of 95% on 2 L nasal cannula. There are no new labs to be reviewed today. General: non toxic, no distress, appears at stated age Derm: warm, dry Head: atraumatic, normocephalic, symmetric Eyes: EOMI, no lid lag, anicteric sclera Cardiovascular: S1S2 reg, no murmur Lungs: CTA bilateral, no rhonchi, no rales , no accessory muscle use Ext: no gross muscle atrophy, no edema, no contractures Neuro: no focal neuro deficits Psych: Alert, oriented, appropriate affect Chronic hypoxic respiratory failure Diastolic congestive heart failure COPD Status post left carotid artery stenting TIA Severe triple-vessel coronary artery disease Benign essential hypertension Dyslipidemia History of smoking History of meningioma Resolved: Right sided weakness, acute respiratory failure, diastolic CHF exacerbation, COPD exacerbation Based on my assessment of this patient, this patient meets a high complexity level of care. Patient has an acute diagnosis of acute on chronic hypoxic respiratory failure along with right-sided weakness status post left carotid artery stent that poses a threat to life or bodily function. Workup has been complete and patient is hemodynamically stable at this time. His right-sided weakness has resolved. He is pending insurance authorization for inpatient rehab. Continue bronchodilators. Continue aspirin, Lipitor, that he, Plavix and metoprolol. Completed a course of Rocephin. Xanax as needed for anxiety. Currently on Lasix 40 mg IV twice a day. Currently on prednisone 40 mg by mouth daily. Heparin SQ for DVT prophylaxis. Full code. I have reviewed the following image consultant notes: Pulmonology note, neurology note, cardiology note reviewed. I have reviewed the results of the following tests: No new lab work was done today. I have ordered the following tests: BMP ordered for tomorrow morning. I have discussed the care of this patient with the following independent historian: I have independently interpreted the following test below: I have discussed the management of this patient with the following physician: Past Medical History Past Medical History: Coronary Artery Disease (CAD), COPD, GERD/Reflux, Hyperlipidemia, Hypertension, Pneumonia, Skin Disorder Additional Past Medical History / Comment(s): chronic hypoxic respiratory failure on oxygen 2/L NC ATC, RLS, LT CAROTID stenosis History of Any Multi-Drug Resistant Organisms: None Reported Past Surgical History: Appendectomy, Heart Catheterization Additional Past Surgical History / Comment(s): COLONSCOPY. BRONCHOSCOPY WITH BIOPSY Past Anesthesia/Blood Transfusion Reactions: No Reported Reaction Additional Past Anesthesia/Blood Transfusion Reaction / Comm: HAD TROUBLE BREATHING AFTER BROCHOSCOPY AND ENDED UP IN ICU FOR A FEW DAYS Date of Last Stent Placement:: 01/01/23 Smoking Status: Current every day smoker - Past Family History Mother Family Medical History: No Reported History Father Additional Family Medical History / Comment(s): "black lung from working in a coal mine" Medications and Allergies Home Medications Medication Instructions Recorded Confirmed Type Albuterol Nebulized [Ventolin 2.5 mg INHALATION Q4H PRN 12/24/19 01/30/23 History Nebulized] Aspirin 81 mg PO DAILY 12/24/19 01/30/23 History Metoprolol Tartrate [Lopressor] 100 mg PO BID 12/24/19 01/30/23 History hydroCHLOROthiazide 25 mg PO QAM 12/24/19 01/30/23 History Ferrous Sulfate [Iron (65 MG 325 mg PO DAILY 12/09/20 01/30/23 History Elemental)] Pantoprazole Sodium [Protonix] 40 mg PO JONOFSMichael #30 tablet. 12/17/20 01/30/23 Rx Atorvastatin [Lipitor] 40 mg PO DAILY 12/27/22 01/30/23 History Budesonide/Glycopyr/Formoterol 2 puff INHALATION BID 12/27/22 01/30/23 History [Breztri Aerosphere Inhaler] Cholecalciferol (Vitamin D3) 125 mcg PO DAILY 12/27/22 01/30/23 History [Vitamin D3 (125 MCG = 5,000 IU)] predniSONE 10 mg PO Q2D 12/27/22 01/30/23 History Ezetimibe [Zetia] 10 mg PO DAILY 01/24/23 01/30/23 History Isosorbide Mononitrate [Isosorbide 30 mg PO DAILY 01/24/23 01/30/23 History Mononitrate ER] Vit B(Unk) 1 tab PO DAILY 01/24/23 01/30/23 History Allergies Allergy/AdvReac Type Severity Reaction Status Date / Time No Known Allergies Allergy Verified 01/30/23 06:53 Physical Exam Vitals: Vital Signs Temp Pulse Pulse Resp BP Pulse Ox FiO2 02/06/23 16:00 96.8 F L 74 18 105/58 95 02/06/23 14:46 75 02/06/23 14:36 75 02/06/23 12:00 97.8 F 72 20 115/55 94 L 02/06/23 11:03 74 02/06/23 10:50 77 02/06/23 08:42 87 02/06/23 08:31 82 02/06/23 08:22 94 L 02/06/23 08:21 80 02/06/23 08:00 97.8 F 88 24 131/66 96 02/06/23 04:56 71 02/06/23 04:45 71 02/06/23 04:00 97.5 F L 66 18 141/87 93 L 02/06/23 00:00 97.6 F 65 18 126/93 92 L 40 02/05/23 20:36 84 02/05/23 20:26 80 02/05/23 20:11 82 02/05/23 20:00 97.7 F 91 20 131/91 96 Intake and Output 02/06/23 02/06/23 02/06/23 06:59 14:59 22:59 Intake Total 20 20 10 Output Total 1425 650 200 Balance -4495 -664 -190 Intake: IV 20 20 10 Invasive Line 6 20 20 10 Output: Urine 1425 650 200 Other: Voiding Method Bedside Commode Bedside Commode Urinal Urinal # Voids 2 # Bowel Movements 1 1 1 Weight 70.3 kg Results CBC & Chem 7: 02/05/23 09:46 02/05/23 09:46 Labs: Abnormal Lab Results - Last 24 Hours (Table) 02/05/23 02/06/23 02/06/23 Range/Units 20:36 06:29 16:17 POC Glucose (mg/dL) 157 H 131 H 151 H (70-110) mg/dL
[2023-02-06 20:19] LABS: Glucose,Whole Blood 145 mg/dL (70-110)
[2023-02-06] MEDS: ATORVASTATIN 40 MG TAB PO SCH (20:54)
[2023-02-07] MEDS: IPRATROPIUM-ALBUTEROL 3 ML NEB INHALATION PRN ×2 (00:46→04:39)
[2023-02-07 06:14] LABS: Glucose,Whole Blood 104 mg/dL (70-110)
[2023-02-07] MEDS: INSULIN ASPART (NovoLOG) 100 UNIT/ML VIAL SQ SCH ×4 (06:38→20:23)
[2023-02-07] MEDS: PANTOPRAZOLE 40 MG TABLET PO SCH (06:38)
[2023-02-07] MEDS: IPRATROPIUM-ALBUTEROL 3 ML NEB INHALATION SCH ×4 (07:29→21:45)
[2023-02-07] MEDS: FORMOTEROL FUMARATE 20 MCG/2 ML NEBU INHALATION SCH ×2 (07:29→21:45)
[2023-02-07] MEDS: BUDESONIDE 1 MG/2 ML NEBU INHALATION SCH ×2 (07:29→21:45)
[2023-02-07 09:16] LABS: HCT 33.8 % (39.0-53.0); HGB 11.4 gm/dL (13.0-17.5); MCH 30.5 pg (25.0-35.0); MCHC 33.6 g/dL (31.0-37.0); MCV 90.8 fL (80.0-100.0); Mean Platelet Volume 7.5; Platelet Count 293 k/uL (150-450); RBC 3.73 m/uL (4.30-5.90); RDW 15.9 % (11.5-15.5); WBC 13.3 k/uL (3.8-10.6)
[2023-02-07 09:46] LABS: African American GFR (CKD) >90 (>60 ml/min/1.73 sqM); Anion Gap 12 mmol/L; Blood Urea Nitrogen 29 mg/dL (9-20); Calcium 8.5 mg/dL (8.4-10.2); Carbon Dioxide 27 mmol/L (22-30); Chloride 93 mmol/L (98-107); Glucose 93 mg/dL (74-99); Non-African American GFR(CKD) 88 (>60 ml/min/1.73 sqM); Potassium 3.8 mmol/L (3.5-5.1); Sodium 132 mmol/L (137-145)
[2023-02-07] MEDS: predniSONE 20 MG TAB PO SCH (10:43)
[2023-02-07] MEDS: ASPIRIN 81 MG PO SCH (10:44)
[2023-02-07] MEDS: FUROSEMIDE 10 MG/ML 4 ML VIAL IV SCH ×2 (10:44→20:28)
[2023-02-07] MEDS: CLOPIDOGREL 75 MG TAB PO SCH (10:44)
[2023-02-07] MEDS: METOPROLOL TARTRATE 50 MG TAB PO SCH ×2 (10:44→20:28)
[2023-02-07] MEDS: EZETIMIBE 10 MG TAB PO SCH (10:44)
[2023-02-07] MEDS: ISOSORBIDE MONONITRATE ER 60 MG TAB.ER.24H PO SCH (10:46)
[2023-02-07] MEDS: HEPARIN SODIUM,PORCINE/PF 5,000 UNIT/0.5 ML SYRINGE SQ SCH ×2 (10:46→20:28)
[2023-02-07 11:39] LABS: Glucose,Whole Blood 99 mg/dL (70-110)
[2023-02-07] MEDS ORDERED: FLUTICASONE 50MCG/SPRAY NASAL 16GM EA NOSTRIL PRN (12:20)
[2023-02-07 12:43] VITALS: BMI 23.6
--- NOTE | 2023-02-07 13:20 | P.PN ---
Subjective Progress Note Date: 02/07/23 Principal diagnosis: Acute hypoxic and hypercapnic respiratory failure requiring intubation and mechanical ventilation secondary to COPD and CHF This is a 77-year-old mentation is very well-known to me. The patient has advanced COPD oxygen dependent at 2 L and he is also steroid dependent with an FEV1 of 31% of predicted and diffusion capacity of 27% of predicted. The patien t had also multivessel coronary artery disease. I saw him 2 weeks back in my office and I thought he was a high surgical candidate for coronary artery bypass surgery and after having a discussion with cardiology and cardiothoracic surgery we opted not to proceed with surgery and consider multivessel stenting. The patient also had a 90% stenosis of the internal carotid artery on the left. On today's evaluation, the patient was brought in by interventional cardiology and the patient has successful stenting of the left common and internal carotid artery with good angiographic results. After the patient arrived to the ICU, the patient acutely became weak on the right side. He is unable to move his right upper extremity and he has significant weakness in his right lower extremity and the facial droop. His speech is also slightly affected although he still conversing. He is awake and alert and he is hemodynamically stable. His most recent blood pressure is 172/79. He is on oxygen at 2 L and he is pulse ox sitting 94%. His cardiac rhythm is sinus. Based on that, a code stroke was initiated and the patient is being taken for an immediate CT angiogram. I saw the patient prior to him moving to the radiology department. Meanwhile, neurology has been activated and intervention neurology has also been activated. No headaches. No seizure activity. The patient is known to have chronic exertional dyspnea. He gets short of breath upon walking around 100 feet. He has no chest pain at this point in time. He is an ex-smoker. His hypertension and hyperlipidemia and COPD as c omorbidities and as mentioned he is oxygen dependent 24 7. Labs pending from.. He is currently on a combination of aspirin and Plavix. 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 The patient is post carotid stenting which got complicated by development of some neurological impairment involving the right side of the body and subsequent respiratory failure. The respiratory failure was thought to be related COPD. No clear indication for decompensated heart failure. Echocardiogram showed a preserved LV function. Echo was completed yesterday and based on the reports, the patient has a normal LV systolic function with apical hypokinesis, mild aortic regurgitation, normal right ventricular size and the records no systolic pressure was estimated to be 52. Ejection fraction was 50-55%. The patient currently is on propofol which is running at 55 mcg/kg/m. The patient is also on norepinephrine to maintain a higher mean arterial pressure based on his recent neurological event that occurred which is in the form of CVA/TIA. The patient remains on a mechanical ventilator. Is quite successful mechanical ventilator. Is on assist-control at the rate of 22, tidal volume of 450, FiO2 of 40% and a PEEP of 5. The blood gas from today shows a pH of 7.50 with a pCO2 of 39 and pO2 of 59 and this was done on 5-40%. The serum bicarb is up to 30 and the patient will be taken off the bicarb infusion especially that he has developed some alkalosis. The chest x- ray showed no acute abnormalities. ET tube is an excellent location. All orogastric tube is also in place. The patient has developed no consolidation or airspace disease. 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 Urine output is adequate. Enteral feeding was started the patient is currently on vital high protein at the rate of 40 mL an hour. On 02/02/2023, the patient is off the mechanical ventilator. We managed to wean the patient off the mechanical ventilator yesterday and the patient was extubated to BiPAP and the patient remains on a BiPAP at a pressure of 10/5 with an FiO2 of 40%. The generator tidal volume is 400 with a rate of 20 and a minute ventilation of 8-10 L. The patient seems to be quite comfortable in the BiPAP. The chest x-ray shows mild interstitial infiltrates bilaterally and the patient is receiving Lasix 40 mg IV every 24 hours and the patient is -700 mL of fluid balance negative over the past 24 hours. Meanwhile, the patient remains on the fact and the goal was to keep a higher systolic blood pressure based on the fact that the patient had a recent CVA/TIA post a left carotid e ndarterectomy. He is awake and alert and is communicating. There is no focal neurological deficits that this point in time. The strength is equal and symmetrical bilaterally. Is able to communicate. He is talking. No aphasia. His recognizing people and he is very much appropriate at this point. His cardiac rhythm is sinus. His blood work shows a BUN of 27 with a creatinine of 0.6. Sodium is at 140. The sputum sample that was collected while the patient was on a mechanical ventilator showed Streptococcus and the patient was started on IV Rocephin yesterday as an empiric antibiotic coverage. Noted the patient is a preserved LV function with an ejection fraction of 50-55%. Nevertheless he has multivessel coronary artery disease and he is not a surgical candidate at this point in time as mentioned earlier. He also has advanced COPD oxygen dependent and steroid dependent and the patient is maintained on home O2 and home prednisone at a dose of 10 mg by mouth daily. Currently is on bronchodilators on DuoNeb is also on a combination of budesonide and Perforomist the blood treatments and is also on IV Solu-Medrol 60 mg every 6 hours. He is on heparin subcu for DVT prophylaxis. He is on no sedation for now. He is on a combination of aspirin and Plavix. On 02/03/2023, the patient is fully alert and awake and communicating and is off the BiPAP and currently is on oxygen at 2 L. He is able to speak long sentences and had breathing that is not labored at this point in time. Hemodynamically stable. Cardiac rhythm is normal sinus. Tolerating diet. No chest pain. No shortness of breath. No motor deficits. He does have some vision changes in the right eye. No nausea. No vomiting. No headaches no seizures. White cell count of 9.6 with a hemoglobin of 10 and a platelet count of 249. BUN is 44 with a creatinine of 0.8 and sodium levels of 135. In terms of his medications, the patient is on bronchodilators, IV Solu-Medrol, IV Rocephin for the presence of strep in his sputum, he is also on metoprolol 100 mg by mouth twice a day. He is on aspirin and Plavix. He is also on statins. Reevaluated today on 02/04/2023, patient remains in the ICU, doing quite well, he is on 3 L nasal cannula transitioned from BiPAP 10/5/40%. Relatively asymptomatic, patient was intubated on 01/31 extubated on 02/01 responded well to treatment with bronchodilators and with diuretics. Labs today showed a relatively normal electrolytes, normal renal profile, bicarb is 38 normal CBC except for hemoglobin of 10.2, last chest x-ray showed mild diffuse interstitial prominence, no follow-up chest x-rays since 02/02/2023 but clinically the patient is doing well and he has no active pulmonary symptoms Reevaluated today on 02/05/70, patient is complaining of shortness of breath although his O2 saturation is in the 90s on 2 L nasal cannula patient seems to be a bit anxious, chest x-ray showed no evidence of congestive heart failure, he does have some COPD, mild interstitial lung disease and atelectasis, no evidence of pneumonia and no evidence of congestive heart failure. Patient is using BiPAP at night with 10/5/40% but during the day he is on 2 L nasal cannula. X anax was added today, chest x-ray was reviewed today. And all his labs were also reviewed. WBC count is 14.1 hemoglobin 11.3 left breast are normal renal profile is normal. reevaluated today on 02/06/23, patient is doing well, he is on 2 L nasal cannula, he does have shortness of breath upon any activity, I went back and reviewed his PFT, his FEV1 is no more than 32%. Patient clearly has gold stage IV COPD/emphysema.patient is basically an overflow in the ICU,remains anxious, but not in any respiratory distress.no labs were done today, his blood sugar was 1.6 otherwise no labs were ordered for today Reevaluated today on 02/07/2023, patient is basically about the same, shortness of breath is still present and that is chronic, and it will never change. Patient had no chest pain no fever no chills no hemoptysis, no cough. He does have severe underlying COPD and he does have underlying cardiomyopathy. Ration is being considered for discharge to rehab at [facility], and I believe this is quite appropriate. Objective - Vital Signs Vital signs: Vital Signs Temp 98.4 F 02/07/23 12:00 Pulse 82 02/07/23 12:00 Resp 18 02/07/23 12:00 BP 111/61 02/07/23 12:00 Pulse Ox 97 02/07/23 12:00 FiO2 40 02/07/23 11:49 Intake & Output 02/06/23 02/07/23 02/07/23 18:59 06:59 18:59 Intake Total 30 120 478 Output Total 950 2700 Balance -920 -2580 478 Weight 70.3 kg Intake: IV 30 10 Invasive Line 6 30 10 Oral 110 478 Output: Urine 950 2700 Other: Voiding Method Bedside Commode Bedside Commode Urinal Urinal # Voids 2 1 # Bowel Movements 1 ABP, PAP, CO, CI - Last Documented Arterial Blood Pressure 133/43 - Exam Physical Exam: Revealed 77-year-old white male in no distress on 2 L nasal cannula, O2 sat is 97% Head: Atraumatic, normocephalic. HEENT:[Neck is supple.] [No neck masses.] [No thyromegaly.] [No JVD.] Chest: [Diminished breath sound bilaterally no rhonchi and no wheezes Cardiac Exam: [Normal S1 and S2, no S3 gallop, 2/6 systolic ejection murmur heard throughout the precordium. Abdomen: [Soft, nontender, no megaly, no rebound, no guarding, normal bowel sounds.] Extremities: [No clubbing, no edema, no cyanosis.] Neurological Exam: [No focal neurologic deficit.] Alert and oriented 3. Patient is noted to be a bit anxious Psychiatric: Normal mood affect and normal mental status examination. Skin: No rashes. - Labs CBC & Chem 7: 02/07/23 08:29 02/07/23 08:29 Labs: Abnormal Lab Results - Last 24 Hours (Table) 02/06/23 02/06/23 02/07/23 Range/Units 16:17 20:17 08:29 WBC (3.8-10.6) k/uL RBC (4.30-5.90) m/uL Hgb (13.0-17.5) gm/dL Hct (39.0-53.0) % RDW (11.5-15.5) % Sodium 132 L (137-145) mmol/L Chloride 93 L (98-107) mmol/L BUN 29 H (9-20) mg/dL POC Glucose (mg/dL) 151 H 145 H (70-110) mg/dL 02/07/23 Range/Units 08:29 WBC 13.3 H (3.8-10.6) k/uL RBC 3.73 L (4.30-5.90) m/uL Hgb 11.4 L (13.0-17.5) gm/dL Hct 33.8 L (39.0-53.0) % RDW 15.9 H (11.5-15.5) % Sodium (137-145) mmol/L Chloride (98-107) mmol/L BUN (9-20) mg/dL POC Glucose (mg/dL) (70-110) mg/dL Assessment and Plan Assessment: Impression: Acute hypoxic and hypercapnic respiratory failure secondary to acute diastolic congestive heart failure and underlying COPD with acute exacerbation Status post left carotid artery stenting with right upper extremity weakness post procedure, improving but not back to normal postoperative day #7 Severe triple-vessel coronary artery disease Severe COPD, FEV1 of 32% consistent with gold stage IV COPD. Benign essential hypertension Dyslipidemia History of smoking Restless leg syndrome Positive Streptococcus and sputum, on Rocephin History of meningioma left frontal. Recommendation: Continue oxygen and titrate accordingly Continue bronchodilators Continue steroids/prednisone taper over the next 2 weeks Use BiPAP as needed Continue aspirin and Plavix Continue metoprolol Continue statins Will clear to transfer to rehabilitation unit once cleared by other consultants including cardiology We'll continue to follow Time with Patient: Less than 30
--- NOTE | 2023-02-07 13:27 | P.PN ---
Subjective Progress Note Date: 02/07/23 PROGRESS NOTE The patient is a 77-year-old male with known history of severe COPD, history of severe CAD and obstructive carotid disease who underwent left carotid stenting yesterday, post procedure he had right upper extremities weakness that subsequently improved. He was doing well until 3:00 in the morning when he became acutely dyspneic, hypoxic and had evidence of pulmonary edema. He was intubated. According to the nursing staff he was moving all his extremities at that time. He continues to be in sinus mechanism. There is no reported chest discomfort. He is on no vasopressor and he has good urinary output. He is intubated and sedated. His systolic function in the past was preserved with mild pulmonary hypertension. He had a history of smoking until recently. He has severe calcifications of his coronary arteries and has been evaluated for possible CABG depending on his lung status. EKG showed no acute ST segment changes, chest x-ray shows permanent congestion February 01: He remains intubated and sedated, in sinus mechanism. Renal output is good. His EKG shows T-wave inversion in the anterolateral leads consistent with ischemia. His echocardiogram showed an ejection fraction of 50-55% with mild aortic regurgitation. He has no evidence of tachyarrhythmia. His oxygenation is stable. Apparently he was awake earlier according to the nursing staff and was moving all extremities. His chest x-ray shows no evidence of infiltrates. February 02: The patient is extubated, awake and alert, moving all extremities with no significant weakness. His blood pressure is stable. He is in sinus mechanism. He continues to have T-wave inversion anteriorly but no chest discomfort. He denies any dizziness or palpitation, no nausea or vomiting. He continues to be on the BiPAP. His urinary output is stable. February 03: The patient feels well this morning, he is denying any chest discomfort or dyspnea. He has no focal weakness. He continues to be in sinus mechanism. He denies any palpitations. He denies any nausea or vomiting. He continues to have a Anne catheter. He has no evidence of ventricle tachycardia arrhythmia. He continues to have ST segment changes with T-wave inversion. 02/04 Patient seen and examined. Patient denies any chest pain or pressure. EKG still has diffuse T-wave inversions. Denies any change in his shortness breath and still short of breath with minimal exertion such as walking to the bathroom. Creatinine remains stable at 0.8. Appears nearly euvolemic however continue IV Lasix for one more day and monitor response. Significant T-wave inversions diffusely however echo showing relatively preserved ejection fraction and minimal troponin elevation with no obvious angina. Blood pressures labile 110s up to 150s. -2.8 L per ins and outs however unclear if accurate intake. 02/05 Patient seen and examined. Patient denies any chest pain or pressure. He is however more short of breath this morning and had some improvement with inhalers however still feels somewhat worse and yesterday. He has been continued on IV Lasix with good urine output. Renal function not resulted yet today. Blood pressure somewhat more elevated this morning compared to throughout the night 139/98 however this was before Imdur and metoprolol were given. 02/06 Seen and examined. Patient still with an episode of shortness of breath last night which mainly improved after the inhalers. He continues on the IV diuretics with good urine output. Sodium somewhat low at 133 and some increased BUN to creatinine ratio. Still weak and unable to walk to bathroom without becoming SOB. 02/07 Patient is seen today in follow-up on the cardiac stepdown unit. Patient was transferred out of the intensive care unit yesterday afternoon. He states he is still having some episodes of shortness of breath coming and going but feels that he is slowly improving. Imdur was increased yesterday. Hemoglobin 11.4. Creatinine 0.76. PHYSICAL EXAMINATION: Vitals reviewed LUNGS: Clear to auscultation bilaterally HEART: Regular rate and rhythm, S1, S2. No S3. Systolic ejection murmur ABDOMEN: Soft, positive bowel sounds, no organomegaly EXTREMETIES: No edema, moving all extremities with no focal weakness IMPRESSION: 1. Acute respiratory failure with evidence of pulmonary edema, his systolic function in the past was normal, he has EKG changes consistent with anterolateral ischemia with no significant troponin rise, extubated 2. Status post left carotid stenting with right upper extremities weakness post procedure, improved 3. Severe triple vessel CAD 4. Severe COPD 5. History of hypertension 6. History of hyperlipidemia PLAN: Continue dual antiplatelets given recent carotid stenting. Patient with T-wave inversions and minimally elevated troponins however no obvious angina-type symptoms. Continue Imdur 60mg daily and monitor response, some of SOB may be related to angina or HF symptoms and MAP mildly elevated. Increase physical therapy. Discharge planning, hopeful DC in next 24 hrs to IP rehab. Nurse practitioner note has been reviewed, I agree with the documented findings and plan of care. Patient was seen and examined. Objective - Vital Signs Vital signs: Vital Signs Temp 98.4 F 02/07/23 12:00 Pulse 82 02/07/23 12:00 Resp 18 02/07/23 12:00 BP 111/61 02/07/23 12:00 Pulse Ox 97 02/07/23 12:00 FiO2 40 02/07/23 11:49 Intake & Output 02/06/23 02/07/23 02/07/23 18:59 06:59 18:59 Intake Total 30 120 478 Output Total 950 2700 Balance -920 -2580 478 Weight 70.3 kg Intake: IV 30 10 Invasive Line 6 30 10 Oral 110 478 Output: Urine 950 2700 Other: Voiding Method Bedside Commode Bedside Commode Urinal Urinal # Voids 2 1 # Bowel Movements 1 ABP, PAP, CO, CI - Last Documented Arterial Blood Pressure 133/43 - Labs CBC & Chem 7: 02/07/23 08:29 02/07/23 08:29 Labs: Abnormal Lab Results - Last 24 Hours (Table) 02/06/23 02/06/23 02/07/23 Range/Units 16:17 20:17 08:29 WBC (3.8-10.6) k/uL RBC (4.30-5.90) m/uL Hgb (13.0-17.5) gm/dL Hct (39.0-53.0) % RDW (11.5-15.5) % Sodium 132 L (137-145) mmol/L Chloride 93 L (98-107) mmol/L BUN 29 H (9-20) mg/dL POC Glucose (mg/dL) 151 H 145 H (70-110) mg/dL 02/07/23 Range/Units 08:29 WBC 13.3 H (3.8-10.6) k/uL RBC 3.73 L (4.30-5.90) m/uL Hgb 11.4 L (13.0-17.5) gm/dL Hct 33.8 L (39.0-53.0) % RDW 15.9 H (11.5-15.5) % Sodium (137-145) mmol/L Chloride (98-107) mmol/L BUN (9-20) mg/dL POC Glucose (mg/dL) (70-110) mg/dL
--- NOTE | 2023-02-07 13:34 | P.PN ---
Subjective Progress Note Date: 02/07/23 77 year old M with PMH of chronic respiratory failure, COPD oxygen dependent on 2 L nasal cannula, hypertension, dyslipidemia, CAD, carotid stenosis presented to [facility] for elective surgery. He underwent left ICA stenting with Dr. Og on 01/30. [facility] has been consulted on 02/06 for medical management of this patient. His hospital stay was complicated with respiratory failure requiring intubation (01/31) for a short period of time and acute onset right-sided weakness for which CODE STROKE was called. He was extubated on 02/01 and transitioned to BiPAP and eventually nasal cannula successfully. He underwent stroke workup with neurology on consultation. CT head 01/31/2023 revealed 2.4 x 1.9 cm extra-axial hyperdensity is favored to represent a meningioma. EEG revealed background slowing, suggestive of mild to moderate encephalopathy. CTA of head and neck 01/30/2023 revealed moderate narrowing post-stenting left carotid artery with mild narrowing right ICA from plaquing. 2-D echo revealed normal left-ventricular systolic function, with EF 50-55%, apical akinesis. His right-sided weakness spontaneously resolved and it appears that family wanted to cancel the MRI brain. PMR was also consulted which recommended inpatient rehab. He is currently pending insurance authorization. Patient was seen and examined on 02/06. He reported history of anxiety attacks as needed related to shortness of breath. He denied any chest pain, shortness breath or palpitations. No nausea or vomiting. No fever or chills. Review of vital signs show BP of 105/53 and heart rate of 74 with O2 saturation of 95% on 2 L nasal cannula. There are no new labs to be reviewed today. 02/07 Patient was seen and examined. No acute events overnight. He reports feeling SOB this morning. Currently on BiPAP. Cardiology would like to observe the patient for one more day. He is accepted to inpatient rehab. CBC shows WBC count of 13.3, Hg 11.4. BMP shows Na 132, Cl 93, BUN 29. General: non toxic, no distress, appears at stated age Derm: warm, dry Head: atraumatic, normocephalic, symmetric Eyes: EOMI, no lid lag, anicteric sclera Cardiovascular: S1S2 reg, no murmur Lungs: CTA bilateral, no rhonchi, no rales , no accessory muscle use Ext: no gross muscle atrophy, no edema, no contractures Neuro: no focal neuro deficits Psych: Alert, oriented, appropriate affect Chronic hypoxic respiratory failure Diastolic congestive heart failure COPD Status post left carotid artery stenting TIA Severe triple-vessel coronary artery disease Benign essential hypertension Dyslipidemia History of smoking History of meningioma Resolved: Right sided weakness, acute respiratory failure, diastolic CHF exacerbation, COPD exacerbation Based on my assessment of this patient, this patient meets a high complexity level of care. Patient has an acute diagnosis of acute on chronic hypoxic respiratory failure along with right-sided weakness status post left carotid artery stent that poses a threat to life or bodily function. Workup has been complete and patient is hemodynamically stable at this time. His right-sided weakness has resolved. He is pending insurance authorization for inpatient rehab. Continue bronchodilators. Continue aspirin, Lipitor, that he, Plavix and metoprolol. Completed a course of Rocephin. Xanax as needed for anxiety. Currently on Lasix 40 mg IV twice a day. Currently on prednisone 30 mg by mouth daily. Heparin SQ for DVT prophylaxis. Full code. I have reviewed the following family consultant notes: Pulmonology note, cardiology note reviewed. I have reviewed the results of the following tests: CBC and BMP. I have ordered the following tests: BMP ordered for tomorrow morning. I have discussed the care of this patient with the following independent histo fabio: I have independently interpreted the following test below: I have discussed the management of this patient with the following physician: Objective - Vital Signs Vital signs: Vital Signs Temp 98.4 F 02/07/23 12:00 Pulse 82 02/07/23 12:00 Resp 18 02/07/23 12:00 BP 111/61 02/07/23 12:00 Pulse Ox 97 02/07/23 12:00 FiO2 40 02/07/23 11:49 Intake & Output 02/06/23 02/07/23 02/07/23 18:59 06:59 18:59 Intake Total 30 120 478 Output Total 950 2700 Balance -920 -2580 478 Weight 70.3 kg Intake: IV 30 10 Invasive Line 6 30 10 Oral 110 478 Output: Urine 950 2700 Other: Voiding Method Bedside Commode Bedside Commode Urinal Urinal # Voids 2 1 # Bowel Movements 1 ABP, PAP, CO, CI - Last Documented Arterial Blood Pressure 133/43 - Labs CBC & Chem 7: 02/07/23 08:29 02/07/23 08:29 Labs: Abnormal Lab Results - Last 24 Hours (Table) 02/06/23 02/06/23 02/07/23 Range/Units 16:17 20:17 08:29 WBC (3.8-10.6) k/uL RBC (4.30-5.90) m/uL Hgb (13.0-17.5) gm/dL Hct (39.0-53.0) % RDW (11.5-15.5) % Sodium 132 L (137-145) mmol/L Chloride 93 L (98-107) mmol/L BUN 29 H (9-20) mg/dL POC Glucose (mg/dL) 151 H 145 H (70-110) mg/dL 02/07/23 Range/Units 08:29 WBC 13.3 H (3.8-10.6) k/uL RBC 3.73 L (4.30-5.90) m/uL Hgb 11.4 L (13.0-17.5) gm/dL Hct 33.8 L (39.0-53.0) % RDW 15.9 H (11.5-15.5) % Sodium (137-145) mmol/L Chloride (98-107) mmol/L BUN (9-20) mg/dL POC Glucose (mg/dL) (70-110) mg/dL
[2023-02-07 16:50] LABS: Glucose,Whole Blood 130 mg/dL (70-110)
[2023-02-07] MEDS: CLOBETASOL PROP 0.05% CR 15GM TOPICAL SCH ×2 (18:06→20:28)
[2023-02-07 20:22] LABS: Glucose,Whole Blood 123 mg/dL (70-110)
[2023-02-07] MEDS: ATORVASTATIN 40 MG TAB PO SCH (20:28)
[2023-02-08] MEDS: IPRATROPIUM-ALBUTEROL 3 ML NEB INHALATION PRN ×2 (00:36→04:36)
[2023-02-08 04:08] VITALS: RESP 18
[2023-02-08 06:19] LABS: Glucose,Whole Blood 92 mg/dL (70-110)
[2023-02-08] MEDS: INSULIN ASPART (NovoLOG) 100 UNIT/ML VIAL SQ SCH ×2 (06:36→12:09)
[2023-02-08] MEDS: PANTOPRAZOLE 40 MG TABLET PO SCH (06:49)
[2023-02-08] MEDS: EZETIMIBE 10 MG TAB PO SCH (07:56)
[2023-02-08] MEDS: ASPIRIN 81 MG PO SCH (07:56)
[2023-02-08] MEDS: METOPROLOL TARTRATE 50 MG TAB PO SCH (07:56)
[2023-02-08] MEDS: CLOPIDOGREL 75 MG TAB PO SCH (07:56)
[2023-02-08] MEDS: CLOBETASOL PROP 0.05% CR 15GM TOPICAL SCH (07:57)
[2023-02-08] MEDS: HEPARIN SODIUM,PORCINE/PF 5,000 UNIT/0.5 ML SYRINGE SQ SCH (07:57)
[2023-02-08] MEDS: FUROSEMIDE 10 MG/ML 4 ML VIAL IV SCH (07:57)
[2023-02-08] MEDS: ISOSORBIDE MONONITRATE ER 60 MG TAB.ER.24H PO SCH (07:59)
[2023-02-08] MEDS: BUDESONIDE 1 MG/2 ML NEBU INHALATION SCH (08:35)
[2023-02-08] MEDS: IPRATROPIUM-ALBUTEROL 3 ML NEB INHALATION SCH ×2 (08:35→11:52)
[2023-02-08] MEDS: FORMOTEROL FUMARATE 20 MCG/2 ML NEBU INHALATION SCH (08:45)
[2023-02-08] MEDS ORDERED: predniSONE 10 MG TAB PO SCH (09:00)
--- NOTE | 2023-02-08 10:25 | P.DS ---
Providers Date of admission: 01/30/23 06:39 Expected date of discharge: 02/08/23 Attending physician: Chinmay Og Consults: 01/30/23 15:34 Consult Physician Stat Consulting Provider: Rajan Sultana Consult Reason/Comments: code stroke Do you want consulting provider notified?: Already Contacted 02/05/23 11:48 Consult Physician Routine Consulting Provider: Guy Roberts Consult Reason/Comments: IPR Do you want consulting provider notified?: Yes 02/06/23 11:25 Consult Physician Routine Consulting Provider: Gerry Patton Consult Reason/Comments: medical management Do you want consulting provider notified?: Yes 02/07/23 11:39 Consult Physician Routine Consulting Provider: Adria Swain Consult Reason/Comments: known Do you want consulting provider notified?: Already Contacted Primary care physician: [facility] Course: 77 year old M with PMH of chronic respiratory failure, COPD oxygen dependent on 2 L nasal cannula, hypertension, dyslipidemia, CAD, carotid stenosis presented to [facility] for elective surgery. He underwent left ICA stenting with Dr. Og on 01/30. [facility] has been consulted on 02/06 for medical management of this patient. His hospital stay was complicated with respiratory failure requiring intubation (01/31) for a short period of time and acute onset right-sided weakness for which CODE STROKE was called. He was extubated on 02/01 and transitioned to BiPAP and eventually nasal cannula successfully. He underwent stroke workup with neurology on consultation. CT head 01/31/2023 revealed 2.4 x 1.9 cm extra-axial hyperdensity is favored to represent a meningioma. EEG revealed background slowing, suggestive of mild to moderate encephalopathy. CTA of head and neck 01/30/2023 revealed moderate narrowing post-stenting left carotid artery with mild narrowing right ICA from [place]. 2-D echo revealed normal left-ventricular systolic function, with EF 50-55%, apical akinesis. His right-sided weakness spontaneously resolved and it appears that family wanted to cancel the MRI brain. PMR was also consulted which recommended inpatient rehab. He is currently pending insurance authorizat ion. Patient was seen and examined on 02/06. He reported history of anxiety attacks as needed related to shortness of breath. He denied any chest pain, shortness breath or palpitations. No nausea or vomiting. No fever or chills. Review of vital signs show BP of 105/53 and heart rate of 74 with O2 saturation of 95% on 2 L nasal cannula. There are no new labs to be reviewed today. 02/07 Patient was seen and examined. No acute events overnight. He reports feeling SOB this morning. Currently on BiPAP. Cardiology would like to observe the patient for one more day. He is accepted to inpatient rehab. CBC shows WBC count of 13.3, Hg 11.4. BMP shows Na 132, Cl 93, BUN 29. 02/08 Patient was seen and examined. No acute events overnight. He reports improvement in his breathing. Looking forward to rehab. He has no complaints today. He is cleared by Pulmonology for discharge. Discharge instructions: Diet: Cardiac Follow up with your PCP within 1-2 days of discharge. Follow up with Cardiology and Pulmonology within 1 week of discharge. Take all medications as advised. Pertient studies include CXR, EEG, Echo, Brain CT, CTA head and neck. Pertient procedures include stenting of the left common and internal carotid artery, central arterial line. General: non toxic, no distress, appears at stated age Derm: warm, dry Head: atraumatic, normocephalic, symmetric Eyes: EOMI, no lid lag, anicteric sclera Cardiovascular: S1S2 reg, no murmur Lungs: CTA bilateral, no rhonchi, no rales , no accessory muscle use Ext: no gross muscle atrophy, no edema, no contractures Neuro: no focal neuro deficits Psych: Alert, oriented, appropriate affect DIscharge Diagnosis: Chronic hypoxic respiratory failure Diastolic congestive heart failure COPD Status post left carotid artery stenting TIA Severe triple-vessel coronary artery disease Benign essential hypertension Dyslipidemia History of smoking History of meningioma Resolved: Right sided weakness, acute respiratory failure, diastolic CHF exacerbation, COPD exacerbation This complex discharge took 35 minutes to complete. Patient Condition at Discharge: Stable Plan - Discharge Summary Discharge Rx Participant: No New Discharge Prescriptions: New Ipratropium-Albuterol Nebulize [Duoneb 0.5 mg-3 mg/3 ml Soln] 3 ml INHALATION RT-QID PRN each PRN Reason: Shortness Of Breath Or Wheezing Fluticasone Nasal [place] [Flonase Nasal [place]] 2 spray EA NOSTRIL DAILY PRN ml PRN Reason: Allergy Symptoms Isosorbide Mononitrate ER [Imdur] 60 mg PO DAILY tab Clopidogrel [Plavix] 75 mg PO DAILY tab Clobetasol Propionate [Temovate 0.05% Cream] 1 applic TOPICAL BID each ALPRAZolam [Xanax] 0.25 mg PO TID PRN tab PRN Reason: Anxiety Furosemide [Lasix] 40 mg PO DAILY #30 tablet Formoterol Fumarate [Perforomist] 20 mcg INHALATION RT-BID ml Budesonide [Pulmicort] 1 mg INHALATION RT-BID ml SILVER sulfADIAZINE CREAM [Silvadene Cream] 1 applic TOPICAL BID PRN each PRN Reason: Skin Irritation Continue Aspirin 81 mg PO DAILY Metoprolol Tartrate [Lopressor] 100 mg PO BID Ferrous Sulfate [Iron (65 MG Elemental)] 325 mg PO DAILY predniSONE 10 mg PO Q2D Budesonide/Glycopyr/Formoterol [Breztri Aerosphere Inhaler] 2 puff INHALATION BID Ezetimibe [Zetia] 10 mg PO DAILY Pantoprazole Sodium [Protonix] 40 mg PO AC-BRKFST #30 tablet. Cholecalciferol (Vitamin D3) [Vitamin D3 (125 MCG = 5,000 IU)] 125 mcg PO DAILY Atorvastatin [Lipitor] 40 mg PO DAILY Vit B(Unk) 1 tab PO DAILY Discontinued Albuterol Nebulized [Ventolin Nebulized] 2.5 mg INHALATION Q4H PRN PRN Reason: Shortness Of Breath hydroCHLOROthiazide 25 mg PO QAM Isosorbide Mononitrate [Isosorbide Mononitrate ER] 30 mg PO DAILY Discharge Medication List Aspirin 81 mg PO DAILY 12/24/19 [History] Metoprolol Tartrate [Lopressor] 100 mg PO BID 12/24/19 [History] Ferrous Sulfate [Iron (65 MG Elemental)] 325 mg PO DAILY 12/09/20 [History] Pantoprazole Sodium [Protonix] 40 mg PO AC-BRKFST #30 tablet. 12/17/20 [Rx] Atorvastatin [Lipitor] 40 mg PO DAILY 12/27/22 [History] Budesonide/Glycopyr/Formoterol [Breztri Aerosphere Inhaler] 2 puff INHALATION BID 12/27/22 [History] Cholecalciferol (Vitamin D3) [Vitamin D3 (125 MCG = 5,000 IU)] 125 mcg PO DAILY 12/27/22 [History] predniSONE 10 mg PO Q2D 12/27/22 [History] Ezetimibe [Zetia] 10 mg PO DAILY 01/24/23 [History] Vit B(Unk) 1 tab PO DAILY 01/24/23 [History] ALPRAZolam [Xanax] 0.25 mg PO TID PRN tab 02/08/23 [Rx] Budesonide [Pulmicort] 1 mg INHALATION RT-BID ml 02/08/23 [Rx] Clobetasol Propionate [Temovate 0.05% Cream] 1 applic TOPICAL BID each 02/08/23 [Rx] Clopidogrel [Plavix] 75 mg PO DAILY tab 02/08/23 [Rx] Fluticasone Nasal [place] [Flonase Nasal [place]] 2 spray EA NOSTRIL DAILY PRN ml 02/08/23 [Rx] Formoterol Fumarate [Perforomist] 20 mcg INHALATION RT-BID ml 02/08/23 [Rx] Furosemide [Lasix] 40 mg PO DAILY #30 tablet 02/08/23 [Rx] Ipratropium-Albuterol Nebulize [Duoneb 0.5 mg-3 mg/3 ml Soln] 3 ml INHALATION RT-QID PRN each 02/08/23 [Rx] Isosorbide Mononitrate ER [Imdur] 60 mg PO DAILY tab 02/08/23 [Rx] SILVER sulfADIAZINE CREAM [Silvadene Cream] 1 applic TOPICAL BID PRN each 02/08/23 [Rx] Follow up Appointment(s)/Referral(s): Ermelinda Calderón MD [STAFF PHYSICIAN] - 1 Week Chinmay Og MD [STAFF PHYSICIAN] - 1 Week Nonstaff,Physician [REFERRING] - 1-2 Days Activity/Diet/Wound Care/Special Instructions: Diet: Cardiac Follow up with your PCP within 1-2 days of discharge. Follow up with Cardiology and Pulmonology within 1 week of discharge. Take all medications as advised. Discharge Disposition: DC/TRNS INTERMEDIATE CARE FAC
[2023-02-08 11:17] LABS: Glucose,Whole Blood 129 mg/dL (70-110)
[2023-02-08 11:20] VITALS: TEMP 98.4
[2023-02-08 11:33] VITALS: BP 104/58
--- NOTE | 2023-02-08 11:40 | P.PN ---
Subjective Progress Note Date: 02/08/23 Principal diagnosis: Acute hypoxic and hypercapnic respiratory failure requiring intubation and mechanical ventilation secondary to COPD and CHF This is a 77-year-old mentation is very well-known to me. The patient has advanced COPD oxygen dependent at 2 L and he is also steroid dependent with an FEV1 of 31% of predicted and diffusion capacity of 27% of predicted. The patien t had also multivessel coronary artery disease. I saw him 2 weeks back in my office and I thought he was a high surgical candidate for coronary artery bypass surgery and after having a discussion with cardiology and cardiothoracic surgery we opted not to proceed with surgery and consider multivessel stenting. The patient also had a 90% stenosis of the internal carotid artery on the left. On today's evaluation, the patient was brought in by interventional cardiology and the patient has successful stenting of the left common and internal carotid artery with good angiographic results. After the patient arrived to the ICU, the patient acutely became weak on the right side. He is unable to move his right upper extremity and he has significant weakness in his right lower extremity and the facial droop. His speech is also slightly affected although he still conversing. He is awake and alert and he is hemodynamically stable. His most recent blood pressure is 172/79. He is on oxygen at 2 L and he is pulse ox sitting 94%. His cardiac rhythm is sinus. Based on that, a code stroke was initiated and the patient is being taken for an immediate CT angiogram. I saw the patient prior to him moving to the radiology department. Meanwhile, neurology has been activated and intervention neurology has also been activated. No headaches. No seizure activity. The patient is known to have chronic exertional dyspnea. He gets short of breath upon walking around 100 feet. He has no chest pain at this point in time. He is an ex-smoker. His hypertension and hyperlipidemia and COPD as c omorbidities and as mentioned he is oxygen dependent 24 7. Labs pending from.. He is currently on a combination of aspirin and Plavix. 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 The patient is post carotid stenting which got complicated by development of some neurological impairment involving the right side of the body and subsequent respiratory failure. The respiratory failure was thought to be related COPD. No clear indication for decompensated heart failure. Echocardiogram showed a preserved LV function. Echo was completed yesterday and based on the reports, the patient has a normal LV systolic function with apical hypokinesis, mild aortic regurgitation, normal right ventricular size and the records no systolic pressure was estimated to be 52. Ejection fraction was 50-55%. The patient currently is on propofol which is running at 55 mcg/kg/m. The patient is also on norepinephrine to maintain a higher mean arterial pressure based on his recent neurological event that occurred which is in the form of CVA/TIA. The patient remains on a mechanical ventilator. Is quite successful mechanical ventilator. Is on assist-control at the rate of 22, tidal volume of 450, FiO2 of 40% and a PEEP of 5. The blood gas from today shows a pH of 7.50 with a pCO2 of 39 and pO2 of 59 and this was done on 5-40%. The serum bicarb is up to 30 and the patient will be taken off the bicarb infusion especially that he has developed some alkalosis. The chest x- ray showed no acute abnormalities. ET tube is an excellent location. All orogastric tube is also in place. The patient has developed no consolidation or airspace disease. He has a subclavian left sided stencil maker lumen catheter. Urine output is adequate. Enteral feeding was started the patient is currently on vital high protein at the rate of 40 mL an hour. On 02/02/2023, the patient is off the mechanical ventilator. We managed to wean the patient off the mechanical ventilator yesterday and the patient was extubated to BiPAP and the patient remains on a BiPAP at a pressure of 10/5 with an FiO2 of 40%. The generator tidal volume is 400 with a rate of 20 and a minute ventilation of 8-10 L. The patient seems to be quite comfortable in the BiPAP. The chest x-ray shows mild interstitial infiltrates bilaterally and the patient is receiving Lasix 40 mg IV every 24 hours and the patient is -700 mL of fluid balance negative over the past 24 hours. Meanwhile, the patient remains on the fact and the goal was to keep a higher systolic blood pressure based on the fact that the patient had a recent CVA/TIA post a left carotid e ndarterectomy. He is awake and alert and is communicating. There is no focal neurological deficits that this point in time. The strength is equal and symmetrical bilaterally. Is able to communicate. He is talking. No aphasia. His recognizing people and he is very much appropriate at this point. His cardiac rhythm is sinus. His blood work shows a BUN of 27 with a creatinine of 0.6. Sodium is at 140. The sputum sample that was collected while the patient was on a mechanical ventilator showed Streptococcus and the patient was started on IV Rocephin yesterday as an empiric antibiotic coverage. Noted the patient is a preserved LV function with an ejection fraction of 50-55%. Nevertheless he has multivessel coronary artery disease and he is not a surgical candidate at this point in time as mentioned earlier. He also has advanced COPD oxygen dependent and steroid dependent and the patient is maintained on home O2 and home prednisone at a dose of 10 mg by mouth daily. Currently is on bronchodilators on DuoNeb is also on a combination of budesonide and Perforomist the blood treatments and is also on IV Solu-Medrol 60 mg every 6 hours. He is on heparin subcu for DVT prophylaxis. He is on no sedation for now. He is on a combination of aspirin and Plavix. On 02/03/2023, the patient is fully alert and awake and communicating and is off the BiPAP and currently is on oxygen at 2 L. He is able to speak long sentences and had breathing that is not labored at this point in time. Hemodynamically stable. Cardiac rhythm is normal sinus. Tolerating diet. No chest pain. No shortness of breath. No motor deficits. He does have some vision changes in the right eye. No nausea. No vomiting. No headaches no seizures. White cell count of 9.6 with a hemoglobin of 10 and a platelet count of 249. BUN is 44 with a creatinine of 0.8 and sodium levels of 135. In terms of his medications, the patient is on bronchodilators, IV Solu-Medrol, IV Rocephin for the presence of strep in his sputum, he is also on metoprolol 100 mg by mouth twice a day. He is on aspirin and Plavix. He is also on statins. Reevaluated today on 02/04/2023, patient remains in the ICU, doing quite well, he is on 3 L nasal cannula transitioned from BiPAP 10/5/40%. Relatively asymptomatic, patient was intubated on 01/31 extubated on 02/01 responded well to treatment with bronchodilators and with diuretics. Labs today showed a relatively normal electrolytes, normal renal profile, bicarb is 38 normal CBC except for hemoglobin of 10.2, last chest x-ray showed mild diffuse interstitial prominence, no follow-up chest x-rays since 02/02/2023 but clinically the patient is doing well and he has no active pulmonary symptoms Reevaluated today on 02/05/70, patient is complaining of shortness of breath although his O2 saturation is in the 90s on 2 L nasal cannula patient seems to be a bit anxious, chest x-ray showed no evidence of congestive heart failure, he does have some COPD, mild interstitial lung disease and atelectasis, no evidence of pneumonia and no evidence of congestive heart failure. Patient is using BiPAP at night with 10/5/40% but during the day he is on 2 L nasal cannula. X anax was added today, chest x-ray was reviewed today. And all his labs were also reviewed. WBC count is 14.1 hemoglobin 11.3 left breast are normal renal profile is normal. reevaluated today on 02/06/23, patient is doing well, he is on 2 L nasal cannula, he does have shortness of breath upon any activity, I went back and reviewed his PFT, his FEV1 is no more than 32%. Patient clearly has gold stage IV COPD/emphysema.patient is basically an overflow in the ICU,remains anxious, but not in any respiratory distress.no labs were done today, his blood sugar was 1.6 otherwise no labs were ordered for today Reevaluated today on 02/07/2023, patient is basically about the same, shortness of breath is still present and that is chronic, and it will never change. Patient had no chest pain no fever no chills no hemoptysis, no cough. He does have severe underlying COPD and he does have underlying cardiomyopathy. Ration is being considered for discharge to rehab at [facility], and I believe this is quite appropriate. Reevaluated today on 02/08/2023, patient is feeling better today, breathing easier, he is in the process of being transferred to [facility] for rehab. Patient will remain on the same medications is presently on, and I will clear the patient again for discharge to rehab. Objective - Vital Signs Vital signs: Vital Signs Temp 98.4 F 02/08/23 11:18 Pulse 74 02/08/23 11:18 Resp 18 02/08/23 11:21 BP 104/58 02/08/23 11:18 Pulse Ox 93 L 02/08/23 11:18 FiO2 40 02/07/23 11:49 Intake & Output 02/07/23 02/08/23 02/08/23 18:59 06:59 18:59 Intake Total 888 120 598 Output Total 200 Balance 888 -80 598 Weight 70.3 kg Intake: Intake, IV Titration 50 Amount cefTRIAXone 1 gm In 50 Sodium Chloride 0.9% 50 ml @ 100 mls/hr IVPB Q24HR [facility] Rx#:[id number] Oral 838 120 598 Output: Urine 200 Other: Voiding Method Bedside Commode Bedside Commode Urinal Urinal # Voids 1 ABP, PAP, CO, CI - Last Documented Arterial Blood Pressure 133/43 - Exam Physical Exam: Revealed 77-year-old white male in no distress on 2 L nasal cannula, Head: Atraumatic, normocephalic. HEENT:[Neck is supple.] [No neck masses.] [No thyromegaly.] [No JVD.] Chest: [Diminished breath sound bilaterally no rhonchi and no wheezes Cardiac Exam: [Normal S1 and S2, no S3 gallop, 2/6 systolic ejection murmur heard throughout the precordium. Abdomen: [Soft, nontender, no megaly, no rebound, no guarding, normal bowel sounds.] Extremities: [No clubbing, no edema, no cyanosis.] Neurological Exam: [No focal neurologic deficit.] Alert and oriented 3. Patient is noted to be a bit anxious Psychiatric: Normal mood affect and normal mental status examination. Skin: No rashes. - Labs CBC & Chem 7: 02/07/23 08:29 02/07/23 08:29 Labs: Abnormal Lab Results - Last 24 Hours (Table) 02/07/23 02/07/23 02/08/23 Range/Units 16:48 20:20 11:15 POC Glucose (mg/dL) 130 H 123 H 129 H (70-110) mg/dL Assessment and Plan Assessment: Impression: Acute hypoxic and hypercapnic respiratory failure secondary to acute diastolic congestive heart failure and underlying COPD with acute exacerbation Status post left carotid artery stenting with right upper extremity weakness post procedure, improving but not back to normal postoperative day #8 Severe triple-vessel coronary artery disease Severe COPD, FEV1 of 32% consistent with gold stage IV COPD. Benign essential hypertension Dyslipidemia History of smoking Restless leg syndrome Positive Streptococcus and sputum, on Rocephin History of meningioma left frontal. Recommendation: Continue oxygen and titrate accordingly Continue bronchodilators Continue prednisone Use BiPAP as needed Continue aspirin and Plavix Continue metoprolol Continue statins Clear to be discharged if cleared by cardiology to go to rehab at [facility]. Time with Patient: Less than 30
[2023-02-08 12:03] VITALS: PULSE 80
[2023-02-08] MEDS: ALPRAZolam 0.25 MG TAB PO PRN (12:15)
--- NOTE | 2023-02-12 12:25 | CDI ---
Documentation Clarification Form Date: 02/12/2023 12:02:04 PM From: Martha Fuentes RN, CCDS Email: [email or web address] Admit Date: 01/30/2023 06:39:00 AM Patient Name: Darius Carnes Visit Number: [id number] Discharge Date: 02/08/2023 12:38:00 PM ATTENTION: The Clinical Documentation Specialists (CDI) and [facility] Coding Staff appreciate your assistance in clarifying documentation. Please respond to the clarification below the line at the bottom and electronically sign. The CDI & [facility] Coding staff will review the response and follow-up if needed. Please note: Queries are made part of the Legal Health Record. If you have any questions, please contact the author of this message via ITS. Dr. Dhiraj Sanchez Acute CVA is documented by Neurology and patient had successful stenting of the left common and internal carotid artery. Additional clarification is requested regarding the relationship, if any, that exists between the diagnosis and the procedure. Patients Admitting Diagnosis: Critical disease involving the left internal carotid artery Post-Operative Diagnosis: same Procedure performed: stenting of the left common and internal carotid artery, carotid angiogram and intracranial angiogram History/Risk Factors: severe triple vessel CAD, advanced COPD who is O2 dependent, HTN, HLD Clinical Indicators: 01/[address]: There is an area of increased density along the lateral left frontal lobe which appears to be an intraparenchymal hemorrhage 01/30 CTA: Moderate narrowing post stenting left carotid artery. No obstruction is identified. Mild narrowing right internal carotid artery from [place]. Right cerebral vascular circulation appears patent although smaller caliber within the brain than on the left. 01/30 Neurology consult: "Probable acute ischemic stroke manifesting with clumsy (R) hand and dysarthria. This could be related to an embolic event from left ICA stenosis, status post left ICA stenting." 01/30 Pulmonary consult: "Acute CVA most likely along the left MCA distribution and the patient has right-sided weakness post carotid artery stenting." 01/31 Cardiology: "Status post left carotid stenting with right upper extremities weakness post procedure, improved." 02/05 Rehab consult: "Right hemiparesis secondary to Acute CVA most likely along the left MCA distribution post carotid artery stenting." 02/06 IM consult: "TIA. right-sided weakness status post left carotid artery stent." Discharge summary: His right-sided weakness spontaneously resolved and it appears that family wanted to cancel the MRI brain.. Treatment: ASA daily, Plavix 75mg daily, Lipitor 40mg daily. PT/OT. Inpatient rehab Consults: see above. What relationship, if any, exists between the diagnosis of acute CVA and the procedure: [ XX ] Acute CVA is a complication of surgical procedure [ ] Acute CVA is related to patients co-morbid conditions & not a complication of the procedure [ ] TIA only [ ] Other please specify ____ [ ] Unable to determine MTDD
== END 2023-02-08 12:38 | DRG 34 ==
LOC: 2ORMAIN 06:39 → 2SICU 09:37 → EDSTATUS 10:20 → 3SCARD 02-06 22:07
PROVIDERS: ADMIT Internal Medicine Interventional Cardiology; ATTEND Internal Medicine Interventional Cardiology
PROC: B41F1ZZ Fluoroscopy of Right Lower Extremity Arteries using Low Osmolar Contrast (ICD-10-PCS; principal; 2023-01-30 09:00)
PROC: 037J3DZ Dilation of Left Common Carotid Artery with Intraluminal Device, Percutaneous Approach (ICD-10-PCS; principal; 2023-01-30 09:00)
PROC: B3171ZZ Fluoroscopy of Left Internal Carotid Artery using Low Osmolar Contrast (ICD-10-PCS; principal; 2023-01-30 09:00)
PROC: B31R1ZZ Fluoroscopy of Intracranial Arteries using Low Osmolar Contrast (ICD-10-PCS; principal; 2023-01-30 09:00)
PROC: B3141ZZ Fluoroscopy of Left Common Carotid Artery using Low Osmolar Contrast (ICD-10-PCS; principal; 2023-01-30 09:00)
PROC: 037L3DZ Dilation of Left Internal Carotid Artery with Intraluminal Device, Percutaneous Approach (ICD-10-PCS; principal; 2023-01-30 09:00)
PROC: 0BH17EZ Insertion of Endotracheal Airway into Trachea, Via Natural or Artificial Opening (ICD-10-PCS; 2023-01-31)
PROC: 5A1945Z Respiratory Ventilation, 24-96 Consecutive Hours (ICD-10-PCS; 2023-01-31)
PROC: 3E033XZ Introduction of Vasopressor into Peripheral Vein, Percutaneous Approach (ICD-10-PCS; 2023-01-31)
PROC: 03HY32Z Insertion of Monitoring Device into Upper Artery, Percutaneous Approach (ICD-10-PCS; 2023-01-31)
PROC: 02HV33Z Insertion of Infusion Device into Superior Vena Cava, Percutaneous Approach (ICD-10-PCS; 2023-01-31)
PROC: 0D9670Z Drainage of Stomach with Drainage Device, Via Natural or Artificial Opening (ICD-10-PCS; 2023-01-31)
PROC: 3E0G76Z Introduction of Nutritional Substance into Upper GI, Via Natural or Artificial Opening (ICD-10-PCS; 2023-01-31)
PROC: 5A09357 Assistance with Respiratory Ventilation, Less than 24 Consecutive Hours, Continuous Positive Airway Pressure (ICD-10-PCS; 2023-02-01)
DX: I65.23 Occlusion and stenosis of bilateral carotid arteries (principal); I50.33 Acute on chronic diastolic (congestive) heart failure; J96.21 Acute and chronic respiratory failure with hypoxia; I63.9 Cerebral infarction, unspecified; I97.821 Postprocedural cerebrovascular infarction following other surgery; J96.22 Acute and chronic respiratory failure with hypercapnia; G81.91 Hemiplegia, unspecified affecting right dominant side; E87.3 Alkalosis; I42.9 Cardiomyopathy, unspecified; I27.20 Pulmonary hypertension, unspecified; I95.9 Hypotension, unspecified; J43.9 Emphysema, unspecified; I11.0 Hypertensive heart disease with heart failure; I73.9 Peripheral vascular disease, unspecified; R29.709 NIHSS score 9; R47.1 Dysarthria and anarthria; R27.0 Ataxia, unspecified; I25.84 Coronary atherosclerosis due to calcified coronary lesion; I25.10 Atherosclerotic heart disease of native coronary artery without angina pectoris; I35.1 Nonrheumatic aortic (valve) insufficiency; G25.81 Restless legs syndrome; E78.2 Mixed hyperlipidemia; D32.0 Benign neoplasm of cerebral meninges; F41.1 Generalized anxiety disorder; L98.9 Disorder of the skin and subcutaneous tissue, unspecified; K21.9 Gastro-esophageal reflux disease without esophagitis; F17.211 Nicotine dependence, cigarettes, in remission; Z99.81 Dependence on supplemental oxygen; Z79.82 Long term (current) use of aspirin; Z79.51 Long term (current) use of inhaled steroids; Z79.52 Long term (current) use of systemic steroids; Z79.899 Other long term (current) drug therapy
CPT/HCPCS: 36600; 37215; 70450; 70496; 70498; 71045; 80048; 80053; 80069; 82805; 83735; 83880; 84132; 84484; 85025; 85027; 85379; 85610; 85730; 87070; 87205; 93306; 94002; 94003; 94640; 94660; 94760; 95822

== ENCOUNTER 2023-02-19 23:34 | Inpatient (IN) | payer MEDICARE, OTHER ==
[2023-02-19 23:49] LABS: Glucose,Whole Blood 276 mg/dL (70-110)
[2023-02-19 23:58] LABS: Basophils % (A) 0 %; Eosinophils # (A) 0.5 k/uL (0-0.7); Eosinophils % (A) 6 %; HCT 30.6 % (39.0-53.0); Hypochromasia Slight; Lymphocytes # (A) 1.5 k/uL (1.0-4.8); Lymphocytes % (A) 18 %; MCH 31.2 pg (25.0-35.0); MCHC 32.3 g/dL (31.0-37.0); Mean Platelet Volume 7.6; Monocytes # (A) 0.4 k/uL (0-1.0); Monocytes % (A) 4 %; Neutrophils % (A) 70 %; Platelet Count 364 k/uL (150-450); Poikilocytosis Slight; RBC 3.17 m/uL (4.30-5.90); RDW 15.8 % (11.5-15.5); WBC 8.6 k/uL (3.8-10.6)
--- NOTE | 2023-02-20 00:13 | XR ---
EXAM: XR Chest, 1 View CLINICAL HISTORY: Tube placement TECHNIQUE: Frontal view of the chest. COMPARISON: 02/05/2023 FINDINGS: Lungs: Diffuse prominence of the interstitial markings with subsegmental opacities in the peripheral right midlung zone and at the right lung base. Pleural space: Unremarkable. No pneumothorax. No large pleural effusion. Heart: Unremarkable. No cardiomegaly. Mediastinum: No significant abnormality identified. The trachea is midline. Bones/joints: Unremarkable. Tubes, lines and devices: The endotracheal tube is identified a proximally 5.8 cm from the nehemiah. IMPRESSION: 1. The endotracheal tube is identified a proximally 5.8 cm from the nehemiah. 2. Diffuse prominence of the interstitial markings with subsegmental opacities in the peripheral right midlung zone and at the right lung base. Differential consideration includes asymmetric edema or infection. No pleural effusion or pneumothorax.
[2023-02-20 00:18] LABS: ABG Base Excess -4.7 mmol/L; ABG HCO3 22 mmol/L (21-25); ABG Oxygen Saturation 99.9 % (94-97); ABG PCO2 49 mmHg (35-45); ABG PH 7.27 (7.35-7.45); ABG PO2 350 mmHg (83-108); ABG TCO2 24 mmol/L (19-24); Allen Test Performed? Yes
[2023-02-20 00:19] LABS: ALT 30 U/L (4-49); AST 29 U/L (17-59); African American GFR (CKD) >90 (>60 ml/min/1.73 sqM); Alkaline Phosphatase 71 U/L (38-126); Anion Gap 11 mmol/L; Blood Urea Nitrogen 15 mg/dL (9-20); Calcium 7.9 mg/dL (8.4-10.2); Carbon Dioxide 21 mmol/L (22-30); Chloride 101 mmol/L (98-107); Glucose 266 mg/dL (74-99); Magnesium 2.1 mg/dL (1.6-2.3); Non-African American GFR(CKD) 83 (>60 ml/min/1.73 sqM); Potassium 4.3 mmol/L (3.5-5.1); Sodium 133 mmol/L (137-145); Total Bilirubin 0.7 mg/dL (0.2-1.3); Total Protein 5.9 g/dL (6.3-8.2)
[2023-02-20 00:28] LABS: HGB 9.9 gm/dL (13.0-17.5); MCV 96.6 fL (80.0-100.0); NT-Pro-B-Type Natriuretic Pept 1080 pg/mL
[2023-02-20] MEDS ORDERED: FUROSEMIDE 10 MG/ML 10 ML VIAL IV STA (00:34)
--- NOTE | 2023-02-20 00:35 | ED ---
SOB HPI - General Chief Complaint: Shortness of Breath Stated Complaint: SOB Time Seen by Provider: 02/19/23 23:40 Source: family Mode of arrival: EMS - History of Present Illness Initial Comments: 77-year-old male with past medical history of advanced coronary disease, congestive heart failure, COPD on 3 L home O2 who presents to the emergency room with shortness of breath. EMS states that the patient ambulated to the bathroom and upon returning back he was extremity short of breath which is not uncommon for him. states that his saturations dropped into the 70s. Patient could not catch his breath and therefore EMS was called. EMS arrived and found the patient had oxygen saturation is a 58%. They loaded him into the back of the ambulance when the patient began agonally breathing. Decision was made to intubate the patient. Patient arrives with an 8 cm ET tube 24 cm at the lip. He has oxygen saturations 100%. Patient has very decreased breath sounds. He is not complaining of any chest pain. states that he was recently hospitalized at [facility]. He had a carotid artery stent placed and subsequently had a stroke. He was intubated. He was discharged discharged on the . He went to [facility] rehab until the and just came home. Remainder of HPI is limited due to the patient's current intubated status - Related Data Home Medications Medication Instructions Recorded Confirmed Aspirin 81 mg PO DAILY 12/24/19 01/30/23 Metoprolol Tartrate [Lopressor] 100 mg PO BID 12/24/19 01/30/23 Ferrous Sulfate [Iron (65 MG 325 mg PO DAILY 12/09/20 01/30/23 Elemental)] Atorvastatin [Lipitor] 40 mg PO DAILY 12/27/22 01/30/23 Budesonide/Glycopyr/Formoterol 2 puff INHALATION BID 12/27/22 01/30/23 [Breztri Aerosphere Inhaler] Cholecalciferol (Vitamin D3) 125 mcg PO DAILY 12/27/22 01/30/23 [Vitamin D3 (125 MCG = 5,000 IU)] predniSONE 10 mg PO Q2D 12/27/22 01/30/23 Ezetimibe [Zetia] 10 mg PO DAILY 01/24/23 01/30/23 Vit B(Unk) 1 tab PO DAILY 01/24/23 01/30/23 Previous Rx's Medication Instructions Recorded Pantoprazole Sodium [Protonix] 40 mg PO SHARATH-LUISKFST #30 tablet. 12/17/20 ALPRAZolam [Xanax] 0.25 mg PO TID PRN tab 02/08/23 Budesonide [Pulmicort] 1 mg INHALATION RT-BID ml 02/08/23 Clobetasol Propionate [Temovate 1 applic TOPICAL BID each 02/08/23 0.05% Cream] Clopidogrel [Plavix] 75 mg PO DAILY tab 02/08/23 Fluticasone Nasal [place] [Flonase 2 spray EA NOSTRIL DAILY PRN ml 02/08/23 Nasal [place]] Formoterol Fumarate [Perforomist] 20 mcg INHALATION RT-BID ml 02/08/23 Furosemide [Lasix] 40 mg PO DAILY #30 tablet 02/08/23 Ipratropium-Albuterol Nebulize 3 ml INHALATION RT-QID PRN each 02/08/23 [Duoneb 0.5 mg-3 mg/3 ml Soln] Isosorbide Mononitrate ER [Imdur] 60 mg PO DAILY tab 02/08/23 SILVER sulfADIAZINE CREAM 1 applic TOPICAL BID PRN each 02/08/23 [Silvadene Cream] Allergies Allergy/AdvReac Type Severity Reaction Status Date / Time No Known Allergies Allergy Verified 01/30/23 06:53 Review of Systems ROS Statement: Those systems with pertinent positive or pertinent negative responses have been documented in the HPI. ROS Other: All systems not noted in ROS Statement are negative. Past Medical History Past Medical History: Coronary Artery Disease (CAD), COPD, GERD/Reflux, Hyperlipidemia, Hypertension, Pneumonia, Skin Disorder Additional Past Medical History / Comment(s): chronic hypoxic respiratory failure on oxygen 2/L NC ATC, RLS, LT CAROTID stenosis History of Any Multi-Drug Resistant Organisms: None Reported Past Surgical History: Appendectomy, Heart Catheterization Additional Past Surgical History / Comment(s): COLONSCOPY. BRONCHOSCOPY WITH BIOPSY Past Anesthesia/Blood Transfusion Reactions: No Reported Reaction Additional Past Anesthesia/Blood Transfusion Reaction / Comment(s): HAD TROUBLE BREATHING AFTER BROCHOSCOPY AND ENDED UP IN ICU FOR A FEW DAYS Date of Last Stent Placement:: 01/01/23 Past Psychological History: No Psychological Hx Reported Smoking Status: Current every day smoker - Past Family History Mother Family Medical History: No Reported History Father Additional Family Medical History / Comment(s): "black lung from working in a coal mine" General Exam Limitations: altered mental status, physical limitation General appearance: obtunded Head exam: Present: atraumatic, normocephalic, normal inspection Eye exam: Present: normal appearance, PERRL, EOMI. Absent: scleral icterus, conjunctival injection, periorbital swelling ENT exam: Present: mucous membranes dry Respiratory exam: Present: other (Being bagged. Does have spontaneous respirations but appear agonal) Cardiovascular Exam: Present: normal rhythm, tachycardia GI/Abdominal exam: Present: soft, normal bowel sounds. Absent: distended, tenderness, guarding, rebound, rigid Neurological exam: Present: altered, other (Moves all extremities) Skin exam: Present: warm, dry, intact, normal color. Absent: rash Course Vital Signs 02/19/23 02/19/23 02/19/23 23:35 23:40 23:43 Temperature 97.2 F L Pulse Rate 131 H Respiratory 22 Rate Blood Pressure 153/96 Blood Pressure [Left Arm] O2 Sat by Pulse 99 Oximetry Fraction of 100 100 Inspired Oxygen (FIO2) 02/19/23 02/20/23 02/20/23 23:51 00:00 00:10 Temperature Pulse Rate 120 H 122 H 123 H Respiratory 29 H 31 H 28 H Rate Blood Pressure 140/81 143/84 125/72 Blood Pressure [Left Arm] O2 Sat by Pulse 100 98 98 Oximetry Fraction of Inspired Oxygen (FIO2) 02/20/23 02/20/23 02/20/23 00:15 00:28 00:30 Temperature 97.0 F L Pulse Rate 116 H 125 H Respiratory 26 H 27 H Rate Blood Pressure 120/84 138/85 Blood Pressure [Left Arm] O2 Sat by Pulse 98 98 Oximetry Fraction of 50 Inspired Oxygen (FIO2) 02/20/23 02/20/23 02/20/23 00:36 00:45 00:47 Temperature 97.9 F 99.0 F Pulse Rate 124 H Respiratory 30 H Rate Blood Pressure 121/76 Blood Pressure [Left Arm] O2 Sat by Pulse 93 L Oximetry Fraction of Inspired Oxygen (FIO2) 02/20/23 02/20/23 02/20/23 00:56 01:00 01:12 Temperature 99.3 F 99.2 F Pulse Rate 121 H 121 H Respiratory 28 H 31 H 16 Rate Blood Pressure 119/77 119/77 Blood Pressure 133/70 [Left Arm] O2 Sat by Pulse 93 L 94 L 98 Oximetry Fraction of Inspired Oxygen (FIO2) 02/20/23 02/20/23 01:15 01:30 Temperature Pulse Rate 121 H 121 H Respiratory 35 H 32 H Rate Blood Pressure 115/68 118/71 Blood Pressure [Left Arm] O2 Sat by Pulse 93 L 96 Oximetry Fraction of Inspired Oxygen (FIO2) Procedures - ABG Interpretation Ph: 7.26 PCO2: 48 PO2: 350 Bicarbonate: 22 Interpretation: respiratory acidosis Additional Comments: Oxygen decreased to 50% Medical Decision Making - Medical Decision Making Was pt. sent in by a medical professional or institution (, PA, DIRECT CARE PROVIDER, urgent care, hospital, or residential...) When possible be specific @ -No Did you speak to anyone other than the patient for history (EMS, parent, family, police, friend...)? What history was obtained from this source @ -EMS and provide history Did you review nursing and triage notes (agree or disagree)? Why? @ -I reviewed and agree with nursing and triage notes Were old charts reviewed (outside hosp., previous admission, EMS record, old EKG, old radiological studies, urgent care reports/EKG's, residential records)? Report findings @ -I reviewed patient's discharge summary from February 08 from our facility Differential Diagnosis (chest pain, altered mental status, abdominal pain women, abdominal pain men, vaginal bleeding, weakness, fever, dyspnea, syncope, headache, dizziness, GI bleed, back pain, seizure, CVA, palpatations, mental he alth, musculoskeletal)? @ -Differential Dyspnea: Coronary syndrome, arrhythmia, tamponade, asthma, COPD, pulmonary embolism, pneumonia, pneumothorax, pulmonary effusion, anaphylaxis, diabetic ketoacidosis, flailed chest, pulmonary contusion, diaphragmatic rupture, anemia, neurom uscular, this is not meant to be an all-inclusive list. EKG interpreted by me (3pts min.). @ -Yes and demonstrates sinus tachycardia with a rate of 135. CT of 122. QRS 118. QTC of 96. Incomplete right bundle-branch block. ST depression V4 through V6. No acute ST segment elevation X-rays interpreted by me (1pt min.). @ -Yes and demonstrates bilateral pulmonary opacities CT interpreted by me (1pt min.). @ -None done U/S interpreted by me (1pt. min.). @ -None done What testing was considered but not performed or refused? (CT, X-rays, U/S, labs)? Why? @ -None What meds were considered but not given or refused? Why? @ -None Did you discuss the management of the patient with other professionals (professionals i.e. , PA, DIRECT CARE PROVIDER, lab, RT, psych nurse, neonatal social worker, hostler helper, teacher, cra officer, rn field case manager)? Give summary @ -I spoke with Warren from the ICU as well as dr. crane Was smoking cessation discussed for >3mins.? @ -No Was critical care preformed (if so, how long)? @ -Yes, 40 minutes for vent management Were there social determinants of health that impacted care today? How? (Homelessness, low income, unemployed, alcoholism, drug addiction, transportation, low edu. Level, literacy, decrease access to med. care, [facility], rehab)? @ -No Was there de-escalation of care discussed even if they declined (Discuss DNR or withdrawal of care, Hospice)? DNR status @ - states that the patient is a full code What co-morbidities impacted this encounter? (DM, HTN, Smoking, COPD, CAD, Cancer, CVA, ARF, Chemo, Hep., AIDS, mental health diagnosis, sleep apnea, morbid obesity)? @ -Coronary artery disease, carotid disease, COPD, CHF Was patient admitted / discharged? Hospital course, mention meds given and rout e, prescriptions, significant lab abnormalities, going to OR and other pertinent info. @ -Upon arrival patient was placed into trauma 2. He had been intubated in the field by EMS with an 8-[place] tube 24 cm at the lips. Patient is to continuous pulse ox and cardiac monitoring. 12-lead EKG was obtained. I did order propofol for sedation as the patient is markedly breathing for the vent. Portable chest x-ray was performed which demonstrates bilateral pulmonary opacities. Infectious versus pulmonary edema. Patient does have pitting edema and therefore he is given 60 mg of Lasix. The patient's ET tube is advanced 2 cm. OG tube was placed. Spoke with Warren from the ICU who will admit the patient. I also spoke with Dr. Crane who is agreeable to admit the patient. Radha dixon will remain a full code at this time. Remained hemodynamically stable and was transferred to the ICU Undiagnosed new problem with uncertain prognosis? @ -Yes Drug Therapy requiring intensive monitoring for toxicity (Heparin, Nitro, Insuli n, Cardizem)? @ -No Were any procedures done? @ -No Diagnosis/symptom? @ -Acute respiratory arrest, acute ventilator dependence, acute hypoxic respiratory failure, COPD exacerbation, CHF exacerbation Acute, or Chronic, or Acute on Chronic? @ -Acute Uncomplicated (without systemic symptoms) or Complicated (systemic symptoms)? @ -Complicated Side effects of treatment? @ -No Exacerbation, Progression, or Severe Exacerbation? @ -Yes Poses a threat to life or bodily function? How? (Chest pain, [place], [place], pneumonia, PE, COPD, DKA, ARF, appy, cholecystitis, CVA, Diverticulitis, Homicidal, Suicidal, threat to staff... and all critical care pts) @ -Yes, patient is on life support due to respiratory arrest - Lab Data Result diagrams: 02/20/23 03:40 02/20/23 03:40 Lab Results 02/19/23 02/19/23 02/19/23 Range/Units 23:47 23:52 23:52 WBC 8.6 (3.8-10.6) k/uL RBC 3.17 L (4.30-5.90) m/uL Hgb 9.9 L D (13.0-17.5) gm/dL Hct 30.6 L (39.0-53.0) % MCV 96.6 D (80.0-100.0) fL MCH 31.2 (25.0-35.0) pg MCHC 32.3 (31.0-37.0) g/dL RDW 15.8 H (11.5-15.5) % Plt Count 364 (150-450) k/uL MPV 7.6 Neutrophils % 70 % Lymphocytes % 18 % Monocytes % 4 % Eosinophils % 6 % Basophils % 0 % Neutrophils # 6.0 (1.3-7.7) k/uL Lymphocytes # 1.5 (1.0-4.8) k/uL Monocytes # 0.4 (0-1.0) k/uL Eosinophils # 0.5 (0-0.7) k/uL Basophils # 0.0 (0-0.2) k/uL Hypochromasia Slight Poikilocytosis Slight PT 10.4 (9.0-12.0) sec INR 1.0 (<1.2) APTT 21.9 L (22.0-30.0) sec Sample Site ABG pH (7.35-7.45) ABG pCO2 (35-45) mmHg ABG pO2 (83-108) mmHg ABG HCO3 (21-25) mmol/L ABG Total CO2 (19-24) mmol/L ABG O2 Saturation (94-97) % ABG Base Excess mmol/L Ender Test FiO2 % Sodium (137-145) mmol/L Potassium (3.5-5.1) mmol/L Chloride (98-107) mmol/L Carbon Dioxide (22-30) mmol/L Anion Gap mmol/L BUN (9-20) mg/dL Creatinine (0.66-1.25) mg/dL Est GFR (CKD-EPI)AfAm (>60 ml/min/1.73 sqM) Est GFR (CKD-EPI)NonAf (>60 ml/min/1.73 sqM) Glucose (74-99) mg/dL POC Glucose (mg/dL) 276 H (70-110) mg/dL POC Glu Combatant Diver Qualified Norah Velasquez Plasma Lactic Acid Abdi (0.7-2.0) mmol/L Calcium (8.4-10.2) mg/dL Magnesium (1.6-2.3) mg/dL Total Bilirubin (0.2-1.3) mg/dL AST (17-59) U/L ALT (4-49) U/L Alkaline Phosphatase (38-126) U/L Troponin I (0.000-0.034) ng/mL NT-Pro-B Natriuret Pep pg/mL Total Protein (6.3-8.2) g/dL Albumin (3.5-5.0) g/dL 02/19/23 02/19/23 02/19/23 Range/Units 23:52 23:52 23:52 WBC (3.8-10.6) k/uL RBC (4.30-5.90) m/uL Hgb (13.0-17.5) gm/dL Hct (39.0-53.0) % MCV (80.0-100.0) fL MCH (25.0-35.0) pg MCHC (31.0-37.0) g/dL RDW (11.5-15.5) % Plt Count (150-450) k/uL MPV Neutrophils % % Lymphocytes % % Monocytes % % Eosinophils % % Basophils % % Neutrophils # (1.3-7.7) k/uL Lymphocytes # (1.0-4.8) k/uL Monocytes # (0-1.0) k/uL Eosinophils # (0-0.7) k/uL Basophils # (0-0.2) k/uL Hypochromasia Poikilocytosis PT (9.0-12.0) sec INR (<1.2) APTT (22.0-30.0) sec Sample Site ABG pH (7.35-7.45) ABG pCO2 (35-45) mmHg ABG pO2 (83-108) mmHg ABG HCO3 (21-25) mmol/L ABG Total CO2 (19-24) mmol/L ABG O2 Saturation (94-97) % ABG Base Excess mmol/L Ender Test FiO2 % Sodium 133 L (137-145) mmol/L Potassium 4.3 (3.5-5.1) mmol/L Chloride 101 (98-107) mmol/L Carbon Dioxide 21 L (22-30) mmol/L Anion Gap 11 mmol/L BUN 15 (9-20) mg/dL Creatinine 0.87 (0.66-1.25) mg/dL Est GFR (CKD-EPI)AfAm >90 (>60 ml/min/1.73 sqM) Est GFR (CKD-EPI)NonAf 83 (>60 ml/min/1.73 sqM) Glucose 266 H (74-99) mg/dL POC Glucose (mg/dL) (70-110) mg/dL POC Glu Combatant Diver Qualified ID Plasma Lactic Acid Abdi 4.1 H* (0.7-2.0) mmol/L Calcium 7.9 L (8.4-10.2) mg/dL Magnesium 2.1 (1.6-2.3) mg/dL Total Bilirubin 0.7 (0.2-1.3) mg/dL AST 29 (17-59) U/L ALT 30 (4-49) U/L Alkaline Phosphatase 71 (38-126) U/L Troponin I 0.050 H* (0.000-0.034) ng/mL NT-Pro-B Natriuret Pep 1080 pg/mL Total Protein 5.9 L (6.3-8.2) g/dL Albumin 3.0 L (3.5-5.0) g/dL 02/20/23 Range/Units 00:07 WBC (3.8-10.6) k/uL RBC (4.30-5.90) m/uL Hgb (13.0-17.5) gm/dL Hct (39.0-53.0) % MCV (80.0-100.0) fL MCH (25.0-35.0) pg MCHC (31.0-37.0) g/dL RDW (11.5-15.5) % Plt Count (150-450) k/uL MPV Neutrophils % % Lymphocytes % % Monocytes % % Eosinophils % % Basophils % % Neutrophils # (1.3-7.7) k/uL Lymphocytes # (1.0-4.8) k/uL Monocytes # (0-1.0) k/uL Eosinophils # (0-0.7) k/uL Basophils # (0-0.2) k/uL Hypochromasia Poikilocytosis PT (9.0-12.0) sec INR (<1.2) APTT (22.0-30.0) sec Sample Site right radial ABG pH 7.27 L (7.35-7.45) ABG pCO2 49 H (35-45) mmHg ABG pO2 350 H (83-108) mmHg ABG HCO3 22 (21-25) mmol/L ABG Total CO2 24 (19-24) mmol/L ABG O2 Saturation 99.9 H (94-97) % ABG Base Excess -4.7 mmol/L Ender Test Yes FiO2 100 % Sodium (137-145) mmol/L Potassium (3.5-5.1) mmol/L Chloride (98-107) mmol/L Carbon Dioxide (22-30) mmol/L Anion Gap mmol/L BUN (9-20) mg/dL Creatinine (0.66-1.25) mg/dL Est GFR (CKD-EPI)AfAm (>60 ml/min/1.73 sqM) Est GFR (CKD-EPI)NonAf (>60 ml/min/1.73 sqM) Glucose (74-99) mg/dL POC Glucose (mg/dL) (70-110) mg/dL POC Glu Combatant Diver Qualified ID Plasma Lactic Acid Abdi (0.7-2.0) mmol/L Calcium (8.4-10.2) mg/dL Magnesium (1.6-2.3) mg/dL Total Bilirubin (0.2-1.3) mg/dL AST (17-59) U/L ALT (4-49) U/L Alkaline Phosphatase (38-126) U/L Troponin I (0.000-0.034) ng/mL NT-Pro-B Natriuret Pep pg/mL Total Protein (6.3-8.2) g/dL Albumin (3.5-5.0) g/dL Disposition Clinical Impression: Ventilator dependence, Respiratory failure, Hypoxia, Respiratory arrest, COPD (chronic obstructive pulmonary disease), Heart failure Disposition: ADMITTED IP TO THIS HOSP Condition: Serious Is patient prescribed a controlled substance at d/c from ED?: No Time of Disposition: 00:52 Decision to Admit Reason: Admit from EC Decision Date: 02/20/23 Decision Time: 00:53
[2023-02-20 00:46] LABS: Partial Thromboplastin Time 21.9 sec (22.0-30.0); Prothrombin Time 10.4 sec (9.0-12.0)
--- NOTE | 2023-02-20 00:51 | XR ---
EXAM: XR Chest, 1 View CLINICAL HISTORY: OGT placement TECHNIQUE: Frontal view of the chest. COMPARISON: 02/19/2023 at 2332 hrs. FINDINGS: Lungs: Similar interstitial and airspace opacities. Pleural space: Unremarkable. No pneumothorax. No large pleural effusion. Heart: Unremarkable. No cardiomegaly. Mediastinum: The mediastinal contours are stable. Bones/joints: Unremarkable. Tubes, lines and devices: The orogastric tube is identified with the tip in the left upper quadrant. The endotracheal tube (ETT) is in satisfactory position with tip 6.3 cm above the nehemiah. IMPRESSION: The orogastric tube is identified with the tip in the left upper quadrant, presumed to be in the proximal body of the stomach.
[2023-02-20] MEDS ORDERED: Magnesium Replacement Protocol 1 EACH MISC MISCELLANE PRN (00:53)
[2023-02-20] MEDS ORDERED: NALOXONE 0.4 MG/ML 1 ML VIAL IV PRN (00:53)
[2023-02-20] MEDS ORDERED: Potassium Replacement Protocol 1 EACH MISC MISCELLANE PRN (00:53)
[2023-02-20 01:49] LABS: Glucose,Whole Blood 150 mg/dL (70-110)
--- NOTE | 2023-02-20 02:28 | P.HPIM ---
History of Present Illness H&P Date: 02/20/23 The patient is a 77-year-old male with an extensive evaluation including COPD with chronic hypoxic respiratory failure on 2 L of the cannula oxygen, CAD status post stents, diastolic CHF, hypertension, hyperlipidemia, carotid stenosis status post stenting, who was brought into the emergency room for hypoxic respiratory failure with shortness of breath. The history was obtained from the ED provider, documentation, the patient's family at the bedside as the patient was intubated at the time of interview. The reports that she was with the patient earlier tonight at around 9 PM. The patient walks since the restroom as usual and as he walked back to the couch, he told her that he feels really short of breath. His breathing quickly worsened and he asked her to call EMS. Upon arrival, they noted that the patient was severely hypoxic with SpO2 58%. In route to the hospital, the patient began agonal breathing and was subsequently intubated. He was subsequently seen in the emergency room while on a ventilator. Of note, the patient was recently hospitalized at [facility] for an elective left ICA stenting on 01/30. He subsequently developed hypoxic respiratory failure requiring intubation with concerns for a stroke during the hospitalization. The patient was subsequently recommended for inpatient rehab to where he was discharged on 02/08. The patient returned home on 02/15 as per the . In the emergency room, chest x-ray revealed findings consistent with pulmonary edema. EKG had revealed sinus tachycardia at 135 bpm with an incomplete right bundle branch block with left axis deviation. Laboratory evaluation was remarkable for hemoglobin of 9.9 (previously 11.4), lactic acid 4.1, troponin 0.050, proBNP 1080, with sodium 133. ED documentation reviewed and case discussed with ED provider. Review of systems: Pertinent positives and negatives as discussed in HPI, a complete review of systems was performed and all other systems are negative. Physical examination: Vital signs reviewed General: intubated male, non toxic, no distress, appears at stated age, normal weight Derm: no unusual rashes/lesions, warm Head: atraumatic, normocephalic, symmetric Eyes: anicteric sclera, pupils equal round reactive to light ENT: Nose and ears atraumatic Neck: No cervical lymphadenopathy, trachea midline, supple Mouth: no lip lesion, mucus membranes moist Cardiovascular: S1S2 reg, no murmur, positive dorsalis pedis pulse bilateral, 1+ aditi LE pitting edema Lungs: Scattered coarse breath sounds without wheezing, accessory muscle use Abdominal: soft, non-distended Ext: no gross muscle atrophy, no contractures, Neuro: unable to assess, unresponsive to noxious stimuli Psych: unable to assess Assessment: Respiratory failure, likely multifactorial secondary to CHF and COPD exacerbation Lactic acidosis Normocytic anemia Elevated troponin, possibly due to demand ischemia Chronic conditions: Hypertension, hyperlipidemia, carotid stenosis Imaging: In the emergency room, chest x-ray revealed findings consistent with pulmonary edema. EKG had revealed sinus tachycardia at 135 bpm with an incomplete right bundle branch block with left axis deviation. Data Review: Laboratory evaluation was remarkable for hemoglobin of 9.9 (previously 11.4), lactic acid 4.1, troponin 0.050, proBNP 1080, with sodium 133. Plan: Continue with ventilator bundle Patient admitted to medical ICU Trend troponin Cardiac monitoring Cardiology and intensive was consulted Binta lactic acid levels for resolution Continue with Lasix DVT prophylaxis: Heparin subcu The patient is admitted with an anticipated greater than 2 midnight stay for evaluation of respiratory failure CODE STATUS: Full Code Discussed with: , step son Anticipated discharge place: [facility] Past Medical History Past Medical History: Coronary Artery Disease (CAD), COPD, GERD/Reflux, Hyperlipidemia, Hypertension, Pneumonia, Skin Disorder Additional Past Medical History / Comment(s): chronic hypoxic respiratory failure on oxygen 2/L NC ATC, RLS, LT CAROTID stenosis, previously on mechanical ventilator after lung biopsy History of Any Multi-Drug Resistant Organisms: None Reported Past Surgical History: Appendectomy, Heart Catheterization Additional Past Surgical History / Comment(s): COLONSCOPY. BRONCHOSCOPY WITH BIOPSY Past Anesthesia/Blood Transfusion Reactions: No Reported Reaction Additional Past Anesthesia/Blood Transfusion Reaction / Comment(s): HAD TROUBLE BREATHING AFTER BROCHOSCOPY AND ENDED UP IN ICU FOR A FEW DAYS Date of Last Stent Placement:: 01/01/23 Past Psychological History: No Psychological Hx Reported Smoking Status: Former smoker Past Alcohol Use History: None Reported Additional Past Alcohol Use History / Comment(s): started smoking at age 13, DOWN TO 6 CIGARETTES DAILY quit smoking December 2022 Past Drug Use History: None Reported - Past Family History Mother Family Medical History: No Reported History Father Additional Family Medical History / Comment(s): "black lung from working in a coal mine" Medications and Allergies Home Medications Medication Instructions Recorded Confirmed Type Aspirin 81 mg PO DAILY 12/24/19 01/30/23 History Metoprolol Tartrate [Lopressor] 100 mg PO BID 12/24/19 01/30/23 History Ferrous Sulfate [Iron (65 MG 325 mg PO DAILY 12/09/20 01/30/23 History Elemental)] Pantoprazole Sodium [Protonix] 40 mg PO ALEXI #30 tablet. 12/17/20 01/30/23 Rx Atorvastatin [Lipitor] 40 mg PO DAILY 12/27/22 01/30/23 History Budesonide/Glycopyr/Formoterol 2 puff INHALATION BID 12/27/22 01/30/23 History [Breztri Aerosphere Inhaler] Cholecalciferol (Vitamin D3) 125 mcg PO DAILY 12/27/22 01/30/23 History [Vitamin D3 (125 MCG = 5,000 IU)] predniSONE 10 mg PO Q2D 12/27/22 01/30/23 History Ezetimibe [Zetia] 10 mg PO DAILY 01/24/23 01/30/23 History Vit B(Unk) 1 tab PO DAILY 01/24/23 01/30/23 History ALPRAZolam [Xanax] 0.25 mg PO TID PRN tab 02/08/23 Rx Budesonide [Pulmicort] 1 mg INHALATION RT-BID ml 02/08/23 Rx Clobetasol Propionate [Temovate 1 applic TOPICAL BID each 02/08/23 Rx 0.05% Cream] Clopidogrel [Plavix] 75 mg PO DAILY tab 02/08/23 Rx Fluticasone Nasal [place] [Flonase 2 spray EA NOSTRIL DAILY PRN ml 02/08/23 Rx Nasal [place]] Formoterol Fumarate [Perforomist] 20 mcg INHALATION RT-BID ml 02/08/23 Rx Furosemide [Lasix] 40 mg PO DAILY #30 tablet 02/08/23 Rx Ipratropium-Albuterol Nebulize 3 ml INHALATION RT-QID PRN each 02/08/23 Rx [Duoneb 0.5 mg-3 mg/3 ml Soln] Isosorbide Mononitrate ER [Imdur] 60 mg PO DAILY tab 02/08/23 Rx SILVER sulfADIAZINE CREAM 1 applic TOPICAL BID PRN each 02/08/23 Rx [Silvadene Cream] Allergies Allergy/AdvReac Type Severity Reaction Status Date / Time No Known Allergies Allergy Verified 01/30/23 06:53 Physical Exam Vitals: Vital Signs Temp Pulse Resp BP BP Pulse Ox FiO2 02/20/23 01:12 99.2 F 16 133/70 98 02/20/23 00:56 99.3 F 121 H 28 H 119/77 93 L 02/20/23 00:47 99.0 F 02/20/23 00:36 97.9 F 02/20/23 00:30 97.0 F L 125 H 28 H 138/85 99 02/20/23 00:28 50 02/20/23 00:10 123 H 28 H 125/72 98 02/19/23 23:43 100 02/19/23 23:40 97.2 F L 131 H 22 153/96 99 02/19/23 23:35 100 Intake and Output 02/19/23 02/19/23 02/20/23 14:59 22:59 06:59 Intake Total 30.659 Balance 30.659 Intake: Intake, IV Titration 30.659 Amount propofoL 1,000 mg In 30.659 Empty Bag 1 bag @ 15 MCG/ KG/MIN 7.74 mls/hr IV . [id number] [facility] Rx#:[id number] Other: Weight 75.3 kg Results CBC & Chem 7: 02/19/23 23:52 02/19/23 23:52 Labs: Abnormal Lab Results - Last 24 Hours (Table) 02/19/23 02/19/23 02/19/23 Range/Units 23:47 23:52 23:52 RBC 3.17 L (4.30-5.90) m/uL Hgb 9.9 L D (13.0-17.5) gm/dL Hct 30.6 L (39.0-53.0) % RDW 15.8 H (11.5-15.5) % APTT 21.9 L (22.0-30.0) sec Sodium (137-145) mmol/L Carbon Dioxide (22-30) mmol/L Glucose (74-99) mg/dL POC Glucose (mg/dL) 276 H (70-110) mg/dL Plasma Lactic Acid Abdi (0.7-2.0) mmol/L Calcium (8.4-10.2) mg/dL Troponin I (0.000-0.034) ng/mL Total Protein (6.3-8.2) g/dL Albumin (3.5-5.0) g/dL 02/19/23 02/19/23 02/19/23 Range/Units 23:52 23:52 23:52 RBC (4.30-5.90) m/uL Hgb (13.0-17.5) gm/dL Hct (39.0-53.0) % RDW (11.5-15.5) % APTT (22.0-30.0) sec Sodium 133 L (137-145) mmol/L Carbon Dioxide 21 L (22-30) mmol/L Glucose 266 H (74-99) mg/dL POC Glucose (mg/dL) (70-110) mg/dL Plasma Lactic Acid Abdi 4.1 H* (0.7-2.0) mmol/L Calcium 7.9 L (8.4-10.2) mg/dL Troponin I 0.050 H* (0.000-0.034) ng/mL Total Protein 5.9 L (6.3-8.2) g/dL Albumin 3.0 L (3.5-5.0) g/dL 02/20/23 Range/Units 01:47 RBC (4.30-5.90) m/uL Hgb (13.0-17.5) gm/dL Hct (39.0-53.0) % RDW (11.5-15.5) % APTT (22.0-30.0) sec Sodium (137-145) mmol/L Carbon Dioxide (22-30) mmol/L Glucose (74-99) mg/dL POC Glucose (mg/dL) 150 H (70-110) mg/dL Plasma Lactic Acid Abdi (0.7-2.0) mmol/L Calcium (8.4-10.2) mg/dL Troponin I (0.000-0.034) ng/mL Total Protein (6.3-8.2) g/dL Albumin (3.5-5.0) g/dL
[2023-02-20] MEDS ORDERED: NOREPINEPHRINE 4 MG in SODIUM CHLORIDE 0.9% 250 ML IV SCH (02:45)
[2023-02-20] MEDS ORDERED: DEXTROSE 50% SYRINGE 50 ML IVP PRN ×2 (02:59)
[2023-02-20] MEDS ORDERED: PIPERACILLIN-TAZOBACTAM 3.375 GM in SODIUM CHLORIDE 0.9% 100 ML IVPB SCH (03:00)
[2023-02-20] MEDS: INSULIN ASPART (NovoLOG) 100 UNIT/ML VIAL SQ SCH ×2 (03:13→10:46)
[2023-02-20] MEDS ORDERED: AZITHROMYCIN 500 MG in SODIUM CHLORIDE 0.9% 250 ML IVPB SCH (04:00)
[2023-02-20] MEDS: IPRATROPIUM-ALBUTEROL 3 ML NEB INHALATION SCH ×2 (04:25→08:00)
--- NOTE | 2023-02-20 05:19 | P.CNPUL ---
History of Present Illness Consult date: 02/20/23 Requesting physician: Zuri Odell Reason for consult: other (ICU management) Chief complaint: Shortness of breath and respiratory failure History of present illness: I am seeing this patient in new consultation today 02/20/2023 in the emergency room for acute respiratory failure requiring mechanical ventilation. Patient is a 77-year-old male with multiple pre-existing comorbidities including advanced multivessel coronary artery disease, not a candidate for coronary artery bypass, due to very severe COPD with an FEV1 31% of predicted, oxygen and steroid dependence, carotid artery stenosis status post left carotid artery stenting, TIA/CVA, hypertension, hyperlipidemia, Shingles. Patient is known to Dr. Giles, who he follows with for his advanced COPD. Patient was just discharged from the hospital on January after a complicated hospital stay following a left carotid artery stent. He did develop respiratory failure and was ventilator dependent at that time. There was also concern for CVA. The patient was ultimately discharged to [facility] rehab facility. He was then discharged home on February 15 with his . Patient is currently intubated on mechanical ventilator, and this HPI is taken from the patient's and chart review. Apparently, the patient ambulated to the bathroom and back, and subsequently became extremely short of breath. When EMS arrived to the scene the patient's oxygen saturation was 58%. He was unresponsive, had agonal breathing, and had to be intubated. Reportedly never lost a pulse. Patient is currently intubated to the mechanical ventilator. He is sedated on propofol infusing at 30 mcg/kg/m. He is asynchronous breathing above the ventilator set rate. Initial ABGs on arrival to the emergency room show a pO2 of 350, pCO2 of 49, and pH of 7.27. This is done on settings of assist control, respiratory rate 16, tidal volume 500, FiO2 100%, and a PEEP of 5. FiO2 was dropped to 50%, and respiratory rate was increased to 20. The peak pressure is 30 and plateau pressure is 20. Most recent chest x-ray shows the endotracheal tube 5.8 cm from the nehemiah which was advanced 2 cm. There are diffuse interstitial markings with subsegmental opacities in the peripheral right mid lung zones and the right lung base. Possibly indicating asymmetric pulmonary edema versus pneumonia. Patient does have significant cardiac history, there is lower extremity edema, NT proBNP was 1080 on arrival. Patient was given a dose of Lasix 60 mg in the emergency room. I would also start the patient on a combination of empiric azithromycin and Rocephin. Blood and sputum cultures are pending. Patient is afebrile. Blood pressure is hypotensive at this time, and the patient has been started on norepinephrine which is currently infusing at 0.03 mcg/kg/m. CBC on arrival shows a WBC count of 8.6, hemoglobin 9.9, hematocrit 30.6, platelets 364. BMP shows sodium 133, potassium 4.3, chloride 101, serum bicarbonate 21, BUN 15, creatinine 0.87, glucose 266. Lactic acid level is elevated at 4.1. Troponin is mildly elevated at 0.05. ECG on arrival shows sinus tachycardia some minimal ST depression in leads V4 through V6 and T- wave inversion in aVL. After further interview, the patient's states that on Saturday, the patient may have had a stroke. She states that while out to eat, he had facial paralysis, food fell out of his mouth, and there was slurred speech. The symptoms did reportedly resolve. They did not come to the emergency department. Patient should have a brain CT. Patient is currently sedated on the mechanical ventilator. He does not follow commands, but moves all 4 extremities spontaneously. Pupils are asymmetric but reactive. Patient's is at the bedside. She states that her and his biological children would like him to be a full code at this time. Patient's overall prognosis is guarded concerning his significant comorbidities. Patient will be transferred to the intensive care unit once bed available. Review of Systems ROS unobtainable: due to endotracheal tube Past Medical History Past Medical History: Coronary Artery Disease (CAD), COPD, GERD/Reflux, Hyperlipidemia, Hypertension, Pneumonia, Skin Disorder Additional Past Medical History / Comment(s): chronic hypoxic respiratory failure on oxygen 2/L NC ATC, RLS, LT CAROTID stenosis, previously on mechanical ventilator after lung biopsy History of Any Multi-Drug Resistant Organisms: None Reported Past Surgical History: Appendectomy, Heart Catheterization Additional Past Surgical History / Comment(s): COLONSCOPY. BRONCHOSCOPY WITH BIOPSY Past Anesthesia/Blood Transfusion Reactions: No Reported Reaction Additional Past Anesthesia/Blood Transfusion Reaction / Comment(s): HAD TROUBLE BREATHING AFTER BROCHOSCOPY AND ENDED UP IN ICU FOR A FEW DAYS Date of Last Stent Placement:: 01/01/23 Past Psychological History: No Psychological Hx Reported Smoking Status: Former smoker Past Alcohol Use History: None Reported Additional Past Alcohol Use History / Comment(s): started smoking at age 13, DOWN TO 6 CIGARETTES DAILY quit smoking December 2022 Past Drug Use History: None Reported - Past Family History Mother Family Medical History: No Reported History Father Additional Family Medical History / Comment(s): "black lung from working in a coal mine" Medications and Allergies Home Medications Medication Instructions Recorded Confirmed Type Aspirin 81 mg PO DAILY 12/24/19 02/20/23 History Metoprolol Tartrate [Lopressor] 100 mg PO BID 12/24/19 02/20/23 History Ferrous Sulfate [Iron (65 MG 325 mg PO DAILY 12/09/20 02/20/23 History Elemental)] Pantoprazole Sodium [Protonix] 40 mg PO AC-BRKFST #30 tablet. 12/17/20 02/20/23 Rx Atorvastatin [Lipitor] 40 mg PO DAILY 12/27/22 02/20/23 History Budesonide/Glycopyr/Formoterol 2 puff INHALATION RT-BID 12/27/22 02/20/23 History [Breztri Aerosphere Inhaler] Cholecalciferol (Vitamin D3) 125 mcg PO DAILY 12/27/22 02/20/23 History [Vitamin D3 (125 MCG = 5,000 IU)] predniSONE 10 mg PO Q2D 12/27/22 02/20/23 History Ezetimibe [Zetia] 10 mg PO DAILY 01/24/23 02/20/23 History ALPRAZolam [Xanax] 0.25 mg PO TID PRN tab 02/08/23 02/20/23 Rx Budesonide [Pulmicort] 1 mg INHALATION RT-BID ml 02/08/23 02/20/23 Rx Clobetasol Propionate [Temovate 1 applic TOPICAL BID each 02/08/23 02/20/23 Rx 0.05% Cream] Clopidogrel [Plavix] 75 mg PO DAILY tab 02/08/23 02/20/23 Rx Fluticasone Nasal [place] [Flonase 2 spray EA NOSTRIL DAILY PRN ml 02/08/23 02/20/23 Rx Nasal [place]] Formoterol Fumarate [Perforomist] 20 mcg INHALATION RT-BID ml 02/08/23 02/20/23 Rx Furosemide [Lasix] 40 mg PO DAILY #30 tablet 02/08/23 02/20/23 Rx Ipratropium-Albuterol Nebulize 3 ml INHALATION RT-QID PRN each 02/08/23 02/20/23 Rx [Duoneb 0.5 mg-3 mg/3 ml Soln] Isosorbide Mononitrate ER [Imdur] 60 mg PO DAILY tab 02/08/23 02/20/23 Rx SILVER sulfADIAZINE CREAM 1 applic TOPICAL BID PRN each 02/08/23 02/20/23 Rx [Silvadene Cream] Vitamin B-12 100mcg 50 mcg PO DAILY 02/20/23 02/20/23 History Allergies Allergy/AdvReac Type Severity Reaction Status Date / Time No Known Allergies Allergy Verified 02/20/23 08:01 Physical Exam Vitals: Vital Signs Temp Pulse Resp BP BP Pulse Ox FiO2 02/20/23 03:00 105 H 20 86/54 99 02/20/23 02:45 106 H 15 85/54 98 02/20/23 02:30 110 H 20 94/52 98 02/20/23 02:15 115 H 21 133/70 98 02/20/23 02:00 99.2 F 121 H 33 H 98 50 02/20/23 01:45 96/64 02/20/23 01:30 121 H 32 H 118/71 96 02/20/23 01:15 121 H 35 H 115/68 93 L 02/20/23 01:12 99.2 F 16 133/70 98 02/20/23 01:00 121 H 31 H 119/77 94 L 02/20/23 00:56 99.3 F 121 H 28 H 119/77 93 L 02/20/23 00:47 99.0 F 02/20/23 00:45 124 H 30 H 121/76 93 L 02/20/23 00:36 97.9 F 02/20/23 00:30 97.0 F L 125 H 27 H 138/85 98 02/20/23 00:28 50 02/20/23 00:15 116 H 26 H 120/84 98 02/20/23 00:10 123 H 28 H 125/72 98 02/20/23 00:00 122 H 31 H 143/84 98 02/19/23 23:51 120 H 29 H 140/81 100 02/19/23 23:43 100 02/19/23 23:40 97.2 F L 131 H 22 153/96 99 02/19/23 23:35 100 Intake and Output 02/19/23 02/19/23 02/20/23 14:59 22:59 06:59 Intake Total 50.126 Output Total 420 Balance -369.874 Intake: Intake, IV Titration 50.126 Amount Norepinephrine 4 mg In 3.299 Sodium Chloride 0.9% 250 ml @ 0.03 MCG/KG/MIN 8. 607 mls/hr IV .Q24H SYLWIA Rx#:[id number] propofoL 1,000 mg In 46.827 Empty Bag 1 bag @ 15 MCG/ KG/MIN 7.74 mls/hr IV . [id number] SYLWIA Rx#:[id number] Output: Urine 420 Other: Voiding Method Indwelling Catheter Weight 75.3 kg GENERAL EXAM: Sedated and on the mechanical ventilator, breathing above set rate, does not follow commands, moves all 4 extremities spontaneously. HEAD: Normocephalic and atraumatic EYES: Left pupil slightly larger than right but reactive to light NOSE: Clear with pink turbinates. THROAT: No erythema or exudates. NECK: No masses, no JVD. No carotid bruit, carotid arteries palpable bilaterally CHEST: No chest wall deformity. LUNGS: Equal air entry with rhonchi heard throughout. no crackles, wheeze, or focal dullness. Intubated mechanical ventilator. CVS: S1 and S2 normal with no audible murmur, regular rhythm. No extra heart sounds ABDOMEN: No hepatosplenomegaly, active bowel sounds, no guarding or rigidity. SPINE: No scoliosis or deformity SKIN: Healing maculopapular rash over the right posterior dermatome. No vesicles, pustules, ulcerations. CENTRAL NERVOUS SYSTEM: Patient is sedated and not following commands. He does move all 4 extremities spontaneously. EXTREMITIES: There is 3+ bilateral lower extremity edema. No clubbing, or cyanosis. Peripheral pulses are intact. Results - Laboratory Findings CBC and BMP: 02/20/23 03:40 02/20/23 03:40 ABG ABG pH 7.27 (7.35-7.45) L 02/20/23 00:07 ABG pCO2 49 mmHg (35-45) H 02/20/23 00:07 ABG pO2 350 mmHg (83-108) H 02/20/23 00:07 ABG O2 Saturation 99.9 % (94-97) H 02/20/23 00:07 PT/INR, D-dimer PT 10.4 sec (9.0-12.0) 02/19/23 23:52 INR 1.0 (<1.2) 02/19/23 23:52 Abnormal lab findings: Abnormal Labs 02/19/23 02/19/23 02/19/23 23:47 23:52 23:52 RBC 3.17 L Hgb 9.9 L D Hct 30.6 L RDW 15.8 H APTT 21.9 L ABG pH ABG pCO2 ABG pO2 ABG O2 Saturation Sodium Carbon Dioxide Glucose POC Glucose (mg/dL) 276 H Plasma Lactic Acid Abdi Calcium Troponin I Total Protein Albumin 02/19/23 02/19/23 02/19/23 23:52 23:52 23:52 RBC Hgb Hct RDW APTT ABG pH ABG pCO2 ABG pO2 ABG O2 Saturation Sodium 133 L Carbon Dioxide 21 L Glucose 266 H POC Glucose (mg/dL) Plasma Lactic Acid Abdi 4.1 H* Calcium 7.9 L Troponin I 0.050 H* Total Protein 5.9 L Albumin 3.0 L 02/20/23 02/20/23 00:07 01:47 RBC Hgb Hct RDW APTT ABG pH 7.27 L ABG pCO2 49 H ABG pO2 350 H ABG O2 Saturation 99.9 H Sodium Carbon Dioxide Glucose POC Glucose (mg/dL) 150 H Plasma Lactic Acid Abdi Calcium Troponin I Total Protein Albumin - Diagnostic Findings Chest x-ray: image reviewed Assessment and Plan Assessment: Acute hypoxemic and hypercapnic respiratory failure requiring intubation to the mechanical ventilator. Possibly multifactorial related to a combination of diastolic congestive heart failure and COPD exacerbation. Underlying pneumonia is not ruled out. Patient's chest x-ray on arrival shows diffuse interstitial markings with subsegmental opacities in the peripheral right mid lung zones and the right lung base. Possibly indicating asymmetric pulmonary edema versus pneumonia. Patient does have significant cardiac history, there is lower extremity edema, NT proBNP was 1080 on arrival. Most recent echocardiogram done on 01/31/2023 showed a preserved ejection fraction of 50-55% without any significant valvular abnormalities. Patient was given a dose of Lasix 60 mg in the emergency room. I would also empirically start the patient on a combination of empiric azithromycin and Rocephin. Severe COPD with an FEV1 31% of predicted. Patient is chronically oxygen and steroid dependent. Chronic hypoxemic respiratory failure Hypotension, improved, not requiring vasopressors at this time Lactic acidosis Anemia, no acute blood loss reported Elevated troponins, rule out non-STEMI Multivessel coronary artery disease, not a surgical candidate for coronary artery bypass Essential hypertension Hyperlipidemia History of CVA/TIA after recent left carotid artery stenting, according to 's interview, the patient may had a subsequent CVA/TIA on Saturday, symptoms reportedly did resolve. Patient did not come to the emergency department for evaluation at that time. Carotid artery stenosis, with recent history of left carotid artery stenting Herpes zoster, isolated to the right posterior dermatome, healing Restless leg syndrome Ex-smoker Plan: Patient's medications, labs, chest x-ray reviewed Continue on the mechanical ventilator Patient's respiratory rate was increased to 20 and FiO2 dropped to 50% Continue Propofol for sedation Start patient on a combination of bronchodilators, budesonide, formoterol Repeat chest x-ray and ABG in the morning I will insert a arterial line Norepinephrine was temporarily started, and has been paused. Start patient on empiric antibiotics Blood and sputum cultures are pending Check procalcitonin level Trend lactic acid levels Agree with Lasix for diuresis Cardiology has been consulted Obtain brain CT and consult neurology. Dietary consult for tube feeding Patient's prognosis is very guarded related to his multiple comorbidities. Patient's family would like him to remain a full code at this time. I have personally seen and examined the patient, performed the documentation and the assessment and plan as written. Number of minutes spent on the visit:20 Joint evaluation that was done along with a nurse practitioner. The patient is very well-known to me. The patient presented with respiratory failure and the patient was having some outpatient neurological deficits including some facial asymmetry as of 48 hours ago. He was also having some occasional difficulties in swallowing. His condition progressively got worse and the patient became hypoxic and he went into respiratory failure intubated and placed on a mechanical ventilator. In the hospital, a CAT scan of the brain was done that showed no evidence of an acute stroke. The CTA of the brain showed occlusion of the left internal carotid artery with reconstitution at the supraclinoid inte rnal carotid artery likely from retrograde flow from anterior communicating artery. The age of this problem is not known. No significant stenosis and a right common carotid artery. The patient also was found to have a suspicious short segment occlusion and nonocclusive thrombus within the right proximal OM1 branch. He also is known to have a meningioma in the left frontal lobe with some mild mass effect measuring 2.2 cm in size. At this point in time, the patient is intubated on a mechanical ventilator. Is sedated on propofol. He is hemodynamically stable on low-dose pressors and norepinephrine is running at 0.03 microvascular kilogram per minutes. Awaiting consult patient with neurology and interventional neurology regarding the occlusion of the left internal carotid artery. We'll continue Lasix 40 mg IV every 12 hours. The patient is on bronchodilators. The patient is on prashant roids. The patient is on empiric antibiotic coverage. I'm going to continue the aspirin and Plavix for now. Condition is critical. Possible transfer for neurological intervention if needed and this will depend on further advice given by neurology. Case was discussed with the family. The patient is a full CODE STATUS at this point in time. This evaluation was on a more than 30 minutes. Time with Patient: Greater than 30
--- NOTE | 2023-02-20 05:43 | CT ---
EXAM: CT Head Without Intravenous Contrast CLINICAL HISTORY: ITS.REASON CT Reason: stroke like symptoms TECHNIQUE: Axial computed tomography images of the head/brain without intravenous contrast. CTDI is 24 mGy and DLP is 568 mGy-cm. This CT exam was performed using one or more of the following dose reduction techniques: automated exposure control, adjustment of the mA and/or kV according to patient size, and/or use of iterative reconstruction technique. COMPARISON: CT Head dated january 31 2023 FINDINGS: Brain: Hyperdense extra-axial mass measuring 1.9 x 1.6 x 2.8 cm. This was also noted on prior study January 31, 2023. Findings are favored to relate to meningioma. Areas of decreased attenuation in the deep cerebral white matter are consistent with small vessel ischemic/degenerative changes. The cerebral and cerebellar sulci are prominent consistent with brain atrophy. No hemorrhage. Ventricles: Unremarkable. No ventriculomegaly. Bones/joints: Unremarkable. No acute fracture. Soft tissues: Unremarkable. Vasculature: Atherosclerotic disease. Sinuses: Unremarkable as visualized. Mastoid air cells: Unremarkable as visualized. No mastoid effusion. IMPRESSION: 1. Hyperdense extra-axial mass measuring 1.9 x 1.6 x 2.8 cm. This was also noted on prior study January 31, 2023. Findings are favored to relate to meningioma. 2. Otherwise, no acute intracranial abnormality. Consider MRI if there is further concern. 3. Small vessel ischemic/degenerative changes. 4. Cerebral and cerebellar atrophy.
--- NOTE | 2023-02-20 05:50 | CT ---
EXAM: CT Angiography Head and Neck With Intravenous Contrast CLINICAL HISTORY: ITS.REASON CT Reason: STROKE LIKE SYMPTOMS TECHNIQUE: [place]/head and neck CT angiography protocol performed with intravenous contrast. CTDI is 24 mGy and DLP is 568 mGy-cm. This CT exam was performed using one or more of the following dose reduction techniques: automated exposure control, adjustment of the mA and/or kV according to patient size, and/or use of iterative reconstruction technique. MIP reconstructed images were created and reviewed. COMPARISON: None. FINDINGS: Artifacts: Motion artifact limits evaluation. Consider repeat imaging. Limitations: Limited examination given thick slice 2 mm sections. HEAD: Right anterior cerebral artery: Unremarkable. No significant stenosis at the visualized segments. Anterior communicating artery is present. No aneurysm. Right middle cerebral artery: Findings suspicious for short segment occlusive and nonocclusive thrombus within the right proximal M1 branch. Consider interventional consultation. No aneurysm. Right posterior cerebral artery: Unremarkable. No occlusion or significant stenosis. No aneurysm. Right intracranial internal carotid artery: Unremarkable. No significant stenosis. No dissection or occlusion. Right intracranial vertebral artery: Unremarkable. No significant stenosis. No dissection or occlusion. Left anterior cerebral artery: See below. Left middle cerebral artery: Unremarkable. No significant stenosis at the visualized segments. No aneurysm. Left posterior cerebral artery: Unremarkable. No occlusion or significant stenosis. No aneurysm. Left intracranial internal carotid artery: Occlusion of the left internal carotid artery with reconstitution at the supraclinoid internal carotid artery, likely from retrograde flow from the anterior communicating artery. This is age indeterminate nature. Left intracranial vertebral artery: Unremarkable. No significant stenosis. No dissection or occlusion. Basilar artery: Unremarkable. No significant stenosis. No aneurysm. Other vasculature: Atherosclerotic disease. Brain and extra-axial spaces: Suspected meningioma noted overlying the left frontal lobe with mild mass-effect measuring 2.2 cm. NECK: Right common carotid artery: Unremarkable. No significant stenosis. No dissection or occlusion. Right extracranial internal carotid artery: Unremarkable. No significant stenosis. No dissection or occlusion. Right external carotid artery: Unremarkable. No occlusion. Right extracranial vertebral artery: Unremarkable. No significant stenosis. No dissection or occlusion. Left common carotid artery: Unremarkable. No significant stenosis. No dissection or occlusion. Left extracranial internal carotid artery: Unremarkable. No significant stenosis. No dissection or occlusion. Left external carotid artery: Unremarkable. No occlusion. Left extracranial vertebral artery: Unremarkable. No significant stenosis. No dissection or occlusion. Trachea: Saber-sheath trachea. Lung apices: Partially visualized severe centrilobular and paraseptal emphysema with architectural distortion and dependent consolidation. HEAD and NECK: Bones/joints: Unremarkable. No discrete lytic or blastic abnormalities. Soft tissues: Calcified subcutaneous mass overlying the right parietal bone. This is favored to be nonaggressive in nature. Tubes, lines and devices: The endotracheal tube (ETT) is in satisfactory position with tip 2.2 cm above the nehemiah. Gastric drainage tube courses outside [id number]. CAROTID STENOSIS REFERENCE USING NASCET CRITERIA: % ICA stenosis = (1 - narrowest ICA diameter/diameter of distal cervical ICA) x 100. Mild - <50% stenosis. Moderate - 50-69% stenosis. Severe - 70-94% stenosis. Near occlusion - 95-99% stenosis. Occluded - 100% stenosis. IMPRESSION: 1. Motion artifact limits evaluation. Consider repeat imaging. 2. Limited examination given thick slice 2 mm sections. 3. Findings suspicious for short segment occlusive and nonocclusive thrombus within the right proximal M1 branch. Consider interventional consultation. 4. Occlusion of the left internal carotid artery with reconstitution at the supraclinoid internal carotid artery, likely from retrograde flow from the anterior communicating artery. This is age indeterminate nature. 5. Suspected meningioma noted overlying the left frontal lobe with mild mass-effect measuring 2.2 cm. <MYCVCSECTION> Communications: 02/20/23 06:00 Call Doctor Regarding Above results, called STONE Kelley on 02/20 05:59 (-04:00)
[2023-02-20 05:54] LABS: Glucose,Whole Blood 113 mg/dL (70-110)
[2023-02-20 05:58] LABS: ABG Base Excess -1.3 mmol/L; ABG HCO3 23 mmol/L (21-25); ABG PCO2 37 mmHg (35-45); ABG PH 7.41 (7.35-7.45); ABG PO2 83 mmHg (83-108); ABG TCO2 25 mmol/L (19-24); Allen Test Performed? Yes
[2023-02-20 05:59] LABS: Anisocytosis Slight; Basophils % (A) 0 %; Eosinophils % (A) 0 %; HCT 27.4 % (39.0-53.0); HGB 9.4 gm/dL (13.0-17.5); Lymphocytes # (A) 0.4 k/uL (1.0-4.8); Lymphocytes % (A) 4 %; MCH 31.9 pg (25.0-35.0); MCHC 34.5 g/dL (31.0-37.0); MCV 92.4 fL (80.0-100.0); Mean Platelet Volume 7.5; Monocytes # (A) 0.3 k/uL (0-1.0); Monocytes % (A) 4 %; Neutrophils # (A) 8.2 k/uL (1.3-7.7); Neutrophils % (A) 91 %; Platelet Count 261 k/uL (150-450); Poikilocytosis Slight; RBC 2.96 m/uL (4.30-5.90)
[2023-02-20 06:05] LABS: ALT 32 U/L (4-49); AST 31 U/L (17-59); African American GFR (CKD) >90 (>60 ml/min/1.73 sqM); Albumin 2.9 g/dL (3.5-5.0); Alkaline Phosphatase 67 U/L (38-126); Anion Gap 9 mmol/L; Blood Urea Nitrogen 17 mg/dL (9-20); Calcium 7.8 mg/dL (8.4-10.2); Carbon Dioxide 23 mmol/L (22-30); Chloride 101 mmol/L (98-107); Glucose 101 mg/dL (74-99); Non-African American GFR(CKD) 85 (>60 ml/min/1.73 sqM); Potassium 3.9 mmol/L (3.5-5.1); Sodium 133 mmol/L (137-145); Total Bilirubin 0.5 mg/dL (0.2-1.3); Total Protein 5.7 g/dL (6.3-8.2)
--- NOTE | 2023-02-20 06:21 | P.PCN ---
Date of Procedure: 02/20/23 Preoperative Diagnosis: Hypotension and acute respiratory failure requiring intubation to the mechanical ventilator Postoperative Diagnosis: Hypotension and acute respiratory failure requiring intubation to the mechanical ventilator Procedure(s) Performed: Insertion of a right radial arterial line Indications for Procedure: Continuous blood pressure monitoring and frequent blood draws Description of Procedure: Informed consent was obtained, and a procedural timeout was performed . The patient was placed in supine position. The right radial region was prepared in a sterile fashion, and a sterile drape was applied. The right radial artery was palpated, easily cannulated, and a guidewire was placed. A Cook catheter was inserted over the guidewire, and the guidewire was removed. There was good arterial blood flow, good arterial waveform, and no complications. The line was secured with using a 3-0 silk suture. I was present and scrubbed during the procedure.
[2023-02-20] MEDS: methylPREDNISolone SOD SUCCI 125 MG/2 ML VIAL IV SCH ×2 (06:53→11:45)
[2023-02-20] MEDS ORDERED: FORMOTEROL FUMARATE 20 MCG/2 ML NEBU INHALATION SCH (08:00)
[2023-02-20] MEDS ORDERED: HEPARIN SODIUM,PORCINE/PF 5,000 UNIT/0.5 ML SYRINGE SQ SCH (08:00)
[2023-02-20] MEDS ORDERED: BUDESONIDE 1 MG/2 ML NEBU INHALATION SCH (08:00)
--- NOTE | 2023-02-20 08:18 | XR ---
EXAMINATION TYPE: XR chest 1V portable DATE OF EXAM: 02/20/2023 COMPARISON: 02/20/2023 HISTORY: Tube placement TECHNIQUE: Single frontal view of the chest is obtained. FINDINGS: There is no focal air space opacity, pleural effusion, or pneumothorax seen. The cardiac silhouette size is within normal limits. The osseous structures are intact. Diffuse interstitial pa ttern compatible pulmonary fibrosis. Biapical pleural thickening. These osteopenia throughout the rojelio ulders. Atherosclerotic change aorta. ET and NG tube in good position. IMPRESSION: Pulmonary fibrosis. Acute superimposed interstitial pneumonitis not excluded.
[2023-02-20] MEDS ORDERED: EZETIMIBE 10 MG TAB PO SCH (09:00)
[2023-02-20] MEDS ORDERED: ATORVASTATIN 40 MG TAB PO SCH (09:00)
[2023-02-20] MEDS ORDERED: FUROSEMIDE 10 MG/ML 4 ML VIAL IV SCH (09:00)
[2023-02-20] MEDS ORDERED: CHLORHEXIDINE GLUCONATE 15 ML CUP MUCOUS MEM SCH (09:00)
[2023-02-20] MEDS ORDERED: ASPIRIN 81 MG PO SCH (09:00)
[2023-02-20] MEDS ORDERED: CLOPIDOGREL 75 MG TAB PO SCH (09:00)
[2023-02-20] MEDS ORDERED: PANTOPRAZOLE 40 MG/10 ML VIAL IV SCH (09:00)
--- NOTE | 2023-02-20 09:07 | P.PCN ---
Date of Procedure: 02/20/23 Preoperative Diagnosis: Acute hypoxic respiratory failure Postoperative Diagnosis: Same Procedure(s) Performed: Central line Anesthesia: local Surgeon: Eldon Giles Ultrasound Applications Specialist #1: Ignacio Leslie Pathology: none sent Condition: critical (Is collecting) Disposition: ICU Operative Findings: Indication: Hemodynamic monitoring/Intravenous access. A time-out was completed verifying correct patient, procedure, site, positioning, and implant(s) or special equipment if applicable. The patient was placed in a dependent position appropriate for central line placement based on the vein to be cannulated. The patients left shoulder was prepped and draped in sterile fashion. 1% Lidocaine was used to anesthetize the surrounding skin area. A triple lumen 9F Cordis catheter was introduced into the left subclavian vein vein using Seldinger technique. The catheter was threaded smoothly over the guide wire and appropriate blood return was obtained. Each lumen of the catheter was evacuated of air and flushed with sterile saline. The catheter was then sutured in place to the skin and a sterile dressing applied. Perfusion to the extremity distal to the point of catheter insertion was checked and found to be adequate. The patient tolerated the procedure well and there were no complications.
[2023-02-20] MEDS ORDERED: TICAGRELOR 90 MG TAB PO STA (09:18)
--- NOTE | 2023-02-20 10:00 | XR ---
EXAMINATION TYPE: XR chest 1V DATE OF EXAM: 02/20/2023 COMPARISON: 02/20/2023 HISTORY: Tube placement TECHNIQUE: Single frontal view of the chest is obtained. FINDINGS: There is no focal air space opacity, pleural effusion, or pneumothorax seen. The cardiac silhouette size is within normal limits. The osseous structures are intact. Subsegmental patchy rig ht perihilar and left lower lobe consolidation. Coarsened interstitium noted. Diffuse osteopenia with arthropathy of shoulders. Biapical pleural thickening. Left-sided catheter is seen. IMPRESSION: 1. Correlate for pulmonary fibrosis. Stable from recent exam. Mild superimposed interstitial pneumoni tis in the right upper lobe or left lower lobe as previously noted stable. 2. Left-sided central line is seen. It appears coiled back upon itself with the tip overlying the sub clavian vasculature. No pneumothorax.
[2023-02-20 10:02] VITALS: TEMP 98.6
--- NOTE | 2023-02-20 11:19 | P.CNNES ---
History of Present Illness Consult date: 02/20/23 Requesting physician: Ignacio Leslie Reason for Consult: cva/tia History of Present Illness: This is a 77-year-old gentleman with history of TIA on the second week of January 2023 in which the patient had right hemiparesis that resolved and did not require IV TPA, left IACis status post stenting on 01/30/2023, hypertension, coronary artery disease, COPD hyperlipidemia who presented emergency department because of respiratory distress. Some of the history is obtained from rosen family members and medical record. According to the patient she stated that patient had right lower facial droop this past Saturday around noon but declined that he seek any medical attention. She stated that things were drooling out of his mouth over the right side when he was eating. Then yesterday patient's was having respiratory distress and which she has pulse ox went down to the 70s and was feeling generalized weak so EMS was called and the per the he was still awake responding but per the and the according to the EMS is pulse ox 1 down to the 50s. Per medical record seems the patient's oxygen saturation was in the 50s and he was unresponsive and he had agonal breathing and had to be intubated is seems the patient never lost a pulse. Patient is on aspirin 81 mg and Plavix 75 mg daily. She denies the patient has any A. fib or flutter. Since the patient had CT angiography of the head and neck there is suspected right M1 thrombus/occlusion. Note, patient was seen by our team members on the second week of January 2023 in which the patient had the right hemiparesis on 01/30/2023 which completely resolved and he did not require any TPA. CT angiography of the head and neck revealed large vessel occlusion involving the distal right ICA and questionable chronic. At that time the family did not want to pursue with MRI according to my colleague's note. It was recommended the patient to follow-up with Dr. Rand and recommended MRI the brain as an outpatient. Please refer to our neurologyfor further details. Some of the work-up during this hospital visit consisted of: Initial glucose was 276. Initial pathologic acid is 4.1, troponin is a 0.050 and most recent troponin is 1.320. CT of the head is reported as hyperdense extra-axial mass measuring 1.91.62.8 cm. This was also noted on prior study 01/31/2023. Finding are favored to relate to meningioma. Otherwise no acute intracranial abnormality. Consider MRI. Small vessel ischemic/degenerative changes. Cerebral and cerebellar atrophy. CT angiography of the head and neck around 5ish am today and was reported as motion artifact limiting evaluation. Findings suspicious for short segment occlusive and nonocclusive thrombus within the proximal M1 branch consider interventional consultation. Occlusion of the left internal carotid artery with reconstitution at the supraclinoid internal carotid artery likely from retrograde flow from the anterior communicating artery. Suspect major by noting overlying the left frontal lobe with mild mass effect measuring 2.2 cm. Review of Systems Review of system is limited but the pertinent positive and negative as per HPI. Past Medical History Past Medical History: Coronary Artery Disease (CAD), COPD, GERD/Reflux, Hyp erlipidemia, Hypertension, Pneumonia, Skin Disorder Additional Past Medical History / Comment(s): chronic hypoxic respiratory failure on oxygen 2/L NC ATC, RLS, LT CAROTID stenosis, previously on mechanical ventilator after lung biopsy History of Any Multi-Drug Resistant Organisms: None Reported Past Surgical History: Appendectomy, Heart Catheterization Additional Past Surgical History / Comment(s): COLONSCOPY. BRONCHOSCOPY WITH BIOPSY Past Anesthesia/Blood Transfusion Reactions: No Reported Reaction Additional Past Anesthesia/Blood Transfusion Reaction / Comment(s): HAD TROUBLE BREATHING AFTER BROCHOSCOPY AND ENDED UP IN ICU FOR A FEW DAYS Date of Last Stent Placement:: 01/01/23 Past Psychological History: No Psychological Hx Reported Smoking Status: Former smoker Past Alcohol Use History: None Reported Additional Past Alcohol Use History / Comment(s): started smoking at age 13, DOWN TO 6 CIGARETTES DAILY quit smoking December 2022 Past Drug Use History: None Reported - Past Family History Mother Family Medical History: No Reported History Father Additional Family Medical History / Comment(s): "black lung from working in a coal mine" Medications and Allergies Home Medications Medication Instructions Recorded Confirmed Type Aspirin 81 mg PO DAILY 12/24/19 02/20/23 History Metoprolol Tartrate [Lopressor] 100 mg PO BID 12/24/19 02/20/23 History Ferrous Sulfate [Iron (65 MG 325 mg PO DAILY 12/09/20 02/20/23 History Elemental)] Pantoprazole Sodium [Protonix] 40 mg PO ERONKFST #30 tablet. 12/17/20 02/20/23 Rx Atorvastatin [Lipitor] 40 mg PO DAILY 12/27/22 02/20/23 History Budesonide/Glycopyr/Formoterol 2 puff INHALATION RT-BID 12/27/22 02/20/23 History [Breztri Aerosphere Inhaler] Cholecalciferol (Vitamin D3) 125 mcg PO DAILY 12/27/22 02/20/23 History [Vitamin D3 (125 MCG = 5,000 IU)] predniSONE 10 mg PO Q2D 12/27/22 02/20/23 History Ezetimibe [Zetia] 10 mg PO DAILY 01/24/23 02/20/23 History ALPRAZolam [Xanax] 0.25 mg PO TID PRN tab 02/08/23 02/20/23 Rx Budesonide [Pulmicort] 1 mg INHALATION RT-BID ml 02/08/23 02/20/23 Rx Clobetasol Propionate [Temovate 1 applic TOPICAL BID each 02/08/23 02/20/23 Rx 0.05% Cream] Clopidogrel [Plavix] 75 mg PO DAILY tab 02/08/23 02/20/23 Rx Fluticasone Nasal [place] [Flonase 2 spray EA NOSTRIL DAILY PRN ml 02/08/23 02/20/23 Rx Nasal [place]] Formoterol Fumarate [Perforomist] 20 mcg INHALATION RT-BID ml 02/08/23 02/20/23 Rx Furosemide [Lasix] 40 mg PO DAILY #30 tablet 02/08/23 02/20/23 Rx Ipratropium-Albuterol Nebulize 3 ml INHALATION RT-QID PRN each 02/08/23 02/20/23 Rx [Duoneb 0.5 mg-3 mg/3 ml Soln] Isosorbide Mononitrate ER [Imdur] 60 mg PO DAILY tab 02/08/23 02/20/23 Rx SILVER sulfADIAZINE CREAM 1 applic TOPICAL BID PRN each 02/08/23 02/20/23 Rx [Silvadene Cream] Vitamin B-12 100mcg 50 mcg PO DAILY 02/20/23 02/20/23 History Allergies Allergy/AdvReac Type Severity Reaction Status Date / Time No Known Allergies Allergy Verified 02/20/23 08:01 Physical Examination - Vital Signs Vital Signs: Vital Signs Temp Pulse Resp BP BP Pulse Ox FiO2 08/02/23 10:00 93 23 136/79 97 02/20/23 09:45 97 22 96 02/20/23 09:30 106 H 30 H 96 02/20/23 09:15 108 H 29 H 95 02/20/23 09:00 107 H 32 H 96/53 98 02/20/23 08:45 100 28 H 97 02/20/23 08:30 100 21 97 02/20/23 08:22 102 H 02/20/23 08:15 101 H 23 97 02/20/23 08:14 100 02/20/23 08:00 98.6 F 102 H 24 97 50 02/20/23 07:45 105 H 28 H 97 02/20/23 07:40 40 02/20/23 07:30 107 H 28 H 99 02/20/23 07:20 40 02/20/23 07:15 107 H 27 H 97 02/20/23 07:00 97 25 H 98 40 02/20/23 06:45 97 23 98 02/20/23 06:40 40 02/20/23 06:30 100 25 H 98 02/20/23 06:20 40 02/20/23 06:15 104 H 25 H 98 02/20/23 06:00 105 H 25 H 111/57 96 40 02/20/23 05:45 112 H 28 H 02/20/23 05:40 40 02/20/23 05:30 110 H 26 H 111/57 02/20/23 05:15 111/57 02/20/23 05:00 106 H 25 H 112/60 99 40 02/20/23 04:45 105 H 27 H 112/60 98 02/20/23 04:40 40 02/20/23 04:37 105 H 02/20/23 04:30 103 H 29 H 99 02/20/23 04:27 50 02/20/23 04:25 104 H 02/20/23 04:15 104 H 27 H 99 02/20/23 04:00 99.0 F 103 H 28 H 108/60 98 50 02/20/23 03:45 104 H 18 118/65 97 02/20/23 03:30 104 H 24 101/63 97 02/20/23 03:15 101 H 27 H 90/61 98 02/20/23 03:00 105 H 20 86/54 99 02/20/23 02:45 106 H 15 85/54 98 02/20/23 02:30 110 H 20 94/52 98 02/20/23 02:15 115 H 21 133/70 98 02/20/23 02:00 99.2 F 121 H 33 H 98 50 02/20/23 01:45 96/64 02/20/23 01:30 121 H 32 H 118/71 96 02/20/23 01:15 121 H 35 H 115/68 93 L 02/20/23 01:12 99.2 F 16 133/70 98 02/20/23 01:00 121 H 31 H 119/77 94 L 02/20/23 00:56 99.3 F 121 H 28 H 119/77 93 L 02/20/23 00:47 99.0 F 02/20/23 00:45 124 H 30 H 121/76 93 L 02/20/23 00:36 97.9 F 02/20/23 00:30 97.0 F L 125 H 27 H 138/85 98 02/20/23 00:28 50 02/20/23 00:15 116 H 26 H 120/84 98 02/20/23 00:10 123 H 28 H 125/72 98 02/20/23 00:00 122 H 31 H 143/84 98 02/19/23 23:51 120 H 29 H 140/81 100 02/19/23 23:43 100 02/19/23 23:40 97.2 F L 131 H 22 153/96 99 02/19/23 23:35 100 Intake and Output 02/19/23 02/20/23 02/20/23 22:59 06:59 14:59 Intake Total 441.200 179.720 Output Total 670 890 Balance -228.800 -710.280 Intake: IV 310 30 0.9 @ KVO 10 30 Azithromycin 500 mg In 250 Sodium Chloride 0.9% 250 ml @ 250 mls/hr IVPB DAILY@0400 [facility] Rx#: [id number] cefTRIAXone 2 gm In 50 Sodium Chloride 0.9% 50 ml @ 100 mls/hr IVPB Q24H [facility] Rx#:[id number] Intake, IV Titration 131.200 134.720 Amount Norepinephrine 4 mg In 9.037 29.216 Sodium Chloride 0.9% 250 ml @ 0.03 MCG/KG/MIN 8. 607 mls/hr IV .Q24H [facility] Rx#:[id number] propofoL 1,000 mg In 122.163 105.504 Empty Bag 1 bag @ 15 MCG/ KG/MIN 7.74 mls/hr IV . [id number] [facility] Rx#:[id number] Oral 15 Output: Urine 670 890 Other: Voiding Method Indwelling Catheter Weight 75.3 kg ABP, PAP, CO, CI - Last 8 Hours Arterial Blood Pressure 110/54 Arterial Blood Pressure 100/50 Arterial Blood Pressure 129/60 Arterial Blood Pressure 126/62 Arterial Blood Pressure 147/65 Arterial Blood Pressure 119/55 Arterial Blood Pressure 97/45 Arterial Blood Pressure 98/45 Arterial Blood Pressure 104/48 Arterial Blood Pressure 140/55 Arterial Blood Pressure 158/63 Arterial Blood Pressure 161/64 Arterial Blood Pressure 132/56 Arterial Blood Pressure 108/50 Arterial Blood Pressure 110/51 Arterial Blood Pressure 104/46 Arterial Blood Pressure 110/48 Arterial Blood Pressure 146/61 Arterial Blood Pressure 139/72 Arterial Blood Pressure 126/66 Arterial Blood Pressure 128/68 Arterial Blood Pressure 135/70 Arterial Blood Pressure 137/71 Arterial Blood Pressure 134/72 GENERAL: The patient is lying in bed and does not appear in acute distress. LUNG: Intubated on ventilator. NEUROLOGICAL: Limited because of his overall condition and is on sedation (IV Propofol 55mcg/kg/min). Comatose. GCS 3 (E1, VT1, M1). Pupils are about 2 mm bilaterally and reactive to light. It hard to appreciate the facial weakness since the patient has a facemask. Patient is breathing over the vent. Has a intact cough/gag reflex . Strength: Motor no withdrawal to painful so my throughout. No spontaneous movement. Decreased tone throughout. Sensation: Unable to assess light touch at the pupils to my is not withdrawn. Reflex is 1 positive throughout. Plantars: Mute on right but upgoing on the left. Results - Laboratory Findings CBC and BMP: 02/20/23 03:40 02/20/23 03:40 Abnormal Lab Findings: Abnormal Labs 02/19/23 02/19/23 02/19/23 23:47 23:52 23:52 RBC 3.17 L Hgb 9.9 L D Hct 30.6 L RDW 15.8 H Neutrophils # Lymphocytes # APTT 21.9 L ABG pH ABG pCO2 ABG pO2 ABG Total CO2 ABG O2 Saturation Sodium Carbon Dioxide Glucose POC Glucose (mg/dL) 276 H Plasma Lactic Acid Abdi Calcium Troponin I Total Protein Albumin Procalcitonin 02/19/23 02/19/23 02/19/23 23:52 23:52 23:52 RBC Hgb Hct RDW Neutrophils # Lymphocytes # APTT ABG pH ABG pCO2 ABG pO2 ABG Total CO2 ABG O2 Saturation Sodium 133 L Carbon Dioxide 21 L Glucose 266 H POC Glucose (mg/dL) Plasma Lactic Acid Abdi 4.1 H* Calcium 7.9 L Troponin I 0.050 H* Total Protein 5.9 L Albumin 3.0 L Procalcitonin 02/20/23 02/20/23 02/20/23 00:07 01:47 03:22 RBC Hgb Hct RDW Neutrophils # Lymphocytes # APTT ABG pH 7.27 L ABG pCO2 49 H ABG pO2 350 H ABG Total CO2 ABG O2 Saturation 99.9 H Sodium Carbon Dioxide Glucose POC Glucose (mg/dL) 150 H Plasma Lactic Acid Abdi Calcium Troponin I 1.260 H* Total Protein Albumin Procalcitonin 02/20/23 02/20/23 02/20/23 03:40 03:40 03:40 RBC 2.96 L Hgb 9.4 L Hct 27.4 L RDW 16.0 H Neutrophils # 8.2 H Lymphocytes # 0.4 L APTT ABG pH ABG pCO2 ABG pO2 ABG Total CO2 ABG O2 Saturation Sodium Carbon Dioxide Glucose POC Glucose (mg/dL) Plasma Lactic Acid Abdi Calcium Troponin I 1.320 H* Total Protein Albumin Procalcitonin 1.28 H 02/20/23 02/20/23 02/20/23 03:40 05:54 05:56 RBC Hgb Hct RDW Neutrophils # Lymphocytes # APTT ABG pH ABG pCO2 ABG pO2 ABG Total CO2 25 H ABG O2 Saturation Sodium 133 L Carbon Dioxide Glucose 101 H POC Glucose (mg/dL) 113 H Plasma Lactic Acid Abdi Calcium 7.8 L Troponin I Total Protein 5.7 L Albumin 2.9 L Procalcitonin Assessment and Plan Assessment: This is a 77-year-old gentleman with history of TIA on the second week of January 2023 in which she had right hemiparesis which resolved, history of left ICA stenosis status post stent on 01/30/2023 multiple other comorbidities who had right facial droop on 02/18/2023 around noon but declined the medical attention and yesterday at nighttime he had the respiratory distress that got worse. His respiratory condition got worse as a result the patient was intubated. CTA of the head shows right MCA thrombus with left ICA occlusion. Acute ischemic stroke with the right lower facial droop about 2 days ago. No IV TPA because of side the window of 4.5 hour and risk outweigh the benefits Right MCA occlusion History of left ICA stenosis status post stenting on 01/30/2023 by the on the CTA shows left ICA is occluded She of TIA on the second week of January 2023 in which he had right hemiparesis which resolved without IV TPA. Acute hypoxemic and hypercapnic respiratory failure status post the intubation Elevated troponin Hypotension requiring vasopressor Severe COPD History of herpes zoster isolated to the right posterior dermatome which is healing Hypertension Hyperlipidemia Plan: I discussed with family members and they wanted to purusue with transfer for intervention/escalation of care. I spoke with intervention neurologist (Dr. Banuelos) and he discussed the case with the family members. Family members are aware that his condition is critical but wanted to give me a chance. Patient is continued on his home dose of aspirin 81. Plavix is stopped and that intervention neurology recommended Brilinta 180mg bolus then 90mg bid. Continue neuro checks Cardiac monitoring 2-D echo, lipid panel is ordered pending Keep the systolic blood pressure more than 140 per interventional neurologist. PT/OT are consulted. We'll defer the rest of medical management to the primary team For DVT prophylaxis: on Subq heparin 5000U every 8 hours. The plan is discussed with family members (, two sons), ICU team and primary team. Thank you for the consultation. Time with Patient: Greater than 30
--- NOTE | 2023-02-20 11:20 | CA ---
Transthoracic Echo Report Name: Darius Carnes Age: 77 Gender: M : 1945 Exam Date: 02/20/2023 10:23 Exam Location: [facility] Ht (in): 70 Wt (lb): 166 Ordering Physician: Kizzy Key MD Attending/Referring Phys: Film Sound Engineer Jennifer Duque RDCS Procedure CPT: Indications: Trop elevatuib Cardiac Hx: pt on vent Technical Quality: Poor Contrast 1: Total Dose (mL): Contrast 2: Total Dose (mL): MEASUREMENTS (Male / Female) Normal Values 2D ECHO LV Diastolic Volume MOD BP 67.3 cm??? 67 - 155 / 56 - 104 cm??? LV Systolic Volume MOD BP 34.0 cm??? 22 - 58 / 19 - 49 cm??? LV Ejection Fraction MOD BP 49.4 % >= 55 % LV Cardiac Index MOD BP 1650.6 cm???/min???m??? LV Diastolic Volume MOD 4C 70.0 cm??? LV Systolic Volume MOD 4C 37.6 cm??? LV Ejection Fraction MOD 4C 46.3 % LV Cardiac Index MOD 4C 1610.3 cm???/min???m??? LV Diastolic Length 4C 6.3 cm LV Systolic Length 4C 5.9 cm LV Diastolic Volume MOD 2C 65.6 cm??? LV Systolic Volume MOD 2C 29.3 cm??? LV Ejection Fraction MOD 2C 55.4 % LV Cardiac Index MOD 2C 1806.0 cm???/min???m??? LV Diastolic Length 2C 6.4 cm LV Systolic Length 2C 5.5 cm FINDINGS Left Ventricle Limited study. Left ventricular ejection fraction is estimated at 50-55% Right Ventricle Reduced right ventricular global systolic function. Unable to estimate the right ventricular systolic pressure. Right Atrium Left Atrium Mitral Valve Mitral annular calcification. Aortic Valve Aortic valve sclerosis. Tricuspid Valve Structurally normal tricuspid valve. Pulmonic Valve No pulmonic regurgitation.pulmonic valve not well visualized. Pericardium No pericardial effusion. Aorta CONCLUSIONS Limited echo. Left ventricle systolic function borderline normal Previewed by: Dr. Dhiraj Sanchez MD (Electronically Signed) Final Date: 20 February 2023 11:19
[2023-02-20 11:21] VITALS: BMI 23.8
[2023-02-20 12:00] VITALS: BP 153/76; PULSE 102; RESP 31
--- NOTE | 2023-02-20 12:56 | P.DS ---
Providers Date of admission: 02/20/23 00:53 Expected date of discharge: 02/20/23 Attending physician: Kourtney Crane MD Consults: 02/20/23 00:53 Consult Physician Stat Consulting Provider: Eldon Giles Consult Reason/Comments: Ventilator dependent respiratory failure, CHF exacerbati, COPD exacerbation Do you want consulting provider notified?: Already Contacted 02/20/23 01:12 Consult Physician Urgent Consulting Provider: [facility] Consult Reason/Comments: aechf Do you want consulting provider notified?: Yes 02/20/23 05:10 Consult Physician Urgent Consulting Provider: Mohit Marc Consult Reason/Comments: Suspected recurrent CVA/TIA Do you want consulting provider notified?: Yes Primary care physician: [facility] Course: The patient is a 77-year-old male with an extensive evaluation including COPD with chronic hypoxic respiratory failure on 2 L of the cannula oxygen, CAD status post stents, diastolic CHF, hypertension, hyperlipidemia, carotid stenosis status post stenting, who was brought into the emergency room for hypoxic respiratory failure with shortness of breath. The history was obtained from the ED provider, documentation, the patient's family at the bedside as the patient was intubated at the time of interview. Upon arrival, they noted that the patient was severely hypoxic with SpO2 58%. In route to the hospital, the patient began agonal breathing and was subsequently intubated. He was subsequently seen in the emergency room while on a ventilator. Of note, the patient was recently hospitalized at [facility] for an elective left ICA stenting on 01/30. He subsequently developed hypoxic respiratory failure requiring intubation with concerns for a stroke during the hospitalization. The patient was subsequently recommended for inpatient rehab to where he was discharged on 02/08. The patient returned home on 02/15 as per the . In the emergency room, chest x-ray revealed findings consistent with pulmonary edema. EKG had revealed sinus tachycardia at 135 bpm with an incomplete right bundle branch block with left axis deviation. Laboratory evaluation was remarkable for hemoglobin of 9.9 (previously 11.4), lactic acid 4.1, troponin 0.050, proBNP 1080, with sodium 133. 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 CTA head and neck showed short segment occlusive and nonocclusive thrombus within the right proximal M1 branch. Neurology was consulted and recommended transfer for neuro intervention. Patient was subsequently transferred via EMS to [facility] on 02/20. Pertinent studies include chest x-ray, brain CT, CTA head and neck, echocardiogram. 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 Patient Condition at Discharge: Serious Plan - Discharge Summary Discharge Rx Participant: Yes New Discharge Prescriptions: No Action Aspirin 81 mg PO DAILY Metoprolol Tartrate [Lopressor] 100 mg PO BID Ferrous Sulfate [Iron (65 MG Elemental)] 325 mg PO DAILY predniSONE 10 mg PO Q2D Budesonide/Glycopyr/Formoterol [Breztri Aerosphere Inhaler] 2 puff INHALATION RT-BID Ezetimibe [Zetia] 10 mg PO DAILY Ipratropium-Albuterol Nebulize [Duoneb 0.5 mg-3 mg/3 ml Soln] 3 ml INHALATION RT-QID PRN each PRN Reason: Shortness Of Breath Or Wheezing Fluticasone Nasal [place] [Flonase Nasal [place]] 2 spray EA NOSTRIL DAILY PRN ml PRN Reason: Allergy Symptoms Isosorbide Mononitrate ER [Imdur] 60 mg PO DAILY tab Clopidogrel [Plavix] 75 mg PO DAILY tab Clobetasol Propionate [Temovate 0.05% Cream] 1 applic TOPICAL BID each ALPRAZolam [Xanax] 0.25 mg PO TID PRN tab PRN Reason: Anxiety Vitamin B-12 100mcg 50 mcg PO DAILY Pantoprazole Sodium [Protonix] 40 mg PO [facility] #[facility] tablet. Cholecalciferol (Vitamin D3) [Vitamin D3 (125 MCG = 5,000 IU)] 125 mcg PO DAILY Atorvastatin [Lipitor] 40 mg PO DAILY Furosemide [Lasix] 40 mg PO DAILY #30 tablet Formoterol Fumarate [Perforomist] 20 mcg INHALATION RT-BID ml Budesonide [Pulmicort] 1 mg INHALATION RT-BID ml SILVER sulfADIAZINE CREAM [Silvadene Cream] 1 applic TOPICAL BID PRN each PRN Reason: Skin Irritation Discharge Medication List Aspirin 81 mg PO DAILY 12/24/19 [History] Metoprolol Tartrate [Lopressor] 100 mg PO BID 12/24/19 [History] Ferrous Sulfate [Iron (65 MG Elemental)] 325 mg PO DAILY 12/09/20 [History] Pantoprazole Sodium [Protonix] 40 mg PO [facility] #30 tablet. 12/17/20 [Rx] Atorvastatin [Lipitor] 40 mg PO DAILY 12/27/22 [History] Budesonide/Glycopyr/Formoterol [Breztri Aerosphere Inhaler] 2 puff INHALATION RT-BID 12/27/22 [History] Cholecalciferol (Vitamin D3) [Vitamin D3 (125 MCG = 5,000 IU)] 125 mcg PO DAILY 12/27/22 [History] predniSONE 10 mg PO Q2D 12/27/22 [History] Ezetimibe [Zetia] 10 mg PO DAILY 01/24/23 [History] ALPRAZolam [Xanax] 0.25 mg PO TID PRN tab 02/08/23 [Rx] Budesonide [Pulmicort] 1 mg INHALATION RT-BID ml 02/08/23 [Rx] Clobetasol Propionate [Temovate 0.05% Cream] 1 applic TOPICAL BID each 02/08/23 [Rx] Clopidogrel [Plavix] 75 mg PO DAILY tab 02/08/23 [Rx] Fluticasone Nasal [place] [Flonase Nasal [place]] 2 spray EA NOSTRIL DAILY PRN ml 02/08/23 [Rx] Formoterol Fumarate [Perforomist] 20 mcg INHALATION RT-BID ml 02/08/23 [Rx] Furosemide [Lasix] 40 mg PO DAILY #30 tablet 02/08/23 [Rx] Ipratropium-Albuterol Nebulize [Duoneb 0.5 mg-3 mg/3 ml Soln] 3 ml INHALATION RT-QID PRN each 02/08/23 [Rx] Isosorbide Mononitrate ER [Imdur] 60 mg PO DAILY tab 02/08/23 [Rx] SILVER sulfADIAZINE CREAM [Silvadene Cream] 1 applic TOPICAL BID PRN each 02/08/23 [Rx] Vitamin B-12 100mcg 50 mcg PO DAILY 02/20/23 [History] Follow up Appointment(s)/Referral(s): None,Stated [REFERRING] - 1-2 days Discharge Disposition: TRANSFER TO SHORT TERM HOSP
[2023-02-20] MEDS ORDERED: TICAGRELOR 90 MG TAB PO SCH (21:00)
[2023-02-21 10:58] LABS: Chol/HDL Ratio 2.79 Ratio; LDL Cholesterol,Calculated 44.7 mg/dL (0.0-131.0); VLDL Calculation 19.48 mg/dL (5.00-40.00)
== END 2023-02-20 11:50 | disposition short-term general hospital (02) | DRG 208 ==
LOC: EC 23:34 → SUPCPDRO 23:34 → 2SICU 02-20 00:53
PROVIDERS: ADMIT Internal Medicine; ATTEND Internal Medicine
PROC: 0BH17EZ Insertion of Endotracheal Airway into Trachea, Via Natural or Artificial Opening (ICD-10-PCS; principal; 2023-02-20)
PROC: 5A1935Z Respiratory Ventilation, Less than 24 Consecutive Hours (ICD-10-PCS; principal; 2023-02-20)
PROC: 03HY32Z Insertion of Monitoring Device into Upper Artery, Percutaneous Approach (ICD-10-PCS; 2023-02-20)
PROC: 4A133J1 Monitoring of Arterial Pulse, Peripheral, Percutaneous Approach (ICD-10-PCS; 2023-02-20)
PROC: 4A133B1 Monitoring of Arterial Pressure, Peripheral, Percutaneous Approach (ICD-10-PCS; 2023-02-20)
PROC: 02HV33Z Insertion of Infusion Device into Superior Vena Cava, Percutaneous Approach (ICD-10-PCS; 2023-02-20)
PROC: 3E043XZ Introduction of Vasopressor into Central Vein, Percutaneous Approach (ICD-10-PCS; 2023-02-20)
PROC: 0DH67UZ Insertion of Feeding Device into Stomach, Via Natural or Artificial Opening (ICD-10-PCS; 2023-02-20)
PROC: 3E0G76Z Introduction of Nutritional Substance into Upper GI, Via Natural or Artificial Opening (ICD-10-PCS; 2023-02-20)
DX: J96.21 Acute and chronic respiratory failure with hypoxia (principal); I63.511 Cerebral infarction due to unspecified occlusion or stenosis of right middle cerebral artery; I50.33 Acute on chronic diastolic (congestive) heart failure; J44.1 Chronic obstructive pulmonary disease with (acute) exacerbation; I24.8 Other forms of acute ischemic heart disease; J96.22 Acute and chronic respiratory failure with hypercapnia; R13.10 Dysphagia, unspecified; R29.810 Facial weakness; Z87.891 Personal history of nicotine dependence; B02.9 Zoster without complications; I95.9 Hypotension, unspecified; D64.9 Anemia, unspecified; E78.5 Hyperlipidemia, unspecified; Z95.828 Presence of other vascular implants and grafts; G25.81 Restless legs syndrome; R47.81 Slurred speech; I11.0 Hypertensive heart disease with heart failure; I25.10 Atherosclerotic heart disease of native coronary artery without angina pectoris; Z99.81 Dependence on supplemental oxygen; I45.10 Unspecified right bundle-branch block; Z79.02 Long term (current) use of antithrombotics/antiplatelets; Z79.52 Long term (current) use of systemic steroids; Z79.82 Long term (current) use of aspirin; Z86.73 Personal history of transient ischemic attack (TIA), and cerebral infarction without residual deficits; Z79.899 Other long term (current) drug therapy; Z87.01 Personal history of pneumonia (recurrent); Z95.5 Presence of coronary angioplasty implant and graft; Z20.822 Contact with and (suspected) exposure to COVID-19; Z28.21 Immunization not carried out because of patient refusal; Z71.3 Dietary counseling and surveillance; Z79.51 Long term (current) use of inhaled steroids
CPT/HCPCS: 36415; 36600; 70450; 70496; 70498; 71045; 80053; 80061; 82805; 83036; 83605; 83735; 83880; 84145; 84484; 85025; 85610; 85730; 87040; 87070; 87205; 87635; 93005; 93308; 94002; 94640